=== PATIENT | male | born 1955 | race Caucasian/White ===

== ENCOUNTER 2016-11-06 04:32 | Emergency (ER) | payer OTHER ==
[2016-11-06 04:50] VITALS: TEMP 98; BMI 33.4
[2016-11-06] MEDS ORDERED: ONDANSETRON 4 MG/2 ML VIAL IVPUSH ONE (05:00)
[2016-11-06] MEDS ORDERED: SODIUM CHLORIDE 1,000 ML IV STA (05:00)
[2016-11-06] MEDS ORDERED: ACYCLOVIR 400 MG TABLET PO ONE (05:00)
[2016-11-06] MEDS ORDERED: morphine CARPU-JECT 4 MG/1 ML DISP.SYRIN IVPUSH ONE (05:00)
--- NOTE | 2016-11-06 05:02 | PDOC ---
History of Present Illness - General Chief Complaint: Pain, Acute Stated Complaint: LEG PAIN Time Seen by Provider: 11/06/16 04:46 History Source: Patient Exam Limitations: No Limitations - History of Present Illness Initial Comments: 11/06/16 05:48 61yo Male patient w/ PmHx: Low T, B12 def, HTN, IDDM presents to ED via EMS c/o right buttocks pain, right leg pain. Patient states he was given B12 injection 1 month ago to right gluteal. He states 7 days ago developing increasing right gluteal, right leg pain. Patient state he was seen by PCP Sanju and given Rx for L-S spine X-ray, but could not take the pain anymore. Patient also reports lower abdominal pain w/ n/v/d which also began yesterday. He denies any other complaints at this time. Timing/Duration: 1 week Severity: moderate Modifying Factors: worse with: cold therapy, eating, immobilization, medication , movement, rest, other Associated Symptoms: reports: nausea/vomiting. denies: denies symptoms, chest pain, cough, diaphoresis, fever/chills, headaches, loss of appetite, malaise, rash, seizure, shortness of breath, syncope, weakness, other Past History - Travel Traveled outside of the country in the last 30 days: No Close contact w/someone who was outside of country & ill: No - Past Medical History Allergies/Adverse Reactions: Allergies Allergy/AdvReac Type Severity Reaction Status Date / Time No Known Allergies Allergy Verified 11/06/16 04:46 Home Medications: Ambulatory Orders Lantus Insulin 25 units SCJ ACBK 05/22/11 Pv Daily Multiple Tablet 1 tab PO DAILY 05/22/11 Saline Nasal [place] 1 spray AD BID 05/22/11 Simvastatin [Zocor] 20 mg PO HS 05/22/11 Vasotec 10 MG 5 mg PO DAILY 05/22/11 Anemia: No Asthma: No Cancer: No Cardiac Disorders: No CVA: No COPD: No CHF: No Dementia: No Diabetes: Yes GI Disorders: No Disorders: No HTN: Yes Hypercholesterolemia: Yes Liver Disease: No Seizures: No Thyroid Disease: No - Surgical History Abdominal Surgery: No Appendectomy: No Cardiac Surgery: No Cholecystectomy: No Lung Surgery: No Neurologic Surgery: No Orthopedic Surgery: No - Psycho/Social/Smoking Cessation Hx Suicidal Ideation: No Smoking History: Never smoked Have you smoked in the past 12 months: No Information on smoking cessation initiated: No Hx Alcohol Use: No Drug/Substance Use Hx: No Review of Systems - Review of Systems Able to Perform ROS?: Yes Is the patient limited [place] proficient: No Constitutional: No: Chills, Fever Respiratory: No: Cough, Shortness of Breath, Stridor, Wheezing Cardiac (ROS): No: Chest Pain, Lightheadedness, Palpitations, Syncope, Chest Tightness ABD/GI: Yes: Nausea, Vomiting, Abdominal cramping (Lower Abdomen.). No: Constipated, Diarrhea, Poor Appetite, Poor Fluid Intake Integumentary: Yes: Rash (Right Gluteal and Right groin) All Other Systems: Reviewed and Negative *Physical Exam - Vital Signs Last Vital Signs Temp Pulse Resp BP Pulse Ox 98.0 F 77 14 169/78 98 11/06/16 04:46 11/06/16 04:46 11/06/16 04:46 11/06/16 04:46 11/06/16 04:46 - Physical Exam General Appearance: Yes: Nourished, Appropriately Dressed, Moderate Distress. No: Apparent Distress, Mild Distress, Severe Distress Neck: positive: Trachea midline, Supple. negative: Stridor, Lymphadenopathy (R) , Lymphadenopathy (L) Respiratory/Chest: positive: Lungs Clear, Normal Breath Sounds. negative: Chest Tender, Respiratory Distress, Accessory Muscle Use, Labored Respiration, Rapid RR Cardiovascular: positive: Regular Rhythm, Regular Rate Gastrointestinal/Abdominal: positive: Normal Bowel Sounds, Tender, Soft, Distended, Tenderness (Lower Abdomen). negative: Guarding, Rebound Musculoskeletal: positive: Normal Inspection. negative: CVA Tenderness, Vertebral Tenderness Extremity: positive: Normal Capillary Refill, Normal Inspection, Normal Range of Motion. negative: Pedal Edema, Swelling, Calf Tenderness, Erythema, Inflammation Integumentary: positive: Normal Color, Dry, Warm, Erythema, Rash (Vesicular rash to right buttocks, right groin and right thigh. Severe erythema.). 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
[2016-11-06] MEDS ORDERED: morphine CARPU-JECT 4 MG/1 ML DISP.SYRIN ONE (05:17)
[2016-11-06] MEDS ORDERED: ONDANSETRON 4 MG/2 ML VIAL ONE (05:17)
[2016-11-06] MEDS ORDERED: ACYCLOVIR 200 MG CAPSULE ONE (05:17)
[2016-11-06 05:50] LABS: BASOPHIL 0.5 % (0-2.0); EOSINOPHIL 1.2 % (0-4.5); MCH 29.6 pg (25.7-33.7); MCHC 32.8 g/dl (32.0-35.9); MEAN CELL VOLUME 90.3 fl (80-96); MEAN PLT VOLUME 9.8 fl (7.5-11.1); NEUTROPHILS 71.5 % (42.8-82.8); PLATELET COUNT 132 K/MM3 (134-434); RDW 13.8 % (11.9-15.9); WHITE BLOOD COUNT 5.9 K/mm3 (4.0-10.0)
[2016-11-06 06:12] LABS: ALBUMIN 3.7 g/dl (3.4-5.0); ALK PHOS 63 U/L (45-117); ANION GAP 4 (8-16); BILIRUBIN,TOTAL 0.6 mg/dL (0.2-1.0); CALCIUM 8.1 mg/dL (8.5-10.1); CO2 29 mmol/L (21-32); CREATININE 2.3 mg/dL (0.7-1.3); GLUCOSE,RANDOM 230 mg/dL (74-106); SGOT/AST 18 U/L (15-37); SGPT/ALT 23 U/L (12-78); TOT PROT 7.3 g/dl (6.4-8.2)
[2016-11-06 07:16] LABS: ACETONE SERUM NEGATIVE (NEGATIVE)
--- NOTE | 2016-11-06 07:23 | PDOC ---
*Physical Exam - Vital Signs Last Vital Signs Temp Pulse Resp BP Pulse Ox 98.0 F 77 14 169/78 98 11/06/16 04:46 11/06/16 04:46 11/06/16 04:46 11/06/16 04:46 11/06/16 04:46 ED Treatment Course - LABORATORY CBC & Chemistry Diagram: 11/06/16 05:42 11/06/16 05:42 - ADDITIONAL ORDERS Additional order review: Laboratory Results 11/06/16 05:42 Sodium 142 Potassium 4.6 Chloride 109 H Carbon Dioxide 29 Anion Gap 4 L BUN 25 H Creatinine 2.3 H D Creat Clearance w eGFR 28.86 Random Glucose 230 H D Calcium 8.1 L Total Bilirubin 0.6 D AST 18 ALT 23 Alkaline Phosphatase 63 Creatine Kinase 256 D Creatine Kinase Index 2.9 CK-MB (CK-2) 7.321 H Total Protein 7.3 Albumin 3.7 Acetone, Qual Negative 11/06/16 05:42 RBC 4.49 MCV 90.3 MCHC 32.8 RDW 13.8 MPV 9.8 D Neutrophils % 71.5 Lymphocytes % 12.8 D Monocytes % 14.0 H Eosinophils % 1.2 Basophils % 0.5 - Medications Given in the ED: ED Medications Discontinued Medications Generic Name Dose Route Start Last Admin Trade Name Freq PRN Reason Stop Dose Admin Acyclovir 800 mg 11/06/16 05:00 11/06/16 05:15 Zovirax - PO 11/06/16 05:01 800 mg ONCE ONE Administration Sodium Chloride 1,000 mls @ 1,000 mls/hr 11/06/16 05:00 11/06/16 05:15 Normal Saline - IV 11/06/16 05:59 1,000 mls/hr ASDIR STA Administration Morphine Sulfate 4 mg 11/06/16 05:00 11/06/16 05:15 Morphine Injection - IVPUSH 11/06/16 05:01 4 mg ONCE ONE Administration Ondansetron HCl 4 mg 11/06/16 05:00 11/06/16 05:15 Zofran Injection IVPUSH 11/06/16 05:01 4 mg ONCE ONE Administration Medical Decision Making - Medical Decision Making 11/06/16 07:20 Patient received in sign out from TAMERA Escoto. Patient awaiting CT secondary to GI complaints. Patient found to have shingles and will be treated with acyclovir and discharged home if CT is negative. Patient states feeling much better presently. 11/06/16 09:38 CT shows bilateral perinephric stranding appears more prominent than the prior exam from 04/10/2016. Pyelonephritis is not excluded. No stones or hydronephrosis noted. The urinary bladder is distended lobulated possibly indicating early neurogenic changes. Prostate gland is normal. There is no free fluid identified. There is no significant pelvic lymphadenopathy. Although patient has no urinary complaints I will send a urinalysis / urine culture. If - , patient will be sent home with acyclovir and Percocet. 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 Otherwise follow-up with your doctor next week
[2016-11-06] MEDS ORDERED: OXYCODONE/APAP 5/325MG COMBO TABLET PO ONE (09:35)
[2016-11-06] MEDS ORDERED: OXYCODONE/APAP 5/325MG COMBO TABLET ONE (10:27)
[2016-11-06 10:33] LABS: URINE APPEARANCE CLEAR; URINE BILIRUBIN NEGATIVE (NEGATIVE); URINE COLOR LTYELLOW; URINE GLUCOSE (UA) 3+ (NEGATIVE); URINE KETONE NEGATIVE (NEGATIVE); URINE LEUK ESTERASE NEGATIVE (NEGATIVE); URINE NITRITE NEGATIVE (NEGATIVE); URINE UROBILINOGEN NEGATIVE E.U./dl (0.2-1.0)
[2016-11-06 10:38] LABS: URINE BLOOD 1+ (NEGATIVE); URINE PROTEIN 3+ (NEGATIVE)
[2016-11-06 10:43] LABS: URINE RBC 4 /hpf (0-3); URINE WBC <1 /hpf (3-5)
[2016-11-06 11:43] VITALS: BP 162/68; PULSE 61
== END 2016-11-06 11:44 | disposition home or self-care (01) ==
LOC: JER 04:32
PROC: 3E033NZ Introduction of Analgesics, Hypnotics, Sedatives into Peripheral Vein, Percutaneous Approach (ICD-10-PCS; principal; 2016-11-06)
PROC: 3E033GC Introduction of Other Therapeutic Substance into Peripheral Vein, Percutaneous Approach (ICD-10-PCS; 2016-11-06)
PROC: 3E0337Z Introduction of Electrolytic and Water Balance Substance into Peripheral Vein, Percutaneous Approach (ICD-10-PCS; 2016-11-06)
DX: B02.23 Postherpetic polyneuropathy (principal); E11.9 Type 2 diabetes mellitus without complications; I10 Essential (primary) hypertension; E53.8 Deficiency of other specified B group vitamins; Z79.4 Long term (current) use of insulin; E78.00 Pure hypercholesterolemia, unspecified
CPT/HCPCS: 36415; 74176-TC; 80053; 81003; 81015; 82009; 82550; 82553; 85025; 87086; 96361; 96374; 96375; 99282-25

== ENCOUNTER 2019-06-01 10:42 | Inpatient (IN) | payer OTHER ==
[2019-06-01 12:00] LABS: BASO % 0.2 % (0-2.0); EOS % 0.4 % (0-4.5); HEMOGLOBIN 9.1 GM/dL (11.7-16.9); LYMPH % 5.3 % (8-40); MCH 29.4 pg (25.7-33.7); MCHC 32.5 g/dl (32.0-35.9); MEAN CELL VOLUME 90.6 fl (80-96); MEAN PLT VOLUME 9.7 fl (7.5-11.1); MONO % 11.8 % (3.8-10.2); NEUT % 82.3 % (42.8-82.8); PLATELET COUNT 141 K/MM3 (134-434); RBC 3.09 M/mm3 (4.00-5.60); RDW 13.4 % (11.9-15.9); WHITE BLOOD COUNT 13.5 K/mm3 (4.0-10.0)
--- NOTE | 2019-06-01 12:11 | PDOC ---
History of Present Illness - General Chief Complaint: Pain Stated Complaint: RIGHT FOOT PAIN Time Seen by Provider: 06/01/19 11:07 History Source: Patient Exam Limitations: No Limitations - History of Present Illness Initial Comments: Harpreet Ruggiero is a 64 yo M w a hx of IDDM, HTN, CHF, LLE partial foot amputation, venous insufficiency, and diabetic neuropathy who presents to the [facility] er with 3 weeks of worsening right foot pain, erythema, swelling, and weakness. The patient saw his economic specialist on May 25 but he states his pain and symptoms have slowly worsened. Now he has generalized body aches, fevers, chills , diffuse weakness, and feels all wrong. He has had problems with his left foot in the past which required digit amputation. PCP: Diomedes Bills PSH: Left foot partial amputation Social Hx: Denies current smoking, drinking, or other substance abuse Allergies: NKA, NKDA Past History - Past Medical History Allergies/Adverse Reactions: Allergies Allergy/AdvReac Type Severity Reaction Status Date / Time No Known Allergies Allergy Verified 06/01/19 11:06 Home Medications: Ambulatory Orders Unobtainable 06/01/19 Anemia: No Asthma: No Cancer: No Cardiac Disorders: No CVA: No COPD: No CHF: No Dementia: No Diabetes: Yes GI Disorders: No Disorders: No HTN: Yes Hypercholesterolemia: Yes Liver Disease: No Seizures: No Thyroid Disease: No - Surgical History Abdominal Surgery: No Appendectomy: No Cardiac Surgery: No Cholecystectomy: No Lung Surgery: No Neurologic Surgery: No Orthopedic Surgery: No - Psycho Social/Smoking Cessation Hx Smoking History: Unknown if ever smoked Have you smoked in the past 12 months: No Information on smoking cessation initiated: No Hx Alcohol Use: No Drug/Substance Use Hx: No Review of Systems - Review of Systems Able to Perform ROS?: Yes Comments:: CONSTITUTIONAL: Present: fevers, chills, fatigue EYES: Absent: visual changes ENT: Absent: ear pain, no sore throat CARDIOVASCULAR: Absent: chest pain, no palpitations RESPIRATORY: Absent: cough, no SOB GI: Absent: abdominal pain, no nausea, no vomiting, no constipation, no diarrhea GENITOURINARY: Absent: dysuria, no frequency, no hematuria MUSKULOSKELETAL: Present: Arthralgia Absent: back pain, no myalgia SKIN: Present: rash NEURO: Absent: headache *Physical Exam - Vital Signs Last Vital Signs Temp Pulse Resp BP Pulse Ox 99.4 F 70 16 170/75 100 06/01/19 11:27 06/01/19 10:54 06/01/19 10:54 06/01/19 10:54 06/01/19 10:54 - Physical Exam GENERAL: Well-appearing, well-nourished. Mild distress. HEENT: Normocephalic, atraumatic. PERRL, EOM intact. CARDIOVASCULAR: Tachycardic rate. Normal S1, S2. Regular rhythm. PULMONARY: No evidence of respiratory distress. Lungs clear to auscultation bilaterally. No wheezing, rales or rhonchi. ABDOMEN: Soft, non-distended, non-tender. EXTREMITIES: Normal ROM in all four extremities. left forefoot amputation. SKIN: The right lower leg is erythematous, edematous, swollen, and TTP. NEUROLOGICAL: No focal neurological deficits. ED Treatment Course - LABORATORY CBC & Chemistry Diagram: 06/01/19 11:15 06/01/19 11:15 - ADDITIONAL ORDERS Additional order review: 06/01/19 11:15 RBC 3.09 L MCV 90.6 MCHC 32.5 RDW 13.4 MPV 9.7 Neutrophils % 82.3 Lymphocytes % 5.3 L D Monocytes % 11.8 H Eosinophils % 0.4 Basophils % 0.2 - RADIOLOGY Radiology Studies Ordered: Category Date Time Status CHEST X-RAY PORTABLE* [RAD] Stat Radiology 06/01/19 11:24 Completed Medical Decision Making - Medical Decision Making Harpreet Ruggiero is a 64 yo M w a hx of IDDM, HTN, CHF, LLE partial foot amputation, venous insufficiency, and diabetic neuropathy who presents to the [facility] er with 3 weeks of worsening right foot pain, erythema, swelling, and weakness. The patient saw his economic specialist on May 25 but he states his pain and symptoms have slowly worsened. Now he has generalized body aches, fevers, chills , diffuse weakness, and feels all wrong. He has had problems with his left foot in the past which required digit amputation. Vital Signs Temp Pulse Resp BP Pulse Ox 99.4 F 70 16 170/75 100 06/01/19 11:27 06/01/19 10:54 06/01/19 10:54 06/01/19 10:54 06/01/19 10:54 DDx IBNLT: Sepsis from cellulitis vs osteomyletis vs other soft tissue infection - 1+ pulses - will obtain Duplex veno and arteriogram Plan: Sepsis workup, Abx - Vanc/Zosyn, admit to med/surg Labs: Renal failure - Consulting Dr. Temple Disposition: Med/surg - Paging Lucie Warren for hospital admission - Could not get in touch with alex/renata/reyna so admitted patient to hospitalist Discharge - Discharge Information Problems reviewed: Yes Clinical Impression/Diagnosis: Sepsis Qualifiers: Sepsis type: sepsis due to unspecified organism Sepsis acute organ dysfunction status: unspecified Qualified Code(s): A41.9 - Sepsis, unspecified organism Cellulitis Qualifiers: Site of cellulitis: extremity Site of cellulitis of extremity: lower extremity Laterality: right Qualified Code(s): L03.115 - Cellulitis of right lower limb Renal failure Qualifiers: Renal failure chronicity: unspecified chronicity Qualified Code(s): N19 - Unspecified kidney failure Condition: Stable - Admission Yes - Follow up/Referral - Patient Discharge Instructions - Post Discharge Activity
[2019-06-01] MEDS ORDERED: PIPERACILLIN/TAZOB 4.5 GM 4.5 GM in DEXTROSE 5%-WATER 100 ML IVPB ONE (12:21)
[2019-06-01] MEDS ORDERED: VANCOMYCIN 1,000 MG in DEXTROSE 5%-WATER - 250 ML IVPB ONE (12:21)
[2019-06-01] MEDS ORDERED: ACETAMINOPHEN 1000 MG/100 ML VIAL (NON FORMULARY) IVPB ONE (12:24)
[2019-06-01] MEDS ORDERED: SODIUM CHLORIDE 0.9% 500 ML INFUS.BAG IV ONE (12:25)
[2019-06-01] MEDS ORDERED: PIPERACILLIN/TAZOB 4.5 GM 4.5 GM/100 ML BAG IVPB ONE (12:26)
[2019-06-01] MEDS ORDERED: VANCOMYCIN 1 GRAM (PRE-DOCKED) 1,000 MG/250 ML BAG IVPB ONE (12:27)
[2019-06-01 12:31] LABS: ALBUMIN 2.5 g/dl (3.4-5.0); BILIRUBIN,TOTAL 0.6 mg/dL (0.2-1); CALCIUM 7.9 mg/dL (8.5-10.1); CREATININE 5.4 mg/dL (0.55-1.3); INR 1.22 (0.83-1.09); POTASSIUM 4.7 mmol/L (3.5-5.1); PROTHROMBIN TIME (PATIENT) 14.4 SEC (9.7-13.0); TOT PROT 6.8 g/dl (6.4-8.2)
[2019-06-01 12:34] LABS: ACTIVATED PTT 33.7 SECONDS (25.2-36.5)
[2019-06-01] MEDS ORDERED: ACETAMINOPHEN INJECTION 100 ML IVPB ONE (12:34)
[2019-06-01 14:17] LABS: EPI CELLS 1.7 /HPF (0-5/HPF); HYALINE CASTS 7 /lpf (0-8); URINE APPEARANCE CLEAR; URINE BACTERIA 0.7 /hpf (NEGATIVE); URINE BILIRUBIN NEGATIVE (NEGATIVE); URINE COLOR YELLOW; URINE GLUCOSE (UA) 1+ (NEGATIVE); URINE KETONE NEGATIVE (NEGATIVE); URINE LEUK ESTERASE NEGATIVE (NEGATIVE); URINE NITRITE NEGATIVE (NEGATIVE); URINE PROTEIN 3+ (NEGATIVE); URINE RBC 5 /hpf (0-4); URINE UROBILINOGEN 0.2 mg/dL (0.2-1.0); URINE WBC 1 /hpf (0-5)
--- NOTE | 2019-06-01 14:37 | PDOC ---
Attending Attestation - Resident Resident Name: Arias Green - ED Attending Attestation I have performed the following: I have examined & evaluated the patient, The case was reviewed & discussed with the resident, I agree w/resident's findings & plan - HPI HPI: 06/01/19 14:34 64-year-old male diabetic with peripheral vascular disease and history of left midfoot amputation presents now with progressive swelling and pain and redness to his right lower extremity over the last 3 weeks, began in the foot and was seen by podiatry and started on clindamycin but with minimal improvement, now presents with progressive swelling and pain from the right foot to his right knee with associated body aches and fevers and chills. - Physicial Exam PE: 06/01/19 14:34 Febrile, no tachycardia, blood pressure within normal limits Alert seated comfortably in stretcher speaking full sentences in no acute distress Heart is regular, lungs are clear Abdomen benign Right lower extremity: There is induration and fluctuance of the sole of the right foot with circumferential cellulitis extending to the right knee, palpable distal pulse, no focal joint effusion and preserved range of motion of the joints - Critical Care Time Total Critical Care Time: 50 Critical Care Statement: The care of this patient involved high complexity decision making to prevent further life threatening deterioration of the patient 's condition and/or to evaluate & treat vital organ system(s) failure or risk of failure. - Medical Decision Making 06/01/19 14:35 Secondary to right lower extremity cellulitis and infected right foot wound. Sepsis protocol initiated Broad-spectrum antibiotics coverage Labs, right foot x-ray Admission, will need wound consult Heart Score/ECG Review #1 ECG reviewed & interpreted by me at: 11:34 General ECG Interpretation: Sinus Rhythm, Normal Rate (65), Normal Intervals ( qtc 434), No acute ischemic changes (anteroseptal Q waves) Compared to previous ECG there are: Previous ECG unavail
--- NOTE | 2019-06-01 15:19 | EKG ---
Test Reason : Blood Pressure : / mmHG Vent. Rate : 065 BPM Atrial Rate : 065 BPM P-R Int : 340 ms QRS Dur : 086 ms QT Int : 418 ms P-R-T Axes : 076 -37 033 degrees QTc Int : 434 ms SINUS RHYTHM WITH 1ST DEGREE A-V BLOCK LEFT AXIS DEVIATION ANTEROSEPTAL INFARCT (CITED ON OR BEFORE 07-MAR-2011) ABNORMAL ECG WHEN COMPARED WITH ECG OF 04-APR-2011 12:33, PA INTERVAL HAS INCREASED Confirmed by PANKAJ ASTUDILLO MD ([id number]) on 06/01/2019 3:18:55 PM Referred By: Confirmed By:PANKAJ ASTUDILLO MD
--- NOTE | 2019-06-01 17:12 | CONSULT ---
Consult Consult Specialty:: Nephrology Reason for Consultation:: [place] - History of Present Illness Chief Complaint: right foot pain and erythema History of Present Illness: Pt is a 64 year old male with pmhx of DM, htn, chf, ckd, left foot part amputation, and venous insufficiency who presents to the ER with right pain and erythema. He was found to have elevated forms examiner. He denies history of ckd however he has had abnormal labs on previous visits. He denies shortness of breath. He denies chest pain. He complains of aches and pains. He does have chills. - History Source History Provided By: Patient, Medical Record - Past Medical History Cardio/Vascular: Yes: CHF, HTN Renal/: Yes: Renal Inusuff Endocrine: Yes: Diabetes Mellitus - Past Surgical History Past Surgical History: Yes: Amputation - Alcohol/Substance Use Hx Alcohol Use: No - Smoking History Smoking history: Unknown if ever smoked Have you smoked in the past 12 months: No Home Medications - Allergies Allergies/Adverse Reactions: Allergies Allergy/AdvReac Type Severity Reaction Status Date / Time No Known Allergies Allergy Verified 06/01/19 11:06 - Home Medications Home Medications: Ambulatory Orders Unobtainable 06/01/19 Family Medical History Family History: Denies Review of Systems - Review of Systems Constitutional: reports: Chills, Malaise Eyes: reports: No Symptoms HENT: reports: No Symptoms Neck: reports: No Symptoms Cardiovascular: reports: No Symptoms Respiratory: reports: No Symptoms Gastrointestinal: reports: No Symptoms Genitourinary: reports: No Symptoms Musculoskeletal: reports: Other (right leg pain) Integumentary: reports: Erythema Neurological: reports: No Symptoms Endocrine: reports: No Symptoms Hematology/Lymphatic: reports: No Symptoms Physical Exam Vital Signs: Vital Signs Temperature 99.4 F 06/01/19 11:27 Pulse Rate 70 06/01/19 10:54 Respiratory Rate 16 06/01/19 10:54 Blood Pressure 170/75 06/01/19 10:54 O2 Sat by Pulse Oximetry (%) 100 06/01/19 10:54 Constitutional: Yes: Calm Eyes: Yes: Conjunctiva Clear HENT: Yes: Atraumatic Cardiovascular: Yes: S1, S2 Respiratory: Yes: CTA Bilaterally Gastrointestinal: Yes: Soft Renal/: Yes: WNL Extremities: Yes: Other (right leg erythema and pain) Integumentary: Yes: Erythema Neurological: Yes: Oriented Labs: CBC, BMP 06/01/19 11:15 06/01/19 11:15 Laboratory Tests 11/23/11 01/09/16 01/15/19 10:30 09:19 09:56 WBC Hgb Sodium Potassium BUN Creatinine 1.4 H 1.8 H D 3.3 H Urine Protein Urine Blood 02/23/19 06/01/19 06/01/19 10:17 11:15 11:15 WBC 13.5 H Hgb 9.1 L Sodium 137 Potassium 4.7 BUN 89.0 H Creatinine 3.8 H 5.4 H Urine Protein Urine Blood 06/01/19 13:57 WBC Hgb Sodium Potassium BUN Creatinine Urine Protein 3+ H Urine Blood 1+ H Problem List - Problems (1) Cellulitis Code(s): L03.90 - CELLULITIS, UNSPECIFIED Qualifiers: Site of cellulitis: extremity Site of cellulitis of extremity: lower extremity Laterality: right Qualified Code(s): L03.115 - Cellulitis of right lower limb (2) Renal failure Code(s): N19 - UNSPECIFIED KIDNEY FAILURE Qualifiers: Renal failure chronicity: unspecified chronicity Qualified Code(s): N19 - Unspecified kidney failure (3) Sepsis Code(s): A41.9 - SEPSIS, UNSPECIFIED ORGANISM Qualifiers: Sepsis type: sepsis due to unspecified organism Sepsis acute organ dysfunction status: unspecified Qualified Code(s): A41.9 - Sepsis, unspecified organism Assessment/Plan Impression 1. [place] 2. ckd 3. dm 4. cellulitis 5. pvd 6. htn Plan - check renal ultrasound - cont abx - check ua, forms examiner and lytes to calc fena - repeat labs in am - vascular eval - avoid nsaids
--- NOTE | 2019-06-01 18:22 | HP ---
CHIEF COMPLAINT: right leg pain, redness PCP: Sanju May HISTORY OF PRESENT ILLNESS: Patient is a 64 year old male with a significant past medical history of peripheral vascular disease, hypertension, hyperlipidemia, diabetes, CHF, left midfoot amputation. He comes to [facility] today after his aide noticed that his right lower extremity with increased swelling, redness and pain. Pain and swelling began three weeks ago but was mild. Patient saw his cane burner on May 25 and was started on clindamycin, but his pain, redness and symptoms slowly worsened despite the antibiotics. The redness was limited to his right foot and now has extended to the right knee. He reports fevers, chills and body aches. In the ED he was febrile, having right leg discomfort pain 7/10, unable to move this extremity and very tender to touch. Patient also noted to have acute renal failure on labs and renal consulted. ER course was notable for: (1) wbc 13.5 (2) hmg/hct 9.1/28 (3) bun/creat 29, 5.3 (4) blood and urine cultures pending (5) foot xray, right: no gross soft tissue or air (6) vascular u/s negative for dvt Recent Travel: denies PAST MEDICAL/SURGICAL HISTORY: peripheral vascular disease, hypertension, hyperlipidemia, diabetes, CHF, left midfoot amputation. Social History: Smoking: denies Alcohol:denies Drugs: denies Allergies No Known Allergies Allergy (Verified 06/01/19 11:06) HOME MEDICATIONS: patient states he takes coreq 25mg bid, lasix daily (dose?), on home insulin twice daily based on bgms. also on atorvastatin daily (dose?). will need home medications verified. Home Medications Medication Instructions Recorded Unobtainable 06/01/19 PHYSICAL EXAMINATION Vital Signs - 24 hr 06/01/19 06/01/19 10:54 11:27 Temperature 100.4 F H 99.4 F Pulse Rate 70 Respiratory 16 Rate Blood Pressure 170/75 O2 Sat by Pulse 100 Oximetry (%) GENERAL: Awake, alert, and fully oriented, in no acute distress. verbalizing pain and discomfort of right leg. HEAD: Normal with no signs of trauma. EYES: Pupils equal, round and reactive to light, extraocular movements intact, sclera anicteric, conjunctiva clear. No lid lag. EARS, NOSE, THROAT: Ears normal, nares patent, oropharynx clear without exudates. Moist mucous membranes. NECK: Normal range of motion, supple without lymphadenopathy, JVD, or masses. LUNGS: Breath sounds equal, clear to auscultation bilaterally. No wheezes HEART: Regular rate and rhythm, ABDOMEN: Soft, nontender, not distended, normoactive bowel sounds, no guarding UPPER EXTREMITIES: No peripheral edema. LOWER EXTREMITIES: left foot, partial amputation, well healed. right foot 2nd and 3rd toe with some discoloration between these toes, on planter aspect of foot, dicoloration near 2nd and 3rd toe, toes with mild edema and pain to touch / tender. redness extends from right foot to below the right knee. extremity feels hot with +3 edema. NEUROLOGICAL: Normal speech PSYCHIATRIC: Cooperative. Good eye contact. Appropriate mood and affect Laboratory Results - last 24 hr 06/01/19 06/01/19 06/01/19 11:15 11:15 11:15 WBC 13.5 H RBC 3.09 L Hgb 9.1 L Hct 28.0 L D MCV 90.6 MCH 29.4 MCHC 32.5 RDW 13.4 Plt Count 141 MPV 9.7 Absolute Neuts (auto) 11.1 H Neutrophils % 82.3 Lymphocytes % 5.3 L D Monocytes % 11.8 H Eosinophils % 0.4 Basophils % 0.2 Nucleated RBC % 0 PT with INR 14.40 H INR 1.22 H PTT (Actin FS) 33.7 Sodium Potassium Chloride Carbon Dioxide Anion Gap BUN Creatinine Est GFR (CKD-EPI)AfAm Est GFR (CKD-EPI)NonAf Random Glucose Lactic Acid Calcium Total Bilirubin AST ALT Alkaline Phosphatase Creatine Kinase 198 Creatine Kinase Index 2.5 CK-MB (CK-2) 5.0 H Troponin I < 0.02 Total Protein Albumin Urine Color Urine Appearance Urine pH Ur Specific Hobson Urine Protein Urine Glucose (UA) Urine Ketones Urine Blood Urine Nitrite Urine Bilirubin Urine Urobilinogen Ur Leukocyte Esterase Urine WBC (Auto) Urine RBC (Auto) Urine Casts (Auto) U Epithel Cells (Auto) Urine Bacteria (Auto) 06/01/19 06/01/19 06/01/19 11:15 11:15 13:57 WBC RBC Hgb Hct MCV MCH MCHC RDW Plt Count MPV Absolute Neuts (auto) Neutrophils % Lymphocytes % Monocytes % Eosinophils % Basophils % Nucleated RBC % PT with INR INR PTT (Actin FS) Sodium 137 Potassium 4.7 Chloride 107 Carbon Dioxide 21 Anion Gap 9 BUN 89.0 H Creatinine 5.4 H Est GFR (CKD-EPI)AfAm 11.78 Est GFR (CKD-EPI)NonAf 10.16 Random Glucose 273 H Lactic Acid 1.0 Calcium 7.9 L Total Bilirubin 0.6 AST 27 ALT 39 Alkaline Phosphatase 232 H Creatine Kinase Creatine Kinase Index CK-MB (CK-2) Troponin I Total Protein 6.8 Albumin 2.5 L Urine Color Yellow Urine Appearance Clear Urine pH 5.0 Ur Specific Hobson 1.016 Urine Protein 3+ H Urine Glucose (UA) 1+ H Urine Ketones Negative Urine Blood 1+ H Urine Nitrite Negative Urine Bilirubin Negative Urine Urobilinogen 0.2 Ur Leukocyte Esterase Negative Urine WBC (Auto) 1 Urine RBC (Auto) 5 Urine Casts (Auto) 7 U Epithel Cells (Auto) 1.7 Urine Bacteria (Auto) 0.7 ASSESSMENT/PLAN: Problem List - Problem (1) Cellulitis Assessment/Plan: right foot cellulitis, given zosyn in the ED ID consulted for further recommendations elevated lower ext above heart level as tolerated pain management prn consider vascular consult may need mri imaging to rule out osteomyelitis Code(s): L03.90 - CELLULITIS, UNSPECIFIED Qualifiers: Site of cellulitis: extremity Site of cellulitis of extremity: lower extremity Laterality: right Qualified Code(s): L03.115 - Cellulitis of right lower limb (2) Sepsis Assessment/Plan: presents with fevers, pain, tachycardia. noted to have edema of right lower extremity. given zosyn in the Ed will continue zosyn renally dosed tylenol for fevers blood and urine cultures pending lactic acid within normal limits Code(s): A41.9 - SEPSIS, UNSPECIFIED ORGANISM Qualifiers: Sepsis type: sepsis due to unspecified organism Sepsis acute organ dysfunction status: unspecified Qualified Code(s): A41.9 - Sepsis, unspecified organism (3) Diabetes Assessment/Plan: on Novolog based on bgms hmga1c in a.m. maintain fasting bgms < 180s Code(s): E11.9 - TYPE 2 DIABETES MELLITUS WITHOUT COMPLICATIONS (4) Hypertension Assessment/Plan: monitor bp on coreq 25 mg bid Code(s): I10 - ESSENTIAL (PRIMARY) HYPERTENSION (5) Left foot amputee Assessment/Plan: partial left foot amputation, no signs of infection, well healed Code(s): Z89.432 - ACQUIRED ABSENCE OF LEFT FOOT (6) Renal failure Assessment/Plan: for renal and pelvic ultrasound creatinine 5.4 and has steadily increased since 2012 renal dose medications Code(s): N19 - UNSPECIFIED KIDNEY FAILURE Qualifiers: Renal failure chronicity: unspecified chronicity Qualified Code(s): N19 - Unspecified kidney failure (7) Prophylactic measure Assessment/Plan: fen tolerating po electrolyes daily heparin tid full code Code(s): Z29.9 - ENCOUNTER FOR PROPHYLACTIC MEASURES, UNSPECIFIED (8) DVT prophylaxis Assessment/Plan: heparin tid Code(s): Z29.9 - ENCOUNTER FOR PROPHYLACTIC MEASURES, UNSPECIFIED (9) Anemia Assessment/Plan: iron profile ordered stool for occult blood ordered Code(s): D64.9 - ANEMIA, UNSPECIFIED Visit type - Emergency Visit Emergency Visit: Yes ED Registration Date: 06/01/19 Care time: The patient presented to the Emergency Department on the above date and was hospitalized for further evaluation of their emergent condition. - New Patient This patient is new to me today: Yes Date on this admission: 06/01/19 - Critical Care Critical Care patient: No
[2019-06-01] MEDS ORDERED: oxyCODONE HCL 5 MG TABLET PO PRN (18:27)
[2019-06-01] MEDS ORDERED: PIPERACILLIN/TAZOB 2.25 GM 2.25 GM/50 ML BAG IVPB ONE (19:37)
[2019-06-01] MEDS ORDERED: ACETAMINOPHEN 325 MG TABLET (FP) ONE (20:04)
[2019-06-01] MEDS: ACETAMINOPHEN 325 MG TABLET (FP) PO PRN (20:14)
[2019-06-01] MEDS: PIPERACILLIN/TAZOB 2.25 GM 2.25 GM in DEXTROSE 5%-WATER - 50 ML IVPB SCH (20:20)
[2019-06-01] MEDS: HEPARIN NA (PORCINE) 5,000 UNITS/ML 1ML VIAL SQ SCH (22:25)
[2019-06-01] MEDS: ATORVASTATIN CA 40 MG TABLET (FP) PO SCH (22:30)
[2019-06-01] MEDS: CARVEDILOL 25 MG TABLET (FP) PO SCH (22:30)
[2019-06-01] MEDS ORDERED: CARVEDILOL 12.5 MG TABLET (FP) ONE (23:38)
[2019-06-01] MEDS ORDERED: ATORVASTATIN CA 40 MG TABLET (FP) ONE (23:38)
[2019-06-01] MEDS ORDERED: HEPARIN NA (PORCINE) 5,000 UNITS/ML 1ML VIAL ONE (23:39)
[2019-06-01] MEDS ORDERED: INSULIN (NOVOLOG) ASPART 100 UNITS/ML 10ML VIAL ONE (23:40)
[2019-06-01] MEDS: INSULIN SLIDING SCALE (NOVOLOG) 1 VIAL SQ SCH (23:54)
[2019-06-02] MEDS: PIPERACILLIN/TAZOB 2.25 GM 2.25 GM in DEXTROSE 5%-WATER - 50 ML IVPB SCH (02:00)
[2019-06-02] MEDS ORDERED: PIPERACILLIN/TAZOB 2.25 GM 2.25 GM/50 ML BAG IVPB ONE (02:35)
[2019-06-02] MEDS: HEPARIN NA (PORCINE) 5,000 UNITS/ML 1ML VIAL SQ SCH ×3 (06:11→21:15)
[2019-06-02] MEDS: INSULIN SLIDING SCALE (NOVOLOG) 1 VIAL SQ SCH ×4 (07:16→21:22)
[2019-06-02] MEDS: ACETAMINOPHEN 325 MG TABLET (FP) PO PRN ×2 (07:17→20:35)
[2019-06-02 08:52] LABS: HEMATOCRIT 25.8 % (35.4-49); HEMOGLOBIN 8.4 GM/dL (11.7-16.9); MCH 29.3 pg (25.7-33.7); MCHC 32.6 g/dl (32.0-35.9); MEAN PLT VOLUME 9.4 fl (7.5-11.1); PLATELET COUNT 145 K/MM3 (134-434); RBC 2.86 M/mm3 (4.00-5.60); RDW 13.4 % (11.9-15.9)
[2019-06-02 09:05] LABS: INR 1.26 (0.83-1.09); PROTHROMBIN TIME (PATIENT) 14.9 SEC (9.7-13.0)
[2019-06-02 09:18] LABS: IRON SERUM 10 ug/dL (50-175); TOTAL IRON BINDING CAPACITY 174 ug/dL (250-450)
[2019-06-02 09:28] LABS: ALBUMIN 2.2 g/dl (3.4-5.0); BILIRUBIN,TOTAL 0.6 mg/dL (0.2-1); BLOOD UREA NITROGEN 87.4 mg/dL (7-18); CALCIUM 7.4 mg/dL (8.5-10.1); CREATININE 5.2 mg/dL (0.55-1.3); POTASSIUM 4.4 mmol/L (3.5-5.1); TOT PROT 6.2 g/dl (6.4-8.2)
[2019-06-02] MEDS: CARVEDILOL 25 MG TABLET (FP) PO SCH ×2 (09:51→21:15)
--- NOTE | 2019-06-02 11:49 | CONSULT ---
- Consultation REQUESTING PROVIDER: CONSULT REQUEST: We have been asked to surgically evaluate this patient for evaluation of PVD. PCP: Tram Celestin HISTORY OF PRESENT ILLNESS: Harpreet Ruggiero is a 64 yo M w a hx of IDDM, HTN, CHF, LLE partial foot amputation, venous insufficiency, and diabetic neuropathy who presented to the ED with 3 weeks of worsening right foot pain, erythema, swelling, and weakness. The patient saw his edge roller on May 25 and completed a course of antibiotics but he states his pain and symptoms have slowly worsened over the past week. He now has generalized body aches, fevers, and chills. Of note: Patient had Laser treatment on his legs with Dr Osman in 2017 but has not seen Dr Osman since then. Past History - Past Medical History Allergies/Adverse Reactions: Allergies Allergy/AdvReac Type Severity Reaction Status Date / Time No Known Allergies Allergy Verified 06/01/19 11:06 Active Medications Generic Name Dose Route Start Last Admin Trade Name Freq PRN Reason Stop Dose Admin Acetaminophen 650 mg 06/01/19 18:27 06/02/19 07:17 Tylenol - PO 650 mg Q6H PRN Administration FEVER Atorvastatin Calcium 40 mg 06/01/19 22:00 06/01/19 22:30 Lipitor - PO 40 mg HS [facility] Administration Carvedilol 25 mg 06/01/19 22:00 06/02/19 09:51 Coreg - PO 25 mg BID [facility] Administration Heparin Sodium (Porcine) 5,000 unit 06/01/19 22:00 06/02/19 06:11 Heparin - SQ 5,000 unit TID [facility] Administration Piperacillin Sod/Tazobactam 50 mls @ 100 mls/hr 06/02/19 02:00 Sod 2.25 gm/ Dextrose IVPB Q8H-IV [facility] Protocol Insulin Aspart 1 vial 06/01/19 22:00 06/02/19 07:16 Novolog Vial Sliding Scale - SQ Not Given ACHS [facility] Protocol Oxycodone HCl 5 mg 06/01/19 18:27 06/02/19 09:49 Roxicodone - PO 5 mg Q6H PRN Administration PAIN LEVEL 7 - 10 PMHX Anemia: No Asthma: No Cancer: No Cardiac Disorders: No CVA: No COPD: No CHF: No Dementia: No Diabetes: Yes GI Disorders: No Disorders: No HTN: Yes Hypercholesterolemia: Yes Liver Disease: No Seizures: No Thyroid Disease: No - Surgical History Abdominal Surgery: No Appendectomy: No Cardiac Surgery: No Cholecystectomy: No Lung Surgery: No Neurologic Surgery: No Orthopedic Surgery: Left foot partial amputation - Psycho Social/Smoking Cessation Hx Smoking History: Unknown if ever smoked Have you smoked in the past 12 months: No Information on smoking cessation initiated: No Hx Alcohol Use: No Drug/Substance Use Hx: No Review of Systems - Review of Systems Able to Perform ROS?: Yes Comments:: CONSTITUTIONAL: Present: fevers, chills, fatigue EYES: Absent: visual changes ENT: Absent: ear pain, no sore throat CARDIOVASCULAR: Absent: chest pain, no palpitations RESPIRATORY: Absent: cough, no SOB GI: Absent: abdominal pain, no nausea, no vomiting, no constipation, no diarrhea GENITOURINARY: Absent: dysuria, no frequency, no hematuria MUSKULOSKELETAL: Present: Arthralgia Absent: back pain, no myalgia SKIN: Present: rash, erythema/edema right foot NEURO: Absent: headache PHYSICAL EXAM: GENERAL: Awake, alert, and fully oriented, in no acute distress. HEAD: Normal with no signs of trauma. EYES: sclera anicteric, conjunctiva clear. LUNGS: Unlabored resp on RA. No auditory wheezes, and no crackles. No accessory muscle use. MUSCULOSKELETAL: Moving all extremities UPPER EXTREMITIES: 2+ pulses, warm, well-perfused. No peripheral edema. LOWER EXTREMITIES: Right LE with +2 pitting edema and erythema over distal 3rd of LE extending throughout foot/toes, well healed scars throughout . Significant erythema over plantar surface at 2-4 MTP jopints with blanching. + 2 DP and +1 TP, Foot/leg warm, well-perfused. No calf tenderness. Left LE with mild edema throughout no evidence of rashes or open wounds. well healed scars seen. Left foot s/p TMA well healed with +2 DP and PT pulses. B/l LE compartments soft, supple and non-tender to palpation. NEUROLOGICAL: Normal speech, gait not observed. PSYCH: Cooperative. Good eye contact. Appropriate mood and affect. SKIN: Warm, dry, normal turgor, no rashes or lesions noted. Vital Signs Temperature 101.6 F H 06/02/19 07:30 Pulse Rate 70 06/02/19 07:30 Respiratory Rate 18 06/02/19 07:30 Blood Pressure 174/75 H 06/02/19 07:30 O2 Sat by Pulse Oximetry (%) 98 06/02/19 07:30 Lab Results WBC 12.0 K/mm3 (4.0-10.0) H 06/02/19 08:10 RBC 2.86 M/mm3 (4.00-5.60) L 06/02/19 08:10 Hgb 8.4 GM/dL (11.7-16.9) L 06/02/19 08:10 Hct 25.8 % (35.4-49) L 06/02/19 08:10 MCV 90.0 fl (80-96) 06/02/19 08:10 MCHC 32.6 g/dl (32.0-35.9) 06/02/19 08:10 RDW 13.4 % (11.9-15.9) 06/02/19 08:10 Plt Count 145 K/MM3 (134-434) 06/02/19 08:10 Sodium 140 mmol/L (136-145) 06/02/19 06:00 Potassium 4.4 mmol/L (3.5-5.1) 06/02/19 06:00 Chloride 111 mmol/L (98-107) H 06/02/19 06:00 Carbon Dioxide 20 mmol/L (21-32) L 06/02/19 06:00 Anion Gap 8 MMOL/L (8-16) 06/02/19 06:00 BUN 87.4 mg/dL (7-18) H 06/02/19 06:00 Creatinine 5.2 mg/dL (0.55-1.3) H 06/02/19 06:00 Random Glucose 127 mg/dL (74-106) H 06/02/19 06:00 Calcium 7.4 mg/dL (8.5-10.1) L 06/02/19 06:00 INR 1.26 (0.83-1.09) H 06/02/19 08:10 Imaging: Bilateral Arterial Duplex: minimal arthrosclerotic disease biphasic/triphasic flow. B/L Venous doppler: No evidence of DVT Problem List - Problems (1) Cellulitis Assessment/Plan: 64yo male admitted for right LE cellulitis with palpable pulses and no indication for vascular intervention -IV ABX per ID -Elevate right LE -compression stocking once cellulitis resolved -f/u with Dr Osman as outpatient PRN Evaluation and plan discussed with Dr Osman Code(s): L03.90 - CELLULITIS, UNSPECIFIED Qualifiers: Site of cellulitis: extremity Site of cellulitis of extremity: lower extremity Laterality: right Qualified Code(s): L03.115 - Cellulitis of right lower limb
--- NOTE | 2019-06-02 12:23 | PN ---
Progress Note (short form) - Note Progress Note: ID CONSULT DICTATED CELLULITIS R LE R/O SEPSIS SECONDARY TO SKIN SOURCE RENAL FAILURE DM EMPIRIC CEFAZOLIN/ VANCOMYCIN, ADJUSTED FOR RENAL FAILURE
[2019-06-02] MEDS ORDERED: VANCOMYCIN 1 GRAM (PRE-DOCKED) 1,000 MG/250 ML BAG IVPB ONE (12:30)
--- NOTE | 2019-06-02 12:33 | PN ---
Progress Note, Physician Chief Complaint: LLE cellulitis History of Present Illness: NAD erythema improved in LLE Seen by ID On Iv abx - Current Medication List Current Medications: Active Medications Acetaminophen (Tylenol -) 650 mg PO Q6H PRN PRN Reason: FEVER Last Admin: 06/02/19 07:17 Dose: 650 mg Atorvastatin Calcium (Lipitor -) 40 mg PO HS [facility] Last Admin: 06/01/19 22:30 Dose: 40 mg Carvedilol (Coreg -) 25 mg PO BID [facility] Last Admin: 06/02/19 09:51 Dose: 25 mg Ferrous Sulfate (Feosol -) 325 mg PO DAILY [facility] Heparin Sodium (Porcine) (Heparin -) 5,000 unit SQ TID [facility] Last Admin: 06/02/19 06:11 Dose: 5,000 unit Cefazolin Sodium 500 mg/ (Dextrose) 50 mls @ 100 mls/hr IVPB BID [facility] Vancomycin HCl (Vancomycin (Pre-Docked)) 1,000 mg in 250 mls @ 166.667 mls/hr IVPB ONCE ONE; Protocol Stop: 06/02/19 13:59 Insulin Aspart (Novolog Vial Sliding Scale -) 1 vial SQ ACHS [facility]; Protocol Last Admin: 06/02/19 12:13 Dose: 226 units Oxycodone HCl (Roxicodone -) 5 mg PO Q6H PRN PRN Reason: PAIN LEVEL 7 - 10 Last Admin: 06/02/19 09:49 Dose: 5 mg - Objective Vital Signs: Vital Signs Temperature 101.6 F H 06/02/19 07:30 Pulse Rate 70 06/02/19 07:30 Respiratory Rate 18 06/02/19 07:30 Blood Pressure 174/75 H 06/02/19 07:30 O2 Sat by Pulse Oximetry (%) 98 06/02/19 07:30 Constitutional: Yes: Well Nourished, No Distress, Calm Cardiovascular: Yes: Regular Rate and Rhythm Respiratory: Yes: Regular Gastrointestinal: Yes: WNL Genitourinary: Yes: WNL Musculoskeletal: Yes: Other (LLE pain) Extremities: Yes: Erythema (LLE) Edema: No Peripheral Pulses WNL: Yes Neurological: Yes: Alert, Oriented Psychiatric: Yes: Alert, Oriented Labs: CBC, BMP 06/02/19 08:10 06/02/19 06:00 INR, PTT INR 1.26 (0.83-1.09) H 06/02/19 08:10 Problem List - Problems (1) Anemia Assessment/Plan: -Check Stool OB -Check Iron stores -Follow trend Problems reviewed: Yes Code(s): D64.9 - ANEMIA, UNSPECIFIED (2) Cellulitis Assessment/Plan: -ID consult -IV abx -Febrile -Cultures pending -Leukocytosis improved Problems reviewed: Yes Code(s): L03.90 - CELLULITIS, UNSPECIFIED Qualifiers: Site of cellulitis: extremity Site of cellulitis of extremity: lower extremity Laterality: right Qualified Code(s): L03.115 - Cellulitis of right lower limb (3) Acute on chronic renal insufficiency Assessment/Plan: -Nephrology consult -IVF -monitor trend -Renal U/S with chronic medical renal dz- no hydronephrosis -UC pending Problems reviewed: Yes Code(s): N28.9 - DISORDER OF KIDNEY AND URETER, UNSPECIFIED; N18.9 - CHRONIC KIDNEY DISEASE, UNSPECIFIED (4) Diabetes Assessment/Plan: -Check A1c -BGM AC HS -ISS -Diabetic sodium diet Problems reviewed: Yes Code(s): E11.9 - TYPE 2 DIABETES MELLITUS WITHOUT COMPLICATIONS (5) Hypertension Assessment/Plan: -Add amlodipine 5 mg po daily -monitor trend Problems reviewed: Yes Code(s): I10 - ESSENTIAL (PRIMARY) HYPERTENSION Assessment/Plan see problem list
[2019-06-02] MEDS: FERROUS SO4 325 MG TABLET (FP) PO SCH (12:45)
--- NOTE | 2019-06-02 13:20 | CONS ---
INFECTIOUS DISEASE CONSULTATION DATE OF CONSULTATION: DATE OF DICTATION: 06/02/2019 HISTORY: The patient is a 64-year-old diabetic male who was evaluated for cellulitis of the right lower extremity. The patient reports a [id number] of worsening right foot pain. Over the past couple of days, his home health aide noticed increasing erythema, warmth, and tenderness of the right foot and right lower extremity. In addition, the patient complained of subjective fever and chills as well as generalized body ache. He had seen his new home sales consultant on May 25, 2019, and was prescribed clindamycin. Despite the antibiotic therapy, he had worsening of his symptoms. He presented to the emergency room where he was found to have cellulitis of his right lower extremity. He was empirically treated with vancomycin and Zosyn. The patient denies any traumatic injury. He is noted to have a superficial ulcer present over the plantar aspect of the 1st metatarsal head as well as a callous at the base of the toes. He denies any purulent drainage. Denies prior history of serious soft tissue infection or history of MRSA. No recent hospitalizations. [facility]. Review of his lab data from [facility] does not reveal any evidence of multidrug-resistant pathogens. PAST MEDICAL HISTORY: Positive for insulin-dependent diabetes mellitus, peripheral neuropathy, hypertension, congestive heart failure. PAST SURGICAL HISTORY: Status post left transmetatarsal amputation. ALLERGIES: No known allergies. MEDICATIONS: Include vancomycin, Zosyn, Tylenol, Lipitor, Coreg, heparin, insulin. SOCIAL HISTORY: Resides in the community. Nonsmoker. Nondrinker. SYSTEMS REVIEW: Neurologic: No loss of consciousness, seizure activity, focal weakness. Cardiac: Negative chest pain or palpitations. Respiratory: Negative cough or sputum production. Gastrointestinal: Negative for vomiting or diarrhea. Genitourinary: Positive for renal failure. LABORATORY DATA: White count 12.0, hematocrit 25.8, platelets 145, creatinine 5.2. Urinalysis, 1 white cell. X-ray of the foot negative. Doppler exam right lower extremity negative for DVT. Chest x-ray negative. PHYSICAL EXAMINATION: General: He is awake, alert. He is not acutely toxic appearing. Obese. Vital Signs: Temperature 101.6, maximum temperature 101.6, blood pressure 124/56, pulse 65 regular, respirations 18 per minute. HEENT: Sclerae anicteric. Heart: Sounds S1, S2. Lungs: Clear. Abdomen: Soft and nontender. Extremities: Left lower extremity, he is status post left transmetatarsal amputation. Right lower extremity, there is diffuse swelling of the right foot. There is a superficial ulcer present over the plantar aspect of the 1st metatarsal head. There is no purulent drainage. There is a callous at the base of the toes on the plantar aspect of the foot. Swelling extends to the foot as well as the distal right lower extremity. There is erythema and warmth extending from the right foot to the distal right lower extremity. No crepitus, fluctuance, or lymphangitic streaking. IMPRESSION: 1. Cellulitis of the right lower extremity. 2. Fever, leukocytosis, rule out sepsis secondary to skin source. 3. Renal failure. 4. Diabetes mellitus. PLAN: Await cultures. Empiric antibiotic coverage with cefazolin and vancomycin adjusted for renal failure. Elevation. Analgesics. Further recommendations pending cultures. We will follow. Thank you for the kind referral. WES FREEMAN M.D. [id number]
--- NOTE | 2019-06-02 14:23 | PN ---
Progress Note, Physician History of Present Illness: Pt seen and examined at bedside. He is awake and alert. He denies shortness of breath. He says that he feels better today. - Current Medication List Current Medications: Active Medications Acetaminophen (Tylenol -) 650 mg PO Q6H PRN PRN Reason: FEVER Last Admin: 06/02/19 07:17 Dose: 650 mg Atorvastatin Calcium (Lipitor -) 40 mg PO HS [facility] Last Admin: 06/01/19 22:30 Dose: 40 mg Carvedilol (Coreg -) 25 mg PO BID [facility] Last Admin: 06/02/19 09:51 Dose: 25 mg Ferrous Sulfate (Feosol -) 325 mg PO DAILY [facility] Last Admin: 06/02/19 12:45 Dose: 325 mg Heparin Sodium (Porcine) (Heparin -) 5,000 unit SQ TID [facility] Last Admin: 06/02/19 06:11 Dose: 5,000 unit Cefazolin Sodium 500 mg/ (Dextrose) 50 mls @ 100 mls/hr IVPB BID [facility] Insulin Aspart (Novolog Vial Sliding Scale -) 1 vial SQ ACHS [facility]; Protocol Last Admin: 06/02/19 12:13 Dose: 226 units Oxycodone HCl (Roxicodone -) 5 mg PO Q6H PRN PRN Reason: PAIN LEVEL 7 - 10 Last Admin: 06/02/19 09:49 Dose: 5 mg - Objective Vital Signs: Vital Signs Temperature 101.6 F H 06/02/19 07:30 Pulse Rate 70 06/02/19 07:30 Respiratory Rate 18 06/02/19 07:30 Blood Pressure 174/75 H 06/02/19 07:30 O2 Sat by Pulse Oximetry (%) 98 06/02/19 07:30 Constitutional: Yes: Calm Eyes: Yes: Conjunctiva Clear HENT: Yes: Atraumatic Neck: Yes: Supple Cardiovascular: Yes: S1, S2 Respiratory: Yes: CTA Bilaterally Gastrointestinal: Yes: Normal Bowel Sounds, Soft Genitourinary: Yes: WNL Musculoskeletal: Yes: WNL Edema: RLE: Trace Neurological: Yes: Oriented Psychiatric: Yes: Oriented Labs: CBC, BMP 06/02/19 08:10 06/02/19 06:00 INR, PTT INR 1.26 (0.83-1.09) H 06/02/19 08:10 Problem List - Problems (1) Cellulitis Code(s): L03.90 - CELLULITIS, UNSPECIFIED Qualifiers: Site of cellulitis: extremity Site of cellulitis of extremity: lower extremity Laterality: right Qualified Code(s): L03.115 - Cellulitis of right lower limb (2) Renal failure Code(s): N19 - UNSPECIFIED KIDNEY FAILURE Qualifiers: Renal failure chronicity: unspecified chronicity Qualified Code(s): N19 - Unspecified kidney failure (3) Sepsis Code(s): A41.9 - SEPSIS, UNSPECIFIED ORGANISM Qualifiers: Sepsis type: sepsis due to unspecified organism Sepsis acute organ dysfunction status: unspecified Qualified Code(s): A41.9 - Sepsis, unspecified organism Assessment/Plan Current Medications Generic Name Dose Route Start Last Admin Trade Name Freq PRN Reason Stop Dose Admin Acetaminophen 650 mg 06/01/19 18:27 06/02/19 07:17 Tylenol - PO 650 mg Q6H PRN Administration FEVER Atorvastatin Calcium 40 mg 06/01/19 22:00 06/01/19 22:30 Lipitor - PO 40 mg HS [facility] Administration Carvedilol 25 mg 06/01/19 22:00 06/02/19 09:51 Coreg - PO 25 mg BID [facility] Administration Ferrous Sulfate 325 mg 06/02/19 12:45 06/02/19 12:45 Feosol - PO 325 mg DAILY [facility] Administration Heparin Sodium (Porcine) 5,000 unit 06/01/19 22:00 06/02/19 06:11 Heparin - SQ 5,000 unit TID [facility] Administration Cefazolin Sodium 500 mg/ 50 mls @ 100 mls/hr 06/02/19 12:30 Dextrose IVPB BID [facility] Insulin Aspart 1 vial 06/01/19 22:00 06/02/19 12:13 Novolog Vial Sliding Scale - SQ 226 units ACHS [facility] Administration Protocol Oxycodone HCl 5 mg 06/01/19 18:27 06/02/19 09:49 Roxicodone - PO 5 mg Q6H PRN Administration PAIN LEVEL 7 - 10 Impression 1. [place] 2. ckd 3. dm 4. cellulitis 5. pvd 6. htn Plan - renal ultrasound reviewed - start fluids - kosher sealer starting to improve - repeat labs in am - check urine kosher sealer and lytes to calc fena - vascular eval - avoid nsaids
[2019-06-02] MEDS ORDERED: SODIUM CHLORIDE 0.45% 1,000 ML IV SCH (14:30)
[2019-06-02] MEDS ORDERED: PT OWN MED DRAWER 7, Y5N ONE (15:00)
[2019-06-02] MEDS: CEFAZOLIN 500 MG in DEXTROSE 5%-WATER - 50 ML IVPB SCH ×2 (16:32→21:43)
[2019-06-02] MEDS: amLODIPine BESYLATE 5 MG TABLET (FP) PO SCH (18:15)
[2019-06-02] MEDS: ATORVASTATIN CA 40 MG TABLET (FP) PO SCH (21:14)
[2019-06-03] MEDS: HEPARIN NA (PORCINE) 5,000 UNITS/ML 1ML VIAL SQ SCH ×3 (06:09→22:25)
[2019-06-03] MEDS: INSULIN SLIDING SCALE (NOVOLOG) 1 VIAL SQ SCH ×4 (06:09→22:30)
[2019-06-03 09:08] LABS: BASO % 0.3 % (0-2.0); HEMATOCRIT 26.7 % (35.4-49); HEMOGLOBIN 8.9 GM/dL (11.7-16.9); LYMPH % 6.9 % (8-40); MCHC 33.4 g/dl (32.0-35.9); MEAN CELL VOLUME 89.8 fl (80-96); MEAN PLT VOLUME 9.1 fl (7.5-11.1); MONO % 10.2 % (3.8-10.2); NEUT % 81.6 % (42.8-82.8); PLATELET COUNT 157 K/MM3 (134-434); RBC 2.97 M/mm3 (4.00-5.60); RDW 13.5 % (11.9-15.9); WHITE BLOOD COUNT 10.2 K/mm3 (4.0-10.0)
[2019-06-03 09:33] LABS: ALBUMIN 2.1 g/dl (3.4-5.0); BILIRUBIN,TOTAL 0.3 mg/dL (0.2-1); BLOOD UREA NITROGEN 68.7 mg/dL (7-18); CALCIUM 7.2 mg/dL (8.5-10.1); POTASSIUM 4.1 mmol/L (3.5-5.1); TOT PROT 6.4 g/dl (6.4-8.2)
[2019-06-03] MEDS: CEFAZOLIN 500 MG in DEXTROSE 5%-WATER - 50 ML IVPB SCH ×2 (09:45→22:26)
[2019-06-03] MEDS: CARVEDILOL 25 MG TABLET (FP) PO SCH ×2 (09:45→22:25)
[2019-06-03] MEDS: FERROUS SO4 325 MG TABLET (FP) PO SCH (09:45)
[2019-06-03] MEDS: amLODIPine BESYLATE 5 MG TABLET (FP) PO SCH (09:45)
--- NOTE | 2019-06-03 11:46 | PN ---
Progress Note, Physician Chief Complaint: LLE cellulitis History of Present Illness: NAD RLE erythema,s till c/o pain Seen by ID On Iv abx - Current Medication List Current Medications: Active Medications Acetaminophen (Tylenol -) 650 mg PO Q6H PRN PRN Reason: FEVER Last Admin: 06/02/19 20:35 Dose: 650 mg Amlodipine Besylate (Norvasc -) 5 mg PO DAILY [facility] Last Admin: 06/03/19 09:45 Dose: 5 mg Atorvastatin Calcium (Lipitor -) 40 mg PO HS [facility] Last Admin: 06/02/19 21:14 Dose: 40 mg Carvedilol (Coreg -) 25 mg PO BID [facility] Last Admin: 06/03/19 09:45 Dose: 25 mg Ferrous Sulfate (Feosol -) 325 mg PO DAILY [facility] Last Admin: 06/03/19 09:45 Dose: 325 mg Heparin Sodium (Porcine) (Heparin -) 5,000 unit SQ TID [facility] Last Admin: 06/03/19 06:09 Dose: 5,000 unit Cefazolin Sodium 500 mg/ (Dextrose) 50 mls @ 100 mls/hr IVPB BID [facility] Last Admin: 06/03/19 09:45 Dose: 100 mls/hr Sodium Chloride (1/2 Normal Saline) 1,000 mls @ 65 mls/hr IV ASDIR [facility] Last Admin: 06/02/19 17:37 Dose: 65 mls/hr Insulin Aspart (Novolog Vial Sliding Scale -) 1 vial SQ ACHS [facility]; Protocol Last Admin: 06/03/19 06:09 Dose: 2 units Ondansetron HCl (Zofran Injection) 4 mg IVPUSH Q6H PRN PRN Reason: NAUSEA AND/OR VOMITING Oxycodone HCl (Roxicodone -) 5 mg PO Q6H PRN PRN Reason: PAIN LEVEL 7 - 10 Last Admin: 06/02/19 09:49 Dose: 5 mg - Objective Vital Signs: Vital Signs Temperature 98.3 F 06/03/19 09:00 Pulse Rate 65 06/03/19 09:00 Respiratory Rate 18 06/03/19 09:00 Blood Pressure 149/62 06/03/19 09:00 O2 Sat by Pulse Oximetry (%) 96 06/02/19 21:00 Constitutional: Yes: Well Nourished, No Distress, Calm Cardiovascular: Yes: Regular Rate and Rhythm Respiratory: Yes: Regular Gastrointestinal: Yes: WNL, Normal Bowel Sounds, Soft, Abdomen, Obese Genitourinary: Yes: WNL Musculoskeletal: Yes: Muscle Weakness Extremities: Yes: Erythema (RLE) Edema: No Peripheral Pulses WNL: Yes Integumentary: Yes: Erythema (RLE) Neurological: Yes: Alert, Oriented Psychiatric: Yes: Alert, Oriented Labs: CBC, BMP 06/03/19 08:30 06/03/19 08:30 INR, PTT INR 1.26 (0.83-1.09) H 06/02/19 08:10 Problem List - Problems (1) Anemia Assessment/Plan: -Check Stool OB -Iron % low -start ferrous sulfate 1 tab po daily -Follow trend Problems reviewed: Yes Code(s): D64.9 - ANEMIA, UNSPECIFIED (2) Cellulitis Assessment/Plan: -ID consult -IV abx -Afebrile now -Cultures pending -Leukocytosis improved Problems reviewed: Yes Code(s): L03.90 - CELLULITIS, UNSPECIFIED Qualifiers: Site of cellulitis: extremity Site of cellulitis of extremity: lower extremity Laterality: right Qualified Code(s): L03.115 - Cellulitis of right lower limb (3) Acute on chronic renal insufficiency Assessment/Plan: -Nephrology consult -IVF -monitor trend -Renal U/S with chronic medical renal dz- no hydronephrosis -UC negative Problems reviewed: Yes Code(s): N28.9 - DISORDER OF KIDNEY AND URETER, UNSPECIFIED; N18.9 - CHRONIC KIDNEY DISEASE, UNSPECIFIED (4) Diabetes Assessment/Plan: -A1c at 8.6 -BGM AC HS -ISS -Diabetic sodium diet -Endocrine consult Problems reviewed: Yes Code(s): E11.9 - TYPE 2 DIABETES MELLITUS WITHOUT COMPLICATIONS (5) Hypertension Code(s): I10 - ESSENTIAL (PRIMARY) HYPERTENSION Assessment/Plan see problem list
[2019-06-03] MEDS: ONDANSETRON 4 MG/2 ML VIAL IVPUSH PRN ×2 (11:59→22:26)
--- NOTE | 2019-06-03 13:33 | PN ---
Progress Note, Physician History of Present Illness: Pt seen and examined at bedside. He is awake and alert. He complains of discomfort from his right leg. - Current Medication List Current Medications: Active Medications Acetaminophen (Tylenol -) 650 mg PO Q6H PRN PRN Reason: FEVER Last Admin: 06/02/19 20:35 Dose: 650 mg Amlodipine Besylate (Norvasc -) 5 mg PO DAILY [facility] Last Admin: 06/03/19 09:45 Dose: 5 mg Atorvastatin Calcium (Lipitor -) 40 mg PO HS [facility] Last Admin: 06/02/19 21:14 Dose: 40 mg Carvedilol (Coreg -) 25 mg PO BID [facility] Last Admin: 06/03/19 09:45 Dose: 25 mg Ferrous Sulfate (Feosol -) 325 mg PO DAILY [facility] Last Admin: 06/03/19 09:45 Dose: 325 mg Heparin Sodium (Porcine) (Heparin -) 5,000 unit SQ TID [facility] Last Admin: 06/03/19 06:09 Dose: 5,000 unit Cefazolin Sodium 500 mg/ (Dextrose) 50 mls @ 100 mls/hr IVPB BID [facility] Last Admin: 06/03/19 09:45 Dose: 100 mls/hr Sodium Chloride (1/2 Normal Saline) 1,000 mls @ 65 mls/hr IV ASDIR [facility] Last Admin: 06/02/19 17:37 Dose: 65 mls/hr Insulin Aspart (Novolog Vial Sliding Scale -) 1 vial SQ ACHS [facility]; Protocol Last Admin: 06/03/19 12:10 Dose: 6 units Ondansetron HCl (Zofran Injection) 4 mg IVPUSH Q6H PRN PRN Reason: NAUSEA AND/OR VOMITING Last Admin: 06/03/19 11:59 Dose: 4 mg Oxycodone HCl (Roxicodone -) 5 mg PO Q6H PRN PRN Reason: PAIN LEVEL 7 - 10 Last Admin: 06/02/19 09:49 Dose: 5 mg - Objective Vital Signs: Vital Signs Temperature 98.3 F 06/03/19 09:00 Pulse Rate 65 06/03/19 09:00 Respiratory Rate 18 06/03/19 09:00 Blood Pressure 149/62 06/03/19 09:00 O2 Sat by Pulse Oximetry (%) 96 06/02/19 21:00 Constitutional: Yes: Calm Eyes: Yes: Conjunctiva Clear HENT: Yes: Atraumatic Neck: Yes: Supple Cardiovascular: Yes: S1, S2 Respiratory: Yes: CTA Bilaterally Gastrointestinal: Yes: Soft Genitourinary: Yes: WNL Edema: No Integumentary: Yes: Other (right leg edema) Neurological: Yes: Oriented Psychiatric: Yes: Oriented Labs: CBC, BMP 06/03/19 08:30 06/03/19 08:30 INR, PTT INR 1.26 (0.83-1.09) H 06/02/19 08:10 Problem List - Problems (1) Cellulitis Code(s): L03.90 - CELLULITIS, UNSPECIFIED Qualifiers: Site of cellulitis: extremity Site of cellulitis of extremity: lower extremity Laterality: right Qualified Code(s): L03.115 - Cellulitis of right lower limb (2) Renal failure Code(s): N19 - UNSPECIFIED KIDNEY FAILURE Qualifiers: Renal failure chronicity: unspecified chronicity Qualified Code(s): N19 - Unspecified kidney failure (3) Sepsis Code(s): A41.9 - SEPSIS, UNSPECIFIED ORGANISM Qualifiers: Sepsis type: sepsis due to unspecified organism Sepsis acute organ dysfunction status: unspecified Qualified Code(s): A41.9 - Sepsis, unspecified organism Assessment/Plan Current Medications Generic Name Dose Route Start Last Admin Trade Name Freq PRN Reason Stop Dose Admin Acetaminophen 650 mg 06/01/19 18:27 06/02/19 20:35 Tylenol - PO 650 mg Q6H PRN Administration FEVER Amlodipine Besylate 5 mg 06/02/19 17:30 06/03/19 09:45 Norvasc - PO 5 mg DAILY [facility] Administration Atorvastatin Calcium 40 mg 06/01/19 22:00 06/02/19 21:14 Lipitor - PO 40 mg HS [facility] Administration Carvedilol 25 mg 06/01/19 22:00 06/03/19 09:45 Coreg - PO 25 mg BID [facility] Administration Ferrous Sulfate 325 mg 06/02/19 12:45 06/03/19 09:45 Feosol - PO 325 mg DAILY [facility] Administration Heparin Sodium (Porcine) 5,000 unit 06/01/19 22:00 06/03/19 06:09 Heparin - SQ 5,000 unit TID [facility] Administration Cefazolin Sodium 500 mg/ 50 mls @ 100 mls/hr 06/02/19 12:30 06/03/19 09:45 Dextrose IVPB 100 mls/hr BID [facility] Administration Sodium Chloride 1,000 mls @ 65 mls/hr 06/02/19 14:30 06/02/19 17:37 1/2 Normal Saline IV 65 mls/hr ASDIR [facility] Administration Insulin Aspart 1 vial 06/01/19 22:00 06/03/19 12:10 Novolog Vial Sliding Scale - SQ 6 units ACHS [facility] Administration Protocol Ondansetron HCl 4 mg 06/03/19 11:42 06/03/19 11:59 Zofran Injection IVPUSH 4 mg Q6H PRN Administration NAUSEA AND/OR VOMITING Oxycodone HCl 5 mg 06/01/19 18:27 06/02/19 09:49 Roxicodone - PO 5 mg Q6H PRN Administration PAIN LEVEL 7 - 10 Impression 1. [place] 2. ckd 3. dm 4. cellulitis 5. pvd 6. htn Plan - cont fluids - repeat labs in am - follow urine studies - will send serologic workup - abx for cellulitis - avoid nsaids
[2019-06-03] MEDS: SODIUM CHLORIDE 0.45% 1,000 ML IV SCH (14:50)
[2019-06-03] MEDS: ACETAMINOPHEN 325 MG TABLET (FP) PO PRN (14:50)
[2019-06-03] MEDS: PIPERACILLIN/TAZOB 2.25 GM 2.25 GM in DEXTROSE 5%-WATER - 50 ML IVPB SCH (14:59)
[2019-06-03 17:28] LABS: EPI CELLS 3.7 /HPF (0-5/HPF); HYALINE CASTS 13 /lpf (0-8); URINE APPEARANCE CLOUDY; URINE BACTERIA 0.8 /hpf (NEGATIVE); URINE BILIRUBIN NEGATIVE (NEGATIVE); URINE COLOR YELLOW; URINE GLUCOSE (UA) 1+ (NEGATIVE); URINE KETONE NEGATIVE (NEGATIVE); URINE LEUK ESTERASE NEGATIVE (NEGATIVE); URINE NITRITE NEGATIVE (NEGATIVE); URINE PROTEIN 3+ (NEGATIVE); URINE RBC 1 /hpf (0-4); URINE WBC 4 /hpf (0-5)
[2019-06-03] MEDS ORDERED: PT OWN MED DRAWER 7, Y5N ONE (22:20)
[2019-06-03] MEDS: ATORVASTATIN CA 40 MG TABLET (FP) PO SCH (22:25)
--- NOTE | 2019-06-03 22:56 | CONSULT ---
Consult Consult Specialty:: Endocrine Referred by:: deborah campa Reason for Consultation:: [email or web address],[id number] - History of Present Illness Chief Complaint: infection foot,high sugars History of Present Illness: 64 year old male with a significant past medical history of DMT2,CKD,peripheral vascular disease, hypertension, hyperlipidemia, CHF, left midfoot amputation. presenting,with right lower extremity with increased swelling, redness and pain. Pain and swelling began three weeks ago but was mild. Patient saw his tool drawing checker on May 25 and was started on clindamycin, but his pain, redness and symptoms slowly worsened despite the antibiotics. he has had elevated creatinine in past,now found to have arf,sepsis from rt lower extremity infection,and elevated blood sugars,he denies chest pain,cough,nausea or vomiting. - Past Medical History Cardio/Vascular: Yes: CHF, HTN Renal/: Yes: Renal Inusuff Endocrine: Yes: Diabetes Mellitus - Past Surgical History Past Surgical History: Yes: Amputation - Alcohol/Substance Use Hx Alcohol Use: No - Smoking History Smoking history: Unknown if ever smoked Have you smoked in the past 12 months: No Home Medications - Allergies Allergies/Adverse Reactions: Allergies Allergy/AdvReac Type Severity Reaction Status Date / Time No Known Allergies Allergy Verified 06/01/19 11:06 - Home Medications Home Medications: Ambulatory Orders Unobtainable 06/01/19 Review of Systems - Review of Systems Constitutional: reports: Lethargy, Loss of Appetite, Weakness Eyes: reports: Blurred Vision HENT: reports: No Symptoms Neck: reports: No Symptoms Cardiovascular: reports: Edema, Shortness of Breath Respiratory: reports: Exercise Intolerance, SOB on Exertion Gastrointestinal: reports: Bloating, Constipation Genitourinary: reports: No Symptoms Breasts: reports: No Symptoms Reported Musculoskeletal: reports: Joint Swelling, Muscle Pain, Muscle Cramps, Muscle Weakness Endocrine: reports: Unexplained Weight Loss Physical Exam Vital Signs: Vital Signs Temperature 99.9 F H 06/03/19 22:00 Pulse Rate 72 06/03/19 22:00 Respiratory Rate 18 06/03/19 22:00 Blood Pressure 143/57 L 06/03/19 22:00 O2 Sat by Pulse Oximetry (%) 96 06/03/19 09:00 Constitutional: Yes: Anxious Eyes: Yes: EOM Intact HENT: Yes: Normocephalic Neck: Yes: Trachea Midline Cardiovascular: Yes: Tachycardia, Murmur Respiratory: Yes: CTA Bilaterally Gastrointestinal: Yes: Normal Bowel Sounds ...Rectal Exam: Yes: Deferred Musculoskeletal: Yes: Back Pain, Joint Swelling, Muscle Pain, Muscle Weakness Extremities: Yes: Delayed Capillary Refill, Erythema, Pallor Edema: LLE: 2+, RLE: 2+ Peripheral Pulses WNL: No Wound/Incision: Yes: Draining, Reddened, Excoriated Neurological: Yes: Alert, Oriented Labs: CBC, BMP 06/03/19 08:30 06/03/19 08:30 Problem List - Problems (1) Type 2 diabetes mellitus with diabetic chronic kidney disease Problems reviewed: Yes Code(s): E11.22 - TYPE 2 DIABETES MELLITUS W DIABETIC CHRONIC KIDNEY DISEASE (2) Acute on chronic renal insufficiency Problems reviewed: Yes Code(s): N28.9 - DISORDER OF KIDNEY AND URETER, UNSPECIFIED; N18.9 - CHRONIC KIDNEY DISEASE, UNSPECIFIED (3) Cellulitis Problems reviewed: Yes Code(s): L03.90 - CELLULITIS, UNSPECIFIED Qualifiers: Site of cellulitis: extremity Site of cellulitis of extremity: lower extremity Laterality: right Qualified Code(s): L03.115 - Cellulitis of right lower limb (4) Diabetes Code(s): E11.9 - TYPE 2 DIABETES MELLITUS WITHOUT COMPLICATIONS Qualifiers: Chronic kidney disease stage: stage 3 (moderate) (5) Hypertension Problems reviewed: Yes Code(s): I10 - ESSENTIAL (PRIMARY) HYPERTENSION (6) Left foot amputee Problems reviewed: Yes Code(s): Z89.432 - ACQUIRED ABSENCE OF LEFT FOOT (7) Prophylactic measure Problems reviewed: Yes Code(s): Z29.9 - ENCOUNTER FOR PROPHYLACTIC MEASURES, UNSPECIFIED Assessment/Plan Current Active Problems Acute on chronic renal insufficiency (Acute) Anemia (Acute) Cellulitis (Acute) DVT prophylaxis (Acute) Diabetes (Acute) Hypertension (Acute) Left foot amputee (Acute) Prophylactic measure (Acute) Renal failure (Acute) Sepsis (Acute) Abnormal Lab Results 06/03/19 06/03/19 06/03/19 08:30 08:30 16:10 WBC 10.2 H RBC 2.97 L Hgb 8.9 L Hct 26.7 L Absolute Neuts (auto) 8.3 H Lymphocytes % 6.9 L D Chloride 111 H Carbon Dioxide 20 L BUN 68.7 H Creatinine 5.0 H Random Glucose 175 H Calcium 7.2 L Alkaline Phosphatase 270 H Albumin 2.1 L Urine Protein 3+ H Urine Glucose (UA) 1+ H Urine Blood 2+ H Ur Random Sodium Ur Random Chloride 06/03/19 16:10 WBC RBC Hgb Hct Absolute Neuts (auto) Lymphocytes % Chloride Carbon Dioxide BUN Creatinine Random Glucose Calcium Alkaline Phosphatase Albumin Urine Protein Urine Glucose (UA) Urine Blood Ur Random Sodium 23 L Ur Random Chloride 21 L Laboratory Results - last 24 hr 06/03/19 06/03/19 06/03/19 05:42 08:30 08:30 WBC 10.2 H RBC 2.97 L Hgb 8.9 L Hct 26.7 L MCV 89.8 MCH 30.0 MCHC 33.4 RDW 13.5 Plt Count 157 MPV 9.1 Absolute Neuts (auto) 8.3 H Neutrophils % 81.6 Lymphocytes % 6.9 L D Monocytes % 10.2 Eosinophils % 1.0 D Basophils % 0.3 Nucleated RBC % 0 Sodium 140 Potassium 4.1 Chloride 111 H Carbon Dioxide 20 L Anion Gap 9 BUN 68.7 H Creatinine 5.0 H Est GFR (CKD-EPI)AfAm 12.93 Est GFR (CKD-EPI)NonAf 11.16 POC Glucometer 189 Random Glucose 175 H Calcium 7.2 L Total Bilirubin 0.3 AST 29 ALT 32 Alkaline Phosphatase 270 H Total Protein 6.4 Albumin 2.1 L Urine Color Urine Appearance Urine pH Ur Specific [place] Urine Protein Urine Glucose (UA) Urine Ketones Urine Blood Urine Nitrite Urine Bilirubin Urine Urobilinogen Ur Leukocyte Esterase Urine WBC (Auto) Urine RBC (Auto) Urine Casts (Auto) U Epithel Cells (Auto) Urine Bacteria (Auto) Ur Random Creatinine Ur Random Sodium Ur Random Potassium Ur Random Chloride 06/03/19 06/03/19 06/03/19 12:08 16:10 16:10 WBC RBC Hgb Hct MCV MCH MCHC RDW Plt Count MPV Absolute Neuts (auto) Neutrophils % Lymphocytes % Monocytes % Eosinophils % Basophils % Nucleated RBC % Sodium Potassium Chloride Carbon Dioxide Anion Gap BUN Creatinine Est GFR (CKD-EPI)AfAm Est GFR (CKD-EPI)NonAf POC Glucometer 251 Random Glucose Calcium Total Bilirubin AST ALT Alkaline Phosphatase Total Protein Albumin Urine Color Yellow Urine Appearance Cloudy Urine pH 5.0 Ur Specific [place] 1.017 Urine Protein 3+ H Urine Glucose (UA) 1+ H Urine Ketones Negative Urine Blood 2+ H Urine Nitrite Negative Urine Bilirubin Negative Urine Urobilinogen 1.0 Ur Leukocyte Esterase Negative Urine WBC (Auto) 4 Urine RBC (Auto) 1 Urine Casts (Auto) 13 U Epithel Cells (Auto) 3.7 Urine Bacteria (Auto) 0.8 Ur Random Creatinine 102.0 Ur Random Sodium Ur Random Potassium Ur Random Chloride 06/03/19 06/03/19 06/03/19 16:10 17:55 22:29 WBC RBC Hgb Hct MCV MCH MCHC RDW Plt Count MPV Absolute Neuts (auto) Neutrophils % Lymphocytes % Monocytes % Eosinophils % Basophils % Nucleated RBC % Sodium Potassium Chloride Carbon Dioxide Anion Gap BUN Creatinine Est GFR (CKD-EPI)AfAm Est GFR (CKD-EPI)NonAf POC Glucometer 181 227 Random Glucose Calcium Total Bilirubin AST ALT Alkaline Phosphatase Total Protein Albumin Urine Color Urine Appearance Urine pH Ur Specific [place] Urine Protein Urine Glucose (UA) Urine Ketones Urine Blood Urine Nitrite Urine Bilirubin Urine Urobilinogen Ur Leukocyte Esterase Urine WBC (Auto) Urine RBC (Auto) Urine Casts (Auto) U Epithel Cells (Auto) Urine Bacteria (Auto) Ur Random Creatinine Ur Random Sodium 23 L Ur Random Potassium 31.0 Ur Random Chloride 21 L Laboratory Tests 06/03/19 06/03/19 06/03/19 08:30 12:08 17:55 POC Glucometer 251 181 Random Glucose 175 H 06/03/19 22:29 POC Glucometer 227 Random Glucose plan: hba1c diet nutrition consult novolog sliding scale levemir 20units am/10 unit@ hs renal on consult statin / chk lipid panel cardiology
[2019-06-04] MEDS: ACETAMINOPHEN 325 MG TABLET (FP) PO PRN (01:38)
[2019-06-04] MEDS ORDERED: ACETAMINOPHEN 1000 MG/100 ML VIAL (NON FORMULARY) IVPB ONE (01:52)
[2019-06-04] MEDS ORDERED: METOCLOPRAMIDE HCL INJECTION 10 MG/2 ML VIAL IVPUSH ONE (01:58)
[2019-06-04] MEDS: SODIUM CHLORIDE 0.45% 1,000 ML IV SCH ×2 (02:15→16:55)
[2019-06-04] MEDS: HEPARIN NA (PORCINE) 5,000 UNITS/ML 1ML VIAL SQ SCH ×3 (06:36→22:42)
[2019-06-04] MEDS: INSULIN SLIDING SCALE (NOVOLOG) 1 VIAL SQ SCH ×4 (06:36→22:47)
[2019-06-04] MEDS: INSULIN (LEVEMIR) 100 UNITS/ML UNITS SQ SCH ×2 (06:36→22:43)
[2019-06-04] MEDS: CEFAZOLIN 500 MG in DEXTROSE 5%-WATER - 50 ML IVPB SCH (09:42)
[2019-06-04] MEDS: CARVEDILOL 25 MG TABLET (FP) PO SCH ×2 (09:43→22:42)
[2019-06-04] MEDS: FERROUS SO4 325 MG TABLET (FP) PO SCH (09:43)
[2019-06-04] MEDS: amLODIPine BESYLATE 5 MG TABLET (FP) PO SCH (09:43)
[2019-06-04] MEDS: ONDANSETRON 4 MG/2 ML VIAL IVPUSH PRN (11:59)
[2019-06-04 12:09] LABS: HEMATOCRIT 25.2 % (35.4-49); HEMOGLOBIN 7.9 GM/dL (11.7-16.9); MCH 29.2 pg (25.7-33.7); MCHC 31.5 g/dl (32.0-35.9); MEAN CELL VOLUME 92.9 fl (80-96); MEAN PLT VOLUME 9.8 fl (7.5-11.1); PLATELET COUNT 317 K/MM3 (134-434); RBC 2.71 M/mm3 (4.00-5.60); RDW 18.8 % (11.9-15.9); WHITE BLOOD COUNT 13.4 K/mm3 (4.0-10.0)
[2019-06-04 12:20] LABS: BLOOD UREA NITROGEN 52.6 mg/dL (7-18); CALCIUM 8.2 mg/dL (8.5-10.1); CREATININE 0.6 mg/dL (0.55-1.3); MAGNESIUM 2.7 mg/dL (1.8-2.4); PHOSPHOROUS 2.6 mg/dL (2.5-4.9); POTASSIUM 4.2 mmol/L (3.5-5.1)
--- NOTE | 2019-06-04 12:25 | PN ---
Progress Note, Physician Chief Complaint: LLE cellulitis History of Present Illness: NAD RLE persistent erythemas still c/o pain Now with N/V abd abd pain, had BM this AM Seen by ID On Iv abx - Current Medication List Current Medications: Active Medications Acetaminophen (Tylenol -) 650 mg PO Q6H PRN PRN Reason: FEVER Last Admin: 06/04/19 01:38 Dose: 650 mg Amlodipine Besylate (Norvasc -) 5 mg PO DAILY [facility] Last Admin: 06/04/19 09:43 Dose: 5 mg Atorvastatin Calcium (Lipitor -) 40 mg PO HS [facility] Last Admin: 06/03/19 22:25 Dose: 40 mg Carvedilol (Coreg -) 25 mg PO BID [facility] Last Admin: 06/04/19 09:43 Dose: 25 mg Ferrous Sulfate (Feosol -) 325 mg PO DAILY [facility] Last Admin: 06/04/19 09:43 Dose: 325 mg Heparin Sodium (Porcine) (Heparin -) 5,000 unit SQ TID [facility] Last Admin: 06/04/19 06:36 Dose: 5,000 unit Cefazolin Sodium 500 mg/ (Dextrose) 50 mls @ 100 mls/hr IVPB BID [facility] Last Admin: 06/04/19 09:42 Dose: 100 mls/hr Sodium Chloride (1/2 Normal Saline) 1,000 mls @ 75 mls/hr IV ASDIR [facility] Last Admin: 06/04/19 02:15 Dose: 75 mls/hr Insulin Aspart (Novolog Vial Sliding Scale -) 1 vial SQ ACHS [facility]; Protocol Last Admin: 06/04/19 12:00 Dose: 4 units Insulin Detemir (Levemir Vial) 20 units SQ AM [facility] Last Admin: 06/04/19 06:36 Dose: 20 units Insulin Detemir (Levemir Vial) 10 units SQ HS [facility] Ondansetron HCl (Zofran Injection) 4 mg IVPUSH Q6H PRN PRN Reason: NAUSEA AND/OR VOMITING Last Admin: 06/04/19 11:59 Dose: 4 mg Oxycodone HCl (Roxicodone -) 5 mg PO Q6H PRN PRN Reason: PAIN LEVEL 7 - 10 Last Admin: 06/02/19 09:49 Dose: 5 mg - Objective Vital Signs: Vital Signs Temperature 98.9 F 06/04/19 09:17 Pulse Rate 67 06/04/19 09:17 Respiratory Rate 18 06/04/19 09:17 Blood Pressure 149/62 06/04/19 09:17 O2 Sat by Pulse Oximetry (%) 96 06/03/19 09:00 Constitutional: Yes: Well Nourished, No Distress, Calm Cardiovascular: Yes: Regular Rate and Rhythm Respiratory: Yes: Regular Gastrointestinal: Yes: Soft, Abdomen, Obese, Hypoactive Bowel Sounds, Tenderness , Epigastrium Genitourinary: Yes: WNL Musculoskeletal: Yes: Muscle Weakness Extremities: Yes: WNL Edema: No Peripheral Pulses WNL: Yes Neurological: Yes: Alert, Oriented Psychiatric: Yes: Alert, Oriented Labs: CBC, BMP 06/04/19 08:15 INR, PTT INR 1.26 (0.83-1.09) H 06/02/19 08:10 Problem List - Problems (1) Anemia Assessment/Plan: -Check Stool OB -Iron % low -start ferrous sulfate 1 tab po daily -Follow trend Code(s): D64.9 - ANEMIA, UNSPECIFIED (2) Cellulitis Assessment/Plan: -ID consult -IV abx -febrile overnight -Cultures: Microbiology 06/01/19 11:15 Blood - Peripheral Venous Blood Culture - Preliminary NO GROWTH OBTAINED AFTER 72 HOURS, INCUBATION TO CONTINUE FOR 2 DAYS. 06/01/19 11:15 Blood - Peripheral Venous Blood Culture - Preliminary NO GROWTH OBTAINED AFTER 72 HOURS, INCUBATION TO CONTINUE FOR 2 DAYS. 06/01/19 13:57 Urine - Urine Clean Catch Urine Culture - Final NO GROWTH OBTAINED -Leukocytosis improved -recheck lactic acid Problems reviewed: Yes Code(s): L03.90 - CELLULITIS, UNSPECIFIED Qualifiers: Site of cellulitis: extremity Site of cellulitis of extremity: lower extremity Laterality: right Qualified Code(s): L03.115 - Cellulitis of right lower limb (3) Acute on chronic renal insufficiency Assessment/Plan: -Nephrology consult -IVF -monitor trend -Renal U/S with chronic medical renal dz- no hydronephrosis -UC negative Problems reviewed: Yes Code(s): N28.9 - DISORDER OF KIDNEY AND URETER, UNSPECIFIED; N18.9 - CHRONIC KIDNEY DISEASE, UNSPECIFIED (4) Diabetes Assessment/Plan: -A1c at 8.6 -BGM AC HS -ISS -Diabetic sodium diet -Endocrine consult Problems reviewed: Yes Code(s): E11.9 - TYPE 2 DIABETES MELLITUS WITHOUT COMPLICATIONS Qualifiers: Chronic kidney disease stage: stage 3 (moderate) (5) Hypertension Assessment/Plan: -Add amlodipine 5 mg po daily -monitor trend Problems reviewed: Yes Code(s): I10 - ESSENTIAL (PRIMARY) HYPERTENSION (6) Abdominal pain Assessment/Plan: -Zofran for nausea/vomiting -Add PPI -CT abd/pelvis Problems reviewed: Yes Code(s): R10.9 - UNSPECIFIED ABDOMINAL PAIN Assessment/Plan see problem list
[2019-06-04] MEDS: PANTOPRAZOLE SODIUM 40 MG VIAL IVPUSH SCH (14:11)
--- NOTE | 2019-06-04 14:44 | PN ---
Progress Note, Physician History of Present Illness: Pt seen and examined at bedside. He is awake and alert. He feels a little better today. - Current Medication List Current Medications: Active Medications Acetaminophen (Tylenol -) 650 mg PO Q6H PRN PRN Reason: FEVER Last Admin: 06/04/19 01:38 Dose: 650 mg Amlodipine Besylate (Norvasc -) 5 mg PO DAILY [facility] Last Admin: 06/04/19 09:43 Dose: 5 mg Atorvastatin Calcium (Lipitor -) 40 mg PO HS [facility] Last Admin: 06/03/19 22:25 Dose: 40 mg Carvedilol (Coreg -) 25 mg PO BID [facility] Last Admin: 06/04/19 09:43 Dose: 25 mg Ferrous Sulfate (Feosol -) 325 mg PO DAILY [facility] Last Admin: 06/04/19 09:43 Dose: 325 mg Heparin Sodium (Porcine) (Heparin -) 5,000 unit SQ TID [facility] Last Admin: 06/04/19 14:11 Dose: 5,000 unit Cefazolin Sodium 500 mg/ (Dextrose) 50 mls @ 100 mls/hr IVPB BID [facility] Last Admin: 06/04/19 09:42 Dose: 100 mls/hr Sodium Chloride (1/2 Normal Saline) 1,000 mls @ 75 mls/hr IV ASDIR [facility] Last Admin: 06/04/19 02:15 Dose: 75 mls/hr Insulin Aspart (Novolog Vial Sliding Scale -) 1 vial SQ ACHS [facility]; Protocol Last Admin: 06/04/19 12:00 Dose: 4 units Insulin Detemir (Levemir Vial) 20 units SQ AM [facility] Last Admin: 06/04/19 06:36 Dose: 20 units Insulin Detemir (Levemir Vial) 10 units SQ HS [facility] Ondansetron HCl (Zofran Injection) 4 mg IVPUSH Q6H PRN PRN Reason: NAUSEA AND/OR VOMITING Last Admin: 06/04/19 11:59 Dose: 4 mg Oxycodone HCl (Roxicodone -) 5 mg PO Q6H PRN PRN Reason: PAIN LEVEL 7 - 10 Last Admin: 06/02/19 09:49 Dose: 5 mg Pantoprazole Sodium (Protonix Iv) 40 mg IVPUSH DAILY [facility] Last Admin: 06/04/19 14:11 Dose: 40 mg - Objective Vital Signs: Vital Signs Temperature 98.9 F 06/04/19 09:17 Pulse Rate 67 06/04/19 09:17 Respiratory Rate 18 06/04/19 09:17 Blood Pressure 149/62 06/04/19 09:17 O2 Sat by Pulse Oximetry (%) 96 06/03/19 09:00 Constitutional: Yes: Calm Eyes: Yes: Conjunctiva Clear HENT: Yes: Atraumatic Neck: Yes: Supple Cardiovascular: Yes: S1, S2 Respiratory: Yes: CTA Bilaterally Gastrointestinal: Yes: Normal Bowel Sounds, Soft Genitourinary: Yes: WNL Edema: Yes Edema: RLE: Trace Neurological: Yes: Oriented Psychiatric: Yes: Oriented Labs: CBC, BMP 06/04/19 08:15 06/04/19 08:15 INR, PTT INR 1.26 (0.83-1.09) H 06/02/19 08:10 Problem List - Problems (1) Cellulitis Code(s): L03.90 - CELLULITIS, UNSPECIFIED Qualifiers: Site of cellulitis: extremity Site of cellulitis of extremity: lower extremity Laterality: right Qualified Code(s): L03.115 - Cellulitis of right lower limb (2) Renal failure Code(s): N19 - UNSPECIFIED KIDNEY FAILURE Qualifiers: Renal failure chronicity: unspecified chronicity Qualified Code(s): N19 - Unspecified kidney failure (3) Sepsis Code(s): A41.9 - SEPSIS, UNSPECIFIED ORGANISM Qualifiers: Sepsis type: sepsis due to unspecified organism Sepsis acute organ dysfunction status: unspecified Qualified Code(s): A41.9 - Sepsis, unspecified organism Assessment/Plan Current Medications Generic Name Dose Route Start Last Admin Trade Name Freq PRN Reason Stop Dose Admin Acetaminophen 650 mg 06/01/19 18:27 06/04/19 01:38 Tylenol - PO 650 mg Q6H PRN Administration FEVER Amlodipine Besylate 5 mg 06/02/19 17:30 06/04/19 09:43 Norvasc - PO 5 mg DAILY [facility] Administration Atorvastatin Calcium 40 mg 06/01/19 22:00 06/03/19 22:25 Lipitor - PO 40 mg HS [facility] Administration Carvedilol 25 mg 06/01/19 22:00 06/04/19 09:43 Coreg - PO 25 mg BID [facility] Administration Ferrous Sulfate 325 mg 06/02/19 12:45 06/04/19 09:43 Feosol - PO 325 mg DAILY [facility] Administration Heparin Sodium (Porcine) 5,000 unit 06/01/19 22:00 06/04/19 14:11 Heparin - SQ 5,000 unit TID [facility] Administration Cefazolin Sodium 500 mg/ 50 mls @ 100 mls/hr 06/02/19 12:30 06/04/19 09:42 Dextrose IVPB 100 mls/hr BID [facility] Administration Sodium Chloride 1,000 mls @ 75 mls/hr 06/03/19 13:33 06/04/19 02:15 1/2 Normal Saline IV 75 mls/hr [facility] Administration Insulin Aspart 1 vial 06/01/19 22:00 06/04/19 12:00 Novolog Vial Sliding Scale - SQ 4 units ACHS [facility] Administration Protocol Insulin Detemir 20 units 06/04/19 07:00 06/04/19 06:36 Levemir Vial SQ 20 units AM [facility] Administration Insulin Detemir 10 units 06/04/19 22:00 Levemir Vial SQ HS [facility] Ondansetron HCl 4 mg 06/03/19 11:42 06/04/19 11:59 Zofran Injection IVPUSH 4 mg Q6H PRN Administration NAUSEA AND/OR VOMITING Oxycodone HCl 5 mg 06/01/19 18:27 06/02/19 09:49 Roxicodone - PO 5 mg Q6H PRN Administration PAIN LEVEL 7 - 10 Pantoprazole Sodium 40 mg 06/04/19 12:30 06/04/19 14:11 Protonix Iv IVPUSH 40 mg DAILY [facility] Administration Laboratory Tests 06/04/19 06/04/19 08:15 08:15 CORNEL M-Ayaan Pending MARIAN Screen Pending c-ANCA Pending Proteinase 3 (PR3) Pending p-ANCA Pending Atypical p-ANCA Pending Myeloperoxidase Ab Pending Double Strand DNA Ab Pending Impression 1. ROOSEVELT 2. ckd 3. dm 4. cellulitis 5. pvd 6. htn Plan - repeat labs - am labs likely error - will follow serologic workup - abx for cellulitis - avoid nsaids
[2019-06-04 17:39] LABS: ALBUMIN 2.2 g/dl (3.4-5.0); BILIRUBIN,TOTAL 0.2 mg/dL (0.2-1); BLOOD UREA NITROGEN 61.2 mg/dL (7-18); CALCIUM 7.4 mg/dL (8.5-10.1); CREATININE 4.7 mg/dL (0.55-1.3); POTASSIUM 4.4 mmol/L (3.5-5.1); TOT PROT 6.7 g/dl (6.4-8.2)
--- NOTE | 2019-06-04 17:48 | PN ---
Progress Note, Physician History of Present Illness: C/O R LE PAIN REMAINS FEBRILE - Current Medication List Current Medications: Active Medications Acetaminophen (Tylenol -) 650 mg PO Q6H PRN PRN Reason: FEVER Last Admin: 06/04/19 01:38 Dose: 650 mg Amlodipine Besylate (Norvasc -) 5 mg PO DAILY [facility] Last Admin: 06/04/19 09:43 Dose: 5 mg Atorvastatin Calcium (Lipitor -) 40 mg PO HS [facility] Last Admin: 06/03/19 22:25 Dose: 40 mg Carvedilol (Coreg -) 25 mg PO BID [facility] Last Admin: 06/04/19 09:43 Dose: 25 mg Ferrous Sulfate (Feosol -) 325 mg PO DAILY [facility] Last Admin: 06/04/19 09:43 Dose: 325 mg Heparin Sodium (Porcine) (Heparin -) 5,000 unit SQ TID [facility] Last Admin: 06/04/19 14:11 Dose: 5,000 unit Sodium Chloride (1/2 Normal Saline) 1,000 mls @ 75 mls/hr IV ASDIR [facility] Last Admin: 06/04/19 16:55 Dose: 75 mls/hr Ceftriaxone Sodium 1 gm/ (Dextrose) 50 mls @ 200 mls/hr IVPB DAILY [facility]; Protocol Vancomycin HCl 1,000 mg/ (Dextrose) 250 mls @ 166.667 mls/hr IVPB ONCE ONE; Protocol Stop: 06/04/19 19:13 Insulin Aspart (Novolog Vial Sliding Scale -) 1 vial SQ ACHS [facility]; Protocol Last Admin: 06/04/19 16:54 Dose: Not Given Insulin Detemir (Levemir Vial) 20 units SQ AM [facility] Last Admin: 06/04/19 06:36 Dose: 20 units Insulin Detemir (Levemir Vial) 10 units SQ HS [facility] Ondansetron HCl (Zofran Injection) 4 mg IVPUSH Q6H PRN PRN Reason: NAUSEA AND/OR VOMITING Last Admin: 06/04/19 11:59 Dose: 4 mg Oxycodone HCl (Roxicodone -) 5 mg PO Q6H PRN PRN Reason: PAIN LEVEL 7 - 10 Last Admin: 06/02/19 09:49 Dose: 5 mg Pantoprazole Sodium (Protonix Iv) 40 mg IVPUSH DAILY [facility] Last Admin: 06/04/19 14:11 Dose: 40 mg - Objective Vital Signs: Vital Signs Temperature 100.3 F H 06/04/19 13:00 Pulse Rate 62 06/04/19 13:00 Respiratory Rate 18 06/04/19 13:00 Blood Pressure 147/65 06/04/19 13:00 O2 Sat by Pulse Oximetry (%) 96 06/04/19 09:00 Constitutional: Yes: No Distress Eyes: Yes: Conjunctiva Clear Cardiovascular: Yes: Regular Rate and Rhythm, S1, S2 Respiratory: Yes: CTA Bilaterally Gastrointestinal: Yes: Normal Bowel Sounds, Soft Extremities: Yes: Other (PERSISTANT ERYTHEMA/ WARMTH R FOOT/LE) Labs: CBC, BMP 06/04/19 08:15 06/04/19 16:50 INR, PTT INR 1.26 (0.83-1.09) H 06/02/19 08:10 Assessment/Plan CELLULITIS R FOOT/LE PERSISTANT FEVER R/O SEPSIS RENAL FAILURE REPEAT BC REDOSE VANCOMYCIN SUBSTITUTE CEFTRIAXONE
[2019-06-04] MEDS ORDERED: VANCOMYCIN 1 GRAM (PRE-DOCKED) 1,000 MG/250 ML BAG IVPB ONE (18:00)
[2019-06-04] MEDS ORDERED: cefTRIAXone SODIUM 1 GM VIAL ONE (18:08)
[2019-06-04] MEDS ORDERED: DEXTROSE 5%-WATER - 50 ML IVPB ONE (18:08)
[2019-06-04] MEDS: CEFTRIAXONE 1 GM in DEXTROSE 5%-WATER - 50 ML IVPB SCH (18:11)
[2019-06-04] MEDS: ATORVASTATIN CA 40 MG TABLET (FP) PO SCH (22:42)
[2019-06-05] MEDS: ONDANSETRON 4 MG/2 ML VIAL IVPUSH PRN ×3 (06:35→23:54)
[2019-06-05] MEDS: HEPARIN NA (PORCINE) 5,000 UNITS/ML 1ML VIAL SQ SCH ×3 (06:35→22:08)
[2019-06-05] MEDS: INSULIN SLIDING SCALE (NOVOLOG) 1 VIAL SQ SCH ×4 (06:36→22:06)
[2019-06-05] MEDS: INSULIN (LEVEMIR) 100 UNITS/ML UNITS SQ SCH ×3 (07:08→22:10)
--- NOTE | 2019-06-05 09:48 | PN ---
Progress Note, Physician Chief Complaint: RLE Cellulitis History of Present Illness: Previous notes and events reviewed awake and alert NAD complain of nausea and vomiting accompanied with epigastric pain no leukocytosis afebrile denies chest pain or SOB - Current Medication List Current Medications: Active Medications Acetaminophen (Tylenol -) 650 mg PO Q6H PRN PRN Reason: FEVER Last Admin: 06/04/19 01:38 Dose: 650 mg Amlodipine Besylate (Norvasc -) 5 mg PO DAILY [facility] Last Admin: 06/04/19 09:43 Dose: 5 mg Atorvastatin Calcium (Lipitor -) 40 mg PO HS [facility] Last Admin: 06/04/19 22:42 Dose: 40 mg Carvedilol (Coreg -) 25 mg PO BID [facility] Last Admin: 06/04/19 22:42 Dose: 25 mg Ferrous Sulfate (Feosol -) 325 mg PO DAILY [facility] Last Admin: 06/04/19 09:43 Dose: 325 mg Heparin Sodium (Porcine) (Heparin -) 5,000 unit SQ TID [facility] Last Admin: 06/05/19 06:35 Dose: 5,000 unit Sodium Chloride (1/2 Normal Saline) 1,000 mls @ 75 mls/hr IV ASDIR [facility] Last Admin: 06/04/19 16:55 Dose: 75 mls/hr Ceftriaxone Sodium 1 gm/ (Dextrose) 50 mls @ 100 mls/hr IVPB DAILY [facility]; Protocol Last Admin: 06/04/19 18:11 Dose: 100 mls/hr Insulin Aspart (Novolog Vial Sliding Scale -) 1 vial SQ ACHS [facility]; Protocol Last Admin: 06/05/19 06:36 Dose: Not Given Insulin Detemir (Levemir Vial) 20 units SQ AM [facility] Last Admin: 06/05/19 09:07 Dose: 20 units Insulin Detemir (Levemir Vial) 10 units SQ HS [facility] Last Admin: 06/04/19 22:43 Dose: 10 units Ondansetron HCl (Zofran Injection) 4 mg IVPUSH Q6H PRN PRN Reason: NAUSEA AND/OR VOMITING Last Admin: 06/05/19 06:35 Dose: 4 mg Pantoprazole Sodium (Protonix Iv) 40 mg IVPUSH DAILY [facility] Last Admin: 06/04/19 14:11 Dose: 40 mg - Objective Vital Signs: Vital Signs Temperature 98.8 F 06/05/19 06:00 Pulse Rate 121 H 06/05/19 06:00 Respiratory Rate 18 06/05/19 06:00 Blood Pressure 184/72 H 06/05/19 06:00 O2 Sat by Pulse Oximetry (%) 96 06/04/19 21:00 Constitutional: Yes: No Distress, Calm Eyes: Yes: Conjunctiva Clear HENT: Yes: Atraumatic Cardiovascular: Yes: Regular Rate and Rhythm Respiratory: Yes: Regular, Diminished Gastrointestinal: Yes: Normal Bowel Sounds, Soft, Tenderness, Epigastrium Genitourinary: Yes: Incontinence Musculoskeletal: Yes: Muscle Weakness Extremities: Yes: Erythema (RLE) Edema: No Neurological: Yes: Alert, Oriented Psychiatric: Yes: Alert, Oriented Labs: CBC, BMP 06/04/19 08:15 INR, PTT INR 1.26 (0.83-1.09) H 06/02/19 08:10 Microbiology 06/01/19 11:15 Blood - Peripheral Venous Blood Culture - Preliminary NO GROWTH OBTAINED AFTER 72 HOURS, INCUBATION TO CONTINUE FOR 2 DAYS. 06/01/19 11:15 Blood - Peripheral Venous Blood Culture - Preliminary NO GROWTH OBTAINED AFTER 72 HOURS, INCUBATION TO CONTINUE FOR 2 DAYS. 06/01/19 13:57 Urine - Urine Clean Catch Urine Culture - Final NO GROWTH OBTAINED Problem List - Problems (1) Abdominal pain Assessment/Plan: -CTAP shows liver, spleen, pancreas, adrenal glands, and kidneys demonstrate no significant abnormalities, gallbladder is clear, no evidence of intra-abdominal or retroperitoneal lymphadenopathy, no pneumoperitoneum, bowel obstruction or intra-abdominal abscess, no evidence of acute appendicitis or diverticulitis -Pantoprazole -Zofran prn for nausea, vomiting Code(s): R10.9 - UNSPECIFIED ABDOMINAL PAIN (2) Acute on chronic renal insufficiency Assessment/Plan: -BUN/Cr 55.8/4.6 -Renal on board -monitor renal function daily -Renal US shows both kidneys are echogenic compatible with chronic medical renal disease -IV hydration Code(s): N28.9 - DISORDER OF KIDNEY AND URETER, UNSPECIFIED; N18.9 - CHRONIC KIDNEY DISEASE, UNSPECIFIED (3) Anemia Assessment/Plan: -Hg 7.9 -monitor Hg daily -Ferrous Sulfate daily -Anemia Profile shows low Fe, low Iron Sat, low TIBC -Stool Ob neg -transfuse for Hg <7.0 Code(s): D64.9 - ANEMIA, UNSPECIFIED (4) Cellulitis Assessment/Plan: -ID on board -Leukocytosis -afebrile this AM -Ceftriaxone -BC neg -LA 1.2 Code(s): L03.90 - CELLULITIS, UNSPECIFIED Qualifiers: Site of cellulitis: extremity Site of cellulitis of extremity: lower extremity Laterality: right Qualified Code(s): L03.115 - Cellulitis of right lower limb (5) Diabetes Assessment/Plan: -BGM ACHS -Levemir BID -ISS -HgA1c 7.2% -low Na/diabetic diet -Endocrinology consult Code(s): E11.9 - TYPE 2 DIABETES MELLITUS WITHOUT COMPLICATIONS Qualifiers: Chronic kidney disease stage: stage 3 (moderate) (6) Hypertension Assessment/Plan: -Amlodipine, Carvedilol -low Na/diabetic diet Code(s): I10 - ESSENTIAL (PRIMARY) HYPERTENSION (7) Sepsis Assessment/Plan: -ID on board -Leukocytosis -afebrile this AM -Ceftriaxone -BC neg -LA 1.2 Code(s): A41.9 - SEPSIS, UNSPECIFIED ORGANISM Qualifiers: Sepsis type: sepsis due to unspecified organism Sepsis acute organ dysfunction status: unspecified Qualified Code(s): A41.9 - Sepsis, unspecified organism Assessment/Plan see problem list dvt ppx
[2019-06-05 10:36] LABS: ALBUMIN 2.2 g/dl (3.4-5.0); BILIRUBIN,TOTAL 0.3 mg/dL (0.2-1); BLOOD UREA NITROGEN 55.8 mg/dL (7-18); CREATININE 4.6 mg/dL (0.55-1.3); POTASSIUM 4.3 mmol/L (3.5-5.1); TOT PROT 6.8 g/dl (6.4-8.2)
[2019-06-05] MEDS ORDERED: cefTRIAXone SODIUM 1 GM VIAL ONE (11:14)
[2019-06-05] MEDS ORDERED: INSULIN (NOVOLOG) ASPART 100 UNITS/ML 10ML VIAL ONE (11:14)
[2019-06-05] MEDS ORDERED: DEXTROSE 5%-WATER - 50 ML IVPB ONE (11:15)
[2019-06-05] MEDS: SODIUM CHLORIDE 0.45% 1,000 ML IV SCH ×2 (11:35→13:33)
[2019-06-05] MEDS: PANTOPRAZOLE SODIUM 40 MG VIAL IVPUSH SCH (11:37)
[2019-06-05] MEDS: FERROUS SO4 325 MG TABLET (FP) PO SCH (11:38)
[2019-06-05] MEDS: amLODIPine BESYLATE 5 MG TABLET (FP) PO SCH (11:38)
[2019-06-05] MEDS: CARVEDILOL 25 MG TABLET (FP) PO SCH ×2 (11:38→22:06)
[2019-06-05] MEDS: CEFTRIAXONE 1 GM in DEXTROSE 5%-WATER - 50 ML IVPB SCH (11:45)
--- NOTE | 2019-06-05 13:30 | PN ---
Progress Note, Physician History of Present Illness: Pt seen and examined at bedside. He is awake and appears comfortable. - Current Medication List Current Medications: Active Medications Acetaminophen (Tylenol -) 650 mg PO Q6H PRN PRN Reason: FEVER Last Admin: 06/04/19 01:38 Dose: 650 mg Amlodipine Besylate (Norvasc -) 5 mg PO DAILY [facility] Last Admin: 06/05/19 11:38 Dose: 5 mg Atorvastatin Calcium (Lipitor -) 40 mg PO HS [facility] Last Admin: 06/04/19 22:42 Dose: 40 mg Carvedilol (Coreg -) 25 mg PO BID [facility] Last Admin: 06/05/19 11:38 Dose: 25 mg Ferrous Sulfate (Feosol -) 325 mg PO DAILY [facility] Last Admin: 06/05/19 11:38 Dose: 325 mg Heparin Sodium (Porcine) (Heparin -) 5,000 unit SQ TID [facility] Last Admin: 06/05/19 06:35 Dose: 5,000 unit Sodium Chloride (1/2 Normal Saline) 1,000 mls @ 75 mls/hr IV ASDIR [facility] Last Admin: 06/05/19 11:35 Dose: 75 mls/hr Ceftriaxone Sodium 1 gm/ (Dextrose) 50 mls @ 100 mls/hr IVPB DAILY [facility]; Protocol Last Admin: 06/05/19 11:45 Dose: 100 mls/hr Insulin Aspart (Novolog Vial Sliding Scale -) 1 vial SQ ACHS [facility]; Protocol Last Admin: 06/05/19 12:47 Dose: 4 units Insulin Detemir (Levemir Vial) 20 units SQ AM [facility] Last Admin: 06/05/19 09:07 Dose: 20 units Insulin Detemir (Levemir Vial) 10 units SQ HS [facility] Last Admin: 06/04/19 22:43 Dose: 10 units Ondansetron HCl (Zofran Injection) 4 mg IVPUSH Q6H PRN PRN Reason: NAUSEA AND/OR VOMITING Last Admin: 06/05/19 06:35 Dose: 4 mg Pantoprazole Sodium (Protonix Iv) 40 mg IVPUSH DAILY [facility] Last Admin: 06/05/19 11:37 Dose: 40 mg - Objective Vital Signs: Vital Signs Temperature 98.3 F 06/05/19 10:00 Pulse Rate 68 06/05/19 10:00 Respiratory Rate 18 06/05/19 10:00 Blood Pressure 174/83 H 06/05/19 10:00 O2 Sat by Pulse Oximetry (%) 96 06/04/19 21:00 Constitutional: Yes: Calm Eyes: Yes: Conjunctiva Clear HENT: Yes: Atraumatic Neck: Yes: Supple Cardiovascular: Yes: S1, S2 Respiratory: Yes: CTA Bilaterally Gastrointestinal: Yes: Soft Genitourinary: Yes: WNL Edema: RLE: Trace Neurological: Yes: Oriented Psychiatric: Yes: Oriented Labs: CBC, BMP 06/04/19 08:15 06/05/19 08:55 INR, PTT INR 1.26 (0.83-1.09) H 06/02/19 08:10 Problem List - Problems (1) Cellulitis Code(s): L03.90 - CELLULITIS, UNSPECIFIED Qualifiers: Site of cellulitis: extremity Site of cellulitis of extremity: lower extremity Laterality: right Qualified Code(s): L03.115 - Cellulitis of right lower limb (2) Renal failure Code(s): N19 - UNSPECIFIED KIDNEY FAILURE Qualifiers: Renal failure chronicity: unspecified chronicity Qualified Code(s): N19 - Unspecified kidney failure (3) Sepsis Code(s): A41.9 - SEPSIS, UNSPECIFIED ORGANISM Qualifiers: Sepsis type: sepsis due to unspecified organism Sepsis acute organ dysfunction status: unspecified Qualified Code(s): A41.9 - Sepsis, unspecified organism Assessment/Plan Current Medications Generic Name Dose Route Start Last Admin Trade Name Freq PRN Reason Stop Dose Admin Acetaminophen 650 mg 06/01/19 18:27 06/04/19 01:38 Tylenol - PO 650 mg Q6H PRN Administration FEVER Amlodipine Besylate 5 mg 06/02/19 17:30 06/05/19 11:38 Norvasc - PO 5 mg DAILY [facility] Administration Atorvastatin Calcium 40 mg 06/01/19 22:00 06/04/19 22:42 Lipitor - PO 40 mg HS [facility] Administration Carvedilol 25 mg 06/01/19 22:00 06/05/19 11:38 Coreg - PO 25 mg BID [facility] Administration Ferrous Sulfate 325 mg 06/02/19 12:45 06/05/19 11:38 Feosol - PO 325 mg DAILY [facility] Administration Heparin Sodium (Porcine) 5,000 unit 06/01/19 22:00 06/05/19 06:35 Heparin - SQ 5,000 unit TID [facility] Administration Sodium Chloride 1,000 mls @ 75 mls/hr 06/03/19 13:33 06/05/19 11:35 1/2 Normal Saline IV 75 mls/hr ASDIR [facility] Administration Ceftriaxone Sodium 1 gm/ 50 mls @ 100 mls/hr 06/04/19 18:00 06/05/19 11:45 Dextrose IVPB 100 mls/hr DAILY [facility] Administration Protocol Insulin Aspart 1 vial 06/01/19 22:00 06/05/19 12:47 Novolog Vial Sliding Scale - SQ 4 units ACHS [facility] Administration Protocol Insulin Detemir 20 units 06/04/19 07:00 06/05/19 09:07 Levemir Vial SQ 20 units AM [facility] Administration Insulin Detemir 10 units 06/04/19 22:00 06/04/19 22:43 Levemir Vial SQ 10 units HS [facility] Administration Ondansetron HCl 4 mg 06/03/19 11:42 06/05/19 06:35 Zofran Injection IVPUSH 4 mg Q6H PRN Administration NAUSEA AND/OR VOMITING Pantoprazole Sodium 40 mg 06/04/19 12:30 06/05/19 11:37 Protonix Iv IVPUSH 40 mg DAILY [facility] Administration Laboratory Tests 06/04/19 06/04/19 08:15 08:15 CORNEL M-Ayaan Pending MARIAN Screen Pending c-ANCA Pending Proteinase 3 (PR3) Pending p-ANCA Pending Atypical p-ANCA Pending Myeloperoxidase Ab Pending Double Strand DNA Ab 1 Impression 1. ROOSEVELT 2. ckd 3. dm 4. cellulitis 5. pvd 6. htn Plan - follow serologies - top former is improving - cont fluids - repeat labs in am - abx for cellulitis - avoid nsaids
[2019-06-05] MEDS ORDERED: cloNIDine HCL 0.1 MG TABLET PO ONE (14:29)
--- NOTE | 2019-06-05 15:12 | CON.CARD ---
Consult Consult Specialty:: Cardiology Referred by:: Dr. Nix Reason for Consultation:: hypertension - History of Present Illness Chief Complaint: Leg pain History of Present Illness: 64 year old man with a PMHx of HTN, hyperlipidemia, DM, CHF, PAD, s/p left midfoot amputation admitted 06/01/19 with right LE cellulitis. He was noted to have ROOSEVELT, seen by renal. He was seen by Vascular sugery and ID and receiving IV ABx. The patient has persistent right leg and foot pain. He also complains of nausea. He has no chest pain, SOB at rest or palpitation. ECG 06/01/19 sinus rhythm with first degree AVB. LAD. - History Source History Provided By: Patient, Significant Other Limitations to Obtaining History: No Limitations - Past Medical History Cardio/Vascular: Yes: CHF, HTN Renal/: Yes: Renal Inusuff Endocrine: Yes: Diabetes Mellitus - Past Surgical History Past Surgical History: Yes: Amputation - Alcohol/Substance Use Hx Alcohol Use: No - Smoking History Smoking history: Unknown if ever smoked Have you smoked in the past 12 months: No Home Medications - Allergies Allergies/Adverse Reactions: Allergies Allergy/AdvReac Type Severity Reaction Status Date / Time No Known Allergies Allergy Verified 06/01/19 11:06 - Home Medications Home Medications: Ambulatory Orders Unobtainable 06/01/19 Vital Signs: Vital Signs Temperature 98.4 F 06/05/19 14:00 Pulse Rate 70 06/05/19 14:00 Respiratory Rate 18 06/05/19 14:00 Blood Pressure 179/80 H 06/05/19 14:00 O2 Sat by Pulse Oximetry (%) 100 06/05/19 09:00 General: Well developed. Chronic ill. Mild distress due to leg pain. Head: Normocephalic. Atraumatic, Eyes: PERRLA, EOMI. Sclerae anicteric. Conjunctivae clear. Neck: Supple. No JVD. No bruits. Heart: Normal S1, S2: Regular rhythm and rate. No murmur. No gallop or rub. Lungs: Symmetrical air entry. Clear to auscultation. No crackles. No wheezing or rhonchi. Abdomen: Soft. Bowel sound positive. Non tender. No masses. Extremities: Right leg and foot edema, erythema and tender. - Other Data Labs, Other Data: CBC, BMP 06/04/19 08:15 06/05/19 08:55 INR, PTT INR 1.26 (0.83-1.09) H 06/02/19 08:10 Assessment/Plan 64 year old man with a PMHx of HTN, hyperlipidemia, DM, CHF, PAD, s/p left midfoot amputation admitted 06/01/19 with right LE cellulitis. He was noted to have ROOSEVELT, seen by renal. He was seen by Vascular sugery and ID and receiving IV ABx. The patient has persistent right leg and foot pain. He also complains of nausea. He has no chest pain, SOB at rest or palpitation. ECG 06/01/19 sinus rhythm with first degree AVB. LAD. Hypertension: predominantly systolic hypertension with good resting heart rate control Increase amlodipine to 10 mg daily. Add Hydralazine 25 mg TID, titrate up for BP control Continue carvedilol 25 mg BID. Please do not hesitate to call us for reconsult at any time if any further questions or additional issue arises regarding this patient.
--- NOTE | 2019-06-05 17:35 | PN ---
Progress Note, Physician History of Present Illness: REPORTS LESS R LE PAIN TEMPS DOWN - Current Medication List Current Medications: Active Medications Acetaminophen (Tylenol -) 650 mg PO Q6H PRN PRN Reason: FEVER Last Admin: 06/04/19 01:38 Dose: 650 mg Amlodipine Besylate (Norvasc -) 5 mg PO DAILY [facility] Last Admin: 06/05/19 11:38 Dose: 5 mg Atorvastatin Calcium (Lipitor -) 40 mg PO HS [facility] Last Admin: 06/04/19 22:42 Dose: 40 mg Carvedilol (Coreg -) 25 mg PO BID [facility] Last Admin: 06/05/19 11:38 Dose: 25 mg Ferrous Sulfate (Feosol -) 325 mg PO DAILY [facility] Last Admin: 06/05/19 11:38 Dose: 325 mg Heparin Sodium (Porcine) (Heparin -) 5,000 unit SQ TID [facility] Last Admin: 06/05/19 13:32 Dose: 5,000 unit Sodium Chloride (1/2 Normal Saline) 1,000 mls @ 75 mls/hr IV ASDIR [facility] Last Admin: 06/05/19 13:33 Dose: Not Given Ceftriaxone Sodium 1 gm/ (Dextrose) 50 mls @ 100 mls/hr IVPB DAILY [facility]; Protocol Last Admin: 06/05/19 11:45 Dose: 100 mls/hr Insulin Aspart (Novolog Vial Sliding Scale -) 1 vial SQ ACHS [facility]; Protocol Last Admin: 06/05/19 12:47 Dose: 4 units Insulin Detemir (Levemir Vial) 20 units SQ AM [facility] Last Admin: 06/05/19 09:07 Dose: 20 units Insulin Detemir (Levemir Vial) 10 units SQ HS [facility] Last Admin: 06/04/19 22:43 Dose: 10 units Ondansetron HCl (Zofran Injection) 4 mg IVPUSH Q6H PRN PRN Reason: NAUSEA AND/OR VOMITING Last Admin: 06/05/19 13:37 Dose: 4 mg Pantoprazole Sodium (Protonix Iv) 40 mg IVPUSH DAILY [facility] Last Admin: 06/05/19 11:37 Dose: 40 mg - Objective Vital Signs: Vital Signs Temperature 98.4 F 06/05/19 14:00 Pulse Rate 70 06/05/19 14:00 Respiratory Rate 18 06/05/19 14:00 Blood Pressure 179/80 H 06/05/19 14:00 O2 Sat by Pulse Oximetry (%) 100 06/05/19 09:00 Constitutional: Yes: No Distress Eyes: Yes: Conjunctiva Clear Cardiovascular: Yes: Regular Rate and Rhythm, S1, S2 Respiratory: Yes: CTA Bilaterally Gastrointestinal: Yes: Normal Bowel Sounds, Soft. No: Tenderness Extremities: Yes: Other (SL DECREASED ERYTHEMA/ SWELLING R LE) Labs: CBC, BMP 06/04/19 08:15 06/05/19 08:55 INR, PTT INR 1.26 (0.83-1.09) H 06/02/19 08:10 Assessment/Plan CELLULITIS R FOOT R/O SEPSIS SECONDARY TO SKIN SOURCE RENAL FAILURE REPEAT BC PENDING REDOSED VANCOMYCIN CONTINUE CEFTRIAXONE
[2019-06-05] MEDS ORDERED: VANCOMYCIN 1 GRAM (PRE-DOCKED) 1,000 MG/250 ML BAG IVPB ONE (18:00)
--- NOTE | 2019-06-05 20:11 | PN ---
Progress Note, Physician Chief Complaint: short of breath at bedside,with improved sugars - Current Medication List Current Medications: Active Medications Acetaminophen (Tylenol -) 650 mg PO Q6H PRN PRN Reason: FEVER Last Admin: 06/04/19 01:38 Dose: 650 mg Amlodipine Besylate (Norvasc -) 5 mg PO DAILY [facility] Last Admin: 06/05/19 11:38 Dose: 5 mg Atorvastatin Calcium (Lipitor -) 40 mg PO HS [facility] Last Admin: 06/04/19 22:42 Dose: 40 mg Carvedilol (Coreg -) 25 mg PO BID [facility] Last Admin: 06/05/19 11:38 Dose: 25 mg Ferrous Sulfate (Feosol -) 325 mg PO DAILY [facility] Last Admin: 06/05/19 11:38 Dose: 325 mg Heparin Sodium (Porcine) (Heparin -) 5,000 unit SQ TID [facility] Last Admin: 06/05/19 13:32 Dose: 5,000 unit Sodium Chloride (1/2 Normal Saline) 1,000 mls @ 75 mls/hr IV ASDIR [facility] Last Admin: 06/05/19 13:33 Dose: Not Given Ceftriaxone Sodium 1 gm/ (Dextrose) 50 mls @ 100 mls/hr IVPB DAILY [facility]; Protocol Last Admin: 06/05/19 11:45 Dose: 100 mls/hr Insulin Aspart (Novolog Vial Sliding Scale -) 1 vial SQ ACHS [facility]; Protocol Last Admin: 06/05/19 17:38 Dose: 4 units Insulin Detemir (Levemir Vial) 20 units SQ AM [facility] Last Admin: 06/05/19 09:07 Dose: 20 units Insulin Detemir (Levemir Vial) 10 units SQ HS [facility] Last Admin: 06/04/19 22:43 Dose: 10 units Ondansetron HCl (Zofran Injection) 4 mg IVPUSH Q6H PRN PRN Reason: NAUSEA AND/OR VOMITING Last Admin: 06/05/19 13:37 Dose: 4 mg Pantoprazole Sodium (Protonix Iv) 40 mg IVPUSH DAILY [facility] Last Admin: 06/05/19 11:37 Dose: 40 mg - Objective Vital Signs: Vital Signs Temperature 98.1 F 06/05/19 18:00 Pulse Rate 62 06/05/19 18:00 Respiratory Rate 18 06/05/19 18:00 Blood Pressure 142/57 L 06/05/19 18:00 O2 Sat by Pulse Oximetry (%) 100 06/05/19 09:00 Constitutional: Yes: Anxious Eyes: Yes: EOM Intact HENT: Yes: Normocephalic Neck: Yes: Trachea Midline Respiratory: Yes: CTA Bilaterally Gastrointestinal: Yes: Normal Bowel Sounds ...Rectal Exam: Yes: Deferred Breast(s): Yes: WNL Musculoskeletal: Yes: Muscle Pain, Muscle Weakness Extremities: Yes: Amputation, Cold, Delayed Capillary Refill Edema: Yes Edema: RLE: 1+ Peripheral Pulses WNL: No Integumentary: Yes: Rash, Onychomycosis, Venous Stasis Changes Wound/Incision: Yes: Open to air, Draining, Excoriated Neurological: Yes: Alert, Oriented, Numbness, Tingling Labs: CBC, BMP 06/04/19 08:15 06/05/19 08:55 INR, PTT INR 1.26 (0.83-1.09) H 06/02/19 08:10 Problem List - Problems (1) Type 2 diabetes mellitus with diabetic chronic kidney disease Problems reviewed: Yes Code(s): E11.22 - TYPE 2 DIABETES MELLITUS W DIABETIC CHRONIC KIDNEY DISEASE (2) Acute on chronic renal insufficiency Problems reviewed: Yes Code(s): N28.9 - DISORDER OF KIDNEY AND URETER, UNSPECIFIED; N18.9 - CHRONIC KIDNEY DISEASE, UNSPECIFIED (3) Cellulitis Problems reviewed: Yes Code(s): L03.90 - CELLULITIS, UNSPECIFIED Qualifiers: Site of cellulitis: extremity Site of cellulitis of extremity: lower extremity Laterality: right Qualified Code(s): L03.115 - Cellulitis of right lower limb (4) Diabetes Problems reviewed: Yes Code(s): E11.9 - TYPE 2 DIABETES MELLITUS WITHOUT COMPLICATIONS Qualifiers: Chronic kidney disease stage: stage 3 (moderate) (5) Hypertension Code(s): I10 - ESSENTIAL (PRIMARY) HYPERTENSION (6) Left foot amputee Code(s): Z89.432 - ACQUIRED ABSENCE OF LEFT FOOT (7) Prophylactic measure Code(s): Z29.9 - ENCOUNTER FOR PROPHYLACTIC MEASURES, UNSPECIFIED Assessment/Plan Current Active Problems Abdominal pain (Acute) Acute on chronic renal insufficiency (Acute) Anemia (Acute) Cellulitis (Acute) DVT prophylaxis (Acute) Diabetes (Acute) Hypertension (Acute) Left foot amputee (Acute) Prophylactic measure (Acute) Renal failure (Acute) Sepsis (Acute) Type 2 diabetes mellitus with diabetic chronic kidney disease (Acute) Abnormal Lab Results 06/04/19 06/05/19 08:15 08:55 Chloride 109 H Carbon Dioxide 20 L BUN 55.8 H Creatinine 4.6 H Random Glucose 187 H Calcium 8.0 L AST 62 H Alkaline Phosphatase 330 H Total Protein (PEP) 4.7 L Albumin 2.2 L Albumin (PEP) 1.9 L CORNEL M-Ayaan 0.3 H Laboratory Results - last 24 hr 06/04/19 06/04/19 06/04/19 08:15 08:15 22:47 Sodium Potassium Chloride Carbon Dioxide Anion Gap BUN Creatinine Est GFR (CKD-EPI)AfAm Est GFR (CKD-EPI)NonAf POC Glucometer 202 Random Glucose Calcium Total Bilirubin AST ALT Alkaline Phosphatase Total Protein Total Protein (PEP) 4.7 L Albumin Albumin (PEP) 1.9 L Globulin 2.8 Albumin/Globulin Ratio 0.7 Beta Globulins 0.8 Random Vancomycin CORNEL M-Ayaan 0.3 H Double Strand DNA Ab 1 06/05/19 06/05/19 06/05/19 06:00 06:34 08:55 Sodium 140 Potassium 4.3 Chloride 109 H Carbon Dioxide 20 L Anion Gap 10 BUN 55.8 H Creatinine 4.6 H Est GFR (CKD-EPI)AfAm 14.30 Est GFR (CKD-EPI)NonAf 12.34 POC Glucometer 146 Random Glucose 187 H Calcium 8.0 L Total Bilirubin 0.3 AST 62 H ALT 33 Alkaline Phosphatase 330 H Total Protein 6.8 Total Protein (PEP) Albumin 2.2 L Albumin (PEP) Globulin Albumin/Globulin Ratio Beta Globulins Random Vancomycin 22.6 CORNEL M-Ayaan Double Strand DNA Ab 06/05/19 06/05/19 06/05/19 08:56 12:08 16:11 Sodium Potassium Chloride Carbon Dioxide Anion Gap BUN Creatinine Est GFR (CKD-EPI)AfAm Est GFR (CKD-EPI)NonAf POC Glucometer 182 232 204 Random Glucose Calcium Total Bilirubin AST ALT Alkaline Phosphatase Total Protein Total Protein (PEP) Albumin Albumin (PEP) Globulin Albumin/Globulin Ratio Beta Globulins Random Vancomycin CORNEL M-Ayaan Double Strand DNA Ab plan: bgm qid novolog scale levemir 27 units am levemir 10 units hs iv abx wound care
[2019-06-05] MEDS: ATORVASTATIN CA 40 MG TABLET (FP) PO SCH (22:06)
[2019-06-06] MEDS: ONDANSETRON 4 MG/2 ML VIAL IVPUSH PRN (06:07)
[2019-06-06] MEDS: SODIUM CHLORIDE 0.45% 1,000 ML IV SCH (06:38)
[2019-06-06] MEDS: HEPARIN NA (PORCINE) 5,000 UNITS/ML 1ML VIAL SQ SCH ×3 (06:42→23:35)
[2019-06-06] MEDS: INSULIN (LEVEMIR) 100 UNITS/ML UNITS SQ SCH ×2 (06:44→21:33)
[2019-06-06] MEDS: INSULIN SLIDING SCALE (NOVOLOG) 1 VIAL SQ SCH ×4 (06:45→21:33)
[2019-06-06] MEDS ORDERED: PT OWN MED DRAWER 7, Y5N ONE (08:36)
[2019-06-06] MEDS ORDERED: DEXTROSE 5%-WATER - 50 ML IVPB ONE (09:22)
[2019-06-06] MEDS ORDERED: cefTRIAXone SODIUM 1 GM VIAL ONE (09:22)
[2019-06-06] MEDS: FERROUS SO4 325 MG TABLET (FP) PO SCH (10:00)
[2019-06-06] MEDS: PANTOPRAZOLE SODIUM 40 MG VIAL IVPUSH SCH (10:00)
[2019-06-06] MEDS: amLODIPine BESYLATE 5 MG TABLET (FP) PO SCH (10:00)
[2019-06-06] MEDS: CARVEDILOL 25 MG TABLET (FP) PO SCH ×2 (10:00→21:28)
[2019-06-06] MEDS: CEFTRIAXONE 1 GM in DEXTROSE 5%-WATER - 50 ML IVPB SCH (10:01)
[2019-06-06] MEDS ORDERED: PHENAZOPYRIDINE HCL 100 MG TABLET (FP) PO PRN (13:00)
[2019-06-06 13:03] LABS: HEMATOCRIT 27.6 % (35.4-49); HEMOGLOBIN 8.9 GM/dL (11.7-16.9); MCH 29.4 pg (25.7-33.7); MCHC 32.4 g/dl (32.0-35.9); MEAN CELL VOLUME 90.8 fl (80-96); PLATELET COUNT 181 K/MM3 (134-434); RBC 3.04 M/mm3 (4.00-5.60); RDW 13.6 % (11.9-15.9); WHITE BLOOD COUNT 10.8 K/mm3 (4.0-10.0)
[2019-06-06] MEDS ORDERED: ONDANSETRON 4 MG/2 ML VIAL IVPUSH PRN (13:09)
[2019-06-06] MEDS ORDERED: MAG HYDROX/AL HYDROX/SIMETH 30 ML UNIT-DOSE CUP PO ONE (13:09)
--- NOTE | 2019-06-06 13:16 | PN ---
Progress Note, Physician Chief Complaint: LLE cellulitis History of Present Illness: c/O nausea/vomiting/decreased appetite RLE Erythema and pain improved Now with N/V, had BM [address] abd/pel negative for any acute pathology Seen by ID On Iv abx - Current Medication List Current Medications: Active Medications Acetaminophen (Tylenol -) 650 mg PO Q6H PRN PRN Reason: FEVER Last Admin: 06/04/19 01:38 Dose: 650 mg Al Hydroxide/Mg Hydroxide (Mylanta Oral Suspension -) 30 ml PO Q6H PRN PRN Reason: DYSPEPSIA Amlodipine Besylate (Norvasc -) 5 mg PO DAILY [facility] Last Admin: 06/06/19 10:00 Dose: 5 mg Atorvastatin Calcium (Lipitor -) 40 mg PO HS [facility] Last Admin: 06/05/19 22:06 Dose: 40 mg Carvedilol (Coreg -) 25 mg PO BID [facility] Last Admin: 06/06/19 10:00 Dose: 25 mg Ferrous Sulfate (Feosol -) 325 mg PO DAILY [facility] Last Admin: 06/06/19 10:00 Dose: 325 mg Heparin Sodium (Porcine) (Heparin -) 5,000 unit SQ TID [facility] Last Admin: 06/06/19 06:42 Dose: 5,000 unit Sodium Chloride (1/2 Normal Saline) 1,000 mls @ 75 mls/hr IV ASDIR [facility] Last Admin: 06/06/19 06:38 Dose: 75 mls/hr Ceftriaxone Sodium 1 gm/ (Dextrose) 50 mls @ 100 mls/hr IVPB DAILY [facility]; Protocol Last Admin: 06/06/19 10:01 Dose: 100 mls/hr Insulin Aspart (Novolog Vial Sliding Scale -) 1 vial SQ ACHS [facility]; Protocol Last Admin: 06/06/19 12:04 Dose: Not Given Insulin Detemir (Levemir Vial) 10 units SQ HS [facility] Last Admin: 06/05/19 22:10 Dose: 10 units Insulin Detemir (Levemir Vial) 25 units SQ AM [facility] Last Admin: 06/06/19 06:44 Dose: 25 unit Ondansetron HCl (Zofran Injection) 8 mg IVPUSH Q8H PRN PRN Reason: NAUSEA AND/OR VOMITING Pantoprazole Sodium (Protonix Iv) 40 mg IVPUSH DAILY [facility] Last Admin: 06/06/19 10:00 Dose: 40 mg Phenazopyridine HCl (Pyridium -) 100 mg PO TID PRN PRN Reason: dysuria - Objective Vital Signs: Vital Signs Temperature 99 F 06/06/19 09:58 Pulse Rate 68 06/06/19 09:58 Respiratory Rate 18 06/06/19 09:58 Blood Pressure 187/84 H 06/06/19 09:58 O2 Sat by Pulse Oximetry (%) 100 06/05/19 21:00 Constitutional: Yes: Well Nourished, Calm, Mild Distress (vomiting) Cardiovascular: Yes: Regular Rate and Rhythm Respiratory: Yes: Regular Genitourinary: Yes: WNL Musculoskeletal: Yes: Muscle Weakness Extremities: Yes: Erythema (RLE) Edema: Yes (RLE non pitting edema) Peripheral Pulses WNL: Yes Neurological: Yes: Alert, Oriented Psychiatric: Yes: Alert, Oriented Labs: CBC, BMP 06/06/19 12:29 INR, PTT INR 1.26 (0.83-1.09) H 06/02/19 08:10 Problem List - Problems (1) Anemia Assessment/Plan: -Stool OB negative -Iron % low -HOLD ferrous sulfate 1 tab po daily -Follow trend Problems reviewed: Yes Code(s): D64.9 - ANEMIA, UNSPECIFIED (2) Cellulitis Assessment/Plan: -ID consult -IV abx -febrile overnight -Cultures: Microbiology 06/01/19 11:15 Blood - Peripheral Venous Blood Culture - Preliminary NO GROWTH OBTAINED AFTER 72 HOURS, INCUBATION TO CONTINUE FOR 2 DAYS. 06/01/19 11:15 Blood - Peripheral Venous Blood Culture - Preliminary NO GROWTH OBTAINED AFTER 72 HOURS, INCUBATION TO CONTINUE FOR 2 DAYS. 06/01/19 13:57 Urine - Urine Clean Catch Urine Culture - Final NO GROWTH OBTAINED -Leukocytosis improved -Repeat LA normal Problems reviewed: Yes Code(s): L03.90 - CELLULITIS, UNSPECIFIED Qualifiers: Site of cellulitis: extremity Site of cellulitis of extremity: lower extremity Laterality: right Qualified Code(s): L03.115 - Cellulitis of right lower limb (3) Acute on chronic renal insufficiency Assessment/Plan: -Nephrology consult -IVF -monitor trend -Renal U/S with chronic medical renal dz- no hydronephrosis, mildly distended bladder -UC negative Problems reviewed: Yes Code(s): N28.9 - DISORDER OF KIDNEY AND URETER, UNSPECIFIED; N18.9 - CHRONIC KIDNEY DISEASE, UNSPECIFIED (4) Diabetes Assessment/Plan: -A1c at 8.6 -BGM AC HS -ISS -Diabetic sodium diet -Endocrine consult Problems reviewed: Yes Code(s): E11.9 - TYPE 2 DIABETES MELLITUS WITHOUT COMPLICATIONS Qualifiers: Chronic kidney disease stage: stage 3 (moderate) (5) Hypertension Assessment/Plan: -Amlodipine 5 mg po daily -monitor trend Problems reviewed: Yes Code(s): I10 - ESSENTIAL (PRIMARY) HYPERTENSION (6) Abdominal pain Assessment/Plan: -Zofran for nausea/vomiting increase dosage -PPI -CT abd/pelvis reviewed -Bladder scan now -Insert Rincon if retaining >300 ml urine -Will get GI consult -NPO except meds Problems reviewed: Yes Code(s): R10.9 - UNSPECIFIED ABDOMINAL PAIN Assessment/Plan see problem list
[2019-06-06 13:41] LABS: ALBUMIN 2.1 g/dl (3.4-5.0); BILIRUBIN,TOTAL 0.3 mg/dL (0.2-1); BLOOD UREA NITROGEN 57.1 mg/dL (7-18); CALCIUM 7.8 mg/dL (8.5-10.1); CREATININE 4.6 mg/dL (0.55-1.3); POTASSIUM 3.9 mmol/L (3.5-5.1); TOT PROT 6.6 g/dl (6.4-8.2)
[2019-06-06] MEDS ORDERED: DEXTROSE 5%-NORMAL SALINE 1,000 ML IV SCH (13:45)
[2019-06-06] MEDS ORDERED: ONDANSETRON 4 MG/2 ML VIAL IVPB STA (14:10)
--- NOTE | 2019-06-06 14:16 | CON.GI ---
Consult Consult Specialty:: GI - History of Present Illness Chief Complaint: nausea and vomiting History of Present Illness: 64 y/o male with PMH of Diabetes was admitted with sepsis right leg cellulites and acute renal injury. Since admission he was complaining of epigastric pain nausea and intermittent vomiting with no relief with Pantoprazole and aluminum hydroxide. Ct was done which revealed no acute abdominal pathology. Patient presently NPO - Past Medical History Cardio/Vascular: Yes: CHF, HTN Renal/: Yes: Renal Inusuff Endocrine: Yes: Diabetes Mellitus - Past Surgical History Past Surgical History: Yes: Amputation - Alcohol/Substance Use Hx Alcohol Use: No - Smoking History Smoking history: Unknown if ever smoked Have you smoked in the past 12 months: No Home Medications - Allergies Allergies/Adverse Reactions: Allergies Allergy/AdvReac Type Severity Reaction Status Date / Time No Known Allergies Allergy Verified 06/01/19 11:06 - Home Medications Home Medications: Ambulatory Orders Unobtainable 06/01/19 Review of Systems - Review of Systems Constitutional: reports: No Symptoms Cardiovascular: reports: No Symptoms Gastrointestinal: reports: Abdominal Pain, Bloating, Nausea, Vomiting. denies: Constipation, Diarrhea, Dysphagia Physical Exam-GI Vital Signs: Vital Signs Temperature 99 F 06/06/19 09:58 Pulse Rate 68 06/06/19 09:58 Respiratory Rate 18 06/06/19 09:58 Blood Pressure 187/84 H 06/06/19 09:58 O2 Sat by Pulse Oximetry (%) 100 06/05/19 21:00 Constitutional: Yes: Obese Eyes: Yes: Conjunctiva Clear HENT: Yes: Atraumatic Neck: Yes: Supple Cardiovascular: Yes: Regular Rate and Rhythm Respiratory: Yes: CTA Bilaterally Gastrointestinal Inspection: Yes: Distention ...Palpate: Yes: Soft, Tenderness, Epigastium. No: Firm/Rigid, Guarding, Hepatomegaly, Mass, Pulsatile Mass, Splenomegaly ...Percussion: Yes: Tympanitic Labs: CBC, BMP 06/06/19 12:29 06/06/19 12:29 INR, PTT INR 1.26 (0.83-1.09) H 06/02/19 08:10 Home Medications Medication Instructions Recorded Unobtainable 06/01/19 Home Medication List Medication Instructions Recorded Confirmed Type Unobtainable 06/01/19 06/01/19 History Active Medications Generic Name Dose Route Start Last Admin Trade Name Eleonora PRN Reason Stop Dose Admin Acetaminophen 650 mg 06/01/19 18:27 06/04/19 01:38 Tylenol - PO 650 mg Q6H PRN Administration FEVER Al Hydroxide/Mg Hydroxide 30 ml 06/06/19 13:09 Mylanta Oral Suspension - PO Q6H PRN DYSPEPSIA Amlodipine Besylate 5 mg 06/02/19 17:30 06/06/19 10:00 Norvasc - PO 5 mg DAILY [facility] Administration Atorvastatin Calcium 40 mg 06/01/19 22:00 06/05/19 22:06 Lipitor - PO 40 mg HS [facility] Administration Carvedilol 25 mg 06/01/19 22:00 06/06/19 10:00 Coreg - PO 25 mg BID [facility] Administration Ferrous Sulfate 325 mg 06/02/19 12:45 06/06/19 10:00 Feosol - PO 325 mg DAILY [facility] Administration Heparin Sodium (Porcine) 5,000 unit 06/01/19 22:00 06/06/19 14:10 Heparin - SQ 5,000 unit TID [facility] Administration Ceftriaxone Sodium 1 gm/ 50 mls @ 100 mls/hr 06/04/19 18:00 06/06/19 10:01 Dextrose IVPB 100 mls/hr DAILY [facility] Administration Protocol Dextrose/Sodium Chloride 1,000 mls @ 75 mls/hr 06/06/19 13:45 D5-1/2ns - IV ASDIR [facility] Insulin Aspart 1 vial 06/01/19 22:00 06/06/19 12:04 Novolog Vial Sliding Scale - SQ Not Given ACHS [facility] Protocol Insulin Detemir 10 units 06/04/19 22:00 06/05/19 22:10 Levemir Vial SQ 10 units HS [facility] Administration Insulin Detemir 25 units 06/05/19 20:12 06/06/19 06:44 Levemir Vial SQ 25 unit AM [facility] Administration Metoclopramide HCl 10 mg 06/06/19 14:15 Reglan Injection - IVPB Q8H [facility] Pantoprazole Sodium 40 mg 06/04/19 12:30 06/06/19 10:00 Protonix Iv IVPUSH 40 mg DAILY [facility] Administration Phenazopyridine HCl 100 mg 06/06/19 13:00 Pyridium - PO TID PRN dysuria Problem List - Problems (1) Epigastric abdominal pain Assessment/Plan: associated with nausea and vomiting most likely secondary to dyspepsia and gastroparesis R> continue PPI start Reglan and zofran FUA Code(s): R10.13 - EPIGASTRIC PAIN
[2019-06-06] MEDS: METOCLOPRAMIDE HCL INJECTION 10 MG/2 ML VIAL IVPB SCH ×2 (14:23→21:35)
[2019-06-06] MEDS: DEXTROSE 5%-0.45% SALINE 1,000 ML IV SCH (14:31)
--- NOTE | 2019-06-06 18:17 | PN ---
Progress Note (short form) - Note Progress Note: 1. [place] 2. ckd 3. dm 4. cellulitis 5. pvd 6. htn Current Medications Acetaminophen (Tylenol -) 650 mg PO Q6H PRN PRN Reason: FEVER Last Admin: 06/04/19 01:38 Dose: 650 mg Al Hydroxide/Mg Hydroxide (Mylanta Oral Suspension -) 30 ml PO Q6H PRN PRN Reason: DYSPEPSIA Amlodipine Besylate (Norvasc -) 5 mg PO DAILY [facility] Last Admin: 06/06/19 10:00 Dose: 5 mg Atorvastatin Calcium (Lipitor -) 40 mg PO HS [facility] Last Admin: 06/05/19 22:06 Dose: 40 mg Carvedilol (Coreg -) 25 mg PO BID [facility] Last Admin: 06/06/19 10:00 Dose: 25 mg Ferrous Sulfate (Feosol -) 325 mg PO DAILY [facility] Last Admin: 06/06/19 10:00 Dose: 325 mg Heparin Sodium (Porcine) (Heparin -) 5,000 unit SQ TID [facility] Last Admin: 06/06/19 14:10 Dose: 5,000 unit Ceftriaxone Sodium 1 gm/ (Dextrose) 50 mls @ 100 mls/hr IVPB DAILY [facility]; Protocol Last Admin: 06/06/19 10:01 Dose: 100 mls/hr Dextrose/Sodium Chloride (D5-1/2ns -) 1,000 mls @ 75 mls/hr IV ASDIR [facility] Last Admin: 06/06/19 14:31 Dose: 75 mls/hr Insulin Aspart (Novolog Vial Sliding Scale -) 1 vial SQ ACHS [facility]; Protocol Last Admin: 06/06/19 17:48 Dose: Not Given Insulin Detemir (Levemir Vial) 10 units SQ HS [facility] Last Admin: 06/05/19 22:10 Dose: 10 units Insulin Detemir (Levemir Vial) 25 units SQ AM [facility] Last Admin: 06/06/19 06:44 Dose: 25 unit Metoclopramide HCl (Reglan Injection -) 10 mg IVPB Q8H [facility] Last Admin: 06/06/19 14:23 Dose: 10 mg Pantoprazole Sodium (Protonix Iv) 40 mg IVPUSH DAILY [facility] Last Admin: 06/06/19 10:00 Dose: 40 mg Phenazopyridine HCl (Pyridium -) 100 mg PO TID PRN PRN Reason: dysuria Last Vital Signs Temp Pulse Resp BP Pulse Ox 98 F 61 18 159/75 100 06/06/19 14:00 06/06/19 14:00 06/06/19 14:00 06/06/19 14:00 06/05/19 21:00 CBC, BMP 06/06/19 12:29 06/06/19 12:29 Plan - follow serologies - 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
--- NOTE | 2019-06-06 19:14 | PN ---
Progress Note, Physician History of Present Illness: LOW GRADE TEMPS REPORTS LESS R LE PAIN - Current Medication List Current Medications: Active Medications Acetaminophen (Tylenol -) 650 mg PO Q6H PRN PRN Reason: FEVER Last Admin: 06/04/19 01:38 Dose: 650 mg Al Hydroxide/Mg Hydroxide (Mylanta Oral Suspension -) 30 ml PO Q6H PRN PRN Reason: DYSPEPSIA Amlodipine Besylate (Norvasc -) 5 mg PO DAILY [facility] Last Admin: 06/06/19 10:00 Dose: 5 mg Atorvastatin Calcium (Lipitor -) 40 mg PO HS [facility] Last Admin: 06/05/19 22:06 Dose: 40 mg Carvedilol (Coreg -) 25 mg PO BID [facility] Last Admin: 06/06/19 10:00 Dose: 25 mg Ferrous Sulfate (Feosol -) 325 mg PO DAILY [facility] Last Admin: 06/06/19 10:00 Dose: 325 mg Heparin Sodium (Porcine) (Heparin -) 5,000 unit SQ TID [facility] Last Admin: 06/06/19 14:10 Dose: 5,000 unit Ceftriaxone Sodium 1 gm/ (Dextrose) 50 mls @ 100 mls/hr IVPB DAILY [facility]; Protocol Last Admin: 06/06/19 10:01 Dose: 100 mls/hr Dextrose/Sodium Chloride (D5-1/2ns -) 1,000 mls @ 75 mls/hr IV ASDIR [facility] Last Admin: 06/06/19 14:31 Dose: 75 mls/hr Insulin Aspart (Novolog Vial Sliding Scale -) 1 vial SQ ACHS [facility]; Protocol Last Admin: 06/06/19 17:48 Dose: Not Given Insulin Detemir (Levemir Vial) 10 units SQ HS [facility] Last Admin: 06/05/19 22:10 Dose: 10 units Insulin Detemir (Levemir Vial) 25 units SQ AM [facility] Last Admin: 06/06/19 06:44 Dose: 25 unit Metoclopramide HCl (Reglan Injection -) 10 mg IVPB Q8H [facility] Last Admin: 06/06/19 14:23 Dose: 10 mg Pantoprazole Sodium (Protonix Iv) 40 mg IVPUSH DAILY [facility] Last Admin: 06/06/19 10:00 Dose: 40 mg Phenazopyridine HCl (Pyridium -) 100 mg PO TID PRN PRN Reason: dysuria - Objective Vital Signs: Vital Signs Temperature 98 F 06/06/19 14:00 Pulse Rate 61 06/06/19 14:00 Respiratory Rate 18 06/06/19 14:00 Blood Pressure 159/75 06/06/19 14:00 O2 Sat by Pulse Oximetry (%) 100 06/05/19 21:00 Constitutional: Yes: No Distress Cardiovascular: Yes: Regular Rate and Rhythm, S1, S2 Respiratory: Yes: CTA Bilaterally Gastrointestinal: Yes: Normal Bowel Sounds, Soft Extremities: Yes: Other (ERYTHEMA R LE IMPPROVED STILL WITH SIGNIFICANT EDEMA) Labs: CBC, BMP 06/06/19 12:29 06/06/19 12:29 INR, PTT INR 1.26 (0.83-1.09) H 06/02/19 08:10 Assessment/Plan CELLULITIS R FOOT/ R LE R/O SEPSIS SECONDARY TO SKIN SOURCE RENAL FAILURE REPEAT BC NO GROWTH CONTINUE CEFTRIAXONE CHECK RANDOM VANCO LEVEL AM
[2019-06-06] MEDS: MAG HYDROX/AL HYDROX/SIMETH 30 ML UNIT-DOSE CUP PO PRN (20:47)
[2019-06-06] MEDS: ATORVASTATIN CA 40 MG TABLET (FP) PO SCH (21:32)
[2019-06-07] MEDS: MAG HYDROX/AL HYDROX/SIMETH 30 ML UNIT-DOSE CUP PO PRN ×2 (03:25→13:37)
[2019-06-07] MEDS: DEXTROSE 5%-0.45% SALINE 1,000 ML IV SCH ×2 (06:28→11:40)
[2019-06-07] MEDS: METOCLOPRAMIDE HCL INJECTION 10 MG/2 ML VIAL IVPB SCH ×3 (06:29→22:46)
[2019-06-07] MEDS: HEPARIN NA (PORCINE) 5,000 UNITS/ML 1ML VIAL SQ SCH ×3 (06:33→22:42)
[2019-06-07] MEDS: INSULIN (LEVEMIR) 100 UNITS/ML UNITS SQ SCH ×2 (06:35→22:43)
[2019-06-07] MEDS: INSULIN SLIDING SCALE (NOVOLOG) 1 VIAL SQ SCH ×4 (06:35→22:45)
[2019-06-07 09:03] LABS: BASO % 0.1 % (0-2.0); EOS % 0.2 % (0-4.5); HEMATOCRIT 26.2 % (35.4-49); HEMOGLOBIN 8.5 GM/dL (11.7-16.9); MCH 29.1 pg (25.7-33.7); MCHC 32.5 g/dl (32.0-35.9); MEAN CELL VOLUME 89.5 fl (80-96); MONO % 9.3 % (3.8-10.2); NEUT % 86.4 % (42.8-82.8); PLATELET COUNT 183 K/MM3 (134-434); RBC 2.92 M/mm3 (4.00-5.60); RDW 13.5 % (11.9-15.9); WHITE BLOOD COUNT 10.8 K/mm3 (4.0-10.0)
[2019-06-07] MEDS ORDERED: DEXTROSE 5%-WATER - 50 ML IVPB ONE (09:26)
[2019-06-07] MEDS ORDERED: cefTRIAXone SODIUM 1 GM VIAL ONE (09:26)
[2019-06-07 09:28] LABS: ALBUMIN 2.1 g/dl (3.4-5.0); BILIRUBIN,TOTAL 0.2 mg/dL (0.2-1); BLOOD UREA NITROGEN 58.8 mg/dL (7-18); CALCIUM 7.6 mg/dL (8.5-10.1); CREATININE 4.5 mg/dL (0.55-1.3); POTASSIUM 3.9 mmol/L (3.5-5.1); TOT PROT 6.4 g/dl (6.4-8.2)
[2019-06-07] MEDS: CARVEDILOL 25 MG TABLET (FP) PO SCH ×2 (09:31→22:40)
[2019-06-07] MEDS: amLODIPine BESYLATE 5 MG TABLET (FP) PO SCH (09:31)
[2019-06-07] MEDS: PANTOPRAZOLE SODIUM 40 MG VIAL IVPUSH SCH (09:33)
[2019-06-07] MEDS: CEFTRIAXONE 1 GM in DEXTROSE 5%-WATER - 50 ML IVPB SCH (09:33)
--- NOTE | 2019-06-07 09:56 | PN ---
Progress Note, Physician Chief Complaint: LLE cellulitis History of Present Illness: c/O nausea/vomiting/decreased appetite RLE Erythema and pain improved N/V improved seen by GI Started on Reglan Has been NPO CT abd/pel negative for any acute pathology Seen by ID On Iv abx - Current Medication List Current Medications: Active Medications Acetaminophen (Tylenol -) 650 mg PO Q6H PRN PRN Reason: FEVER Last Admin: 06/04/19 01:38 Dose: 650 mg Al Hydroxide/Mg Hydroxide (Mylanta Oral Suspension -) 30 ml PO Q6H PRN PRN Reason: DYSPEPSIA Last Admin: 06/07/19 03:25 Dose: 30 ml Amlodipine Besylate (Norvasc -) 10 mg PO DAILY [facility] Amlodipine Besylate (Norvasc -) 5 mg PO ONCE ONE Stop: 06/07/19 09:51 Atorvastatin Calcium (Lipitor -) 40 mg PO HS [facility] Last Admin: 06/06/19 21:32 Dose: Not Given Carvedilol (Coreg -) 25 mg PO BID [facility] Last Admin: 06/07/19 09:31 Dose: 25 mg Ferrous Sulfate (Feosol -) 325 mg PO DAILY [facility] Last Admin: 06/06/19 10:00 Dose: 325 mg Heparin Sodium (Porcine) (Heparin -) 5,000 unit SQ TID [facility] Last Admin: 06/07/19 06:33 Dose: 5,000 unit Ceftriaxone Sodium 1 gm/ (Dextrose) 50 mls @ 100 mls/hr IVPB DAILY [facility]; Protocol Last Admin: 06/07/19 09:33 Dose: 100 mls/hr Dextrose/Sodium Chloride (D5-1/2ns -) 1,000 mls @ 50 mls/hr IV ASDIR [facility] Insulin Aspart (Novolog Vial Sliding Scale -) 1 vial SQ ACHS [facility]; Protocol Last Admin: 06/07/19 06:35 Dose: Not Given Insulin Detemir (Levemir Vial) 10 units SQ HS [facility] Last Admin: 06/06/19 21:33 Dose: Not Given Insulin Detemir (Levemir Vial) 25 units SQ AM [facility] Last Admin: 06/07/19 06:35 Dose: Not Given Metoclopramide HCl (Reglan Injection -) 10 mg IVPB Q8H [facility] Last Admin: 06/07/19 06:29 Dose: 10 mg Pantoprazole Sodium (Protonix Iv) 40 mg IVPUSH DAILY [facility] Last Admin: 06/07/19 09:33 Dose: 40 mg Phenazopyridine HCl (Pyridium -) 100 mg PO TID PRN PRN Reason: dysuria - Objective Vital Signs: Vital Signs Temperature 98.8 F 06/07/19 09:21 Pulse Rate 68 06/07/19 09:21 Respiratory Rate 18 06/07/19 09:21 Blood Pressure 183/80 H 06/07/19 09:21 O2 Sat by Pulse Oximetry (%) 100 06/06/19 21:00 Constitutional: Yes: Well Nourished, No Distress, Calm, Obese Cardiovascular: Yes: Regular Rate and Rhythm Respiratory: Yes: Regular Gastrointestinal: Yes: Normal Bowel Sounds, Soft, Abdomen, Obese Genitourinary: Yes: WNL Musculoskeletal: Yes: WNL Extremities: Yes: Erythema (RLE-improved) Edema: No Peripheral Pulses WNL: Yes Neurological: Yes: Alert, Oriented Psychiatric: Yes: Alert, Oriented Labs: CBC, BMP 06/07/19 07:00 06/07/19 07:00 INR, PTT INR 1.26 (0.83-1.09) H 06/02/19 08:10 Problem List - Problems (1) Anemia Assessment/Plan: -Stool OB negative -Iron % low -HOLD ferrous sulfate 1 tab po daily- might be causing nausea -Follow trend Problems reviewed: Yes Code(s): D64.9 - ANEMIA, UNSPECIFIED (2) Cellulitis Assessment/Plan: -ID consult -IV abx -afebrile overnight -Cultures: Microbiology 06/01/19 11:15 Blood - Peripheral Venous Blood Culture - Preliminary NO GROWTH OBTAINED AFTER 72 HOURS, INCUBATION TO CONTINUE FOR 2 DAYS. 06/01/19 11:15 Blood - Peripheral Venous Blood Culture - Preliminary NO GROWTH OBTAINED AFTER 72 HOURS, INCUBATION TO CONTINUE FOR 2 DAYS. 06/01/19 13:57 Urine - Urine Clean Catch Urine Culture - Final NO GROWTH OBTAINED -Leukocytosis improved -Repeat LA normal Problems reviewed: Yes Code(s): L03.90 - CELLULITIS, UNSPECIFIED Qualifiers: Site of cellulitis: extremity Site of cellulitis of extremity: lower extremity Laterality: right Qualified Code(s): L03.115 - Cellulitis of right lower limb (3) Acute on chronic renal insufficiency Assessment/Plan: -Nephrology consult -IVF- decrease rate to 50 cc/hr -monitor trend -Renal U/S with chronic medical renal dz- no hydronephrosis, mildly distended bladder -UC negative Problems reviewed: Yes Code(s): N28.9 - DISORDER OF KIDNEY AND URETER, UNSPECIFIED; N18.9 - CHRONIC KIDNEY DISEASE, UNSPECIFIED (4) Diabetes Assessment/Plan: -A1c at 8.6 -BGM AC HS -ISS -Levemir -Endocrine consult Problems reviewed: Yes Code(s): E11.9 - TYPE 2 DIABETES MELLITUS WITHOUT COMPLICATIONS Qualifiers: Chronic kidney disease stage: stage 3 (moderate) (5) Hypertension Assessment/Plan: -Increase Amlodipine to 10 mg po daily -monitor trend Problems reviewed: Yes Code(s): I10 - ESSENTIAL (PRIMARY) HYPERTENSION (6) Abdominal pain Assessment/Plan: -Improved -Zofram discontinued, started on Reglan for nausea/vomiting and possible gastroperesis -PPI -CT abd/pelvis reviewed-unremarkable -Bladder scan unremarkable -GI consult appreciated -Trial of clear liquid diets Problems reviewed: Yes Code(s): R10.9 - UNSPECIFIED ABDOMINAL PAIN Assessment/Plan see problem list
[2019-06-07] MEDS ORDERED: amLODIPine BESYLATE 5 MG TABLET (FP) PO ONE (10:30)
--- NOTE | 2019-06-07 10:33 | PN.GI ---
GI Progress Note Subjective: nausea, vomiting ang epigastric pain partially relieved, tolerating clear liquids - Objective Vital Signs: Vital Signs Temperature 98.8 F 06/07/19 09:21 Pulse Rate 68 06/07/19 09:21 Respiratory Rate 18 06/07/19 09:21 Blood Pressure 183/80 H 06/07/19 09:21 O2 Sat by Pulse Oximetry (%) 100 06/06/19 21:00 Constitutional: Well Nourished Eyes: Yes: Conjunctiva Clear HENT: Yes: Atraumatic Neck: Yes: Trachea Midline Cardiovascular: Yes: Regular Rate and Rhythm Respiratory: Yes: CTA Bilaterally ...Palpate: Yes: Soft, Tenderness, Epigastium. No: Firm/Rigid, Guarding, Hepatomegaly, Mass, Pulsatile Mass, Splenomegaly Labs: CBC, BMP 06/07/19 07:00 06/07/19 07:00 INR, PTT INR 1.26 (0.83-1.09) H 06/02/19 08:10 Hepatic Panel Total Bilirubin 0.2 mg/dL (0.2-1) 06/07/19 07:00 AST 47 U/L (15-37) H 06/07/19 07:00 ALT 35 U/L (13-61) 06/07/19 07:00 Alkaline Phosphatase 270 U/L (45-117) H 06/07/19 07:00 Albumin 2.1 g/dl (3.4-5.0) L 06/07/19 07:00 Problem List - Problems (1) Epigastric abdominal pain Assessment/Plan: R>advance diet this evening as tolerated EGD even as an outpatient stool guaiac negative Code(s): R10.13 - EPIGASTRIC PAIN
[2019-06-07] MEDS: amLODIPine BESYLATE 10 MG TABLET (FP) PO SCH (11:38)
[2019-06-07] MEDS: SIMETHICONE 80 MG TAB.CHEW (FP) PO SCH ×3 (13:37→22:40)
--- NOTE | 2019-06-07 19:48 | PN ---
Progress Note, Physician History of Present Illness: LOW GRADE TEMPS REPORTS LESS R LE PAIN - Current Medication List Current Medications: Active Medications Acetaminophen (Tylenol -) 650 mg PO Q6H PRN PRN Reason: FEVER Last Admin: 06/04/19 01:38 Dose: 650 mg Al Hydroxide/Mg Hydroxide (Mylanta Oral Suspension -) 30 ml PO Q6H PRN PRN Reason: DYSPEPSIA Last Admin: 06/07/19 13:37 Dose: 30 ml Amlodipine Besylate (Norvasc -) 10 mg PO DAILY [facility] Last Admin: 06/07/19 11:38 Dose: Not Given Atorvastatin Calcium (Lipitor -) 40 mg PO HS [facility] Last Admin: 06/06/19 21:32 Dose: Not Given Carvedilol (Coreg -) 25 mg PO BID [facility] Last Admin: 06/07/19 09:31 Dose: 25 mg Ferrous Sulfate (Feosol -) 325 mg PO DAILY [facility] Last Admin: 06/06/19 10:00 Dose: 325 mg Heparin Sodium (Porcine) (Heparin -) 5,000 unit SQ TID [facility] Last Admin: 06/07/19 13:37 Dose: 5,000 unit Ceftriaxone Sodium 1 gm/ (Dextrose) 50 mls @ 100 mls/hr IVPB DAILY [facility]; Protocol Last Admin: 06/07/19 09:33 Dose: 100 mls/hr Dextrose/Sodium Chloride (D5-1/2ns -) 1,000 mls @ 50 mls/hr IV ASDIR [facility] Last Admin: 06/07/19 11:40 Dose: 50 mls/hr Insulin Aspart (Novolog Vial Sliding Scale -) 1 vial SQ ACHS [facility]; Protocol Last Admin: 06/07/19 16:29 Dose: 4 units Insulin Detemir (Levemir Vial) 10 units SQ HS [facility] Last Admin: 06/06/19 21:33 Dose: Not Given Insulin Detemir (Levemir Vial) 25 units SQ AM [facility] Last Admin: 06/07/19 06:35 Dose: Not Given Metoclopramide HCl (Reglan Injection -) 10 mg IVPB Q8H [facility] Last Admin: 06/07/19 13:37 Dose: 10 mg Pantoprazole Sodium (Protonix Iv) 40 mg IVPUSH DAILY [facility] Last Admin: 06/07/19 09:33 Dose: 40 mg Phenazopyridine HCl (Pyridium -) 100 mg PO TID PRN PRN Reason: dysuria Simethicone (Mylicon -) 80 mg PO QID [facility] Last Admin: 06/07/19 17:58 Dose: 80 mg - Objective Vital Signs: Vital Signs Temperature 99.9 F H 06/07/19 18:00 Pulse Rate 64 06/07/19 18:00 Respiratory Rate 18 06/07/19 18:00 Blood Pressure 151/73 06/07/19 18:00 O2 Sat by Pulse Oximetry (%) 100 06/07/19 09:00 Constitutional: Yes: No Distress Cardiovascular: Yes: Regular Rate and Rhythm, S1, S2 Respiratory: Yes: CTA Bilaterally Gastrointestinal: Yes: Normal Bowel Sounds, Soft Extremities: Yes: Other (R LE ERYTHEMA NEARLY COMPLETELY RESOLVED. STILL SL WARM , SWOLLEN) Labs: CBC, BMP 06/07/19 07:00 06/07/19 07:00 INR, PTT INR 1.26 (0.83-1.09) H 06/02/19 08:10 Assessment/Plan CELLULITIS R FOOT/ R LE IMPROVED R/O SEPSIS SECONDARY TO SKIN SOURCE RENAL FAILURE REPEAT BC NO GROWTH CONTINUE CEFTRIAXONE ELEVATION
[2019-06-07] MEDS: ATORVASTATIN CA 40 MG TABLET (FP) PO SCH (22:39)
--- NOTE | 2019-06-07 22:42 | PN ---
Progress Note, Physician Chief Complaint: responding to insulin dose titration diet improved sugars still high 200's - Current Medication List Current Medications: Active Medications Acetaminophen (Tylenol -) 650 mg PO Q6H PRN PRN Reason: FEVER Last Admin: 06/04/19 01:38 Dose: 650 mg Al Hydroxide/Mg Hydroxide (Mylanta Oral Suspension -) 30 ml PO Q6H PRN PRN Reason: DYSPEPSIA Last Admin: 06/07/19 13:37 Dose: 30 ml Amlodipine Besylate (Norvasc -) 10 mg PO DAILY [facility] Last Admin: 06/07/19 11:38 Dose: Not Given Atorvastatin Calcium (Lipitor -) 40 mg PO HS [facility] Last Admin: 06/06/19 21:32 Dose: Not Given Carvedilol (Coreg -) 25 mg PO BID [facility] Last Admin: 06/07/19 09:31 Dose: 25 mg Ferrous Sulfate (Feosol -) 325 mg PO DAILY [facility] Last Admin: 06/06/19 10:00 Dose: 325 mg Heparin Sodium (Porcine) (Heparin -) 5,000 unit SQ TID [facility] Last Admin: 06/07/19 13:37 Dose: 5,000 unit Ceftriaxone Sodium 1 gm/ (Dextrose) 50 mls @ 100 mls/hr IVPB DAILY [facility]; Protocol Last Admin: 06/07/19 09:33 Dose: 100 mls/hr Dextrose/Sodium Chloride (D5-1/2ns -) 1,000 mls @ 50 mls/hr IV ASDIR [facility] Last Admin: 06/07/19 11:40 Dose: 50 mls/hr Insulin Aspart (Novolog Vial Sliding Scale -) 1 vial SQ ACHS [facility]; Protocol Last Admin: 06/07/19 16:29 Dose: 4 units Insulin Detemir (Levemir Vial) 10 units SQ HS [facility] Last Admin: 06/06/19 21:33 Dose: Not Given Insulin Detemir (Levemir Vial) 25 units SQ AM [facility] Last Admin: 06/07/19 06:35 Dose: Not Given Metoclopramide HCl (Reglan Injection -) 10 mg IVPB Q8H [facility] Last Admin: 06/07/19 13:37 Dose: 10 mg Pantoprazole Sodium (Protonix Iv) 40 mg IVPUSH DAILY [facility] Last Admin: 06/07/19 09:33 Dose: 40 mg Phenazopyridine HCl (Pyridium -) 100 mg PO TID PRN PRN Reason: dysuria Simethicone (Mylicon -) 80 mg PO QID [facility] Last Admin: 06/07/19 17:58 Dose: 80 mg - Objective Vital Signs: Vital Signs Temperature 99.9 F H 06/07/19 18:00 Pulse Rate 64 06/07/19 18:00 Respiratory Rate 18 06/07/19 18:00 Blood Pressure 151/73 06/07/19 18:00 O2 Sat by Pulse Oximetry (%) 100 06/07/19 09:00 Constitutional: Yes: Calm Eyes: Yes: EOM Intact HENT: Yes: Normocephalic Neck: Yes: Trachea Midline Cardiovascular: Yes: Regular Rate and Rhythm Respiratory: Yes: CTA Bilaterally Gastrointestinal: Yes: Normal Bowel Sounds ...Rectal Exam: Yes: Deferred Genitourinary: Yes: WNL Breast(s): Yes: WNL Musculoskeletal: Yes: Muscle Weakness Extremities: Yes: Delayed Capillary Refill, Pallor Edema: LLE: 1+, RLE: 1+ Wound/Incision: Yes: Draining Neurological: Yes: Alert, Oriented Labs: CBC, BMP 06/07/19 07:00 06/07/19 07:00 INR, PTT INR 1.26 (0.83-1.09) H 06/02/19 08:10 Problem List - Problems (1) Type 2 diabetes mellitus with diabetic chronic kidney disease Code(s): E11.22 - TYPE 2 DIABETES MELLITUS W DIABETIC CHRONIC KIDNEY DISEASE (2) Acute on chronic renal insufficiency Code(s): N28.9 - DISORDER OF KIDNEY AND URETER, UNSPECIFIED; N18.9 - CHRONIC KIDNEY DISEASE, UNSPECIFIED (3) Cellulitis Code(s): L03.90 - CELLULITIS, UNSPECIFIED Qualifiers: Site of cellulitis: extremity Site of cellulitis of extremity: lower extremity Laterality: right Qualified Code(s): L03.115 - Cellulitis of right lower limb (4) Diabetes Code(s): E11.9 - TYPE 2 DIABETES MELLITUS WITHOUT COMPLICATIONS Qualifiers: Chronic kidney disease stage: stage 3 (moderate) (5) Hypertension Code(s): I10 - ESSENTIAL (PRIMARY) HYPERTENSION (6) Left foot amputee Code(s): Z89.432 - ACQUIRED ABSENCE OF LEFT FOOT (7) Prophylactic measure Code(s): Z29.9 - ENCOUNTER FOR PROPHYLACTIC MEASURES, UNSPECIFIED Assessment/Plan Current Active Problems Abdominal pain (Acute) Acute on chronic renal insufficiency (Acute) Anemia (Acute) Cellulitis (Acute) DVT prophylaxis (Acute) Diabetes (Acute) Epigastric abdominal pain (Acute) Hypertension (Acute) Left foot amputee (Acute) Prophylactic measure (Acute) Renal failure (Acute) Sepsis (Acute) Type 2 diabetes mellitus with diabetic chronic kidney disease (Acute) Laboratory Tests 06/07/19 06/07/19 06/07/19 07:00 11:52 16:28 Sodium 140 Potassium 3.9 Chloride 111 H Carbon Dioxide 20 L Anion Gap 9 BUN 58.8 H Creatinine 4.5 H POC Glucometer 198 224 06/07/19 22:36 Sodium Potassium Chloride Carbon Dioxide Anion Gap BUN Creatinine POC Glucometer 265 plan: levemir dose 35units am( increased ) continue bgm sliding scale
[2019-06-08] MEDS: DEXTROSE 5%-0.45% SALINE 1,000 ML IV SCH ×2 (03:23→09:54)
[2019-06-08] MEDS: MAG HYDROX/AL HYDROX/SIMETH 30 ML UNIT-DOSE CUP PO PRN (03:23)
[2019-06-08] MEDS: METOCLOPRAMIDE HCL INJECTION 10 MG/2 ML VIAL IVPB SCH ×3 (06:05→21:29)
[2019-06-08] MEDS: HEPARIN NA (PORCINE) 5,000 UNITS/ML 1ML VIAL SQ SCH ×4 (06:07→21:27)
[2019-06-08] MEDS: INSULIN (LEVEMIR) 100 UNITS/ML UNITS SQ SCH ×2 (06:47→21:28)
[2019-06-08] MEDS: INSULIN SLIDING SCALE (NOVOLOG) 1 VIAL SQ SCH ×4 (06:48→21:28)
--- NOTE | 2019-06-08 08:39 | PN.GI ---
GI Progress Note Subjective: Patient continue to have epigastric pain with multiple episodes of nausea and vomiting. STates having poor appetite. Denies diarrhea, constipation, rectal bleeding, blood in stool, melena. 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 Pylori positive and severe/chronic gastritis ulceration and reactive changes. He has repeat EGD scheduled for 06/24/19. - Objective Vital Signs: Vital Signs Temperature 100.0 F H 06/08/19 06:00 Pulse Rate 65 06/08/19 06:00 Respiratory Rate 18 06/08/19 06:00 Blood Pressure 157/74 06/08/19 06:00 O2 Sat by Pulse Oximetry (%) 100 06/07/19 09:00 Constitutional: No Distress, Calm Eyes: Yes: Conjunctiva Clear HENT: Yes: Atraumatic Cardiovascular: Yes: Regular Rate and Rhythm Respiratory: Yes: Regular, CTA Bilaterally Gastrointestinal Inspection: Yes: WNL. No: Ascites, Distention, Hernia, Scars, Other ...Auscultate: Yes: Normoactive Bowel Sounds. No: Hyperactive Bowel Sounds, Hypoactive Bowel Sounds, No Bowel Sounds, Other ...Palpate: Yes: Soft, Tenderness, Epigastium. No: Firm/Rigid, Guarding, Hepatomegaly, Mass, Pulsatile Mass, Splenomegaly, Tenderness, Tenderness, Rebound, Other ...Percussion: Yes: Tympanitic. No: Dullness, Fluid Wave, Other Neurological: Yes: Alert, Oriented Psychiatric: Yes: Alert, Oriented Labs: CBC, BMP 06/07/19 07:00 06/07/19 07:00 INR, PTT INR 1.26 (0.83-1.09) H 06/02/19 08:10 Active Medications Generic Name Dose Route Start Last Admin Trade Name Freq PRN Reason Stop Dose Admin Acetaminophen 650 mg 06/01/19 18:27 06/04/19 01:38 Tylenol - PO 650 mg Q6H PRN Administration FEVER Al Hydroxide/Mg Hydroxide 30 ml 06/06/19 13:09 06/08/19 03:23 Mylanta Oral Suspension - PO 30 ml Q6H PRN Administration DYSPEPSIA Amlodipine Besylate 10 mg 06/07/19 10:30 06/07/19 11:38 Norvasc - PO Not Given DAILY [facility] Atorvastatin Calcium 40 mg 06/01/19 22:00 06/07/19 22:39 Lipitor - PO 40 mg HS [facility] Administration Carvedilol 25 mg 06/01/19 22:00 06/07/19 22:40 Coreg - PO 25 mg BID [facility] Administration Ferrous Sulfate 325 mg 06/02/19 12:45 06/06/19 10:00 Feosol - PO 325 mg DAILY [facility] Administration Heparin Sodium (Porcine) 5,000 unit 06/01/19 22:00 06/08/19 06:07 Heparin - SQ 5,000 unit TID [facility] Administration Ceftriaxone Sodium 1 gm/ 50 mls @ 100 mls/hr 06/04/19 18:00 06/07/19 09:33 Dextrose IVPB 100 mls/hr DAILY [facility] Administration Protocol Dextrose/Sodium Chloride 1,000 mls @ 50 mls/hr 06/07/19 09:50 06/08/19 03:23 D5-1/2ns - IV 50 mls/hr ASDIR [facility] Administration Insulin Aspart 1 vial 06/07/19 22:42 06/08/19 06:48 Novolog Vial Sliding Scale - SQ 7 unit ACHS [facility] Administration Protocol Insulin Detemir 10 units 06/04/19 22:00 06/07/19 22:43 Levemir Vial SQ 10 units HS [facility] Administration Insulin Detemir 35 units 06/08/19 07:00 06/08/19 06:47 Levemir Vial SQ 35 unit AM [facility] Administration Metoclopramide HCl 10 mg 06/06/19 14:15 06/08/19 06:05 Reglan Injection - IVPB 10 mg Q8H [facility] Administration Pantoprazole Sodium 40 mg 06/04/19 12:30 06/07/19 09:33 Protonix Iv IVPUSH 40 mg DAILY [facility] Administration Phenazopyridine HCl 100 mg 06/06/19 13:00 Pyridium - PO TID PRN dysuria Simethicone 80 mg 06/07/19 14:00 06/07/19 22:40 Mylicon - PO 80 mg QID [facility] Administration Problem List - Problems (1) Epigastric abdominal pain Assessment/Plan: R>continue clear liquid diet, advance as tolerated EGD as an outpatient stool guaiac negative Code(s): R10.13 - EPIGASTRIC PAIN
--- NOTE | 2019-06-08 09:01 | PN ---
Progress Note, Physician Chief Complaint: RLE Cellulitis History of Present Illness: Previous notes and events reviewed awake and alert NAD continue with nausea and vomiting accompanied with epigastric pain leukocytosis febrile T100F at 6am complain of dizziness--EKG ordered denies chest pain or SOB c/o mild RLE pain, erythema improved - Current Medication List Current Medications: Active Medications Acetaminophen (Tylenol -) 650 mg PO Q6H PRN PRN Reason: FEVER Last Admin: 06/04/19 01:38 Dose: 650 mg Al Hydroxide/Mg Hydroxide (Mylanta Oral Suspension -) 30 ml PO Q6H PRN PRN Reason: DYSPEPSIA Last Admin: 06/08/19 03:23 Dose: 30 ml Amlodipine Besylate (Norvasc -) 10 mg PO DAILY [facility] Last Admin: 06/07/19 11:38 Dose: Not Given Atorvastatin Calcium (Lipitor -) 40 mg PO HS [facility] Last Admin: 06/07/19 22:39 Dose: 40 mg Carvedilol (Coreg -) 25 mg PO BID [facility] Last Admin: 06/07/19 22:40 Dose: 25 mg Ferrous Sulfate (Feosol -) 325 mg PO DAILY [facility] Last Admin: 06/06/19 10:00 Dose: 325 mg Heparin Sodium (Porcine) (Heparin -) 5,000 unit SQ TID [facility] Last Admin: 06/08/19 06:07 Dose: 5,000 unit Ceftriaxone Sodium 1 gm/ (Dextrose) 50 mls @ 100 mls/hr IVPB DAILY [facility]; Protocol Last Admin: 06/07/19 09:33 Dose: 100 mls/hr Dextrose/Sodium Chloride (D5-1/2ns -) 1,000 mls @ 50 mls/hr IV ASDIR [facility] Last Admin: 06/08/19 03:23 Dose: 50 mls/hr Insulin Aspart (Novolog Vial Sliding Scale -) 1 vial SQ ACHS [facility]; Protocol Last Admin: 06/08/19 06:48 Dose: 7 unit Insulin Detemir (Levemir Vial) 10 units SQ HS [facility] Last Admin: 06/07/19 22:43 Dose: 10 units Insulin Detemir (Levemir Vial) 35 units SQ AM [facility] Last Admin: 06/08/19 06:47 Dose: 35 unit Metoclopramide HCl (Reglan Injection -) 10 mg IVPB Q8H [facility] Last Admin: 06/08/19 06:05 Dose: 10 mg Pantoprazole Sodium (Protonix Iv) 40 mg IVPUSH DAILY [facility] Last Admin: 06/07/19 09:33 Dose: 40 mg Phenazopyridine HCl (Pyridium -) 100 mg PO TID PRN PRN Reason: dysuria Simethicone (Mylicon -) 80 mg PO QID [facility] Last Admin: 06/07/19 22:40 Dose: 80 mg - Objective Vital Signs: Vital Signs Temperature 100.0 F H 06/08/19 06:00 Pulse Rate 65 06/08/19 06:00 Respiratory Rate 18 06/08/19 06:00 Blood Pressure 157/74 06/08/19 06:00 O2 Sat by Pulse Oximetry (%) 100 06/07/19 21:00 Constitutional: Yes: No Distress, Calm Eyes: Yes: Conjunctiva Clear HENT: Yes: Atraumatic Cardiovascular: Yes: Regular Rate and Rhythm Respiratory: Yes: Regular, CTA Bilaterally Gastrointestinal: Yes: Normal Bowel Sounds, Soft, Tenderness, Epigastrium Musculoskeletal: Yes: Muscle Weakness Extremities: Yes: WNL Edema: No Neurological: Yes: Alert, Oriented Psychiatric: Yes: Alert, Oriented Labs: INR, PTT INR 1.26 (0.83-1.09) H 06/02/19 08:10 Microbiology 06/04/19 19:00 Blood - Peripheral Venous Blood Culture - Preliminary NO GROWTH OBTAINED AFTER 72 HOURS, INCUBATION TO CONTINUE FOR 2 DAYS. 06/04/19 19:00 Blood - Peripheral Venous Blood Culture - Preliminary NO GROWTH OBTAINED AFTER 72 HOURS, INCUBATION TO CONTINUE FOR 2 DAYS. 06/01/19 11:15 Blood - Peripheral Venous Blood Culture - Final NO GROWTH AFTER 5 DAYS INCUBATION 06/01/19 11:15 Blood - Peripheral Venous Blood Culture - Final NO GROWTH AFTER 5 DAYS INCUBATION 06/01/19 13:57 Urine - Urine Clean Catch Urine Culture - Final NO GROWTH OBTAINED Problem List - Problems (1) Abdominal pain Assessment/Plan: -CTAP shows liver, spleen, pancreas, adrenal glands, and kidneys demonstrate no significant abnormalities, gallbladder is clear, no evidence of intra-abdominal or retroperitoneal lymphadenopathy, no pneumoperitoneum, bowel obstruction or intra-abdominal abscess, no evidence of acute appendicitis or diverticulitis -Pantoprazole -Reglan for nausea, vomiting -Simethicone -GI on board t Code(s): R10.9 - UNSPECIFIED ABDOMINAL PAIN (2) Acute on chronic renal insufficiency Assessment/Plan: -BUN/Cr 58.8/4.5 -Renal on board -monitor renal function daily -Renal US shows both kidneys are echogenic compatible with chronic medical renal disease Code(s): N28.9 - DISORDER OF KIDNEY AND URETER, UNSPECIFIED; N18.9 - CHRONIC KIDNEY DISEASE, UNSPECIFIED (3) Anemia Assessment/Plan: -Hg 8.2 -monitor Hg daily -Ferrous Sulfate daily on hold as possible source of nausea -Anemia Profile shows low Fe, low Iron Sat, low TIBC -Stool Ob neg -transfuse for Hg <7.0 -stool OB neg -GI on board Code(s): D64.9 - ANEMIA, UNSPECIFIED (4) Cellulitis Assessment/Plan: -ID on board -Leukocytosis -afebrile -Ceftriaxone -BC neg -LA 1.2 Code(s): L03.90 - CELLULITIS, UNSPECIFIED Qualifiers: Site of cellulitis: extremity Site of cellulitis of extremity: lower extremity Laterality: right Qualified Code(s): L03.115 - Cellulitis of right lower limb (5) Diabetes Assessment/Plan: -BGM ACHS -Levemir BID -ISS -HgA1c 7.2% -low Na/diabetic diet -Endocrinology consult Code(s): E11.9 - TYPE 2 DIABETES MELLITUS WITHOUT COMPLICATIONS Qualifiers: Chronic kidney disease stage: stage 3 (moderate) (6) Hypertension Assessment/Plan: -Amlodipine, Carvedilol -Cardiology on board -low Na/diabetic diet Code(s): I10 - ESSENTIAL (PRIMARY) HYPERTENSION (7) Sepsis Assessment/Plan: -ID on board -Leukocytosis -afebrile -Ceftriaxone -BC neg -LA 1.2 Code(s): A41.9 - SEPSIS, UNSPECIFIED ORGANISM Qualifiers: Sepsis type: sepsis due to unspecified organism Sepsis acute organ dysfunction status: unspecified Qualified Code(s): A41.9 - Sepsis, unspecified organism (8) Dizziness Assessment/Plan: -EKG STAT -monitor BP -re-consult cardiology if needed Code(s): R42 - DIZZINESS AND GIDDINESS Assessment/Plan see problem list dvt ppx
[2019-06-08 09:06] LABS: BASO % 0.2 % (0-2.0); EOS % 0.7 % (0-4.5); HEMATOCRIT 25.2 % (35.4-49); HEMOGLOBIN 8.2 GM/dL (11.7-16.9); LYMPH % 5.6 % (8-40); MCH 28.9 pg (25.7-33.7); MCHC 32.3 g/dl (32.0-35.9); MEAN CELL VOLUME 89.4 fl (80-96); MEAN PLT VOLUME 8.7 fl (7.5-11.1); MONO % 10.7 % (3.8-10.2); NEUT % 82.8 % (42.8-82.8); PLATELET COUNT 191 K/MM3 (134-434); RBC 2.82 M/mm3 (4.00-5.60); RDW 13.3 % (11.9-15.9); WHITE BLOOD COUNT 11.2 K/mm3 (4.0-10.0)
[2019-06-08] MEDS ORDERED: PT OWN MED DRAWER 7, Y5N ONE ×2 (09:13→12:50)
[2019-06-08] MEDS ORDERED: cefTRIAXone SODIUM 1 GM VIAL ONE (09:13)
[2019-06-08] MEDS ORDERED: DEXTROSE 5%-WATER - 50 ML IVPB ONE (09:13)
[2019-06-08 09:35] LABS: ALBUMIN 2.1 g/dl (3.4-5.0); BILIRUBIN,TOTAL 0.5 mg/dL (0.2-1); BLOOD UREA NITROGEN 59.1 mg/dL (7-18); CALCIUM 7.7 mg/dL (8.5-10.1); CREATININE 4.8 mg/dL (0.55-1.3); POTASSIUM 3.8 mmol/L (3.5-5.1); TOT PROT 6.5 g/dl (6.4-8.2)
[2019-06-08] MEDS: PANTOPRAZOLE SODIUM 40 MG VIAL IVPUSH SCH (09:44)
[2019-06-08] MEDS: CARVEDILOL 25 MG TABLET (FP) PO SCH ×2 (09:44→21:27)
[2019-06-08] MEDS: amLODIPine BESYLATE 10 MG TABLET (FP) PO SCH (09:44)
[2019-06-08] MEDS: SIMETHICONE 80 MG TAB.CHEW (FP) PO SCH ×4 (09:44→21:27)
[2019-06-08] MEDS: CEFTRIAXONE 1 GM in DEXTROSE 5%-WATER - 50 ML IVPB SCH (09:44)
--- NOTE | 2019-06-08 09:53 | EKG ---
Test Reason : Blood Pressure : / mmHG Vent. Rate : 058 BPM Atrial Rate : 058 BPM P-R Int : 368 ms QRS Dur : 092 ms QT Int : 450 ms P-R-T Axes : 069 -35 016 degrees QTc Int : 441 ms SINUS BRADYCARDIA WITH 1ST DEGREE A-V BLOCK LEFT AXIS DEVIATION SEPTAL INFARCT (CITED ON OR BEFORE 07-MAR-2011) ABNORMAL ECG WHEN COMPARED WITH ECG OF 01 JUN 2019 NO SIGNIFICANT CHANGE WAS FOUND Confirmed by BAUDILIO BANEGAS, PANKAJ ([id number]) on 06/08/2019 9:52:56 AM Referred By: Confirmed By:PANKAJ ASTUDILLO MD
--- NOTE | 2019-06-08 11:01 | PN ---
Progress Note, Physician Chief Complaint: asked to re-evaluate for dizziness History of Present Illness: 64 year old man with a PMHx of HTN, hyperlipidemia, DM, CHF, PAD, s/p left midfoot amputation admitted 06/01/19 with right LE cellulitis. He was noted to have ROOSEVELT, seen by renal. He was seen by Vascular sugery and ID and receiving IV ABx. The patient has persistent right leg and foot pain. He had postural dizziness this morning. No associated symptoms. Does not ambriz ECG 06/08/19 sinus rhythm with first degree AVB. LAD. - Current Medication List Current Medications: Active Medications Acetaminophen (Tylenol -) 650 mg PO Q6H PRN PRN Reason: FEVER Last Admin: 06/04/19 01:38 Dose: 650 mg Al Hydroxide/Mg Hydroxide (Mylanta Oral Suspension -) 30 ml PO Q6H PRN PRN Reason: DYSPEPSIA Last Admin: 06/08/19 03:23 Dose: 30 ml Amlodipine Besylate (Norvasc -) 10 mg PO DAILY [facility] Last Admin: 06/08/19 09:44 Dose: 10 mg Atorvastatin Calcium (Lipitor -) 40 mg PO HS [facility] Last Admin: 06/07/19 22:39 Dose: 40 mg Carvedilol (Coreg -) 25 mg PO BID [facility] Last Admin: 06/08/19 09:44 Dose: 25 mg Ferrous Sulfate (Feosol -) 325 mg PO DAILY [facility] Last Admin: 06/06/19 10:00 Dose: 325 mg Heparin Sodium (Porcine) (Heparin -) 5,000 unit SQ TID [facility] Last Admin: 06/08/19 06:07 Dose: 5,000 unit Ceftriaxone Sodium 1 gm/ (Dextrose) 50 mls @ 100 mls/hr IVPB DAILY [facility]; Protocol Last Admin: 06/08/19 09:44 Dose: 100 mls/hr Dextrose/Sodium Chloride (D5-1/2ns -) 1,000 mls @ 50 mls/hr IV ASDIR [facility] Last Admin: 06/08/19 09:54 Dose: Not Given Insulin Aspart (Novolog Vial Sliding Scale -) 1 vial SQ ACHS [facility]; Protocol Last Admin: 06/08/19 06:48 Dose: 7 unit Insulin Detemir (Levemir Vial) 10 units SQ HS [facility] Last Admin: 06/07/19 22:43 Dose: 10 units Insulin Detemir (Levemir Vial) 35 units SQ AM [facility] Last Admin: 06/08/19 06:47 Dose: 35 unit Metoclopramide HCl (Reglan Injection -) 10 mg IVPB Q8H [facility] Last Admin: 06/08/19 06:05 Dose: 10 mg Pantoprazole Sodium (Protonix Iv) 40 mg IVPUSH DAILY [facility] Last Admin: 06/08/19 09:44 Dose: 40 mg Phenazopyridine HCl (Pyridium -) 100 mg PO TID PRN PRN Reason: dysuria Simethicone (Mylicon -) 80 mg PO QID [facility] Last Admin: 06/08/19 09:44 Dose: 80 mg - Objective Vital Signs: Vital Signs Temperature 99.8 F H 06/08/19 09:25 Pulse Rate 60 06/08/19 09:25 Respiratory Rate 18 06/08/19 09:25 Blood Pressure 169/79 06/08/19 09:25 O2 Sat by Pulse Oximetry (%) 100 06/07/19 21:00 Constitutional: Yes: No Distress, Calm Eyes: Yes: Conjunctiva Clear, EOM Intact HENT: Yes: Atraumatic, Normocephalic Neck: Yes: Supple, Trachea Midline Cardiovascular: Yes: Regular Rate and Rhythm Respiratory: Yes: Regular, CTA Bilaterally Gastrointestinal: Yes: Normal Bowel Sounds, Soft Musculoskeletal: Yes: WNL Extremities: Yes: Erythema (rt leg) Edema: No Peripheral Pulses WNL: Yes Labs: CBC, BMP 06/08/19 08:30 06/08/19 08:30 INR, PTT INR 1.26 (0.83-1.09) H 06/02/19 08:10 Assessment/Plan 64 year old man with a PMHx of HTN, hyperlipidemia, DM, CHF, PAD, s/p left midfoot amputation admitted 06/01/19 with right LE cellulitis. He was noted to have ROOSEVELT, seen by renal. He was seen by Vascular sugery and ID and receiving IV ABx. The patient has persistent right leg and foot pain. He had postural dizziness this morning. No associated symptoms. Does not ambriz ECG 06/08/19 sinus rhythm with first degree AVB. LAD. Hypertension -still with systolic hypertension, would not change regimen while having postural dizziness. Dizziness -check orthostatics. -echo ordered. -ECG without change. I do not believe that bradycardia is the cause.
--- NOTE | 2019-06-08 16:02 | PN ---
Progress Note, Physician History of Present Illness: Pt seen and examined at bedside. He is awake and alert. He denies shortness of breath. - Current Medication List Current Medications: Active Medications Acetaminophen (Tylenol -) 650 mg PO Q6H PRN PRN Reason: FEVER Last Admin: 06/04/19 01:38 Dose: 650 mg Al Hydroxide/Mg Hydroxide (Mylanta Oral Suspension -) 30 ml PO Q6H PRN PRN Reason: DYSPEPSIA Last Admin: 06/08/19 03:23 Dose: 30 ml Amlodipine Besylate (Norvasc -) 10 mg PO DAILY [facility] Last Admin: 06/08/19 09:44 Dose: 10 mg Atorvastatin Calcium (Lipitor -) 40 mg PO HS [facility] Last Admin: 06/07/19 22:39 Dose: 40 mg Carvedilol (Coreg -) 25 mg PO BID [facility] Last Admin: 06/08/19 09:44 Dose: 25 mg Ferrous Sulfate (Feosol -) 325 mg PO DAILY [facility] Last Admin: 06/06/19 10:00 Dose: 325 mg Heparin Sodium (Porcine) (Heparin -) 5,000 unit SQ TID [facility] Ceftriaxone Sodium 1 gm/ (Dextrose) 50 mls @ 100 mls/hr IVPB DAILY [facility]; Protocol Last Admin: 06/08/19 09:44 Dose: 100 mls/hr Dextrose/Sodium Chloride (D5-1/2ns -) 1,000 mls @ 50 mls/hr IV ASDIR [facility] Last Admin: 06/08/19 09:54 Dose: Not Given Insulin Aspart (Novolog Vial Sliding Scale -) 1 vial SQ ACHS [facility]; Protocol Last Admin: 06/08/19 11:37 Dose: Not Given Insulin Detemir (Levemir Vial) 10 units SQ HS [facility] Last Admin: 06/07/19 22:43 Dose: 10 units Insulin Detemir (Levemir Vial) 35 units SQ AM [facility] Last Admin: 06/08/19 06:47 Dose: 35 unit Metoclopramide HCl (Reglan Injection -) 10 mg IVPB Q8H [facility] Last Admin: 06/08/19 13:17 Dose: 10 mg Pantoprazole Sodium (Protonix Iv) 40 mg IVPUSH DAILY [facility] Last Admin: 06/08/19 09:44 Dose: 40 mg Phenazopyridine HCl (Pyridium -) 100 mg PO TID PRN PRN Reason: dysuria Simethicone (Mylicon -) 80 mg PO QID [facility] Last Admin: 06/08/19 13:17 Dose: 80 mg - Objective Vital Signs: Vital Signs Temperature 99.8 F H 06/08/19 09:25 Pulse Rate 60 06/08/19 09:25 Respiratory Rate 18 06/08/19 09:25 Blood Pressure 169/79 06/08/19 09:25 O2 Sat by Pulse Oximetry (%) 100 06/07/19 21:00 Constitutional: Yes: Calm Eyes: Yes: Conjunctiva Clear HENT: Yes: Atraumatic Neck: Yes: Supple Cardiovascular: Yes: S1, S2 Respiratory: Yes: CTA Bilaterally Gastrointestinal: Yes: Soft Genitourinary: Yes: WNL Edema: No Neurological: Yes: Oriented Psychiatric: Yes: Oriented Labs: CBC, BMP 06/08/19 08:30 06/08/19 08:30 INR, PTT INR 1.26 (0.83-1.09) H 06/02/19 08:10 Problem List - Problems (1) Cellulitis Code(s): L03.90 - CELLULITIS, UNSPECIFIED Qualifiers: Site of cellulitis: extremity Site of cellulitis of extremity: lower extremity Laterality: right Qualified Code(s): L03.115 - Cellulitis of right lower limb (2) Renal failure Code(s): N19 - UNSPECIFIED KIDNEY FAILURE Qualifiers: Renal failure chronicity: unspecified chronicity Qualified Code(s): N19 - Unspecified kidney failure (3) Sepsis Code(s): A41.9 - SEPSIS, UNSPECIFIED ORGANISM Qualifiers: Sepsis type: sepsis due to unspecified organism Sepsis acute organ dysfunction status: unspecified Qualified Code(s): A41.9 - Sepsis, unspecified organism Assessment/Plan Current Medications Generic Name Dose Route Start Last Admin Trade Name Freq PRN Reason Stop Dose Admin Acetaminophen 650 mg 06/01/19 18:27 06/04/19 01:38 Tylenol - PO 650 mg Q6H PRN Administration FEVER Al Hydroxide/Mg Hydroxide 30 ml 06/06/19 13:09 06/08/19 03:23 Mylanta Oral Suspension - PO 30 ml Q6H PRN Administration DYSPEPSIA Amlodipine Besylate 10 mg 06/07/19 10:30 06/08/19 09:44 Norvasc - PO 10 mg DAILY [facility] Administration Atorvastatin Calcium 40 mg 06/01/19 22:00 06/07/19 22:39 Lipitor - PO 40 mg HS [facility] Administration Carvedilol 25 mg 06/01/19 22:00 06/08/19 09:44 Coreg - PO 25 mg BID [facility] Administration Ferrous Sulfate 325 mg 06/02/19 12:45 06/06/19 10:00 Feosol - PO 325 mg DAILY [facility] Administration Heparin Sodium (Porcine) 5,000 unit 06/08/19 14:00 Heparin - SQ TID [facility] Ceftriaxone Sodium 1 gm/ 50 mls @ 100 mls/hr 06/04/19 18:00 06/08/19 09:44 Dextrose IVPB 100 mls/hr DAILY [facility] Administration Protocol Dextrose/Sodium Chloride 1,000 mls @ 50 mls/hr 06/07/19 09:50 06/08/19 09:54 D5-1/2ns - IV Not Given ASDIR [facility] Insulin Aspart 1 vial 06/07/19 22:42 06/08/19 11:37 Novolog Vial Sliding Scale - SQ Not Given ACHS [facility] Protocol Insulin Detemir 10 units 06/04/19 22:00 06/07/19 22:43 Levemir Vial SQ 10 units HS [facility] Administration Insulin Detemir 35 units 06/08/19 07:00 06/08/19 06:47 Levemir Vial SQ 35 unit AM [facility] Administration Metoclopramide HCl 10 mg 06/06/19 14:15 06/08/19 13:17 Reglan Injection - IVPB 10 mg Q8H [facility] Administration Pantoprazole Sodium 40 mg 06/04/19 12:30 06/08/19 09:44 Protonix Iv IVPUSH 40 mg DAILY [facility] Administration Phenazopyridine HCl 100 mg 06/06/19 13:00 Pyridium - PO TID PRN dysuria Simethicone 80 mg 06/07/19 14:00 06/08/19 13:17 Mylicon - PO 80 mg QID [facility] Administration Impression 1. ROOSEVELT 2. ckd 3. dm 4. cellulitis 5. pvd 6. htn Plan - change fluids to 1/2 ns - repeat labs in am - follow serologies - abx for cellulitis - avoid nsaids
[2019-06-08] MEDS ORDERED: SODIUM CHLORIDE 0.45% 1,000 ML IV SCH (16:15)
--- NOTE | 2019-06-08 17:19 | PN ---
Progress Note, Physician History of Present Illness: LOW GRADE TEMPS REPORTS LESS R LE PAIN REPEAT VANCO LEVEL PENDING - Current Medication List Current Medications: Active Medications Acetaminophen (Tylenol -) 650 mg PO Q6H PRN PRN Reason: FEVER Last Admin: 06/04/19 01:38 Dose: 650 mg Al Hydroxide/Mg Hydroxide (Mylanta Oral Suspension -) 30 ml PO Q6H PRN PRN Reason: DYSPEPSIA Last Admin: 06/08/19 03:23 Dose: 30 ml Amlodipine Besylate (Norvasc -) 10 mg PO DAILY [facility] Last Admin: 06/08/19 09:44 Dose: 10 mg Atorvastatin Calcium (Lipitor -) 40 mg PO HS [facility] Last Admin: 06/07/19 22:39 Dose: 40 mg Carvedilol (Coreg -) 25 mg PO BID [facility] Last Admin: 06/08/19 09:44 Dose: 25 mg Ferrous Sulfate (Feosol -) 325 mg PO DAILY [facility] Last Admin: 06/06/19 10:00 Dose: 325 mg Heparin Sodium (Porcine) (Heparin -) 5,000 unit SQ TID [facility] Last Admin: 06/08/19 14:00 Dose: Not Given Ceftriaxone Sodium 1 gm/ (Dextrose) 50 mls @ 100 mls/hr IVPB DAILY [facility]; Protocol Last Admin: 06/08/19 09:44 Dose: 100 mls/hr Sodium Chloride (1/2 Normal Saline) 1,000 mls @ 50 mls/hr IV ASDIR [facility] Stop: 06/09/19 16:02 Last Admin: 06/08/19 16:33 Dose: 50 mls/hr Insulin Aspart (Novolog Vial Sliding Scale -) 1 vial SQ ACHS [facility]; Protocol Last Admin: 06/08/19 16:33 Dose: Not Given Insulin Detemir (Levemir Vial) 10 units SQ HS [facility] Last Admin: 06/07/19 22:43 Dose: 10 units Insulin Detemir (Levemir Vial) 35 units SQ AM [facility] Last Admin: 06/08/19 06:47 Dose: 35 unit Metoclopramide HCl (Reglan Injection -) 10 mg IVPB Q8H [facility] Last Admin: 06/08/19 13:17 Dose: 10 mg Pantoprazole Sodium (Protonix Iv) 40 mg IVPUSH DAILY [facility] Last Admin: 06/08/19 09:44 Dose: 40 mg Phenazopyridine HCl (Pyridium -) 100 mg PO TID PRN PRN Reason: dysuria Simethicone (Mylicon -) 80 mg PO QID [facility] Last Admin: 06/08/19 13:17 Dose: 80 mg - Objective Vital Signs: Vital Signs Temperature 99.0 F 06/08/19 14:00 Pulse Rate 60 06/08/19 14:00 Respiratory Rate 18 06/08/19 14:00 Blood Pressure 145/70 06/08/19 14:00 O2 Sat by Pulse Oximetry (%) 100 06/07/19 21:00 Constitutional: Yes: No Distress Cardiovascular: Yes: Regular Rate and Rhythm, S1, S2 Respiratory: Yes: CTA Bilaterally Gastrointestinal: Yes: Normal Bowel Sounds, Soft Extremities: Yes: Other (DECREASED ERYTHEMA R LE STILL SWOLLEN) Labs: CBC, BMP 06/08/19 08:30 06/08/19 08:30 INR, PTT INR 1.26 (0.83-1.09) H 06/02/19 08:10 Assessment/Plan CELLULITIS R FOOT/ R LE IMPROVED R/O SEPSIS SECONDARY TO SKIN SOURCE RENAL FAILURE REPEAT BC NO GROWTH CONTINUE CEFTRIAXONE VANCO LEVEL PENDING ELEVATION
--- NOTE | 2019-06-08 18:14 | ECHO ---
Version: 1 Name: KRYSTAL PINA Exam: Adult Echocardiogram Study Date: 06/08/2019, 3:21 PM Age: 64 Years MMode/2D Measurements & Calculations IVSd: 1.31 cm LVIDs: 3.3 cm LVIDd: 4.8 cm LVPWd: 1.17 cm LAV (MOD-bp): 92.0 ml LVOT diam: 1.88 cm Ao root diam: 2.7 cm LA dimension: 4.5 cm Doppler Measurements & Calculations MV E max delroy: 122.4 cm/sec Med E/e': 30.2 MV A max delroy: 98.2 cm/sec Med Peak E' Delroy: 4.1 cm/sec MV E/A: 1.25 Lat E/e': 11.4 Lat Peak E' Delroy: 10.7 cm/sec MR max P.2 mmHg Ao max P.4 mmHg Ao V2 max: 168.7 cm/sec TR max delroy: 381.5 cm/sec TR max P.3 mmHg Procedure A complete two-dimensional transthoracic echocardiogram was performed (2D, M-mode, Doppler and color flow Doppler). Left Ventricle The left ventricle is normal in size. Left ventricular systolic function is normal. Ejection Fractio n = 60- 65%. Diastolic dysfunction, Grade II (pseudonormalization pattern). No regional wall motion abnormal ities noted. Right Ventricle The right ventricle is normal size. The right ventricular systolic function is normal. Atria The left atrium is moderately dilated. LA volume index is 43 ml/m2. Right atrial size is normal. Mitral Valve There is mild mitral valve thickening. There is mild mitral annular calcification. There is mild rupa ral regurgitation. Tricuspid Valve The tricuspid valve is not well visualized, but is grossly normal. There is mild tricuspid regurgita tion. Pulmonary artery systolic pressure is at least 45 mmHg if RA pressure is assumed 3 mmHg. Aortic Valve There is mild aortic sclerosis.;. No aortic regurgitation is present. Pulmonic Valve The pulmonic valve is not well visualized. Great Vessels The aortic root is normal size. Pericardium/Pleura There is no pericardial effusion. Summary Statements The left ventricle is normal in size. Left ventricular systolic function is normal. No regional wall motion abnormalities noted. Ejection Fraction = 60-65%. Diastolic dysfunction, Grade II (pseudonormalization pattern). The right ventricular systolic function is normal. The left atrium is moderately dilated. Right atrial size is normal. There is mild mitral valve thickening. There is mild mitral annular calcification. There is mild mitral regurgitation. There is mild tricuspid regurgitation. Pulmonary artery systolic pressure is at least 45 mmHg if RA pressure is assumed 3 mmHg There is mild aortic sclerosis. There is no pericardial effusion. Td Valentin MD 06/08/2019, 6:14 PM Ordering Physician: Analilia Sarabia Referring Physician: ANALILIA SARABIA Performed By: Roxi Elias
[2019-06-08] MEDS: ATORVASTATIN CA 40 MG TABLET (FP) PO SCH (21:27)
[2019-06-09] MEDS: HEPARIN NA (PORCINE) 5,000 UNITS/ML 1ML VIAL SQ SCH ×3 (05:22→21:37)
[2019-06-09] MEDS: METOCLOPRAMIDE HCL INJECTION 10 MG/2 ML VIAL IVPB SCH ×3 (05:22→21:37)
[2019-06-09] MEDS: INSULIN SLIDING SCALE (NOVOLOG) 1 VIAL SQ SCH ×4 (06:40→21:38)
[2019-06-09] MEDS: INSULIN (LEVEMIR) 100 UNITS/ML UNITS SQ SCH ×2 (06:40→21:37)
[2019-06-09 09:18] LABS: BASO % 0.3 % (0-2.0); EOS % 0.8 % (0-4.5); HEMATOCRIT 26.5 % (35.4-49); HEMOGLOBIN 8.5 GM/dL (11.7-16.9); LYMPH % 4.8 % (8-40); MCH 28.7 pg (25.7-33.7); MCHC 31.9 g/dl (32.0-35.9); MEAN PLT VOLUME 8.8 fl (7.5-11.1); MONO % 13.5 % (3.8-10.2); NEUT % 80.6 % (42.8-82.8); PLATELET COUNT 198 K/MM3 (134-434); RBC 2.95 M/mm3 (4.00-5.60); RDW 13.4 % (11.9-15.9); WHITE BLOOD COUNT 11.3 K/mm3 (4.0-10.0)
[2019-06-09 09:51] LABS: ALBUMIN 2.1 g/dl (3.4-5.0); BILIRUBIN,TOTAL 0.2 mg/dL (0.2-1); CALCIUM 7.6 mg/dL (8.5-10.1); CREATININE 4.8 mg/dL (0.55-1.3); POTASSIUM 3.8 mmol/L (3.5-5.1); TOT PROT 6.4 g/dl (6.4-8.2)
[2019-06-09] MEDS ORDERED: cefTRIAXone SODIUM 1 GM VIAL ONE (10:29)
[2019-06-09] MEDS ORDERED: DEXTROSE 5%-WATER - 50 ML IVPB ONE (10:29)
[2019-06-09] MEDS: amLODIPine BESYLATE 10 MG TABLET (FP) PO SCH (10:34)
[2019-06-09] MEDS: PANTOPRAZOLE SODIUM 40 MG VIAL IVPUSH SCH (10:34)
[2019-06-09] MEDS: SIMETHICONE 80 MG TAB.CHEW (FP) PO SCH ×4 (10:34→21:37)
[2019-06-09] MEDS: CARVEDILOL 25 MG TABLET (FP) PO SCH ×2 (10:34→21:37)
[2019-06-09] MEDS: CEFTRIAXONE 1 GM in DEXTROSE 5%-WATER - 50 ML IVPB SCH (10:40)
--- NOTE | 2019-06-09 10:56 | PN ---
Progress Note, Physician Chief Complaint: LLE cellulitis History of Present Illness: c/O nausea/vomiting/decreased appetite RLE Erythema and pain improved N/V improved seen by GI Started on Reglan Tolerating regular diet CT abd/pel negative for any acute pathology Seen by ID On Iv abx - Current Medication List Current Medications: Active Medications Acetaminophen (Tylenol -) 650 mg PO Q6H PRN PRN Reason: FEVER Last Admin: 06/04/19 01:38 Dose: 650 mg Al Hydroxide/Mg Hydroxide (Mylanta Oral Suspension -) 30 ml PO Q6H PRN PRN Reason: DYSPEPSIA Last Admin: 06/08/19 03:23 Dose: 30 ml Amlodipine Besylate (Norvasc -) 10 mg PO DAILY [facility] Last Admin: 06/09/19 10:34 Dose: 10 mg Atorvastatin Calcium (Lipitor -) 40 mg PO HS [facility] Last Admin: 06/08/19 21:27 Dose: 40 mg Carvedilol (Coreg -) 25 mg PO BID [facility] Last Admin: 06/09/19 10:34 Dose: 25 mg Ferrous Sulfate (Feosol -) 325 mg PO DAILY [facility] Last Admin: 06/06/19 10:00 Dose: 325 mg Heparin Sodium (Porcine) (Heparin -) 5,000 unit SQ TID [facility] Last Admin: 06/09/19 05:22 Dose: 5,000 unit Ceftriaxone Sodium 1 gm/ (Dextrose) 50 mls @ 100 mls/hr IVPB DAILY [facility]; Protocol Last Admin: 06/09/19 10:40 Dose: 100 mls/hr Sodium Chloride (1/2 Normal Saline) 1,000 mls @ 50 mls/hr IV ASDIR [facility] Stop: 06/09/19 16:02 Last Admin: 06/08/19 16:33 Dose: 50 mls/hr Insulin Aspart (Novolog Vial Sliding Scale -) 1 vial SQ ACHS [facility]; Protocol Last Admin: 06/09/19 06:40 Dose: Not Given Insulin Detemir (Levemir Vial) 10 units SQ HS [facility] Last Admin: 06/08/19 21:28 Dose: 10 units Insulin Detemir (Levemir Vial) 35 units SQ AM [facility] Last Admin: 06/09/19 06:40 Dose: Not Given Metoclopramide HCl (Reglan Injection -) 10 mg IVPB Q8H [facility] Last Admin: 06/09/19 05:22 Dose: 10 mg Pantoprazole Sodium (Protonix Iv) 40 mg IVPUSH DAILY [facility] Last Admin: 06/09/19 10:34 Dose: 40 mg Phenazopyridine HCl (Pyridium -) 100 mg PO TID PRN PRN Reason: dysuria Simethicone (Mylicon -) 80 mg PO QID [facility] Last Admin: 06/09/19 10:34 Dose: 80 mg - Objective Vital Signs: Vital Signs Temperature 99.3 F 06/09/19 09:19 Pulse Rate 64 06/09/19 09:19 Respiratory Rate 06/09/19 09:19 Blood Pressure 142/69 06/09/19 09:19 O2 Sat by Pulse Oximetry (%) 98 06/08/19 21:00 Constitutional: Yes: Well Nourished, No Distress, Calm, Obese Cardiovascular: Yes: Regular Rate and Rhythm Respiratory: Yes: Regular Gastrointestinal: Yes: Normal Bowel Sounds, Soft Genitourinary: Yes: WNL Musculoskeletal: Yes: WNL Extremities: Yes: WNL Edema: No Peripheral Pulses WNL: Yes Neurological: Yes: Alert, Oriented Psychiatric: Yes: Alert, Oriented Labs: CBC, BMP 06/09/19 08:54 06/09/19 08:54 INR, PTT INR 1.26 (0.83-1.09) H 06/02/19 08:10 Problem List - Problems (1) Anemia Assessment/Plan: -Stool OB negative -Iron % low -HOLD ferrous sulfate 1 tab po daily- might be causing nausea -Follow trend Problems reviewed: Yes Code(s): D64.9 - ANEMIA, UNSPECIFIED (2) Cellulitis Assessment/Plan: -RLE -now with small abscess formation -ID consult -IV abx -low grade temps overnight -Cultures: Microbiology 06/01/19 11:15 Blood - Peripheral Venous Blood Culture - Preliminary NO GROWTH OBTAINED AFTER 72 HOURS, INCUBATION TO CONTINUE FOR 2 DAYS. 06/01/19 11:15 Blood - Peripheral Venous Blood Culture - Preliminary NO GROWTH OBTAINED AFTER 72 HOURS, INCUBATION TO CONTINUE FOR 2 DAYS. 06/01/19 13:57 Urine - Urine Clean Catch Urine Culture - Final NO GROWTH OBTAINED -Leukocytosis improved -Repeat LA normal -MRI RLE -Podiatry consult Problems reviewed: Yes Code(s): L03.90 - CELLULITIS, UNSPECIFIED Qualifiers: Site of cellulitis: extremity Site of cellulitis of extremity: lower extremity Laterality: right Qualified Code(s): L03.115 - Cellulitis of right lower limb (3) Acute on chronic renal insufficiency Assessment/Plan: -Nephrology consult -IVF- decrease rate to 50 cc/hr -monitor trend -Renal U/S with chronic medical renal dz- no hydronephrosis, mildly distended bladder -UC negative Problems reviewed: Yes Code(s): N28.9 - DISORDER OF KIDNEY AND URETER, UNSPECIFIED; N18.9 - CHRONIC KIDNEY DISEASE, UNSPECIFIED (4) Diabetes Assessment/Plan: -A1c at 8.6 -BGM AC HS -ISS -Levemir -Endocrine consult Code(s): E11.9 - TYPE 2 DIABETES MELLITUS WITHOUT COMPLICATIONS Qualifiers: Chronic kidney disease stage: stage 3 (moderate) (5) Hypertension Assessment/Plan: -Increase Amlodipine to 10 mg po daily -monitor trend Problems reviewed: Yes Code(s): I10 - ESSENTIAL (PRIMARY) HYPERTENSION (6) Abdominal pain Assessment/Plan: -Improved -Zofram discontinued, started on Reglan for nausea/vomiting and possible gastroperesis -PPI -CT abd/pelvis reviewed-unremarkable -Bladder scan unremarkable -GI consult appreciated Problems reviewed: Yes Code(s): R10.9 - UNSPECIFIED ABDOMINAL PAIN
--- NOTE | 2019-06-09 11:35 | CONSULT ---
Consultation: REQUESTING PROVIDER: DR Temple CONSULT REQUEST: We have been asked to medically evaluate this patient for (Elana escalona R.Gabino MM ). HISTORY OF PRESENT ILLNESS: Patient is a 64 year old male with a significant past medical history of peripheral vascular disease, hypertension, hyperlipidemia, diabetes, CHF, left midfoot amputation. He comes to [facility] today after his aide noticed that his right lower extremity with increased swelling, redness and pain. 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 , denies any smoking alcohol or drugs use no known drug allergy psh: glucoma , cataract , left toes amputation REVIEW OF SYSTEMS: CONSTITUTIONAL: Absent: fever, chills, diaphoresis, generalized weakness, malaise, loss of appetite, weight change HEENT: Absent: rhinorrhea, nasal congestion, throat pain, throat swelling, difficulty swallowing, mouth swelling, ear pain, eye pain, visual changes CARDIOVASCULAR: Absent: chest pain, syncope, palpitations, irregular heart rate, lightheadedness , peripheral edema RESPIRATORY: Absent: cough, shortness of breath, dyspnea with exertion, orthopnea, wheezing, stridor, hemoptysis GASTROINTESTINAL: Absent: abdominal pain, abdominal distension, nausea, vomiting, diarrhea, constipation, melena, hematochezia GENITOURINARY: Absent: dysuria, frequency, urgency, hesitancy, hematuria, flank pain, genital pain MUSCULOSKELETAL: Absent: myalgia, arthralgia, joint swelling, back pain, neck pain SKIN: Absent: rash, itching, pallor HEMATOLOGIC/IMMUNOLOGIC: Absent: easy bleeding, easy bruising, lymphadenopathy, frequent infections ENDOCRINE: Absent: unexplained weight gain, unexplained weight loss, heat intolerance, cold intolerance NEUROLOGIC: Absent: headache, focal weakness or paresthesias, dizziness, unsteady gait, seizure, mental status changes, bladder or bowel incontinence PSYCHIATRIC: Absent: anxiety, depression, suicidal or homicidal ideation, hallucinations. PHYSICAL EXAMINATION Vital Signs - 24 hr 06/08/19 06/08/19 06/08/19 14:00 18:00 21:00 Temperature 99.0 F 97.6 F Pulse Rate 60 53 L Respiratory 18 18 20 Rate Blood Pressure 145/70 154/71 O2 Sat by Pulse 98 Oximetry (%) 06/08/19 06/09/19 06/09/19 23:00 07:00 09:19 Temperature 99 F 99.5 F 99.3 F Pulse Rate 58 L 58 L 64 Respiratory 20 20 20 Rate Blood Pressure 128/54 L 161/74 142/69 O2 Sat by Pulse Oximetry (%) GENERAL:AAOx3 HEAD:NC/AT with eye glasses EYES: RAJAN, EOMI, ENT: Moist mucous membranes.no oral thrush NECK: supple without lymphadenopathy, no lymph nodes enlargement palpated gynecomastia with no breast mass LUNGS: Breath sounds equal, clear to auscultation bilaterally. No wheezes, and no crackles. No accessory muscle use. HEART: Regular rate and rhythm, normal S1 and S2 without murmur, rub or gallop. ABDOMEN: Soft, nontender, not distended, normoactive bowel sounds, no guarding, LOWER EXTREMITIES: 2+ pulses, warm, well-perfused. right leg with erythema and + 2 edema , very tender to touch , left foot 1/2 amputation , no edema right foot with wound , swollen and peeling skin on middle toe NEUROLOGICAL: Cranial nerves II-XII intact. Normal speech. PSYCHIATRIC: Cooperative. Laboratory Results - last 24 hr 06/08/19 06/08/19 06/08/19 11:32 16:30 17:23 WBC Corrected WBC (auto) RBC Hgb Hct MCV MCH MCHC RDW Plt Count MPV Absolute Neuts (auto) Neutrophils % Lymphocytes % Monocytes % Eosinophils % Basophils % Nucleated RBC % Manual Slide Review Platelet Comment Sodium Potassium Chloride Carbon Dioxide Anion Gap BUN Creatinine Est GFR (CKD-EPI)AfAm Est GFR (CKD-EPI)NonAf POC Glucometer 119 52 79 Random Glucose Calcium Total Bilirubin AST ALT Alkaline Phosphatase Total Protein Albumin Random Vancomycin 06/08/19 06/08/19 06/09/19 17:30 21:10 06:39 WBC Corrected WBC (auto) RBC Hgb Hct MCV MCH MCHC RDW Plt Count MPV Absolute Neuts (auto) Neutrophils % Lymphocytes % Monocytes % Eosinophils % Basophils % Nucleated RBC % Manual Slide Review Platelet Comment Sodium Potassium Chloride Carbon Dioxide Anion Gap BUN Creatinine Est GFR (CKD-EPI)AfAm Est GFR (CKD-EPI)NonAf POC Glucometer 166 87 Random Glucose 73 L Calcium Total Bilirubin AST ALT Alkaline Phosphatase Total Protein Albumin Random Vancomycin 06/09/19 06/09/19 06/09/19 08:54 08:54 08:54 WBC 11.3 H Corrected WBC (auto) RBC 2.95 L Hgb 8.5 L Hct 26.5 L MCV 90.0 MCH 28.7 MCHC 31.9 L RDW 13.4 Plt Count 198 MPV 8.8 Absolute Neuts (auto) 9.2 H Neutrophils % 80.6 Lymphocytes % 4.8 L Monocytes % 13.5 H Eosinophils % 0.8 Basophils % 0.3 Nucleated RBC % 0 Manual Slide Review Platelet Comment Sodium 139 Potassium 3.8 Chloride 109 H Carbon Dioxide 21 Anion Gap 8 BUN 59.0 H Creatinine 4.8 H Est GFR (CKD-EPI)AfAm 13.58 Est GFR (CKD-EPI)NonAf 11.72 POC Glucometer Random Glucose 82 Calcium 7.6 L Total Bilirubin 0.2 AST 36 ALT 31 Alkaline Phosphatase 274 H Total Protein 6.4 Albumin 2.1 L Random Vancomycin 13.1 L 06/09/19 06/09/19 08:54 11:22 WBC Cancelled Corrected WBC (auto) Cancelled RBC Cancelled Hgb Cancelled Hct Cancelled MCV Cancelled MCH Cancelled MCHC Cancelled RDW Cancelled Plt Count Cancelled MPV Cancelled Absolute Neuts (auto) Neutrophils % Lymphocytes % Monocytes % Eosinophils % Basophils % Nucleated RBC % Manual Slide Review Cancelled Platelet Comment Cancelled Sodium Potassium Chloride Carbon Dioxide Anion Gap BUN Creatinine Est GFR (CKD-EPI)AfAm Est GFR (CKD-EPI)NonAf POC Glucometer 152 Random Glucose Calcium Total Bilirubin AST ALT Alkaline Phosphatase Total Protein Albumin Random Vancomycin Active Medications Generic Name Dose Route Start Last Admin Trade Name Freq PRN Reason Stop Dose Admin Acetaminophen 650 mg 06/01/19 18:27 06/04/19 01:38 Tylenol - PO 650 mg Q6H PRN Administration FEVER Al Hydroxide/Mg Hydroxide 30 ml 06/06/19 13:09 06/08/19 03:23 Mylanta Oral Suspension - PO 30 ml Q6H PRN Administration DYSPEPSIA Amlodipine Besylate 10 mg 06/07/19 10:30 06/09/19 10:34 Norvasc - PO 10 mg DAILY [facility] Administration Atorvastatin Calcium 40 mg 06/01/19 22:00 06/08/19 21:27 Lipitor - PO 40 mg HS [facility] Administration Carvedilol 25 mg 06/01/19 22:00 06/09/19 10:34 Coreg - PO 25 mg BID [facility] Administration Ferrous Sulfate 325 mg 06/02/19 12:45 06/06/19 10:00 Feosol - PO 325 mg DAILY [facility] Administration Heparin Sodium (Porcine) 5,000 unit 06/08/19 14:00 06/09/19 05:22 Heparin - SQ 5,000 unit TID [facility] Administration Ceftriaxone Sodium 1 gm/ 50 mls @ 100 mls/hr 06/04/19 18:00 06/09/19 10:40 Dextrose IVPB 100 mls/hr DAILY [facility] Administration Protocol Sodium Chloride 1,000 mls @ 50 mls/hr 06/08/19 16:15 06/08/19 16:33 1/2 Normal Saline IV 06/09/19 16:02 50 mls/hr ASDIR [facility] Administration Vancomycin HCl 1,000 mg/ 250 mls @ 166.667 mls/hr 06/09/19 11:19 Dextrose IVPB 06/09/19 12:48 ONCE ONE Protocol Insulin Aspart 1 vial 06/07/19 22:42 06/09/19 06:40 Novolog Vial Sliding Scale - SQ Not Given ACHS [facility] Protocol Insulin Detemir 10 units 06/04/19 22:00 06/08/19 21:28 Levemir Vial SQ 10 units HS [facility] Administration Insulin Detemir 35 units 06/08/19 07:00 06/09/19 06:40 Levemir Vial SQ Not Given AM [facility] Metoclopramide HCl 10 mg 06/06/19 14:15 06/09/19 05:22 Reglan Injection - IVPB 10 mg Q8H [facility] Administration Pantoprazole Sodium 40 mg 06/04/19 12:30 06/09/19 10:34 Protonix Iv IVPUSH 40 mg DAILY [facility] Administration Phenazopyridine HCl 100 mg 06/06/19 13:00 Pyridium - PO TID PRN dysuria Simethicone 80 mg 06/07/19 14:00 06/09/19 10:34 Mylicon - PO 80 mg QID [facility] Administration ASSESSMENT/PLAN: 64 year old man with a PMHx of HTN, hyperlipidemia, DM, CHF, PAD, s/p left midfoot amputation admitted 06/01/19 with right LE cellulitis. He was noted to have ROOSEVELT, seen by renal. He was seen by Vascular sugery and ID and receiving IV ABx. The patient has persistent right leg and foot pain. we were consulted for M spike R.O MM Abdominal pain (Acute) Acute on chronic renal insufficiency (Acute) Anemia (Acute) Cellulitis (Acute) DVT prophylaxis (Acute) Diabetes (Acute) Epigastric abdominal pain (Acute) Hypertension (Acute) Left foot amputee (Acute) Prophylactic measure (Acute) Renal failure (Acute) Sepsis (Acute) Type 2 diabetes mellitus with diabetic chronic kidney disease (Acute) M spike R .O MM follow SPEP , immunofixation , protein and light chain studies. Anemia normocytic normochromic likely due to CKD will order iron studies , Ferritin , TSH iron low , ferritin 300 go with anemia of chronic disease Dispo: We will continue to follow the patient. Thank you for this consultative opportunity. Visit type - Emergency Visit Emergency Visit: Yes ED Registration Date: 06/01/19 Care time: The patient presented to the Emergency Department on the above date and was hospitalized for further evaluation of their emergent condition. - New Patient This patient is new to me today: Yes Date on this admission: 06/09/19 - Critical Care Critical Care patient: No ATTENDING PHYSICIAN STATEMENT I saw and evaluated the patient. I reviewed the resident's note and discussed the case with the resident. I agree with the resident's findings and plan as documented. SUBJECTIVE: OBJECTIVE: ASSESSMENT AND PLAN:
--- NOTE | 2019-06-09 11:49 | PN ---
Progress Note, Physician History of Present Illness: seen and examined today in nad. no overnight events. no new complaints. - Current Medication List Current Medications: Active Medications Acetaminophen (Tylenol -) 650 mg PO Q6H PRN PRN Reason: FEVER Last Admin: 06/04/19 01:38 Dose: 650 mg Al Hydroxide/Mg Hydroxide (Mylanta Oral Suspension -) 30 ml PO Q6H PRN PRN Reason: DYSPEPSIA Last Admin: 06/08/19 03:23 Dose: 30 ml Amlodipine Besylate (Norvasc -) 10 mg PO DAILY [facility] Last Admin: 06/09/19 10:34 Dose: 10 mg Atorvastatin Calcium (Lipitor -) 40 mg PO HS [facility] Last Admin: 06/08/19 21:27 Dose: 40 mg Carvedilol (Coreg -) 25 mg PO BID [facility] Last Admin: 06/09/19 10:34 Dose: 25 mg Ferrous Sulfate (Feosol -) 325 mg PO DAILY [facility] Last Admin: 06/06/19 10:00 Dose: 325 mg Heparin Sodium (Porcine) (Heparin -) 5,000 unit SQ TID [facility] Last Admin: 06/09/19 05:22 Dose: 5,000 unit Ceftriaxone Sodium 1 gm/ (Dextrose) 50 mls @ 100 mls/hr IVPB DAILY [facility]; Protocol Last Admin: 06/09/19 10:40 Dose: 100 mls/hr Sodium Chloride (1/2 Normal Saline) 1,000 mls @ 50 mls/hr IV ASDIR [facility] Stop: 06/09/19 16:02 Last Admin: 06/08/19 16:33 Dose: 50 mls/hr Vancomycin HCl 1,000 mg/ (Dextrose) 250 mls @ 166.667 mls/hr IVPB ONCE ONE; Protocol Stop: 06/09/19 12:48 Insulin Aspart (Novolog Vial Sliding Scale -) 1 vial SQ ACHS [facility]; Protocol Last Admin: 06/09/19 06:40 Dose: Not Given Insulin Detemir (Levemir Vial) 10 units SQ HS [facility] Last Admin: 06/08/19 21:28 Dose: 10 units Insulin Detemir (Levemir Vial) 35 units SQ AM [facility] Last Admin: 06/09/19 06:40 Dose: Not Given Metoclopramide HCl (Reglan Injection -) 10 mg IVPB Q8H [facility] Last Admin: 06/09/19 05:22 Dose: 10 mg Pantoprazole Sodium (Protonix Iv) 40 mg IVPUSH DAILY [facility] Last Admin: 06/09/19 10:34 Dose: 40 mg Phenazopyridine HCl (Pyridium -) 100 mg PO TID PRN PRN Reason: dysuria Simethicone (Mylicon -) 80 mg PO QID [facility] Last Admin: 06/09/19 10:34 Dose: 80 mg - Objective Vital Signs: Vital Signs Temperature 99.3 F 06/09/19 09:19 Pulse Rate 64 06/09/19 09:19 Respiratory Rate 06/09/19 09:19 Blood Pressure 142/69 06/09/19 09:19 O2 Sat by Pulse Oximetry (%) 98 06/08/19 21:00 Constitutional: Yes: No Distress, Calm Eyes: Yes: Conjunctiva Clear, EOM Intact HENT: Yes: Atraumatic, Normocephalic Neck: Yes: Supple, Trachea Midline Cardiovascular: Yes: Regular Rate and Rhythm, S1. No: Bradycardia, Tachycardia , Pulse Irregular, Bruit, JVD, Gallop, Murmur, Rub, S3, S4, Varicosities Respiratory: Yes: Regular, CTA Bilaterally. No: Rales, Rhonchi, Wheezes Gastrointestinal: Yes: Normal Bowel Sounds, Soft. No: Distention, Tenderness Extremities: Yes: WNL Edema: No Peripheral Pulses WNL: Yes Peripheral Pulses: Left Doralis Pedis: 2+, Right Dorsalis Pedis: 2+ Neurological: Yes: Alert, Oriented Psychiatric: Yes: Alert, Oriented Labs: CBC, BMP 06/09/19 08:54 06/09/19 08:54 INR, PTT INR 1.26 (0.83-1.09) H 06/02/19 08:10 - ....Imaging Chest X-ray: Report Reviewed, Image Reviewed EKG: Report Reviewed, Image Reviewed Other: Report Reviewed, Image Reviewed Assessment/Plan 64 year old man with a PMHx of HTN, hyperlipidemia, DM, CHF, PAD, s/p left midfoot amputation admitted 06/01/19 with right LE cellulitis. He was noted to have ROOSEVELT, seen by renal. He was seen by Vascular sugery and ID and receiving IV ABx. The patient has persistent right leg and foot pain. He had postural dizziness on admission. No associated symptoms. Does not change ECG 06/08/19 sinus rhythm with first degree AVB. LAD. Hypertension -BP variable -currently adequately controlled for now -cont current regimen as he is having postural dizziness. Dizziness -denies recurrence overnight or today -check orthostatics when stands. -echo showed normal LVEF with mild valvular abnl, no sig structural heart disease that would cause dizziness -no sig arrhythmias on tele -can dc tele will see as needed. please call with any additional questions.
--- NOTE | 2019-06-09 12:05 | PN ---
Progress Note, Physician History of Present Illness: Pt seen and examined at bedside. He is awake and alert. He complains of discomfort from his right leg and foot. - Current Medication List Current Medications: Active Medications Acetaminophen (Tylenol -) 650 mg PO Q6H PRN PRN Reason: FEVER Last Admin: 06/04/19 01:38 Dose: 650 mg Al Hydroxide/Mg Hydroxide (Mylanta Oral Suspension -) 30 ml PO Q6H PRN PRN Reason: DYSPEPSIA Last Admin: 06/08/19 03:23 Dose: 30 ml Amlodipine Besylate (Norvasc -) 10 mg PO DAILY [facility] Last Admin: 06/09/19 10:34 Dose: 10 mg Atorvastatin Calcium (Lipitor -) 40 mg PO HS [facility] Last Admin: 06/08/19 21:27 Dose: 40 mg Carvedilol (Coreg -) 25 mg PO BID [facility] Last Admin: 06/09/19 10:34 Dose: 25 mg Ferrous Sulfate (Feosol -) 325 mg PO DAILY [facility] Last Admin: 06/06/19 10:00 Dose: 325 mg Heparin Sodium (Porcine) (Heparin -) 5,000 unit SQ TID [facility] Last Admin: 06/09/19 05:22 Dose: 5,000 unit Ceftriaxone Sodium 1 gm/ (Dextrose) 50 mls @ 100 mls/hr IVPB DAILY [facility]; Protocol Last Admin: 06/09/19 10:40 Dose: 100 mls/hr Sodium Chloride (1/2 Normal Saline) 1,000 mls @ 50 mls/hr IV ASDIR [facility] Stop: 06/09/19 16:02 Last Admin: 06/08/19 16:33 Dose: 50 mls/hr Vancomycin HCl (Vancomycin (Pre-Docked)) 1,000 mg in 250 mls @ 166.667 mls/hr IVPB ONCE ONE; Protocol Stop: 06/09/19 13:44 Insulin Aspart (Novolog Vial Sliding Scale -) [address] [facility]; Protocol Last Admin: 06/09/19 11:48 Dose: 5 unit Insulin Detemir (Levemir Vial) 10 units SQ HS [facility] Last Admin: 06/08/19 21:28 Dose: 10 units Insulin Detemir (Levemir Vial) 35 units SQ AM [facility] Last Admin: 06/09/19 06:40 Dose: Not Given Metoclopramide HCl (Reglan Injection -) 10 mg IVPB Q8H [facility] Last Admin: 06/09/19 05:22 Dose: 10 mg Pantoprazole Sodium (Protonix Iv) 40 mg IVPUSH DAILY [facility] Last Admin: 06/09/19 10:34 Dose: 40 mg Phenazopyridine HCl (Pyridium -) 100 mg PO TID PRN PRN Reason: dysuria Simethicone (Mylicon -) 80 mg PO QID [facility] Last Admin: 06/09/19 10:34 Dose: 80 mg - Objective Vital Signs: Vital Signs Temperature 99.3 F 06/09/19 09:19 Pulse Rate 64 06/09/19 09:19 Respiratory Rate 20 06/09/19 09:19 Blood Pressure 142/69 06/09/19 09:19 O2 Sat by Pulse Oximetry (%) 98 06/08/19 21:00 Constitutional: Yes: Calm Eyes: Yes: Conjunctiva Clear HENT: Yes: Atraumatic Neck: Yes: Supple Cardiovascular: Yes: S1, S2 Respiratory: Yes: CTA Bilaterally Gastrointestinal: Yes: Soft Genitourinary: Yes: WNL Edema: Yes Edema: RLE: 1+ Integumentary: Yes: Erythema Neurological: Yes: Oriented Psychiatric: Yes: Oriented Labs: CBC, BMP 06/09/19 08:54 06/09/19 08:54 INR, PTT INR 1.26 (0.83-1.09) H 06/02/19 08:10 Problem List - Problems (1) Cellulitis Code(s): L03.90 - CELLULITIS, UNSPECIFIED Qualifiers: Qualified Code(s): L03.115 - Cellulitis of right lower limb (2) Renal failure Code(s): N19 - UNSPECIFIED KIDNEY FAILURE Qualifiers: Qualified Code(s): N19 - Unspecified kidney failure (3) Sepsis Code(s): A41.9 - SEPSIS, UNSPECIFIED ORGANISM Qualifiers: Qualified Code(s): A41.9 - Sepsis, unspecified organism Assessment/Plan Current Medications Generic Name Dose Route Start Last Admin Trade Name Freq PRN Reason Stop Dose Admin Acetaminophen 650 mg 06/01/19 18:27 06/04/19 01:38 Tylenol - PO 650 mg Q6H PRN Administration FEVER Al Hydroxide/Mg Hydroxide 30 ml 06/06/19 13:09 06/08/19 03:23 Mylanta Oral Suspension - PO 30 ml Q6H PRN Administration DYSPEPSIA Amlodipine Besylate 10 mg 06/07/19 10:30 06/09/19 10:34 Norvasc - PO 10 mg DAILY [facility] Administration Atorvastatin Calcium 40 mg 06/01/19 22:00 06/08/19 21:27 Lipitor - PO 40 mg HS [facility] Administration Carvedilol 25 mg 06/01/19 22:00 06/09/19 10:34 Coreg - PO 25 mg BID [facility] Administration Ferrous Sulfate 325 mg 06/02/19 12:45 06/06/19 10:00 Feosol - PO 325 mg DAILY [facility] Administration Heparin Sodium (Porcine) 5,000 unit 06/08/19 14:00 06/09/19 05:22 Heparin - SQ 5,000 unit TID [facility] Administration Ceftriaxone Sodium 1 gm/ 50 mls @ 100 mls/hr 06/04/19 18:00 06/09/19 10:40 Dextrose IVPB 100 mls/hr DAILY [facility] Administration Protocol Sodium Chloride 1,000 mls @ 50 mls/hr 06/08/19 16:15 06/08/19 16:33 1/2 Normal Saline IV 06/09/19 16:02 50 mls/hr ASDIR [facility] Administration Vancomycin HCl 1,000 mg in 250 mls @ 166.667 mls/hr 06/09/19 12:15 Vancomycin (Pre-Docked) IVPB 06/09/19 13:44 ONCE ONE Protocol Insulin Aspart 1 vial 06/07/19 22:42 06/09/19 11:48 Novolog Vial Sliding Scale - SQ 5 unit ACHS [facility] Administration Protocol Insulin Detemir 10 units 06/04/19 22:00 06/08/19 21:28 Levemir Vial SQ 10 units HS [facility] Administration Insulin Detemir 35 units 06/08/19 07:00 06/09/19 06:40 Levemir Vial SQ Not Given AM [facility] Metoclopramide HCl 10 mg 06/06/19 14:15 06/09/19 05:22 Reglan Injection - IVPB 10 mg Q8H [facility] Administration Pantoprazole Sodium 40 mg 06/04/19 12:30 06/09/19 10:34 Protonix Iv IVPUSH 40 mg DAILY [facility] Administration Phenazopyridine HCl 100 mg 06/06/19 13:00 Pyridium - PO TID PRN dysuria Simethicone 80 mg 06/07/19 14:00 06/09/19 10:34 Mylicon - PO 80 mg QID [facility] Administration Impression 1. ROOSEVELT 2. ckd 3. dm 4. cellulitis 5. pvd 6. htn Plan - cont fluids - follow serologies - heme eval for m spike - abx for cellulitis - avoid nsaids
[2019-06-09] MEDS ORDERED: VANCOMYCIN 1 GRAM (PRE-DOCKED) 1,000 MG/250 ML BAG IVPB ONE (12:15)
[2019-06-09 13:17] LABS: ANISOCYTOSIS 1+; MACROCYTOSIS 0; PLATELET ESTIMATE NORMAL
[2019-06-09 17:07] LABS: ATYPICAL pANCA <1:20 titer (Neg:<1:20); C-ANCA <1:20 titer (Neg:<1:20)
--- NOTE | 2019-06-09 17:19 | PN ---
Teaching Attending Note Name of Resident: Brad Magallanes ATTENDING PHYSICIAN STATEMENT I saw and evaluated the patient. I reviewed the resident's note and discussed the case with the resident. I agree with the resident's findings and plan as documented. SUBJECTIVE: Patient seen and examined Presented with RLE cellulitis. Has anemia, CKD, ROOSEVELT. Multiple co-morbid medical problems Found to have an "M" spike of 0.3 Last Vital Signs Temp Pulse Resp BP Pulse Ox 100.4 F H 62 20 144/68 98 06/09/19 14:26 06/09/19 14:26 06/09/19 14:26 06/09/19 14:06/09/19 09:00 HEENT: RAJAN, EOM Intact Oropharynx: No thrush, No mucositis Neck: Supple Nodes: Without adenopathy Breasts: Without masses Cor: RSR, No murmurs, No gallops Lungs: Clear to P&A Abd: Soft, Normal bowel sounds, No organomegaly, testes descended; circumcised Ext:RLE cellulitis, stasis; pulses distally present -D.P. Left foot-transmetatarsal amputation Skin: No rashes, Integument intact, stasis erythema RLE CBC, BMP 06/09/19 08:54 06/09/19 08:54 Current Medications Generic Name Dose Route Start Last Admin Trade Name Freq PRN Reason Stop Dose Admin Acetaminophen 650 mg 06/01/19 18:27 06/04/19 01:38 Tylenol - PO 650 mg Q6H PRN Administration FEVER Al Hydroxide/Mg Hydroxide 30 ml 06/06/19 13:09 06/08/19 03:23 Mylanta Oral Suspension - PO 30 ml Q6H PRN Administration DYSPEPSIA Amlodipine Besylate 10 mg 06/07/19 10:30 06/09/19 10:34 Norvasc - PO 10 mg DAILY [facility] Administration Atorvastatin Calcium 40 mg 06/01/19 22:00 06/08/19 21:27 Lipitor - PO 40 mg HS [facility] Administration Carvedilol 25 mg 06/01/19 22:00 06/09/19 10:34 Coreg - PO 25 mg BID [facility] Administration Ferrous Sulfate 325 mg 06/02/19 12:45 06/06/19 10:00 Feosol - PO 325 mg DAILY [facility] Administration Heparin Sodium (Porcine) 5,000 unit 06/08/19 14:00 06/09/19 13:15 Heparin - SQ 5,000 unit TID [facility] Administration Ceftriaxone Sodium 1 gm/ 50 mls @ 100 mls/hr 06/04/19 18:00 06/09/19 10:40 Dextrose IVPB 100 mls/hr DAILY [facility] Administration Protocol Insulin Aspart 1 vial 06/07/19 22:42 06/09/19 16:41 Novolog Vial Sliding Scale - SQ 5 unit ACHS [facility] Administration Protocol Insulin Detemir 10 units 06/04/19 22:00 06/08/19 21:28 Levemir Vial SQ 10 units HS [facility] Administration Insulin Detemir 35 units 06/08/19 07:00 06/09/19 06:40 Levemir Vial SQ Not Given AM [facility] Metoclopramide HCl 10 mg 06/06/19 14:15 06/09/19 13:16 Reglan Injection - IVPB 10 mg Q8H [facility] Administration Pantoprazole Sodium 40 mg 06/04/19 12:30 06/09/19 10:34 Protonix Iv IVPUSH 40 mg DAILY [facility] Administration Phenazopyridine HCl 100 mg 06/06/19 13:00 Pyridium - PO TID PRN dysuria Simethicone 80 mg 06/07/19 14:00 06/09/19 17:03 Mylicon - PO 80 mg QID [facility] Administration OBJECTIVE: Impression : "M" spike 64 year old man with a PMHx of HTN, hyperlipidemia, DM, CHF, PAD, s/p left midfoot amputation admitted 06/01/19 with right LE cellulitis. Found to have an "M" spike. Has NC/NC anemia with CKD. Will evaluate further with protein and light chain studies. ASSESSMENT AND PLAN:
--- NOTE | 2019-06-09 19:36 | CONSULT ---
Consult Consult Specialty:: podiatry Reason for Consultation:: abscess right foot? - History of Present Illness History of Present Illness: pt is a pt of dr. vaughn. was tx outpatient by dr. vaughn for infection on po abx. came to er as foot became more swollen. - History Source History Provided By: Patient - Past Medical History Cardio/Vascular: Yes: CHF, HTN Renal/: Yes: Renal Inusuff Endocrine: Yes: Diabetes Mellitus - Past Surgical History Past Surgical History: Yes: Amputation - Alcohol/Substance Use Hx Alcohol Use: No - Smoking History Smoking history: Unknown if ever smoked Have you smoked in the past 12 months: No Home Medications - Allergies Allergies/Adverse Reactions: Allergies Allergy/AdvReac Type Severity Reaction Status Date / Time No Known Allergies Allergy Verified 06/01/19 11:06 - Home Medications Home Medications: Ambulatory Orders Unobtainable 06/01/19 Physical Exam Vital Signs: Vital Signs Temperature 99.1 F 06/09/19 18:00 Pulse Rate 68 06/09/19 18:00 Respiratory Rate 20 06/09/19 18:00 Blood Pressure 144/72 06/09/19 18:00 O2 Sat by Pulse Oximetry (%) 98 06/09/19 09:00 Extremities: Yes: Other (+edematous, cellulitic foot right +drainage, vsgi, decreased ns,) Labs: CBC, BMP 06/09/19 08:54 06/09/19 08:54 Imaging - Results X-ray: Image Reviewed MRI: Image Reviewed Assessment/Plan abscess? om? Betadine dressing. Dr. Vaughn notified of pt in hospital by me. Discussed with Dr. Vaughn. May need I&D with possible amputation. Dr. Vaughn to follow pt starting tomorrow. Betadine dressing interdigitally right foot. Dr. Vaughn to follow going forward.
[2019-06-09] MEDS: ATORVASTATIN CA 40 MG TABLET (FP) PO SCH (21:37)
[2019-06-10] MEDS ORDERED: INSULIN (NOVOLOG) ASPART 100 UNITS/ML 10ML VIAL SQ ONE (06:37)
[2019-06-10] MEDS: HEPARIN NA (PORCINE) 5,000 UNITS/ML 1ML VIAL SQ SCH ×3 (06:40→22:11)
[2019-06-10] MEDS: INSULIN (LEVEMIR) 100 UNITS/ML UNITS SQ SCH ×2 (06:43→22:11)
[2019-06-10] MEDS: METOCLOPRAMIDE HCL INJECTION 10 MG/2 ML VIAL IVPB SCH ×3 (06:43→22:12)
[2019-06-10] MEDS: INSULIN SLIDING SCALE (NOVOLOG) 1 VIAL SQ SCH ×4 (06:44→22:11)
[2019-06-10] MEDS ORDERED: INSULIN (NOVOLOG) ASPART 100 UNITS/ML 10ML VIAL ONE (07:11)
[2019-06-10 10:15] LABS: BLOOD UREA NITROGEN 65.2 mg/dL (7-18); CALCIUM 7.4 mg/dL (8.5-10.1); CREATININE 5.2 mg/dL (0.55-1.3); POTASSIUM 3.7 mmol/L (3.5-5.1)
--- NOTE | 2019-06-10 10:17 | PN ---
Progress Note, Physician Chief Complaint: LLE cellulitis History of Present Illness: Feels better Denies any N/V/abd pain RLE pain improved seen by Podiatry, for possible I&D MRI RLE shows abscess formation, bone marrow edema with possible osteomyelitis - Current Medication List Current Medications: Active Medications Acetaminophen (Tylenol -) 650 mg PO Q6H PRN PRN Reason: FEVER Last Admin: 06/04/19 01:38 Dose: 650 mg Al Hydroxide/Mg Hydroxide (Mylanta Oral Suspension -) 30 ml PO Q6H PRN PRN Reason: DYSPEPSIA Last Admin: 06/08/19 03:23 Dose: 30 ml Amlodipine Besylate (Norvasc -) 10 mg PO DAILY [facility] Last Admin: 06/09/19 10:34 Dose: 10 mg Atorvastatin Calcium (Lipitor -) 40 mg PO HS [facility] Last Admin: 06/09/19 21:37 Dose: 40 mg Carvedilol (Coreg -) 25 mg PO BID [facility] Last Admin: 06/09/19 21:37 Dose: 25 mg Ferrous Sulfate (Feosol -) 325 mg PO DAILY [facility] Last Admin: 06/06/19 10:00 Dose: 325 mg Heparin Sodium (Porcine) (Heparin -) 5,000 unit SQ TID [facility] Last Admin: 06/10/19 06:40 Dose: Not Given Ceftriaxone Sodium 1 gm/ (Dextrose) 50 mls @ 100 mls/hr IVPB DAILY [facility]; Protocol Last Admin: 06/09/19 10:40 Dose: 100 mls/hr Insulin Aspart (Novolog Vial Sliding Scale -) 1 vial SQ ACHS [facility]; Protocol Last Admin: 06/10/19 06:44 Dose: Not Given Insulin Detemir (Levemir Vial) 10 units SQ HS [facility] Last Admin: 06/09/19 21:37 Dose: Not Given Insulin Detemir (Levemir Vial) 35 units SQ AM [facility] Last Admin: 06/10/19 06:43 Dose: Not Given Metoclopramide HCl (Reglan Injection -) 10 mg IVPB Q8H [facility] Last Admin: 06/10/19 06:43 Dose: 10 mg Pantoprazole Sodium (Protonix Iv) 40 mg IVPUSH DAILY [facility] Last Admin: 06/09/19 10:34 Dose: 40 mg Phenazopyridine HCl (Pyridium -) 100 mg PO TID PRN PRN Reason: dysuria Simethicone (Mylicon -) 80 mg PO QID [facility] Last Admin: 06/09/19 21:37 Dose: 80 mg - Objective Vital Signs: Vital Signs Temperature 99.1 F 06/10/19 08:22 Pulse Rate 69 06/10/19 08:22 Respiratory Rate 18 06/10/19 08:22 Blood Pressure 144/67 06/10/19 08:22 O2 Sat by Pulse Oximetry (%) 95 06/09/19 21:00 Constitutional: Yes: Well Nourished, No Distress, Calm Cardiovascular: Yes: Regular Rate and Rhythm Respiratory: Yes: Regular Gastrointestinal: Yes: Normal Bowel Sounds, Soft, Abdomen, Obese Genitourinary: Yes: WNL Musculoskeletal: Yes: Other (right foot pain) Edema: Yes (right foot non pitting ed) Peripheral Pulses WNL: Yes Wound/Incision: Yes: Dressing Dry and Intact (Right foot) Neurological: Yes: Alert, Oriented Psychiatric: Yes: Alert, Oriented Labs: CBC, BMP 06/09/19 08:54 INR, PTT INR 1.26 (0.83-1.09) H 06/02/19 08:10 Problem List - Problems (1) Anemia Assessment/Plan: -Stool OB negative -Iron % low -HOLD ferrous sulfate 1 tab po daily- might be causing nausea -Follow trend Problems reviewed: Yes Code(s): D64.9 - ANEMIA, UNSPECIFIED (2) Cellulitis Assessment/Plan: -RLE -now with small abscess formation -ID consult -IV abx -low grade temps overnight -Cultures: Microbiology 06/01/19 11:15 Blood - Peripheral Venous Blood Culture - Preliminary NO GROWTH OBTAINED AFTER 72 HOURS, INCUBATION TO CONTINUE FOR 2 DAYS. 06/01/19 11:15 Blood - Peripheral Venous Blood Culture - Preliminary NO GROWTH OBTAINED AFTER 72 HOURS, INCUBATION TO CONTINUE FOR 2 DAYS. 06/01/19 13:57 Urine - Urine Clean Catch Urine Culture - Final NO GROWTH OBTAINED -Leukocytosis improved -Repeat LA normal -MRI RLE-reviewed- abscess formation with second metatarsal bone marrow edema with possible osteomyelitis -Podiatry consult appreciated -Right foot I&D Problems reviewed: Yes Code(s): L03.90 - CELLULITIS, UNSPECIFIED Qualifiers: Site of cellulitis: extremity Site of cellulitis of extremity: lower extremity Laterality: right Qualified Code(s): L03.115 - Cellulitis of right lower limb (3) Acute on chronic renal insufficiency Assessment/Plan: -Nephrology consult -IVF- decrease rate to 50 cc/hr -monitor trend -Renal U/S with chronic medical renal dz- no hydronephrosis, mildly distended bladder -UC negative Problems reviewed: Yes Code(s): N28.9 - DISORDER OF KIDNEY AND URETER, UNSPECIFIED; N18.9 - CHRONIC KIDNEY DISEASE, UNSPECIFIED (4) Diabetes Assessment/Plan: -A1c at 8.6 -BGM AC HS -ISS -Levemir -Endocrine consult Problems reviewed: Yes Code(s): E11.9 - TYPE 2 DIABETES MELLITUS WITHOUT COMPLICATIONS Qualifiers: Chronic kidney disease stage: stage 3 (moderate) (5) Hypertension Assessment/Plan: -Increased Amlodipine to 10 mg po daily -monitor trend Problems reviewed: Yes Code(s): I10 - ESSENTIAL (PRIMARY) HYPERTENSION (6) Abdominal pain Assessment/Plan: -resolved -Zofram discontinued, started on Reglan for nausea/vomiting and possible gastroperesis -PPI -CT abd/pelvis reviewed-unremarkable -Bladder scan unremarkable -GI consult appreciated Problems reviewed: Yes Code(s): R10.9 - UNSPECIFIED ABDOMINAL PAIN Assessment/Plan see problem list Medically safe for I&D with acceptable risks.
[2019-06-10] MEDS: FERROUS SO4 325 MG TABLET (FP) PO SCH (10:44)
[2019-06-10] MEDS ORDERED: cefTRIAXone SODIUM 1 GM VIAL ONE (10:45)
[2019-06-10] MEDS ORDERED: DEXTROSE 5%-WATER - 50 ML IVPB ONE (10:46)
[2019-06-10] MEDS: CEFTRIAXONE 1 GM in DEXTROSE 5%-WATER - 50 ML IVPB SCH (10:48)
[2019-06-10] MEDS: PANTOPRAZOLE SODIUM 40 MG VIAL IVPUSH SCH (10:49)
[2019-06-10] MEDS: SIMETHICONE 80 MG TAB.CHEW (FP) PO SCH ×4 (10:50→22:10)
[2019-06-10] MEDS: amLODIPine BESYLATE 10 MG TABLET (FP) PO SCH (10:52)
[2019-06-10] MEDS: CARVEDILOL 25 MG TABLET (FP) PO SCH ×2 (10:52→22:11)
--- NOTE | 2019-06-10 11:41 | CONSULT ---
Consult Consult Specialty:: Podiatry, Harpreet Pfeiffer DPM Reason for Consultation:: Abscess right plantar forefoot - History of Present Illness Chief Complaint: Cellulitis right leg with plantar wound. History of Present Illness: Patient admitted on 06/01/2019 with cellulitis of the right leg. Leg was reportedly red hot and swollen and the patient did not recall how long it was symptomatic. Patient was seen by me in my office on 06/04/2019 and treatment was rendered for chronic Tirado 1 ulceration of the right plantar 1st metatarsal head. No signs of cellulitis, infection, or deep tissue damage were present at the time. Since admission patient has been on ID antibiosis but no open wound was visable because it was covered by non-viable epithelium. Culture was not performed for this reason. X-ray was performed on 06/01/2019 that was essentially negative for pathology. MRI was performed on 06/09/2019 and shows plantar subcutaneous abscess below first, 2nd, 3rd metatarsals but no bone pathology. No bone marrow edema present in the tibial or fibular sesamoids or the first metatarsal. - Past Medical History Cardio/Vascular: Yes: CHF, HTN Renal/: Yes: Renal Inusuff Endocrine: Yes: Diabetes Mellitus - Past Surgical History Past Surgical History: Yes: Amputation - Alcohol/Substance Use Hx Alcohol Use: No - Smoking History Smoking history: Unknown if ever smoked Have you smoked in the past 12 months: No Home Medications - Allergies Allergies/Adverse Reactions: Allergies Allergy/AdvReac Type Severity Reaction Status Date / Time No Known Allergies Allergy Verified 06/01/19 11:06 - Home Medications Home Medications: Ambulatory Orders Unobtainable 06/01/19 Physical Exam Vital Signs: Vital Signs Temperature 99.1 F 06/10/19 08:22 Pulse Rate 64 06/10/19 11:26 Respiratory Rate 18 06/10/19 08:22 Blood Pressure 140/70 06/10/19 11:26 O2 Sat by Pulse Oximetry (%) 95 06/09/19 21:00 Labs: CBC, BMP 06/09/19 08:54 06/10/19 08:27 Imaging - Results X-ray: Other (I viewed images of the right foot x-ray of 06/01/2019. No relavent pathology is noted except soft tissue swelling in the foot.) MRI: Other (I viewed MRI images from 06/09/2019. No bone marrow edema is present in the right foot metatarsals but significant soft tissue abcess and edema is located inferior the superficial fascia in the right first, second, 3rd metatarsals and intermetatarsal spaces.) Problem List - Problems (1) Foot abscess, right Code(s): L02.611 - CUTANEOUS ABSCESS OF RIGHT FOOT (2) Diabetes with ulcer of foot Code(s): E11.621 - TYPE 2 DIABETES MELLITUS WITH FOOT ULCER; L97.509 - NON- PRESSURE CHRONIC ULCER OTH PRT UNSP FOOT W UNSP SEVERITY Assessment/Plan Assessment Patient suffers from cellulitis of the right leg secondary to penetrating diabetic foot ulcer originating from inferior to the right first metatarsal head , and spreading subcutaneously lateral inferior to the 2nd and 3rd metatarsals and into the toe spaces. I&D sub-superficial fascia in necessary. Treatment At bed side, following skin prep, superficial debridement of the plantar non viable skin was performed by me. A penetrating 5mm wound was found inferior to the right fibular sesamoid the extends through fasca. An exit abscess was found laterally inferior to the right 3rd intermetatarsal space also penetrating through fascia. Yellow purulence was expressed from both wounds and were individually cultured. A Dry sterile dressing was applied. Plan 1. Requested surgical OR time for add on today. 2. Consultated with Dr. Warren concerning medial clearance. 3. NPO until surgery today. Dr. Warren will hydrate patient. 4. Longitudinal plantar incision planned in the first interspace to access the plantar sub-fascia tissue under local anesthesia with IV sedation.
--- NOTE | 2019-06-10 12:50 | PN ---
Progress Note, Physician Chief Complaint: Cardiology FU Seen prior to I & D No dyspnea or chest pain. - Current Medication List Current Medications: Active Medications Acetaminophen (Tylenol -) 650 mg PO Q6H PRN PRN Reason: FEVER Last Admin: 06/04/19 01:38 Dose: 650 mg Al Hydroxide/Mg Hydroxide (Mylanta Oral Suspension -) 30 ml PO Q6H PRN PRN Reason: DYSPEPSIA Last Admin: 06/08/19 03:23 Dose: 30 ml Amlodipine Besylate (Norvasc -) 10 mg PO DAILY [facility] Last Admin: 06/10/19 10:52 Dose: 10 mg Atorvastatin Calcium (Lipitor -) 40 mg PO HS [facility] Last Admin: 06/09/19 21:37 Dose: 40 mg Carvedilol (Coreg -) 25 mg PO BID [facility] Last Admin: 06/10/19 10:52 Dose: 25 mg Ferrous Sulfate (Feosol -) 325 mg PO DAILY [facility] Last Admin: 06/10/19 10:44 Dose: Not Given Heparin Sodium (Porcine) (Heparin -) 5,000 unit SQ TID [facility] Last Admin: 06/10/19 06:40 Dose: Not Given Insulin Aspart (Novolog Vial Sliding Scale -) 1 vial SQ [facility]; Protocol Last Admin: 06/10/19 12:37 Dose: 5 unit Insulin Detemir (Levemir Vial) 10 units SQ HS [facility] Last Admin: 06/09/19 21:37 Dose: Not Given Insulin Detemir (Levemir Vial) 35 units SQ AM [facility] Last Admin: 06/10/19 06:43 Dose: Not Given Metoclopramide HCl (Reglan Injection -) 10 mg IVPB Q8H [facility] Last Admin: 06/10/19 06:43 Dose: 10 mg Pantoprazole Sodium (Protonix Iv) 40 mg IVPUSH DAILY [facility] Last Admin: 06/10/19 10:49 Dose: 40 mg Phenazopyridine HCl (Pyridium -) 100 mg PO TID PRN PRN Reason: dysuria Simethicone (Mylicon -) 80 mg PO QID [facility] Last Admin: 06/10/19 10:50 Dose: Not Given - Objective Vital Signs: Vital Signs Temperature 99.1 F 06/10/19 08:22 Pulse Rate 64 06/10/19 11:26 Respiratory Rate 18 06/10/19 08:22 Blood Pressure 140/70 06/10/19 11:26 O2 Sat by Pulse Oximetry (%) 95 06/09/19 21:00 Constitutional: Yes: Well Nourished, No Distress Eyes: Yes: Conjunctiva Clear, EOM Intact HENT: Yes: Atraumatic, Normocephalic Neck: Yes: Supple, Trachea Midline Cardiovascular: Yes: Regular Rate and Rhythm, S1, S2. No: JVD Respiratory: Yes: Regular, CTA Bilaterally Gastrointestinal: Yes: Normal Bowel Sounds, Soft Edema: No Labs: CBC, BMP 06/09/19 08:54 06/10/19 08:27 INR, PTT INR 1.26 (0.83-1.09) H 06/02/19 08:10 Problem List - Problems (1) Preop cardiovascular exam Code(s): Z01.810 - ENCOUNTER FOR PREPROCEDURAL CARDIOVASCULAR EXAMINATION Assessment/Plan 64 year old man with a PMHx of HTN, hyperlipidemia, DM, CHF, PAD, s/p left midfoot amputation admitted 06/01/19 with right LE cellulitis. ROOSEVELT on CKD Preop prior to I &D of leg. He had postural dizziness on admission. No associated symptoms. Does not change ECG 06/08/19 sinus rhythm with first degree AVB. LAD. Normal LV function on Echo without significant valvular pathology. Patient is at low cardiovascular risk for intermediate risk procedure. No further testing is needed from a cardiac standpoint.
[2019-06-10] MEDS ORDERED: MIDAZOLAM HCL 2 MG/2 ML SINGLE DOSE VIAL ONE ×2 (13:52→13:55)
[2019-06-10] MEDS ORDERED: LIDOCAINE HCL 1%, 10 MG/ML (20ML VIAL) NR ONE (14:03)
[2019-06-10] MEDS ORDERED: BUPIVACAINE HCL/PF 0.5% (5MG/ML) 10 ML VIAL IJ ONE (14:04)
[2019-06-10] MEDS ORDERED: ONDANSETRON 4 MG/2 ML VIAL IVPUSH PRN (14:57)
--- NOTE | 2019-06-10 16:22 | OP ---
DATE OF OPERATION: 06/10/2019 SURGEON: Harpreet Pfeiffer DPM PREOPERATIVE DIAGNOSIS: Right foot sub-1st, 2nd, and 3rd long arch subfascial abscess. POSTOPERATIVE DIAGNOSIS: Right foot sub-1st, 2nd, and 3rd long arch subfascial abscess. PROCEDURE: Incision and drainage of the right foot plantar abscess. DESCRIPTION OF PROCEDURE: Under fractional anesthesia, and a surgical scrub with Betadine scrub and solution x2, the patient was draped using sterile technique. Inspection of the right foot showed that it was red, hot, and swollen with a primary ulceration site inferior to the fibular sesamoid of the right 1st metatarsal and a secondary exit ulceration inferior to the midshaft of the right 3rd metatarsal plantarly. Using a No. 15 surgical blade, a linear-longitudinal incision was made in the intermetatarsal space between the 2nd and the 3rd metatarsals. The incision was deepened through adipose and fascia and extended from the base of the 3rd toe to the midportion of the long arch of the right foot. Following fasciotomy, copious amounts of pus were expressed from the subfascial layer. The wound was then inspected and sinus tracts were found to proceed and connect from the 1st metatarsal and the center line and the 3rd metatarsal into the center line and the base of the 3rd toe and the base of the 2nd toe into the center line. Using sharp and blunt dissection, the sinus tracts were incised and exposed. Using a No. 15 blade, transverse incisions were made from the fibular sesamoid wound to the center line incision and from the 3rd metatarsal midshaft wound to the central incision. This created four skin full-thickness flaps that were reflected. Further inspection of the wound showed that intermetatarsal space did not seem breached by the abscess and only about 1 cm of long arch space seemed to be breached by the abscess. Following complete debridement of all sites, 2nd toe, 3rd toe, 1st metatarsal flap, 3rd metatarsal flap, and long arch incision, a wound culture was performed, taking tissue from inferior to the 2nd metatarsal area, supposedly the central portion of the abscess. Following tissue culture, copious lavage with 3000 mL of sterile saline with bacitracin was performed, using the power lavage system. Following complete lavage, a 1-inch packing strip of Xeroform was used to occupy the space, and then a dry, sterile dressing with compression using Coban was applied to the right foot. The patient tolerated the surgical procedure well, and left the operating room, stable, alert, awake, and in no pain. GIBSON BANDA/[id number]
--- NOTE | 2019-06-10 17:27 | PN ---
Progress Note, Physician History of Present Illness: Pt seen and examined at bedside. He is awake and appears comfortable today. He denies shortness of breath. - Current Medication List Current Medications: Active Medications Acetaminophen (Tylenol -) 650 mg PO Q6H PRN PRN Reason: FEVER Last Admin: 06/04/19 01:38 Dose: 650 mg Al Hydroxide/Mg Hydroxide (Mylanta Oral Suspension -) 30 ml PO Q6H PRN PRN Reason: DYSPEPSIA Last Admin: 06/08/19 03:23 Dose: 30 ml Amlodipine Besylate (Norvasc -) 10 mg PO DAILY [facility] Last Admin: 06/10/19 10:52 Dose: 10 mg Atorvastatin Calcium (Lipitor -) 40 mg PO HS [facility] Last Admin: 06/09/19 21:37 Dose: 40 mg Carvedilol (Coreg -) 25 mg PO BID [facility] Last Admin: 06/10/19 10:52 Dose: 25 mg Fentanyl (Sublimaze Injection -) 25 mcg IVPUSH [id number] PRN PRN Reason: PAIN-PACU ORDER X 4 DOSES ONLY Ferrous Sulfate (Feosol -) 325 mg PO DAILY [facility] Last Admin: 06/10/19 10:44 Dose: Not Given Heparin Sodium (Porcine) (Heparin -) 5,000 unit SQ TID [facility] Last Admin: 06/10/19 16:29 Dose: Not Given Ceftriaxone Sodium 1 gm/ (Dextrose) 50 mls @ 200 mls/hr IVPB ONCE ONE; Protocol Stop: 06/11/19 10:14 Insulin Aspart (Novolog Vial Sliding Scale -) 1 vial SQ ACHS [facility]; Protocol Last Admin: 06/10/19 12:37 Dose: 5 unit Insulin Detemir (Levemir Vial) 10 units SQ HS [facility] Last Admin: 06/09/19 21:37 Dose: Not Given Insulin Detemir (Levemir Vial) 35 units SQ AM [facility] Last Admin: 06/10/19 06:43 Dose: Not Given Metoclopramide HCl (Reglan Injection -) 10 mg IVPB Q8H [facility] Last Admin: 06/10/19 16:30 Dose: Not Given Ondansetron HCl (Zofran Injection) 4 mg IVPUSH Q6H PRN PRN Reason: NAUSEA AND/OR VOMITING Pantoprazole Sodium (Protonix Iv) 40 mg IVPUSH DAILY [facility] Last Admin: 06/10/19 10:49 Dose: 40 mg Phenazopyridine HCl (Pyridium -) 100 mg PO TID PRN PRN Reason: dysuria Simethicone (Mylicon -) 80 mg PO QID [facility] Last Admin: 06/10/19 16:29 Dose: Not Given - Objective Vital Signs: Vital Signs Temperature 98.8 F 06/10/19 16:10 Pulse Rate 61 06/10/19 16:10 Respiratory Rate 18 06/10/19 16:10 Blood Pressure 148/65 06/10/19 16:10 O2 Sat by Pulse Oximetry (%) 94 L 06/10/19 15:45 Constitutional: Yes: Calm Eyes: Yes: Conjunctiva Clear HENT: Yes: Atraumatic Neck: Yes: Supple Cardiovascular: Yes: S1, S2 Respiratory: Yes: CTA Bilaterally Gastrointestinal: Yes: Normal Bowel Sounds, Soft Genitourinary: Yes: WNL Musculoskeletal: Yes: WNL Edema: Yes Edema: RLE: Trace Neurological: Yes: Oriented Psychiatric: Yes: Oriented Labs: CBC, BMP 06/09/19 08:54 06/10/19 08:27 INR, PTT INR 1.26 (0.83-1.09) H 06/02/19 08:10 Problem List - Problems (1) Cellulitis Code(s): L03.90 - CELLULITIS, UNSPECIFIED Qualifiers: Site of cellulitis: extremity Site of cellulitis of extremity: lower extremity Laterality: right Qualified Code(s): L03.115 - Cellulitis of right lower limb (2) Renal failure Code(s): N19 - UNSPECIFIED KIDNEY FAILURE Qualifiers: Renal failure chronicity: unspecified chronicity Qualified Code(s): N19 - Unspecified kidney failure (3) Sepsis Code(s): A41.9 - SEPSIS, UNSPECIFIED ORGANISM Qualifiers: Sepsis type: sepsis due to unspecified organism Sepsis acute organ dysfunction status: unspecified Qualified Code(s): A41.9 - Sepsis, unspecified organism Assessment/Plan Current Medications Generic Name Dose Route Start Last Admin Trade Name Freq PRN Reason Stop Dose Admin Acetaminophen 650 mg 06/01/19 18:27 06/04/19 01:38 Tylenol - PO 650 mg Q6H PRN Administration FEVER Al Hydroxide/Mg Hydroxide 30 ml 06/06/19 13:09 06/08/19 03:23 Mylanta Oral Suspension - PO 30 ml Q6H PRN Administration DYSPEPSIA Amlodipine Besylate 10 mg 06/07/19 10:30 06/10/19 10:52 Norvasc - PO 10 mg DAILY [facility] Administration Atorvastatin Calcium 40 mg 06/01/19 22:00 06/09/19 21:37 Lipitor - PO 40 mg HS [facility] Administration Carvedilol 25 mg 06/01/19 22:00 06/10/19 10:52 Coreg - PO 25 mg BID [facility] Administration Fentanyl 25 mcg 06/10/19 14:57 Sublimaze Injection - IVPUSH [id number] PRN PAIN-PACU ORDER X 4 DOSES ONLY Ferrous Sulfate 325 mg 06/02/19 12:45 06/10/19 10:44 Feosol - PO Not Given DAILY [facility] Heparin Sodium (Porcine) 5,000 unit 06/08/19 14:00 06/10/19 16:29 Heparin - SQ Not Given TID [facility] Ceftriaxone Sodium 1 gm/ 50 mls @ 200 mls/hr 06/11/19 10:00 Dextrose IVPB 06/11/19 10:14 ONCE ONE Protocol Insulin Aspart 1 vial 06/07/19 22:42 06/10/19 12:37 Novolog Vial Sliding Scale - SQ 5 unit ACHS [facility] Administration Protocol Insulin Detemir 10 units 06/04/19 22:00 06/09/19 21:37 Levemir Vial SQ Not Given HS [facility] Insulin Detemir 35 units 06/08/19 07:00 06/10/19 06:43 Levemir Vial SQ Not Given AM [facility] Metoclopramide HCl 10 mg 06/06/19 14:15 06/10/19 16:30 Reglan Injection - IVPB Not Given Q8H [facility] Ondansetron HCl 4 mg 06/10/19 14:57 Zofran Injection IVPUSH Q6H PRN NAUSEA AND/OR VOMITING Pantoprazole Sodium 40 mg 06/04/19 12:30 06/10/19 10:49 Protonix Iv IVPUSH 40 mg DAILY [facility] Administration Phenazopyridine HCl 100 mg 06/06/19 13:00 Pyridium - PO TID PRN dysuria Simethicone 80 mg 06/07/19 14:00 06/10/19 16:29 Mylicon - PO Not Given QID [facility] Impression 1. ROOSEVELT 2. ckd 3. dm 4. cellulitis 5. pvd 6. htn Plan - pt with history of CKD - monitor renal function - follow light chains - cont abx for cellulitis - avoid nephrotoxins - heme eval for m spike - avoid nsaids
[2019-06-10] MEDS: ATORVASTATIN CA 40 MG TABLET (FP) PO SCH (22:10)
[2019-06-11] MEDS: INSULIN SLIDING SCALE (NOVOLOG) 1 VIAL SQ SCH ×4 (06:46→23:15)
[2019-06-11] MEDS: INSULIN (LEVEMIR) 100 UNITS/ML UNITS SQ SCH ×2 (06:46→23:15)
[2019-06-11] MEDS: HEPARIN NA (PORCINE) 5,000 UNITS/ML 1ML VIAL SQ SCH ×3 (06:47→23:13)
[2019-06-11] MEDS: METOCLOPRAMIDE HCL INJECTION 10 MG/2 ML VIAL IVPB SCH ×3 (06:47→23:15)
[2019-06-11] MEDS ORDERED: INSULIN (NOVOLOG) ASPART 100 UNITS/ML 10ML VIAL ONE (06:58)
--- NOTE | 2019-06-11 08:08 | PN ---
Progress Note (short form) - Note Progress Note: Post op day#1.S/P Right foot I&D under MAC uneventful.Patient stable.No any anesthesia related problem.Patient Dc from the anesthesia care.
[2019-06-11] MEDS ORDERED: CEFTRIAXONE 1 GM in DEXTROSE 5%-WATER - 50 ML IVPB ONE (10:00)
[2019-06-11] MEDS ORDERED: cefTRIAXone SODIUM 1 GM VIAL ONE (10:59)
[2019-06-11] MEDS ORDERED: DEXTROSE 5%-WATER - 50 ML IVPB ONE (10:59)
[2019-06-11] MEDS: SIMETHICONE 80 MG TAB.CHEW (FP) PO SCH (11:05)
[2019-06-11] MEDS: FERROUS SO4 325 MG TABLET (FP) PO SCH (11:05)
[2019-06-11] MEDS: amLODIPine BESYLATE 10 MG TABLET (FP) PO SCH (11:05)
[2019-06-11] MEDS: CARVEDILOL 25 MG TABLET (FP) PO SCH ×2 (11:05→23:12)
[2019-06-11] MEDS: PANTOPRAZOLE SODIUM 40 MG VIAL IVPUSH SCH (11:05)
--- NOTE | 2019-06-11 11:27 | PN ---
Progress Note, Physician Chief Complaint: LLE cellulitis History of Present Illness: Feels better Denies any N/V/abd pain RLE pain improved seen by Podiatry, for possible I&D MRI RLE shows abscess formation, bone marrow edema with possible osteomyelitis Still low grade temps S/P POD#1 Right foot I&D under MAC - Current Medication List Current Medications: Active Medications Acetaminophen (Tylenol -) 650 mg PO Q6H PRN PRN Reason: FEVER Last Admin: 06/04/19 01:38 Dose: 650 mg Al Hydroxide/Mg Hydroxide (Mylanta Oral Suspension -) 30 ml PO Q6H PRN PRN Reason: DYSPEPSIA Last Admin: 06/08/19 03:23 Dose: 30 ml Amlodipine Besylate (Norvasc -) 10 mg PO DAILY [facility] Last Admin: 06/11/19 11:05 Dose: 10 mg Atorvastatin Calcium (Lipitor -) 40 mg PO HS [facility] Last Admin: 06/10/19 22:10 Dose: 40 mg Carvedilol (Coreg -) 25 mg PO BID [facility] Last Admin: 06/11/19 11:05 Dose: 25 mg Fentanyl (Sublimaze Injection -) 25 mcg IVPUSH [id number] PRN PRN Reason: PAIN-PACU ORDER X 4 DOSES ONLY Ferrous Sulfate (Feosol -) 325 mg PO DAILY [facility] Last Admin: 06/11/19 11:05 Dose: 325 mg Heparin Sodium (Porcine) (Heparin -) 5,000 unit SQ TID [facility] Last Admin: 06/11/19 06:47 Dose: 5,000 unit Insulin Aspart (Novolog Vial Sliding Scale -) 1 vial SQ [facility]; Protocol Last Admin: 06/11/19 11:10 Dose: Not Given Insulin Detemir (Levemir Vial) 10 units SQ HS [facility] Last Admin: 06/10/19 22:11 Dose: 10 units Insulin Detemir (Levemir Vial) 35 units SQ AM [facility] Last Admin: 06/11/19 06:46 Dose: 35 unit Metoclopramide HCl (Reglan Injection -) 10 mg IVPB Q8H [facility] Last Admin: 06/11/19 06:47 Dose: 10 mg Ondansetron HCl (Zofran Injection) 4 mg IVPUSH Q6H PRN PRN Reason: NAUSEA AND/OR VOMITING Pantoprazole Sodium (Protonix Iv) 40 mg IVPUSH DAILY [facility] Last Admin: 06/11/19 11:05 Dose: 40 mg Phenazopyridine HCl (Pyridium -) 100 mg PO TID PRN PRN Reason: dysuria Simethicone (Mylicon -) 80 mg PO QID [facility] Last Admin: 06/11/19 11:05 Dose: Not Given - Objective Vital Signs: Vital Signs Temperature 99.7 F H 06/11/19 04:00 Pulse Rate 61 06/11/19 04:00 Respiratory Rate 18 06/11/19 04:00 Blood Pressure 140/65 06/11/19 04:00 O2 Sat by Pulse Oximetry (%) 96 06/10/19 21:00 Constitutional: Yes: Well Nourished, No Distress, Calm Cardiovascular: Yes: Regular Rate and Rhythm Respiratory: Yes: Regular Gastrointestinal: Yes: WNL, Normal Bowel Sounds, Soft, Abdomen, Obese Genitourinary: Yes: WNL Musculoskeletal: Yes: WNL Edema: Yes (RLE non pitting edema) Peripheral Pulses WNL: Yes Wound/Incision: Yes: Dressing Dry and Intact (right foot) Neurological: Yes: Alert, Oriented Psychiatric: Yes: Alert, Oriented Labs: CBC, BMP 06/09/19 08:54 06/10/19 08:27 INR, PTT INR 1.26 (0.83-1.09) H 06/02/19 08:10 Problem List - Problems (1) Anemia Assessment/Plan: -Stool OB negative -Iron % low -Ferrous sulfate po daily -Follow trend Problems reviewed: Yes Code(s): D64.9 - ANEMIA, UNSPECIFIED (2) Cellulitis Assessment/Plan: -RLE -now with small abscess formation -ID consult -IV abx -low grade temps overnight -Cultures: Microbiology 06/04/19 19:00 Blood - Peripheral Venous Blood Culture - Final NO GROWTH AFTER 5 DAYS INCUBATION 06/04/19 19:00 Blood - Peripheral Venous Blood Culture - Final NO GROWTH AFTER 5 DAYS INCUBATION 06/01/19 11:15 Blood - Peripheral Venous Blood Culture - Final NO GROWTH AFTER 5 DAYS INCUBATION 06/01/19 11:15 Blood - Peripheral Venous Blood Culture - Final NO GROWTH AFTER 5 DAYS INCUBATION 06/01/19 13:57 Urine - Urine Clean Catch Urine Culture - Final NO GROWTH OBTAINED -Leukocytosis improved -Repeat LA normal -MRI RLE-reviewed- abscess formation with second metatarsal bone marrow edema with possible osteomyelitis -Podiatry consult appreciated -S/P POD #1 Right foot I&D Problems reviewed: Yes Code(s): L03.90 - CELLULITIS, UNSPECIFIED Qualifiers: Site of cellulitis: extremity Site of cellulitis of extremity: lower extremity Laterality: right Qualified Code(s): L03.115 - Cellulitis of right lower limb (3) Acute on chronic renal insufficiency Assessment/Plan: -Nephrology consult -IVF- decrease rate to 50 cc/hr -monitor trend -Renal U/S with chronic medical renal dz- no hydronephrosis, mildly distended bladder -UC negative Problems reviewed: Yes Code(s): N28.9 - DISORDER OF KIDNEY AND URETER, UNSPECIFIED; N18.9 - CHRONIC KIDNEY DISEASE, UNSPECIFIED (4) Diabetes Assessment/Plan: -A1c at 8.6 -BGM AC HS -ISS -Levemir -Endocrine consult Problems reviewed: Yes Code(s): E11.9 - TYPE 2 DIABETES MELLITUS WITHOUT COMPLICATIONS Qualifiers: Chronic kidney disease stage: stage 3 (moderate) (5) Hypertension Assessment/Plan: -Increased Amlodipine to 10 mg po daily -monitor trend Problems reviewed: Yes Code(s): I10 - ESSENTIAL (PRIMARY) HYPERTENSION (6) Abdominal pain Assessment/Plan: -resolved -Zofram discontinued, started on Reglan for nausea/vomiting and possible gastroperesis -PPI -CT abd/pelvis reviewed-unremarkable -Bladder scan unremarkable -GI consult appreciated Problems reviewed: Yes Code(s): R10.9 - UNSPECIFIED ABDOMINAL PAIN Assessment/Plan see problem list
--- NOTE | 2019-06-11 11:32 | PN ---
Physical Exam: SUBJECTIVE: Patient seen and examined Feels better, Denies any N/V/abd pain, RLE pain improved seen by Podiatry, for possible I&D, MRI RLE shows abscess formation, bone marrow edema with possible osteomyelitis Still low grade temps S/P POD#1 Right foot I&D under MAC OBJECTIVE: Vital Signs Period Temp Pulse Resp BP Sys/Aparicio Pulse Ox Last 24 Hr 98.2 F-99.9 F 51-67 18-22 122-148/48-70 94-96 GENERAL:AAOx3 HEAD:NC/AT with eye glasses EYES: RAJAN, EOMI, ENT: Moist mucous membranes.no oral thrush NECK: supple without lymphadenopathy, no lymph nodes enlargement palpated gynecomastia with no breast mass LUNGS: Breath sounds equal, clear to auscultation bilaterally. No wheezes, and no crackles. No accessory muscle use. HEART: Regular rate and rhythm, normal S1 and S2 without murmur, rub or gallop. ABDOMEN: Soft, nontender, not distended, normoactive bowel sounds, no guarding, LOWER EXTREMITIES: 2+ pulses, warm, well-perfused. right leg with erythema and + 2 edema , very tender to touch , left foot 1/2 amputation , no edema right foot with wound , swollen and peeling skin on middle toe NEUROLOGICAL: Cranial nerves II-XII intact. Normal speech. PSYCHIATRIC: Cooperative. Laboratory Results - last 24 hr 06/10/19 06/10/19 06/10/19 10:15 16:32 21:45 POC Glucometer 152 295 Erythropoietin 27.3 H 06/11/19 06/11/19 06:40 11:09 POC Glucometer 243 140 Erythropoietin Active Medications Generic Name Dose Route Start Last Admin Trade Name Freq PRN Reason Stop Dose Admin Acetaminophen 650 mg 06/01/19 18:27 06/04/19 01:38 Tylenol - PO 650 mg Q6H PRN Administration FEVER Al Hydroxide/Mg Hydroxide 30 ml 06/06/19 13:09 06/08/19 03:23 Mylanta Oral Suspension - PO 30 ml Q6H PRN Administration DYSPEPSIA Amlodipine Besylate 10 mg 06/07/19 10:30 06/11/19 11:05 Norvasc - PO 10 mg DAILY [facility] Administration Atorvastatin Calcium 40 mg 06/01/19 22:00 06/10/19 22:10 Lipitor - PO 40 mg HS [facility] Administration Carvedilol 25 mg 06/01/19 22:00 06/11/19 11:05 Coreg - PO 25 mg BID [facility] Administration Fentanyl 25 mcg 06/10/19 14:57 Sublimaze Injection - IVPUSH [id number] PRN PAIN-PACU ORDER X 4 DOSES ONLY Ferrous Sulfate 325 mg 06/02/19 12:45 06/11/19 11:05 Feosol - PO 325 mg DAILY [facility] Administration Heparin Sodium (Porcine) 5,000 unit 06/08/19 14:00 06/11/19 06:47 Heparin - SQ 5,000 unit TID [facility] Administration Insulin Aspart 1 vial 06/07/19 22:42 06/11/19 11:10 Novolog Vial Sliding Scale - SQ Not Given ACHS [facility] Protocol Insulin Detemir 10 units 06/04/19 22:00 06/10/19 22:11 Levemir Vial SQ 10 units HS [facility] Administration Insulin Detemir 35 units 06/08/19 07:00 06/11/19 06:46 Levemir Vial SQ 35 unit AM [facility] Administration Metoclopramide HCl 10 mg 06/06/19 14:15 06/11/19 06:47 Reglan Injection - IVPB 10 mg Q8H [facility] Administration Pantoprazole Sodium 40 mg 06/04/19 12:30 06/11/19 11:05 Protonix Iv IVPUSH 40 mg DAILY [facility] Administration Phenazopyridine HCl 100 mg 06/06/19 13:00 Pyridium - PO TID PRN dysuria Simethicone 80 mg 06/07/19 14:00 06/11/19 11:05 Mylicon - PO Not Given QID [facility] CBC, BMP 06/09/19 08:54 06/10/19 08:27 ASSESSMENT/PLAN: 64 year old man with a PMHx of HTN, hyperlipidemia, DM, CHF, PAD, s/p left midfoot amputation admitted 06/01/19 with right LE cellulitis. He was noted to have ROOSEVELT, seen by renal. He was seen by Vascular sugery and ID and receiving IV ABx. The patient has persistent right leg and foot pain. we were consulted for M spike R.O MM Abdominal pain (Acute) Acute on chronic renal insufficiency (Acute) Anemia (Acute) Cellulitis (Acute) DVT prophylaxis (Acute) Diabetes (Acute) Epigastric abdominal pain (Acute) Hypertension (Acute) Left foot amputee (Acute) Prophylactic measure (Acute) Renal failure (Acute) Sepsis (Acute) Type 2 diabetes mellitus with diabetic chronic kidney disease (Acute) M spike R .O MM follow SPEP , immunofixation , protein and light chain studies. Anemia normocytic normochromic likely due to CKD will order iron studies , Ferritin , TSH iron low , ferritin 300 go with anemia of chronic disease Dispo: We will continue to follow the patient. Thank you for this consultative opportunity. Visit type - Emergency Visit Emergency Visit: Yes ED Registration Date: 06/01/19 Care time: The patient presented to the Emergency Department on the above date and was hospitalized for further evaluation of their emergent condition. - New Patient This patient is new to me today: No - Critical Care Critical Care patient: No ATTENDING PHYSICIAN STATEMENT I saw and evaluated the patient. I reviewed the resident's note and discussed the case with the resident. I agree with the resident's findings and plan as documented. SUBJECTIVE: OBJECTIVE: ASSESSMENT AND PLAN:
[2019-06-11] MEDS ORDERED: guaiFENesin/D-M SUGAR-FREE/ACLHOL-FREE 118 ML BOTTLE PO PRN (11:47)
--- NOTE | 2019-06-11 13:23 | PN ---
Progress Note, Physician History of Present Illness: Pt seen and examined at bedside. He is awake and alert. He denies shortness of breath. He had the debridement. - Current Medication List Current Medications: Active Medications Acetaminophen (Tylenol -) 650 mg PO Q6H PRN PRN Reason: FEVER Last Admin: 06/04/19 01:38 Dose: 650 mg Al Hydroxide/Mg Hydroxide (Mylanta Oral Suspension -) 30 ml PO Q6HPO [facility] Amlodipine Besylate (Norvasc -) 10 mg PO DAILY [facility] Last Admin: 06/11/19 11:05 Dose: 10 mg Atorvastatin Calcium (Lipitor -) 40 mg PO HS [facility] Last Admin: 06/10/19 22:10 Dose: 40 mg Carvedilol (Coreg -) 25 mg PO BID [facility] Last Admin: 06/11/19 11:05 Dose: 25 mg Fentanyl (Sublimaze Injection -) 25 mcg IVPUSH [id number] PRN PRN Reason: PAIN-PACU ORDER X 4 DOSES ONLY Ferrous Sulfate (Feosol -) 325 mg PO DAILY [facility] Last Admin: 06/11/19 11:05 Dose: 325 mg Guaifenesin (Diabetic Tussin Dm -) 10 ml PO Q4H PRN PRN Reason: COUGH Heparin Sodium (Porcine) (Heparin -) 5,000 unit SQ TID [facility] Last Admin: 06/11/19 06:47 Dose: 5,000 unit Insulin Aspart (Novolog Vial Sliding Scale -) 1 vial SQ [facility]; Protocol Last Admin: 06/11/19 11:10 Dose: Not Given Insulin Detemir (Levemir Vial) 10 units SQ HS [facility] Last Admin: 06/10/19 22:11 Dose: 10 units Insulin Detemir (Levemir Vial) 35 units SQ AM [facility] Last Admin: 06/11/19 06:46 Dose: 35 unit Metoclopramide HCl (Reglan Injection -) 10 mg IVPB Q8H [facility] Last Admin: 06/11/19 06:47 Dose: 10 mg Pantoprazole Sodium (Protonix Iv) 40 mg IVPUSH DAILY [facility] Last Admin: 06/11/19 11:05 Dose: 40 mg - Objective Vital Signs: Vital Signs Temperature 99.7 F H 06/11/19 04:00 Pulse Rate 61 06/11/19 04:00 Respiratory Rate 18 01/23/20 04:00 Blood Pressure 140/65 01/23/20 04:00 O2 Sat by Pulse Oximetry (%) 96 06/10/19 21:00 Constitutional: Yes: Calm Eyes: Yes: Conjunctiva Clear HENT: Yes: Atraumatic Neck: Yes: Supple Cardiovascular: Yes: S1, S2 Respiratory: Yes: CTA Bilaterally Gastrointestinal: Yes: Soft Genitourinary: Yes: WNL Edema: Yes Edema: RLE: 1+ Neurological: Yes: Oriented Psychiatric: Yes: Oriented Labs: CBC, BMP 06/09/19 08:54 06/10/19 08:27 INR, PTT INR 1.26 (0.83-1.09) H 06/02/19 08:10 Problem List - Problems (1) Cellulitis Code(s): L03.90 - CELLULITIS, UNSPECIFIED Qualifiers: Site of cellulitis: extremity Site of cellulitis of extremity: lower extremity Laterality: right Qualified Code(s): L03.115 - Cellulitis of right lower limb (2) Renal failure Code(s): N19 - UNSPECIFIED KIDNEY FAILURE Qualifiers: Renal failure chronicity: unspecified chronicity Qualified Code(s): N19 - Unspecified kidney failure (3) Sepsis Code(s): A41.9 - SEPSIS, UNSPECIFIED ORGANISM Qualifiers: Sepsis type: sepsis due to unspecified organism Sepsis acute organ dysfunction status: unspecified Qualified Code(s): A41.9 - Sepsis, unspecified organism Assessment/Plan Current Medications Generic Name Dose Route Start Last Admin Trade Name Freq PRN Reason Stop Dose Admin Acetaminophen 650 mg 06/01/19 18:27 06/04/19 01:38 Tylenol - PO 650 mg Q6H PRN Administration FEVER Al Hydroxide/Mg Hydroxide 30 ml 06/11/19 12:00 Mylanta Oral Suspension - PO Q6HPO [facility] Amlodipine Besylate 10 mg 06/07/19 10:30 06/11/19 11:05 Norvasc - PO 10 mg DAILY [facility] Administration Atorvastatin Calcium 40 mg 06/01/19 22:00 06/10/19 22:10 Lipitor - PO 40 mg HS [facility] Administration Carvedilol 25 mg 06/01/19 22:00 06/11/19 11:05 Coreg - PO 25 mg BID [facility] Administration Fentanyl 25 mcg 06/10/19 14:57 Sublimaze Injection - IVPUSH [id number] PRN PAIN-PACU ORDER X 4 DOSES ONLY Ferrous Sulfate 325 mg 06/02/19 12:45 06/11/19 11:05 Feosol - PO 325 mg DAILY [facility] Administration Guaifenesin 10 ml 06/11/19 11:47 Diabetic Tussin Dm - PO Q4H PRN COUGH Heparin Sodium (Porcine) 5,000 unit 06/08/19 14:00 06/11/19 06:47 Heparin - SQ 5,000 unit TID [facility] Administration Insulin Aspart 1 vial 06/07/19 22:42 06/11/19 11:10 Novolog Vial Sliding Scale - SQ Not Given ACHS [facility] Protocol Insulin Detemir 10 units 06/04/19 22:00 06/10/19 22:11 Levemir Vial SQ 10 units HS [facility] Administration Insulin Detemir 35 units 06/08/19 07:00 06/11/19 06:46 Levemir Vial SQ 35 unit AM [facility] Administration Metoclopramide HCl 10 mg 06/06/19 14:15 06/11/19 06:47 Reglan Injection - IVPB 10 mg Q8H [facility] Administration Pantoprazole Sodium 40 mg 06/04/19 12:30 06/11/19 11:05 Protonix Iv IVPUSH 40 mg DAILY [facility] Administration Laboratory Tests 06/04/19 06/10/19 08:15 08:27 MARIAN Screen Negative c-ANCA <1:20 Proteinase 3 (PR3) <3.5 p-ANCA <1:20 Atypical p-ANCA <1:20 Myeloperoxidase Ab <9.0 Double Strand DNA Ab 1 Free [place] LC, Quant Pending Free Lambda LC, Quant Pending Free [place]/Lambda Ratio Pending Impression 1. ROOSEVELT 2. ckd 3. dm 4. cellulitis 5. pvd 6. htn Plan - repeat labs in am - light chains pending - serologies noted - discussed possibility of future HD with pt - avoid nsaids - pt with history of CKD - monitor renal function - avoid nephrotoxins - heme eval for m spike pending
[2019-06-11] MEDS: MAG HYDROX/AL HYDROX/SIMETH 30 ML UNIT-DOSE CUP PO SCH ×3 (13:30→23:12)
[2019-06-11 13:49] LABS: BASO % 0.5 % (0-2.0); EOS % 1.5 % (0-4.5); HEMATOCRIT 22.5 % (35.4-49); HEMOGLOBIN 7.2 GM/dL (11.7-16.9); LYMPH % 8.7 % (8-40); MCH 28.9 pg (25.7-33.7); MCHC 31.9 g/dl (32.0-35.9); MEAN CELL VOLUME 90.6 fl (80-96); MEAN PLT VOLUME 9.3 fl (7.5-11.1); MONO % 12.6 % (3.8-10.2); NEUT % 76.7 % (42.8-82.8); PLATELET COUNT 181 K/MM3 (134-434); RBC 2.49 M/mm3 (4.00-5.60); RDW 13.6 % (11.9-15.9); WHITE BLOOD COUNT 10.2 K/mm3 (4.0-10.0)
[2019-06-11 14:37] LABS: ALBUMIN 1.9 g/dl (3.4-5.0); BILIRUBIN,TOTAL 0.3 mg/dL (0.2-1); BLOOD UREA NITROGEN 73.6 mg/dL (7-18); CALCIUM 7.5 mg/dL (8.5-10.1); CREATININE 5.7 mg/dL (0.55-1.3); POTASSIUM 3.8 mmol/L (3.5-5.1)
[2019-06-11 14:55] LABS: ANISOCYTOSIS 1+; MACROCYTOSIS 0; PLATELET ESTIMATE NORMAL
--- NOTE | 2019-06-11 16:03 | PN ---
Progress Note, Physician Chief Complaint: Right foot evaculated abscess with leg cellulitis History of Present Illness: Patient underwent Plantar Incision and Drainage in the OR yesterday for sub superficial fascia abscess that extended into the 2nd and 3rd toes, medial to the first metatarsal and lateral to the third metatarsal, and proximal down the long arch of the foot. Tissue culture was taken prior to irrigation, but no organisms were seen. During the Incision and drainage yesterday, copious amounts of yellow purulence was expressed. Patient is getting Ceftriaxone IV. - Current Medication List Current Medications: Active Medications Acetaminophen (Tylenol -) 650 mg PO Q6H PRN PRN Reason: FEVER Last Admin: 06/04/19 01:38 Dose: 650 mg Al Hydroxide/Mg Hydroxide (Mylanta Oral Suspension -) 30 ml PO Q6HPO [facility] Last Admin: 06/11/19 13:30 Dose: Not Given Amlodipine Besylate (Norvasc -) 10 mg PO DAILY [facility] Last Admin: 06/11/19 11:05 Dose: 10 mg Atorvastatin Calcium (Lipitor -) 40 mg PO HS [facility] Last Admin: 06/10/19 22:10 Dose: 40 mg Carvedilol (Coreg -) 25 mg PO BID [facility] Last Admin: 06/11/19 11:05 Dose: 25 mg Fentanyl (Sublimaze Injection -) 25 mcg IVPUSH [id number] PRN PRN Reason: PAIN-PACU ORDER X 4 DOSES ONLY Ferrous Sulfate (Feosol -) 325 mg PO DAILY [facility] Last Admin: 06/11/19 11:05 Dose: 325 mg Guaifenesin (Diabetic Tussin Dm -) 10 ml PO Q4H PRN PRN Reason: COUGH Heparin Sodium (Porcine) (Heparin -) 5,000 unit SQ TID [facility] Last Admin: 06/11/19 06:47 Dose: 5,000 unit Insulin Aspart (Novolog Vial Sliding Scale -) 1 vial SQ [facility]; Protocol Last Admin: 06/11/19 11:10 Dose: Not Given Insulin Detemir (Levemir Vial) 10 units SQ HS [facility] Last Admin: 06/10/19 22:11 Dose: 10 units Insulin Detemir (Levemir Vial) 35 units SQ AM [facility] Last Admin: 06/11/19 06:46 Dose: 35 unit Metoclopramide HCl (Reglan Injection -) 10 mg IVPB Q8H [facility] Last Admin: 06/11/19 06:47 Dose: 10 mg Pantoprazole Sodium (Protonix Iv) 40 mg IVPUSH DAILY [facility] Last Admin: 06/11/19 11:05 Dose: 40 mg - Objective Vital Signs: Vital Signs Temperature 99.7 F H 06/11/19 04:00 Pulse Rate 61 06/11/19 04:00 Respiratory Rate 18 06/11/19 04:00 Blood Pressure 140/65 06/11/19 04:00 O2 Sat by Pulse Oximetry (%) 96 06/10/19 21:00 Edema: RLE: 2+ (right leg and foot remain edematous) Wound/Incision: Yes: Other (Plantar incisions remain open. Packing intact with only bloody drainage. No sign of purulence is present. Note leg edema and increase in skin temp remain present. No signs of necrosis at the site.) Labs: CBC, BMP 06/11/19 12:58 06/11/19 12:58 INR, PTT INR 1.26 (0.83-1.09) H 06/02/19 08:10 Problem List - Problems (1) Foot abscess, right Code(s): L02.611 - CUTANEOUS ABSCESS OF RIGHT FOOT (2) Diabetes with ulcer of foot Code(s): E11.621 - TYPE 2 DIABETES MELLITUS WITH FOOT ULCER; L97.509 - NON- PRESSURE CHRONIC ULCER OTH PRT UNSP FOOT W UNSP SEVERITY Assessment/Plan Assessment Wound abscess has been adequately incised and drained. Remaining wound shows no sign of infection. Leg and foot however remain edematous and warm one day post op. This remains a concern because MRI shows moderate bone marrow edema in the head of the 2nd metatarsal. Osteomyelitis remains a possibility at this site however in surgical incision and drainage of the plantar aspect of the foot , there did not seem to be extension of the wound through the joint capsule or plantar plate of the bone. That is why a bone culture was not performed at the time. I did not want to extend contamination from the wound into the bone. If symptoms do not remit with antibiosis and wound vac, bone biopsy might be done at a later time. Treatment Wound dressing and packing were removed by me today. Saline packing with sterile dressing was applied with rose bandage cover. Plan Order wound vac. Continue Ceftriaxone antibiosis. Awaiting Culture report from yesterday. Dressing: Saline packing daily until we start wound vac.
--- NOTE | 2019-06-11 19:17 | PN ---
Progress Note (short form) - Note Progress Note: Pt seen and examined with Dr. Magallanes. Agree with note and plan Subjective: Doing well. Mentioned pain in R leg but improving Denied NVD. R Foot I+D POD#1 Objective: Last Vital Signs Temp Pulse Resp BP Pulse Ox 97.8 F 58 L 18 130/54 L 95 06/11/19 18:00 06/11/19 18:00 06/11/19 18:00 06/11/19 18:00 06/11/19 15:58 General: NAD HEENT: MMM CVS: S1, S2 Lungs: CTAB Abdomen: Soft, NT, ND RLE: + edema, surgical wound covered. LLE: partial amputation Neuro: Moves extremities. Psych: Conversant. AO. Appropriate. 06/11/19 12:58 06/11/19 12:58 Current Medications Acetaminophen (Tylenol -) 650 mg PO Q6H PRN PRN Reason: FEVER Last Admin: 06/04/19 01:38 Dose: 650 mg Al Hydroxide/Mg Hydroxide (Mylanta Oral Suspension -) [address] [facility] Last Admin: 06/11/19 17:41 Dose: 30 ml Amlodipine Besylate (Norvasc -) [address] [facility] Last Admin: 06/11/19 11:05 Dose: 10 mg Atorvastatin Calcium (Lipitor -) [address] [facility] Last Admin: 06/10/19 22:10 Dose: 40 mg Carvedilol (Coreg -) [address] [facility] Last Admin: 06/11/19 11:05 Dose: 25 mg Fentanyl (Sublimaze Injection -) 25 mcg IVPUSH [id number] PRN PRN Reason: PAIN-PACU ORDER X 4 DOSES ONLY Ferrous Sulfate (Feosol -) [address] [facility] Last Admin: 06/11/19 11:05 Dose: 325 mg Guaifenesin (Diabetic Tussin Dm -) 10 ml PO Q4H PRN PRN Reason: COUGH Heparin Sodium (Porcine) (Heparin -) 5,[address] [facility] Last Admin: 06/11/19 16:17 Dose: 5,000 unit Ceftriaxone Sodium 2 gm/ (Dextrose) 100 mls @ 200 mls/hr IVPB DAILY [facility]; Protocol Insulin Aspart (Novolog Vial Sliding Scale -) [address] [facility]; Protocol Last Admin: 06/11/19 16:50 Dose: Not Given Insulin Detemir (Levemir Vial) 10 units SQ HS [facility] Last Admin: 06/10/19 22:11 Dose: 10 units Insulin Detemir (Levemir Vial) 35 units SQ AM [facility] Last Admin: 06/11/19 06:46 Dose: 35 unit Metoclopramide HCl (Reglan Injection -) 10 mg IVPB Q8H [facility] Last Admin: 06/11/19 16:17 Dose: 10 mg Pantoprazole Sodium (Protonix Iv) 40 mg IVPUSH DAILY [facility] Last Admin: 06/11/19 11:05 Dose: 40 mg ASSESSMENT/PLAN: 64 y/o gentleman with a PMHx of HTN, hyperlipidemia, DM, CHF, PAD, s/p left midfoot amputation admitted 06/01/19 with right LE cellulitis. He was noted to have ROOSEVELT, seen by renal. He was seen by Vascular sugery and ID and receiving IV ABx. Hematology consulted for M-Ayaan Recommend: 1) M-Ayaan (0.3 g/dL) present in electrophoresis is not present in the 06/09 study of immunofixation. Therefore, previous electrophoresis result is false positive secondary to systemic inflammation or other superimposed condition rather than myeloma. 2) MM work-up in progress: Immunoglobulins are wnl. Awaiting FLC. Low suspicion as per above. 3) Rest per Dr. Magallanes's note.
[2019-06-11] MEDS: ATORVASTATIN CA 40 MG TABLET (FP) PO SCH (23:12)
--- NOTE | 2019-06-11 23:57 | PN ---
Progress Note (short form) - Note Progress Note: improved glycemia bs Laboratory Tests 06/11/19 06/11/19 06/11/19 06:40 11:09 16:23 POC Glucometer 243 140 83 06/11/19 23:08 POC Glucometer 140 dmt2,esrd,diabetic foot infection Current Medications Generic Name Dose Route Start Last Admin Trade Name Freq PRN Reason Stop Dose Admin Acetaminophen 650 mg 06/01/19 18:27 06/04/19 01:38 Tylenol - PO 650 mg Q6H PRN Administration FEVER Al Hydroxide/Mg Hydroxide 30 ml 06/11/19 12:00 06/11/19 23:12 Mylanta Oral Suspension - PO 30 ml Q6HPO [facility] Administration Amlodipine Besylate 10 mg 06/07/19 10:30 06/11/19 11:05 Norvasc - PO 10 mg DAILY [facility] Administration Atorvastatin Calcium 40 mg 06/01/19 22:00 06/11/19 23:12 Lipitor - PO 40 mg HS [facility] Administration Carvedilol 25 mg 06/01/19 22:00 06/11/19 23:12 Coreg - PO 25 mg BID [facility] Administration Fentanyl 25 mcg 06/10/19 14:57 Sublimaze Injection - IVPUSH [id number] PRN PAIN-PACU ORDER X 4 DOSES ONLY Ferrous Sulfate 325 mg 06/02/19 12:45 06/11/19 11:05 Feosol - PO 325 mg DAILY [facility] Administration Guaifenesin 10 ml 06/11/19 11:47 Diabetic Tussin Dm - PO Q4H PRN COUGH Heparin Sodium (Porcine) 5,000 unit 06/08/19 14:00 06/11/19 23:13 Heparin - SQ 5,000 unit TID [facility] Administration Ceftriaxone Sodium 2 gm/ 100 mls @ 200 mls/hr 06/12/19 10:00 Dextrose IVPB DAILY [facility] Protocol Insulin Aspart 1 vial 06/07/19 22:42 06/11/19 23:15 Novolog Vial Sliding Scale - SQ Not Given ACHS [facility] Protocol Insulin Detemir 10 units 06/04/19 22:00 06/11/19 23:15 Levemir Vial SQ 10 units HS [facility] Administration Insulin Detemir 25 units 06/12/19 07:00 Levemir Vial SQ AM [facility] Metoclopramide HCl 10 mg 06/06/19 14:15 06/11/19 23:15 Reglan Injection - IVPB 10 mg Q8H [facility] Administration Pantoprazole Sodium 40 mg 06/04/19 12:30 06/11/19 11:05 Protonix Iv IVPUSH 40 mg DAILY [facility] Administration Problem List - Problems (1) Type 2 diabetes mellitus with diabetic chronic kidney disease Code(s): E11.22 - TYPE 2 DIABETES MELLITUS W DIABETIC CHRONIC KIDNEY DISEASE (2) Acute on chronic renal insufficiency Code(s): N28.9 - DISORDER OF KIDNEY AND URETER, UNSPECIFIED; N18.9 - CHRONIC KIDNEY DISEASE, UNSPECIFIED (3) Cellulitis Code(s): L03.90 - CELLULITIS, UNSPECIFIED Qualifiers: Site of cellulitis: extremity Site of cellulitis of extremity: lower extremity Laterality: right Qualified Code(s): L03.115 - Cellulitis of right lower limb (4) Diabetes Code(s): E11.9 - TYPE 2 DIABETES MELLITUS WITHOUT COMPLICATIONS Qualifiers: Chronic kidney disease stage: stage 3 (moderate) (5) Hypertension Code(s): I10 - ESSENTIAL (PRIMARY) HYPERTENSION (6) Left foot amputee Code(s): Z89.432 - ACQUIRED ABSENCE OF LEFT FOOT (7) Prophylactic measure Code(s): Z29.9 - ENCOUNTER FOR PROPHYLACTIC MEASURES, UNSPECIFIED
[2019-06-12] MEDS: HEPARIN NA (PORCINE) 5,000 UNITS/ML 1ML VIAL SQ SCH ×3 (06:40→22:15)
[2019-06-12] MEDS: METOCLOPRAMIDE HCL INJECTION 10 MG/2 ML VIAL IVPB SCH ×3 (06:40→22:16)
[2019-06-12] MEDS: INSULIN SLIDING SCALE (NOVOLOG) 1 VIAL SQ SCH ×4 (06:40→22:24)
[2019-06-12] MEDS: INSULIN (LEVEMIR) 100 UNITS/ML UNITS SQ SCH ×2 (06:42→22:15)
[2019-06-12] MEDS: MAG HYDROX/AL HYDROX/SIMETH 30 ML UNIT-DOSE CUP PO SCH ×3 (06:44→17:56)
[2019-06-12 08:40] LABS: BASO % 0.4 % (0-2.0); EOS % 1.9 % (0-4.5); HEMOGLOBIN 7.2 GM/dL (11.7-16.9); LYMPH % 8.9 % (8-40); MCH 29.4 pg (25.7-33.7); MCHC 32.8 g/dl (32.0-35.9); MEAN CELL VOLUME 89.5 fl (80-96); MEAN PLT VOLUME 9.2 fl (7.5-11.1); MONO % 13.1 % (3.8-10.2); NEUT % 75.7 % (42.8-82.8); PLATELET COUNT 170 K/MM3 (134-434); RBC 2.46 M/mm3 (4.00-5.60); RDW 13.8 % (11.9-15.9); WHITE BLOOD COUNT 7.6 K/mm3 (4.0-10.0)
[2019-06-12 09:16] LABS: ALBUMIN 1.9 g/dl (3.4-5.0); BILIRUBIN,TOTAL 0.4 mg/dL (0.2-1); BLOOD UREA NITROGEN 73.4 mg/dL (7-18); CALCIUM 7.3 mg/dL (8.5-10.1); POTASSIUM 3.9 mmol/L (3.5-5.1)
[2019-06-12] MEDS ORDERED: DEXTROSE 5%-WATER 100 ML IVPB ONE (11:13)
[2019-06-12] MEDS: amLODIPine BESYLATE 10 MG TABLET (FP) PO SCH (11:33)
[2019-06-12] MEDS: FERROUS SO4 325 MG TABLET (FP) PO SCH (11:33)
[2019-06-12] MEDS: CARVEDILOL 25 MG TABLET (FP) PO SCH ×2 (11:33→22:15)
[2019-06-12] MEDS: PANTOPRAZOLE SODIUM 40 MG VIAL IVPUSH SCH (11:34)
[2019-06-12] MEDS: CEFTRIAXONE 2 GM in DEXTROSE 5%-WATER 100 ML IVPB SCH (11:34)
--- NOTE | 2019-06-12 12:01 | PN ---
Progress Note, Physician Chief Complaint: RLE Cellulitis History of Present Illness: Previous notes and events reviewed awake and alert NAD patient complain of productive cough with dyspnea denies chest pain or palpitations POD #2 R foot I&D R foot wound culture prelim positive - Current Medication List Current Medications: Active Medications Acetaminophen (Tylenol -) 650 mg PO Q6H PRN PRN Reason: FEVER Last Admin: 06/04/19 01:38 Dose: 650 mg Al Hydroxide/Mg Hydroxide (Mylanta Oral Suspension -) 30 ml PO Q6HPO [facility] Last Admin: 06/12/19 11:34 Dose: 30 ml Amlodipine Besylate (Norvasc -) 10 mg PO DAILY [facility] Last Admin: 06/12/19 11:33 Dose: 10 mg Atorvastatin Calcium (Lipitor -) 40 mg PO HS [facility] Last Admin: 06/11/19 23:12 Dose: 40 mg Carvedilol (Coreg -) 25 mg PO BID [facility] Last Admin: 06/12/19 11:33 Dose: 25 mg Fentanyl (Sublimaze Injection -) 25 mcg IVPUSH [id number] PRN PRN Reason: PAIN-PACU ORDER X 4 DOSES ONLY Ferrous Sulfate (Feosol -) 325 mg PO DAILY [facility] Last Admin: 06/12/19 11:33 Dose: 325 mg Guaifenesin (Diabetic Tussin Dm -) 10 ml PO Q4H PRN PRN Reason: COUGH Heparin Sodium (Porcine) (Heparin -) 5,000 unit SQ TID [facility] Last Admin: 06/12/19 06:40 Dose: 5,000 unit Ceftriaxone Sodium 2 gm/ (Dextrose) 100 mls @ 200 mls/hr IVPB DAILY [facility]; Protocol Last Admin: 06/12/19 11:34 Dose: 200 mls/hr Insulin Aspart (Novolog Vial Sliding Scale -) 1 vial SQ ACHS [facility]; Protocol Last Admin: 06/12/19 11:47 Dose: Not Given Insulin Detemir (Levemir Vial) 10 units SQ HS [facility] Last Admin: 06/11/19 23:15 Dose: 10 units Insulin Detemir (Levemir Vial) 25 units SQ AM [facility] Last Admin: 06/12/19 06:42 Dose: 25 units Metoclopramide HCl (Reglan Injection -) 10 mg IVPB Q8H [facility] Last Admin: 06/12/19 06:40 Dose: 10 mg Pantoprazole Sodium (Protonix Iv) 40 mg IVPUSH DAILY [facility] Last Admin: 06/12/19 11:34 Dose: 40 mg - Objective Vital Signs: Vital Signs Temperature 98.5 F 06/12/19 06:00 Pulse Rate 59 L 06/12/19 06:00 Respiratory Rate 18 06/12/19 06:00 Blood Pressure 128/60 06/12/19 06:00 O2 Sat by Pulse Oximetry (%) 92 L 06/11/19 21:00 Constitutional: Yes: No Distress, Calm Eyes: Yes: Conjunctiva Clear HENT: Yes: Atraumatic Cardiovascular: Yes: Regular Rate and Rhythm Respiratory: Yes: Regular, Diminished Gastrointestinal: Yes: Normal Bowel Sounds, Soft Musculoskeletal: Yes: Muscle Weakness Extremities: Yes: WNL, Erythema (RLE) Edema: Yes Edema: RLE: 1+ Wound/Incision: Yes: Dressing Dry and Intact Neurological: Yes: Alert, Oriented Psychiatric: Yes: Alert, Oriented Labs: CBC, BMP 06/12/19 07:30 06/12/19 07:30 INR, PTT INR 1.26 (0.83-1.09) H 06/02/19 08:10 Microbiology 06/10/19 11:00 Foot - Right Plantar Gram Stain - Final 06/10/19 11:00 Foot - Right Plantar Wound Culture - Preliminary Gram Negative Jorge L 06/10/19 14:21 Foot - Right Sole Gram Stain - Final 06/10/19 14:21 Foot - Right Sole Wound Culture - Preliminary NO GROWTH OBTAINED AFTER 24 HOURS INCUBATION, REINCUBATED. 06/10/19 11:00 Abscess Gram Stain - Final 06/10/19 11:00 Abscess Wound Culture - Preliminary Lactose Fermenting Neg Bacilli 06/04/19 19:00 Blood - Peripheral Venous Blood Culture - Final NO GROWTH AFTER 5 DAYS INCUBATION 06/04/19 19:00 Blood - Peripheral Venous Blood Culture - Final NO GROWTH AFTER 5 DAYS INCUBATION 06/01/19 11:15 Blood - Peripheral Venous Blood Culture - Final NO GROWTH AFTER 5 DAYS INCUBATION 06/01/19 11:15 Blood - Peripheral Venous Blood Culture - Final NO GROWTH AFTER 5 DAYS INCUBATION 06/01/19 13:57 Urine - Urine Clean Catch Urine Culture - Final NO GROWTH OBTAINED Problem List - Problems (1) Abdominal pain Assessment/Plan: -CTAP shows liver, spleen, pancreas, adrenal glands, and kidneys demonstrate no significant abnormalities, gallbladder is clear, no evidence of intra-abdominal or retroperitoneal lymphadenopathy, no pneumoperitoneum, bowel obstruction or intra-abdominal abscess, no evidence of acute appendicitis or diverticulitis -Pantoprazole -Reglan for nausea, vomiting -Simethicone -GI on board t Code(s): R10.9 - UNSPECIFIED ABDOMINAL PAIN (2) Acute on chronic renal insufficiency Assessment/Plan: -BUN/Cr 73.4/6.0 -Renal on board -monitor renal function daily -Renal US shows both kidneys are echogenic compatible with chronic medical renal disease Code(s): N28.9 - DISORDER OF KIDNEY AND URETER, UNSPECIFIED; N18.9 - CHRONIC KIDNEY DISEASE, UNSPECIFIED (3) Anemia Assessment/Plan: -Hg 7.2 -monitor Hg daily -Ferrous Sulfate daily on hold as possible source of nausea -Anemia Profile shows low Fe, low Iron Sat, low TIBC -Stool Ob neg -transfuse for Hg <7.0 to avoid fluid overload -stool OB neg -GI on board Code(s): D64.9 - ANEMIA, UNSPECIFIED (4) Cellulitis Assessment/Plan: -ID on board -Leukocytosis -afebrile -Ceftriaxone -BC neg -LA 1.2 -POD #2 R foot I&D -wound culture prelim positive Code(s): L03.90 - CELLULITIS, UNSPECIFIED Qualifiers: Site of cellulitis: extremity Site of cellulitis of extremity: lower extremity Laterality: right Qualified Code(s): L03.115 - Cellulitis of right lower limb (5) Diabetes Assessment/Plan: -BGM ACHS -Levemir BID -ISS -HgA1c 7.2% -low Na/diabetic diet -Endocrinology consult Code(s): E11.9 - TYPE 2 DIABETES MELLITUS WITHOUT COMPLICATIONS Qualifiers: Chronic kidney disease stage: stage 3 (moderate) (6) Hypertension Assessment/Plan: -Amlodipine, Carvedilol -Cardiology on board -low Na/diabetic diet Code(s): I10 - ESSENTIAL (PRIMARY) HYPERTENSION (7) Sepsis Assessment/Plan: -ID on board -Leukocytosis -afebrile -Ceftriaxone -BC neg -LA 1.2 -POD #2 R foot I&D -wound culture prelim positive Code(s): A41.9 - SEPSIS, UNSPECIFIED ORGANISM Qualifiers: Sepsis type: sepsis due to unspecified organism Sepsis acute organ dysfunction status: unspecified Qualified Code(s): A41.9 - Sepsis, unspecified organism (8) Dizziness Assessment/Plan: -EKG STAT -monitor BP -re-consult cardiology if needed Code(s): R42 - DIZZINESS AND GIDDINESS Assessment/Plan see problem list dvt ppx
[2019-06-12 12:13] LABS: ANISOCYTOSIS 1+; MACROCYTOSIS 0; OVALOCYTE 1+; PLATELET ESTIMATE NORMAL; TEAR DROP CELLS 1+
[2019-06-12 14:07] LABS: FREE KAP CHN UR 508.95 mg/L (0.63-113.79); KAPPA LAMBDA RATIO URIN 2.89 (1.03-31.76)
--- NOTE | 2019-06-12 15:56 | PN ---
Progress Note, Physician History of Present Illness: Pt seen and examined at bedside. He is awake and alert. He denies shortness of breath. He says that he feels well. - Current Medication List Current Medications: Active Medications Acetaminophen (Tylenol -) 650 mg PO Q6H PRN PRN Reason: FEVER Last Admin: 06/04/19 01:38 Dose: 650 mg Al Hydroxide/Mg Hydroxide (Mylanta Oral Suspension -) 30 ml PO Q6HPO [facility] Last Admin: 06/12/19 11:34 Dose: 30 ml Amlodipine Besylate (Norvasc -) 10 mg PO DAILY [facility] Last Admin: 06/12/19 11:33 Dose: 10 mg Atorvastatin Calcium (Lipitor -) 40 mg PO HS [facility] Last Admin: 06/11/19 23:12 Dose: 40 mg Carvedilol (Coreg -) 25 mg PO BID [facility] Last Admin: 06/12/19 11:33 Dose: 25 mg Fentanyl (Sublimaze Injection -) 25 mcg IVPUSH [id number] PRN PRN Reason: PAIN-PACU ORDER X 4 DOSES ONLY Ferrous Sulfate (Feosol -) 325 mg PO DAILY [facility] Last Admin: 06/12/19 11:33 Dose: 325 mg Guaifenesin (Diabetic Tussin Dm -) 10 ml PO Q4H PRN PRN Reason: COUGH Heparin Sodium (Porcine) (Heparin -) 5,000 unit SQ TID [facility] Last Admin: 06/12/19 06:40 Dose: 5,000 unit Ceftriaxone Sodium 2 gm/ (Dextrose) 100 mls @ 200 mls/hr IVPB DAILY [facility]; Protocol Last Admin: 06/12/19 11:34 Dose: 200 mls/hr Insulin Aspart (Novolog Vial Sliding Scale -) 1 vial SQ ACHS [facility]; Protocol Last Admin: 06/12/19 11:47 Dose: Not Given Insulin Detemir (Levemir Vial) 10 units SQ HS [facility] Last Admin: 06/11/19 23:15 Dose: 10 units Insulin Detemir (Levemir Vial) 25 units SQ AM [facility] Last Admin: 06/12/19 06:42 Dose: 25 units Metoclopramide HCl (Reglan Injection -) 10 mg IVPB Q8H [facility] Last Admin: 06/12/19 06:40 Dose: 10 mg Pantoprazole Sodium (Protonix Iv) 40 mg IVPUSH DAILY [facility] Last Admin: 06/12/19 11:34 Dose: 40 mg - Objective Vital Signs: Vital Signs Temperature 98.5 F 06/12/19 06:00 Pulse Rate 59 L 06/12/19 06:00 Respiratory Rate 18 06/12/19 06:00 Blood Pressure 128/60 06/12/19 06:00 O2 Sat by Pulse Oximetry (%) 92 L 06/11/19 21:00 Constitutional: Yes: Calm Eyes: Yes: Conjunctiva Clear HENT: Yes: Atraumatic Neck: Yes: Supple Cardiovascular: Yes: S1, S2 Respiratory: Yes: CTA Bilaterally Gastrointestinal: Yes: Soft Genitourinary: Yes: WNL Musculoskeletal: Yes: Other (s/p right leg debridement) Edema: Yes Edema: RLE: 1+ Neurological: Yes: Oriented Psychiatric: Yes: Oriented Labs: CBC, BMP 06/12/19 07:30 06/12/19 07:30 INR, PTT INR 1.26 (0.83-1.09) H 06/02/19 08:10 Problem List - Problems (1) Cellulitis Code(s): L03.90 - CELLULITIS, UNSPECIFIED Qualifiers: Site of cellulitis: extremity Site of cellulitis of extremity: lower extremity Laterality: right Qualified Code(s): L03.115 - Cellulitis of right lower limb (2) Renal failure Code(s): N19 - UNSPECIFIED KIDNEY FAILURE Qualifiers: Renal failure chronicity: unspecified chronicity Qualified Code(s): N19 - Unspecified kidney failure (3) Sepsis Code(s): A41.9 - SEPSIS, UNSPECIFIED ORGANISM Qualifiers: Sepsis type: sepsis due to unspecified organism Sepsis acute organ dysfunction status: unspecified Qualified Code(s): A41.9 - Sepsis, unspecified organism Assessment/Plan Current Medications Generic Name Dose Route Start Last Admin Trade Name Freq PRN Reason Stop Dose Admin Acetaminophen 650 mg 06/01/19 18:27 06/04/19 01:38 Tylenol - PO 650 mg Q6H PRN Administration FEVER Al Hydroxide/Mg Hydroxide 30 ml 06/11/19 12:00 06/12/19 11:34 Mylanta Oral Suspension - PO 30 ml Q6HPO [facility] Administration Amlodipine Besylate 10 mg 06/07/19 10:30 06/12/19 11:33 Norvasc - PO 10 mg DAILY [facility] Administration Atorvastatin Calcium 40 mg 06/01/19 22:00 06/11/19 23:12 Lipitor - PO 40 mg HS [facility] Administration Carvedilol 25 mg 06/01/19 22:00 06/12/19 11:33 Coreg - PO 25 mg BID [facility] Administration Fentanyl 25 mcg 06/10/19 14:57 Sublimaze Injection - IVPUSH [id number] PRN PAIN-PACU ORDER X 4 DOSES ONLY Ferrous Sulfate 325 mg 06/02/19 12:45 06/12/19 11:33 Feosol - PO 325 mg DAILY [facility] Administration Guaifenesin 10 ml 06/11/19 11:47 Diabetic Tussin Dm - PO Q4H PRN COUGH Heparin Sodium (Porcine) 5,000 unit 06/08/19 14:00 06/12/19 06:40 Heparin - SQ 5,000 unit TID [facility] Administration Ceftriaxone Sodium 2 gm/ 100 mls @ 200 mls/hr 06/12/19 10:00 06/12/19 11:34 Dextrose IVPB 200 mls/hr DAILY [facility] Administration Protocol Insulin Aspart 1 vial 06/07/19 22:42 06/12/19 11:47 Novolog Vial Sliding Scale - SQ Not Given ACHS [facility] Protocol Insulin Detemir 10 units 06/04/19 22:00 06/11/19 23:15 Levemir Vial SQ 10 units HS [facility] Administration Insulin Detemir 25 units 06/12/19 07:00 06/12/19 06:42 Levemir Vial SQ 25 units AM [facility] Administration Metoclopramide HCl 10 mg 06/06/19 14:15 06/12/19 06:40 Reglan Injection - IVPB 10 mg Q8H [facility] Administration Pantoprazole Sodium 40 mg 06/04/19 12:30 06/12/19 11:34 Protonix Iv IVPUSH 40 mg DAILY [facility] Administration Laboratory Tests 06/04/19 06/04/19 06/09/19 08:15 08:15 20:45 U Free [place] Light Ch U Free Lambda Light Ch U Free [place]/Lambda 24 CORNEL M-Ayaan 0.3 H IEP IgG 1433 IEP IgA 334 IEP IgM 132 MARIAN Screen Negative c-ANCA <1:20 Proteinase 3 (PR3) <3.5 p-ANCA <1:20 Atypical p-ANCA <1:20 Myeloperoxidase Ab <9.0 Double Strand DNA Ab 1 Free [place] LC, Quant Free Lambda LC, Quant Free [place]/Lambda Ratio 06/10/19 06/10/19 06/10/19 06:15 08:27 08:27 U Free [place] Light Ch 508.95 H U Free Lambda Light Ch 176.23 H U Free [place]/Lambda 24 2.89 CORNEL M-Ayaan Not observed IEP IgG IEP IgA IEP IgM MARIAN Screen c-ANCA Proteinase 3 (PR3) p-ANCA Atypical p-ANCA Myeloperoxidase Ab Double Strand DNA Ab Free [place] LC, Quant Pending Free Lambda LC, Quant Pending Free [place]/Lambda Ratio Pending Impression 1. [place] 2. ckd 3. dm 4. cellulitis 5. pvd 6. htn Plan - serologies negative so far - check urine eos - discussed kidney biopsy with pt however he wants to hold off for now - discussed HD at length today and he wants to think about it - cont to monitor renal function - no indication for acute HD at this point however will cont to monitor closely - heme workup in progress - pt did not respond to fluids - avoid nephrotoxins - heme eval for m spike pending
--- NOTE | 2019-06-12 18:46 | PN ---
Progress Note, Physician History of Present Illness: S/P I&D R FOOT, VAC PLACEMENT WOUND C/S GNR NO C/O FOOT PAIN AFEBRILE - Current Medication List Current Medications: Active Medications Acetaminophen (Tylenol -) 650 mg PO Q6H PRN PRN Reason: FEVER Last Admin: 06/04/19 01:38 Dose: 650 mg Al Hydroxide/Mg Hydroxide (Mylanta Oral Suspension -) 30 ml PO Q6HPO [facility] Last Admin: 06/12/19 17:56 Dose: 30 ml Amlodipine Besylate (Norvasc -) 10 mg PO DAILY [facility] Last Admin: 06/12/19 11:33 Dose: 10 mg Atorvastatin Calcium (Lipitor -) 40 mg PO HS [facility] Last Admin: 06/11/19 23:12 Dose: 40 mg Carvedilol (Coreg -) 25 mg PO BID [facility] Last Admin: 06/12/19 11:33 Dose: 25 mg Fentanyl (Sublimaze Injection -) 25 mcg IVPUSH [id number] PRN PRN Reason: PAIN-PACU ORDER X 4 DOSES ONLY Ferrous Sulfate (Feosol -) 325 mg PO DAILY [facility] Last Admin: 06/12/19 11:33 Dose: 325 mg Guaifenesin (Diabetic Tussin Dm -) 10 ml PO Q4H PRN PRN Reason: COUGH Heparin Sodium (Porcine) (Heparin -) 5,000 unit SQ TID [facility] Last Admin: 06/12/19 15:24 Dose: 5,000 unit Ceftriaxone Sodium 2 gm/ (Dextrose) 100 mls @ 200 mls/hr IVPB DAILY [facility]; Protocol Last Admin: 06/12/19 11:34 Dose: 200 mls/hr Insulin Aspart (Novolog Vial Sliding Scale -) 1 vial SQ ACHS [facility]; Protocol Last Admin: 06/12/19 17:51 Dose: Not Given Insulin Detemir (Levemir Vial) 10 units SQ HS [facility] Last Admin: 06/11/19 23:15 Dose: 10 units Insulin Detemir (Levemir Vial) 25 units SQ AM [facility] Last Admin: 06/12/19 06:42 Dose: 25 units Metoclopramide HCl (Reglan Injection -) 10 mg IVPB Q8H [facility] Last Admin: 06/12/19 15:24 Dose: 10 mg Pantoprazole Sodium (Protonix Iv) 40 mg IVPUSH DAILY [facility] Last Admin: 06/12/19 11:34 Dose: 40 mg Sodium Bicarbonate (Sodium Bicarbonate -) 650 mg PO BID [facility] - Objective Vital Signs: Vital Signs Temperature 98.4 F 06/12/19 18:00 Pulse Rate 56 L 06/12/19 18:00 Respiratory Rate 18 06/12/19 18:00 Blood Pressure 132/64 06/12/19 18:00 O2 Sat by Pulse Oximetry (%) 92 L 06/12/19 09:00 Constitutional: Yes: No Distress Cardiovascular: Yes: Regular Rate and Rhythm, S1, S2 Respiratory: Yes: CTA Bilaterally Gastrointestinal: Yes: Normal Bowel Sounds, Soft Extremities: Yes: Other (DECREASED R FOOT/LE SWELLING/ ERYTHEMA VAC IN PLACE) Labs: CBC, BMP 06/12/19 07:30 06/12/19 07:30 INR, PTT INR 1.26 (0.83-1.09) H 06/02/19 08:10 Assessment/Plan CELLULITIS R FOOT/ R LE IMPROVED R/O SEPSIS SECONDARY TO SKIN SOURCE RENAL FAILURE CONTINUE CEFTRIAXONE AWAIT OPERATIVE CULTURES ELEVATION
[2019-06-12] MEDS: SODIUM BICARBONATE 650 MG TABLET PO SCH (22:16)
[2019-06-12] MEDS: ATORVASTATIN CA 40 MG TABLET (FP) PO SCH (22:16)
[2019-06-13] MEDS: MAG HYDROX/AL HYDROX/SIMETH 30 ML UNIT-DOSE CUP PO SCH ×4 (00:36→17:59)
[2019-06-13] MEDS: METOCLOPRAMIDE HCL INJECTION 10 MG/2 ML VIAL IVPB SCH ×3 (05:35→21:59)
[2019-06-13] MEDS: HEPARIN NA (PORCINE) 5,000 UNITS/ML 1ML VIAL SQ SCH ×3 (05:35→21:47)
[2019-06-13] MEDS: INSULIN SLIDING SCALE (NOVOLOG) 1 VIAL SQ SCH ×4 (06:31→21:49)
[2019-06-13] MEDS: INSULIN (LEVEMIR) 100 UNITS/ML UNITS SQ SCH ×2 (06:34→21:49)
[2019-06-13] MEDS ORDERED: INSULIN (NOVOLOG) ASPART 100 UNITS/ML 10ML VIAL ONE (06:43)
[2019-06-13 09:50] LABS: BASO % 0.4 % (0-2.0); EOS % 2.9 % (0-4.5); HEMATOCRIT 22.2 % (35.4-49); HEMOGLOBIN 7.2 GM/dL (11.7-16.9); LYMPH % 9.6 % (8-40); MCH 29.1 pg (25.7-33.7); MCHC 32.2 g/dl (32.0-35.9); MEAN CELL VOLUME 90.5 fl (80-96); MEAN PLT VOLUME 9.1 fl (7.5-11.1); MONO % 12.9 % (3.8-10.2); NEUT % 74.2 % (42.8-82.8); PLATELET COUNT 189 K/MM3 (134-434); RBC 2.46 M/mm3 (4.00-5.60); RDW 13.8 % (11.9-15.9); WHITE BLOOD COUNT 6.8 K/mm3 (4.0-10.0)
[2019-06-13 10:24] LABS: ALBUMIN 1.9 g/dl (3.4-5.0); BILIRUBIN,TOTAL 0.2 mg/dL (0.2-1); BLOOD UREA NITROGEN 83.9 mg/dL (7-18); CALCIUM 7.6 mg/dL (8.5-10.1); CREATININE 6.3 mg/dL (0.55-1.3); POTASSIUM 4.4 mmol/L (3.5-5.1); TOT PROT 6.4 g/dl (6.4-8.2)
--- NOTE | 2019-06-13 11:20 | PN ---
Progress Note (short form) - Note Progress Note: feels well vac in place Vital Signs Period Temp Pulse Resp BP Sys/Aparicio Pulse Ox Last 24 Hr 97.9 F-98.4 F 56-61 18-18 114-136/55-67 95 cor-rrr llungs decreased bs t bases abd soft,nt ext +edema +vac right foot CBC, BMP 06/13/19 09:08 06/13/19 09:08 Microbiology 06/10/19 11:00 Abscess Gram Stain - Final 06/10/19 11:00 Abscess Wound Culture - Preliminary Lactose Fermenting Neg Bacilli 06/10/19 11:00 Foot - Right Plantar Gram Stain - Final 06/10/19 11:00 Foot - Right Plantar Wound Culture - Preliminary Gram Negative Jorge L 06/10/19 14:21 Foot - Right Sole Gram Stain - Final 06/10/19 14:21 Foot - Right Sole Wound Culture - Preliminary NO GROWTH OBTAINED AFTER 24 HOURS INCUBATION, REINCUBATED. 06/04/19 19:00 Blood - Peripheral Venous Blood Culture - Final NO GROWTH AFTER 5 DAYS INCUBATION 06/04/19 19:00 Blood - Peripheral Venous Blood Culture - Final NO GROWTH AFTER 5 DAYS INCUBATION 06/01/19 11:15 Blood - Peripheral Venous Blood Culture - Final NO GROWTH AFTER 5 DAYS INCUBATION 06/01/19 11:15 Blood - Peripheral Venous Blood Culture - Final NO GROWTH AFTER 5 DAYS INCUBATION 06/01/19 13:57 Urine - Urine Clean Catch Urine Culture - Final NO GROWTH OBTAINED a/p s/p incision and drainage abscess 06/10- awaiting cultures and pathology continue ceftriaxone eloy/ckd- f/u with renal
[2019-06-13] MEDS ORDERED: DEXTROSE 5%-WATER 100 ML IVPB ONE (12:03)
[2019-06-13] MEDS: CEFTRIAXONE 2 GM in DEXTROSE 5%-WATER 100 ML IVPB SCH (12:08)
[2019-06-13] MEDS: amLODIPine BESYLATE 10 MG TABLET (FP) PO SCH (12:09)
[2019-06-13] MEDS: SODIUM BICARBONATE 650 MG TABLET PO SCH ×2 (12:09→21:48)
[2019-06-13] MEDS: PANTOPRAZOLE SODIUM 40 MG VIAL IVPUSH SCH (12:09)
[2019-06-13] MEDS: FERROUS SO4 325 MG TABLET (FP) PO SCH (12:09)
[2019-06-13] MEDS: CARVEDILOL 25 MG TABLET (FP) PO SCH ×2 (12:09→21:48)
--- NOTE | 2019-06-13 12:12 | PN ---
Progress Note, Physician Chief Complaint: AWAKE ALERT EVENTS REVIEWED - Current Medication List Current Medications: Active Medications Acetaminophen (Tylenol -) 650 mg PO Q6H PRN PRN Reason: FEVER Last Admin: 06/04/19 01:38 Dose: 650 mg Al Hydroxide/Mg Hydroxide (Mylanta Oral Suspension -) 30 ml PO Q6HPO [facility] Last Admin: 06/13/19 12:08 Dose: 30 ml Amlodipine Besylate (Norvasc -) 10 mg PO DAILY [facility] Last Admin: 06/13/19 12:09 Dose: 10 mg Atorvastatin Calcium (Lipitor -) 40 mg PO HS [facility] Last Admin: 06/12/19 22:16 Dose: 40 mg Carvedilol (Coreg -) 25 mg PO BID [facility] Last Admin: 06/13/19 12:09 Dose: 25 mg Fentanyl (Sublimaze Injection -) 25 mcg IVPUSH [id number] PRN PRN Reason: PAIN-PACU ORDER X 4 DOSES ONLY Ferrous Sulfate (Feosol -) 325 mg PO DAILY [facility] Last Admin: 06/13/19 12:09 Dose: 325 mg Guaifenesin (Diabetic Tussin Dm -) 10 ml PO Q4H PRN PRN Reason: COUGH Heparin Sodium (Porcine) (Heparin -) 5,000 unit SQ TID [facility] Last Admin: 06/13/19 05:35 Dose: 5,000 unit Ceftriaxone Sodium 2 gm/ (Dextrose) 100 mls @ 200 mls/hr IVPB DAILY [facility]; Protocol Last Admin: 06/13/19 12:08 Dose: 200 mls/hr Insulin Aspart (Novolog Vial Sliding Scale -) 1 vial SQ ACHS [facility]; Protocol Last Admin: 06/13/19 06:31 Dose: Not Given Insulin Detemir (Levemir Vial) 10 units SQ HS [facility] Last Admin: 06/12/19 22:15 Dose: 10 units Insulin Detemir (Levemir Vial) 25 units SQ AM [facility] Last Admin: 06/13/19 06:34 Dose: 25 units Metoclopramide HCl (Reglan Injection -) 10 mg IVPB Q8H [facility] Last Admin: 06/13/19 05:35 Dose: 10 mg Pantoprazole Sodium (Protonix Iv) 40 mg IVPUSH DAILY [facility] Last Admin: 06/13/19 12:09 Dose: 40 mg Sodium Bicarbonate (Sodium Bicarbonate -) 650 mg PO BID [facility] Last Admin: 06/13/19 12:09 Dose: 650 mg - Objective Vital Signs: Vital Signs Temperature 98.3 F 06/13/19 09:00 Pulse Rate 61 06/13/19 09:00 Respiratory Rate 18 06/13/19 09:00 Blood Pressure 135/55 L 06/13/19 09:00 O2 Sat by Pulse Oximetry (%) 95 06/12/19 21:00 Constitutional: Yes: Mild Distress Cardiovascular: Yes: Regular Rate and Rhythm Respiratory: Yes: WNL Gastrointestinal: Yes: Soft Genitourinary: Yes: Incontinence Musculoskeletal: Yes: Other Extremities: Yes: Deformity (WOUND VAC RIGHT FOOT) Wound/Incision: Yes: Dressing Dry and Intact, Draining (WOUND VAC RIGHT FOOT) Neurological: Yes: Pre-Existing Deficit Labs: CBC, BMP 06/13/19 09:08 06/13/19 09:08 INR, PTT INR 1.26 (0.83-1.09) H 06/02/19 08:10 Problem List - Problems (1) Acute on chronic renal insufficiency Code(s): N28.9 - DISORDER OF KIDNEY AND URETER, UNSPECIFIED; N18.9 - CHRONIC KIDNEY DISEASE, UNSPECIFIED (2) Anemia Code(s): D64.9 - ANEMIA, UNSPECIFIED (3) Cellulitis Code(s): L03.90 - CELLULITIS, UNSPECIFIED Qualifiers: Site of cellulitis: extremity Site of cellulitis of extremity: lower extremity Laterality: right Qualified Code(s): L03.115 - Cellulitis of right lower limb (4) Diabetes Code(s): E11.9 - TYPE 2 DIABETES MELLITUS WITHOUT COMPLICATIONS Qualifiers: Chronic kidney disease stage: stage 3 (moderate) (5) Diabetes with ulcer of foot Code(s): E11.621 - TYPE 2 DIABETES MELLITUS WITH FOOT ULCER; L97.509 - NON- PRESSURE CHRONIC ULCER OTH PRT UNSP FOOT W UNSP SEVERITY (6) Left foot amputee Code(s): Z89.432 - ACQUIRED ABSENCE OF LEFT FOOT (7) Renal failure Code(s): N19 - UNSPECIFIED KIDNEY FAILURE Qualifiers: Renal failure chronicity: unspecified chronicity Qualified Code(s): N19 - Unspecified kidney failure (8) Type 2 diabetes mellitus with diabetic chronic kidney disease Code(s): E11.22 - TYPE 2 DIABETES MELLITUS W DIABETIC CHRONIC KIDNEY DISEASE Assessment/Plan 64 Y/O MALE WITH MULTIPLE MEDICAL ISSUES HERE WITH RIGHT FOOT ULCER WITH WOUND VAC POST-OP IV ABX PER ID DVT PROPHYLAXIS ESRD WILL NEED HD , NEPHROLOGY W/UP IN PROGRESS PAIN CONTROL DIABETIC COMPLIANCE D/W PATIENT BGN CHECKS MAY NEED SNF PLACEMENT AND A STRONG COMMUNTY SUPPORT PHP ARCHITECT TO ORGANIZE DISCHARGE
--- NOTE | 2019-06-13 12:52 | PN ---
Progress Note (short form) - Note Progress Note: RENAL Pt is awake and alert denies complaints says he has good appetite Last Vital Signs Temp Pulse Resp BP Pulse Ox 98.3 F 61 18 135/55 L 95 06/13/19 09:00 06/13/19 09:00 06/13/19 09:00 06/13/19 09:00 06/12/19 21:00 lungs clear cvs s1s2 rr abd soft ext +edema neuro a+ox3 CBC, BMP 06/13/19 09:08 06/13/19 09:08 Current Medications Generic Name Dose Route Start Last Admin Trade Name Freq PRN Reason Stop Dose Admin Acetaminophen 650 mg 06/01/19 18:27 06/04/19 01:38 Tylenol - PO 650 mg Q6H PRN Administration FEVER Al Hydroxide/Mg Hydroxide 30 ml 06/11/19 12:00 06/13/19 12:08 Mylanta Oral Suspension - PO 30 ml Q6HPO [facility] Administration Amlodipine Besylate 10 mg 06/07/19 10:30 06/13/19 12:09 Norvasc - PO 10 mg DAILY [facility] Administration Atorvastatin Calcium 40 mg 06/01/19 22:00 06/12/19 22:16 Lipitor - PO 40 mg HS [facility] Administration Carvedilol 25 mg 06/01/19 22:00 06/13/19 12:09 Coreg - PO 25 mg BID [facility] Administration Fentanyl 25 mcg 06/10/19 14:57 Sublimaze Injection - IVPUSH [id number] PRN PAIN-PACU ORDER X 4 DOSES ONLY Ferrous Sulfate 325 mg 06/02/19 12:45 06/13/19 12:09 Feosol - PO 325 mg DAILY [facility] Administration Guaifenesin 10 ml 06/11/19 11:47 Diabetic Tussin Dm - PO Q4H PRN COUGH Heparin Sodium (Porcine) 5,000 unit 06/08/19 14:00 06/13/19 05:35 Heparin - SQ 5,000 unit TID [facility] Administration Ceftriaxone Sodium 2 gm/ 100 mls @ 200 mls/hr 06/12/19 10:00 06/13/19 12:08 Dextrose IVPB 200 mls/hr DAILY [facility] Administration Protocol Insulin Aspart 1 vial 06/07/19 22:42 06/13/19 06:31 Novolog Vial Sliding Scale - SQ Not Given ACHS [facility] Protocol Insulin Detemir 10 units 06/04/19 22:00 06/12/19 22:15 Levemir Vial SQ 10 units HS [facility] Administration Insulin Detemir 25 units 06/12/19 07:00 06/13/19 06:34 Levemir Vial SQ 25 units AM [facility] Administration Metoclopramide HCl 10 mg 06/06/19 14:15 06/13/19 05:35 Reglan Injection - IVPB 10 mg Q8H [facility] Administration Pantoprazole Sodium 40 mg 06/04/19 12:30 06/13/19 12:09 Protonix Iv IVPUSH 40 mg DAILY [facility] Administration Sodium Bicarbonate 650 mg 06/12/19 22:00 06/13/19 12:09 Sodium Bicarbonate - PO 650 mg BID [facility] Administration Impression 1. [place] 2. ckd 3. dm 4. cellulitis 5. pvd 6. htn Plan pt refuses dialysis. I explained to him that his symptoms may not always reflect severity of renal disease and that his creat is high enough for him to start hd chronically. He thinks he will improve but it is highly doubtful. He likely had roosevelt on ckd MV
[2019-06-13 14:23] LABS: ANISOCYTOSIS 1+; MACROCYTOSIS 1+; OVALOCYTE 1+; PLATELET ESTIMATE NORMAL; TEAR DROP CELLS 1+
[2019-06-13 17:07] LABS: FREE KAPPA,SERUM 162.2 mg/L (3.3-19.4)
[2019-06-13] MEDS: ATORVASTATIN CA 40 MG TABLET (FP) PO SCH (21:48)
[2019-06-14] MEDS: MAG HYDROX/AL HYDROX/SIMETH 30 ML UNIT-DOSE CUP PO SCH ×3 (00:33→11:19)
[2019-06-14] MEDS: METOCLOPRAMIDE HCL INJECTION 10 MG/2 ML VIAL IVPB SCH ×3 (06:40→21:35)
[2019-06-14] MEDS: HEPARIN NA (PORCINE) 5,000 UNITS/ML 1ML VIAL SQ SCH ×3 (06:40→21:33)
[2019-06-14] MEDS: INSULIN SLIDING SCALE (NOVOLOG) 1 VIAL SQ SCH ×4 (06:40→21:34)
[2019-06-14] MEDS: INSULIN (LEVEMIR) 100 UNITS/ML UNITS SQ SCH ×2 (06:41→21:34)
[2019-06-14] MEDS ORDERED: DEXTROSE 5%-WATER 100 ML IVPB ONE (09:12)
[2019-06-14 10:18] LABS: BASO % 0.6 % (0-2.0); EOS % 2.7 % (0-4.5); HEMATOCRIT 25.1 % (35.4-49); HEMOGLOBIN 8.2 GM/dL (11.7-16.9); LYMPH % 8.8 % (8-40); MCH 29.3 pg (25.7-33.7); MCHC 32.7 g/dl (32.0-35.9); MEAN CELL VOLUME 89.5 fl (80-96); MEAN PLT VOLUME 8.7 fl (7.5-11.1); MONO % 14.9 % (3.8-10.2); PLATELET COUNT 181 K/MM3 (134-434); WHITE BLOOD COUNT 7.8 K/mm3 (4.0-10.0)
[2019-06-14] MEDS: CARVEDILOL 25 MG TABLET (FP) PO SCH ×2 (11:09→21:33)
[2019-06-14] MEDS: amLODIPine BESYLATE 10 MG TABLET (FP) PO SCH (11:09)
[2019-06-14] MEDS: CEFTRIAXONE 2 GM in DEXTROSE 5%-WATER 100 ML IVPB SCH (11:09)
[2019-06-14] MEDS: SODIUM BICARBONATE 650 MG TABLET PO SCH ×2 (11:09→21:35)
[2019-06-14] MEDS: FERROUS SO4 325 MG TABLET (FP) PO SCH (11:09)
[2019-06-14] MEDS: PANTOPRAZOLE SODIUM 40 MG VIAL IVPUSH SCH (11:09)
[2019-06-14 11:19] LABS: ANISOCYTOSIS 1+; MACROCYTOSIS 0; OVALOCYTE 1+; PLATELET ESTIMATE NORMAL
[2019-06-14 11:29] LABS: BILIRUBIN,TOTAL 0.5 mg/dL (0.2-1); BLOOD UREA NITROGEN 87.8 mg/dL (7-18); CALCIUM 7.2 mg/dL (8.5-10.1); CREATININE 6.1 mg/dL (0.55-1.3); POTASSIUM 4.7 mmol/L (3.5-5.1); TOT PROT 6.4 g/dl (6.4-8.2)
--- NOTE | 2019-06-14 12:26 | PN ---
Progress Note, Physician Chief Complaint: AWAKE ALERT EVENTS REVIEWED - Current Medication List Current Medications: Active Medications Acetaminophen (Tylenol -) 650 mg PO Q6H PRN PRN Reason: FEVER Last Admin: 06/04/19 01:38 Dose: 650 mg Al Hydroxide/Mg Hydroxide (Mylanta Oral Suspension -) 30 ml PO Q6HPO [facility] Last Admin: 06/14/19 11:19 Dose: Not Given Amlodipine Besylate (Norvasc -) 10 mg PO DAILY [facility] Last Admin: 06/14/19 11:09 Dose: 10 mg Atorvastatin Calcium (Lipitor -) 40 mg PO HS [facility] Last Admin: 06/13/19 21:48 Dose: 40 mg Carvedilol (Coreg -) 25 mg PO BID [facility] Last Admin: 06/14/19 11:09 Dose: 25 mg Fentanyl (Sublimaze Injection -) 25 mcg IVPUSH [id number] PRN PRN Reason: PAIN-PACU ORDER X 4 DOSES ONLY Ferrous Sulfate (Feosol -) 325 mg PO DAILY [facility] Last Admin: 06/14/19 11:09 Dose: 325 mg Guaifenesin (Diabetic Tussin Dm -) 10 ml PO Q4H PRN PRN Reason: COUGH Heparin Sodium (Porcine) (Heparin -) 5,000 unit SQ TID [facility] Last Admin: 06/14/19 06:40 Dose: 5,000 unit Ceftriaxone Sodium 2 gm/ (Dextrose) 100 mls @ 200 mls/hr IVPB DAILY [facility]; Protocol Last Admin: 06/14/19 11:09 Dose: 200 mls/hr Insulin Aspart (Novolog Vial Sliding Scale -) 1 vial SQ ACHS [facility]; Protocol Last Admin: 06/14/19 11:14 Dose: Not Given Insulin Detemir (Levemir Vial) 10 units SQ HS [facility] Last Admin: 06/13/19 21:49 Dose: 10 units Insulin Detemir (Levemir Vial) 25 units SQ AM [facility] Last Admin: 06/14/19 06:41 Dose: 25 units Metoclopramide HCl (Reglan Injection -) 10 mg IVPB Q8H [facility] Last Admin: 06/14/19 06:40 Dose: 10 mg Pantoprazole Sodium (Protonix Iv) 40 mg IVPUSH DAILY [facility] Last Admin: 06/14/19 11:09 Dose: 40 mg Sodium Bicarbonate (Sodium Bicarbonate -) 650 mg PO BID [facility] Last Admin: 06/14/19 11:09 Dose: 650 mg - Objective Vital Signs: Vital Signs Temperature 98.5 F 06/14/19 10:00 Pulse Rate 58 L 06/14/19 10:00 Respiratory Rate 18 06/14/19 10:00 Blood Pressure 129/61 06/14/19 10:00 O2 Sat by Pulse Oximetry (%) 96 06/13/19 21:00 Constitutional: Yes: No Distress Cardiovascular: Yes: WNL Respiratory: Yes: Regular Gastrointestinal: Yes: Soft Genitourinary: Yes: Incontinence Integumentary: Yes: Pressure Ulcer Wound/Incision: Yes: Dressing Dry and Intact, Draining Neurological: Yes: Pre-Existing Deficit Labs: CBC, BMP 06/14/19 10:10 06/14/19 10:10 INR, PTT INR 1.26 (0.83-1.09) H 06/02/19 08:10 Problem List - Problems (1) Acute on chronic renal insufficiency Code(s): N28.9 - DISORDER OF KIDNEY AND URETER, UNSPECIFIED; N18.9 - CHRONIC KIDNEY DISEASE, UNSPECIFIED (2) Anemia Code(s): D64.9 - ANEMIA, UNSPECIFIED (3) Cellulitis Code(s): L03.90 - CELLULITIS, UNSPECIFIED Qualifiers: Site of cellulitis: extremity Site of cellulitis of extremity: lower extremity Laterality: right Qualified Code(s): L03.115 - Cellulitis of right lower limb (4) Diabetes Code(s): E11.9 - TYPE 2 DIABETES MELLITUS WITHOUT COMPLICATIONS Qualifiers: Chronic kidney disease stage: stage 3 (moderate) (5) Diabetes with ulcer of foot Code(s): E11.621 - TYPE 2 DIABETES MELLITUS WITH FOOT ULCER; L97.509 - NON- PRESSURE CHRONIC ULCER OTH PRT UNSP FOOT W UNSP SEVERITY (6) Left foot amputee Code(s): Z89.432 - ACQUIRED ABSENCE OF LEFT FOOT (7) Renal failure Code(s): N19 - UNSPECIFIED KIDNEY FAILURE Qualifiers: Renal failure chronicity: unspecified chronicity Qualified Code(s): N19 - Unspecified kidney failure (8) Type 2 diabetes mellitus with diabetic chronic kidney disease Code(s): E11.22 - TYPE 2 DIABETES MELLITUS W DIABETIC CHRONIC KIDNEY DISEASE Assessment/Plan 64 Y/O MALE WITH MULTIPLE MEDICAL ISSUES HERE WITH RIGHT FOOT ULCER WITH WOUND VAC POST-OP IV ABX PER ID DVT PROPHYLAXIS ESRD WILL NEED HD , NEPHROLOGY W/UP IN PROGRESS PAIN CONTROL DIABETIC COMPLIANCE D/W PATIENT BGN CHECKS MAY NEED SNF PLACEMENT AND A STRONG COMMUNTY SUPPORT [employer] TO ORGANIZE DISCHARGE
--- NOTE | 2019-06-14 13:49 | PN ---
Progress Note (short form) - Note Progress Note: RENAL Pt is awake and alert denies complaints says he has good appetite no nausea or vomiting says he felt better after transfusion Last Vital Signs Temp Pulse Resp BP Pulse Ox 98.5 F 58 L 18 129/61 96 06/14/19 10:00 06/14/19 10:00 06/14/19 10:00 06/14/19 10:00 06/13/19 21:00 lungs clear cvs s1s2 rr abd soft ext +edema bilat neuro a+ox3 CBC, BMP 06/14/19 10:10 06/14/19 10:10 Current Medications Generic Name Dose Route Start Last Admin Trade Name Freq PRN Reason Stop Dose Admin Acetaminophen 650 mg 06/01/19 18:27 06/04/19 01:38 Tylenol - PO 650 mg Q6H PRN Administration FEVER Al Hydroxide/Mg Hydroxide 30 ml 06/11/19 12:00 06/14/19 11:19 Mylanta Oral Suspension - PO Not Given Q6HPO [facility] Amlodipine Besylate 10 mg 06/07/19 10:30 06/14/19 11:09 Norvasc - PO 10 mg DAILY [facility] Administration Atorvastatin Calcium 40 mg 06/01/19 22:00 06/13/19 21:48 Lipitor - PO 40 mg HS [facility] Administration Carvedilol 25 mg 06/01/19 22:00 06/14/19 11:09 Coreg - PO 25 mg BID [facility] Administration Fentanyl 25 mcg 06/10/19 14:57 Sublimaze Injection - IVPUSH [id number] PRN PAIN-PACU ORDER X 4 DOSES ONLY Ferrous Sulfate 325 mg 06/02/19 12:45 06/14/19 11:09 Feosol - PO 325 mg DAILY [facility] Administration Guaifenesin 10 ml 06/11/19 11:47 Diabetic Tussin Dm - PO Q4H PRN COUGH Heparin Sodium (Porcine) 5,000 unit 06/08/19 14:00 06/14/19 06:40 Heparin - SQ 5,000 unit TID [facility] Administration Ceftriaxone Sodium 2 gm/ 100 mls @ 200 mls/hr 06/12/19 10:00 06/14/19 11:09 Dextrose IVPB 200 mls/hr DAILY [facility] Administration Protocol Insulin Aspart 1 vial 06/07/19 22:42 06/14/19 11:14 Novolog Vial Sliding Scale - SQ Not Given ACHS [facility] Protocol Insulin Detemir 10 units 06/04/19 22:00 06/13/19 21:49 Levemir Vial SQ 10 units HS [facility] Administration Insulin Detemir 25 units 06/12/19 07:00 06/14/19 06:41 Levemir Vial SQ 25 units AM [facility] Administration Metoclopramide HCl 10 mg 06/06/19 14:15 06/14/19 06:40 Reglan Injection - IVPB 10 mg Q8H [facility] Administration Pantoprazole Sodium 40 mg 06/04/19 12:30 06/14/19 11:09 Protonix Iv IVPUSH 40 mg DAILY [facility] Administration Sodium Bicarbonate 650 mg 06/12/19 22:00 06/14/19 11:09 Sodium Bicarbonate - PO 650 mg BID [facility] Administration Impression 1. [place] 2. ckd 3. dm 4. cellulitis 5. pvd 6. htn Plan pt refuses dialysis. still thinks he will get better dc [place] given aluminum content cautious use of metoclopramide repeat phos fluid restrict lasix warned him about eating oranges- he just finished one MV
[2019-06-14] MEDS ORDERED: FUROSEMIDE 40 MG TABLET (FP) PO ONE (13:51)
[2019-06-14] MEDS: ATORVASTATIN CA 40 MG TABLET (FP) PO SCH (21:34)
[2019-06-15] MEDS: METOCLOPRAMIDE HCL INJECTION 10 MG/2 ML VIAL IVPB SCH ×3 (06:16→21:19)
[2019-06-15] MEDS: HEPARIN NA (PORCINE) 5,000 UNITS/ML 1ML VIAL SQ SCH (06:16)
[2019-06-15] MEDS: INSULIN (LEVEMIR) 100 UNITS/ML UNITS SQ SCH ×2 (06:17→21:20)
[2019-06-15] MEDS: INSULIN SLIDING SCALE (NOVOLOG) 1 VIAL SQ SCH ×4 (06:17→21:21)
[2019-06-15 08:54] LABS: BASO % 0.3 % (0-2.0); EOS % 3.6 % (0-4.5); HEMATOCRIT 22.9 % (35.4-49); HEMOGLOBIN 7.5 GM/dL (11.7-16.9); LYMPH % 12.1 % (8-40); MCH 29.2 pg (25.7-33.7); MCHC 32.5 g/dl (32.0-35.9); MEAN CELL VOLUME 89.7 fl (80-96); MONO % 15.2 % (3.8-10.2); NEUT % 68.8 % (42.8-82.8); PLATELET COUNT 168 K/MM3 (134-434); RBC 2.56 M/mm3 (4.00-5.60); WHITE BLOOD COUNT 7.4 K/mm3 (4.0-10.0)
[2019-06-15] MEDS ORDERED: DEXTROSE 5%-WATER 100 ML IVPB ONE (09:06)
[2019-06-15 09:19] LABS: ALBUMIN 1.9 g/dl (3.4-5.0); BILIRUBIN,TOTAL 0.2 mg/dL (0.2-1); BLOOD UREA NITROGEN 91.2 mg/dL (7-18); CALCIUM 7.5 mg/dL (8.5-10.1); CREATININE 6.5 mg/dL (0.55-1.3); PHOSPHOROUS 3.8 mg/dL (2.5-4.9); POTASSIUM 4.7 mmol/L (3.5-5.1); TOT PROT 6.1 g/dl (6.4-8.2)
[2019-06-15] MEDS: CEFTRIAXONE 2 GM in DEXTROSE 5%-WATER 100 ML IVPB SCH (09:44)
[2019-06-15] MEDS: CARVEDILOL 25 MG TABLET (FP) PO SCH ×2 (09:44→21:18)
[2019-06-15] MEDS: SODIUM BICARBONATE 650 MG TABLET PO SCH ×2 (09:44→21:18)
[2019-06-15] MEDS: FERROUS SO4 325 MG TABLET (FP) PO SCH (09:45)
[2019-06-15] MEDS: amLODIPine BESYLATE 10 MG TABLET (FP) PO SCH (09:45)
[2019-06-15] MEDS: PANTOPRAZOLE SODIUM 40 MG VIAL IVPUSH SCH (09:45)
--- NOTE | 2019-06-15 11:09 | PN ---
Progress Note, Physician Chief Complaint: LLE cellulitis History of Present Illness: Feels better Denies any N/V/abd pain RLE pain improved seen by Podiatry MRI RLE shows abscess formation, bone marrow edema with possible osteomyelitis S/P Right foot I&D under [facility] [place]- seen by nephrology + Wound vac - Current Medication List Current Medications: Active Medications Acetaminophen (Tylenol -) 650 mg PO Q6H PRN PRN Reason: FEVER Last Admin: 06/04/19 01:38 Dose: 650 mg Amlodipine Besylate (Norvasc -) 10 mg PO DAILY [facility] Last Admin: 06/15/19 09:45 Dose: 10 mg Atorvastatin Calcium (Lipitor -) 40 mg PO HS [facility] Last Admin: 06/14/19 21:34 Dose: 40 mg Carvedilol (Coreg -) 25 mg PO BID [facility] Last Admin: 06/15/19 09:44 Dose: 25 mg Fentanyl (Sublimaze Injection -) 25 mcg IVPUSH [id number] PRN PRN Reason: PAIN-PACU ORDER X 4 DOSES ONLY Guaifenesin (Diabetic Tussin Dm -) 10 ml PO Q4H PRN PRN Reason: COUGH Heparin Sodium (Porcine) (Heparin -) 5,000 unit SQ TID [facility] Last Admin: 06/15/19 06:16 Dose: 5,000 unit Ceftriaxone Sodium 2 gm/ (Dextrose) 100 mls @ 200 mls/hr IVPB DAILY [facility]; Protocol Last Admin: 06/15/19 09:44 Dose: 200 mls/hr Ferric Carboxymaltose 750 mg/ (Sodium Chloride) 265 mls @ 530 mls/hr IVPB ONCE ONE Stop: 06/15/19 11:30 Insulin Aspart (Novolog Vial Sliding Scale -) 1 vial SQ ACHS [facility]; Protocol Last Admin: 06/15/19 06:17 Dose: Not Given Insulin Detemir (Levemir Vial) 10 units SQ HS [facility] Last Admin: 06/14/19 21:34 Dose: 10 units Insulin Detemir (Levemir Vial) 25 units SQ AM [facility] Last Admin: 06/15/19 06:17 Dose: 25 units Metoclopramide HCl (Reglan Injection -) 10 mg IVPB Q8H [facility] Last Admin: 06/15/19 06:16 Dose: 10 mg Pantoprazole Sodium (Protonix Iv) 40 mg IVPUSH DAILY [facility] Last Admin: 06/15/19 09:45 Dose: 40 mg Polysaccharide Iron Complex (Niferex-150 -) 150 mg PO DAILY [facility] Sodium Bicarbonate (Sodium Bicarbonate -) 650 mg PO BID [facility] Last Admin: 06/15/19 09:44 Dose: 650 mg - Objective Vital Signs: Vital Signs Temperature 97.9 F 06/15/19 10:00 Pulse Rate 91 H 06/15/19 10:00 Respiratory Rate 16 06/15/19 10:00 Blood Pressure 142/62 06/15/19 10:00 O2 Sat by Pulse Oximetry (%) 93 L 06/14/19 21:00 Constitutional: Yes: Well Nourished, No Distress, Calm, Obese Cardiovascular: Yes: Regular Rate and Rhythm Respiratory: Yes: Regular Gastrointestinal: Yes: Normal Bowel Sounds, Soft Genitourinary: Yes: WNL Musculoskeletal: Yes: WNL Extremities: Yes: WNL Edema: No Peripheral Pulses WNL: Yes Wound/Incision: Yes: Dressing Dry and Intact (Right foot) Neurological: Yes: Alert, Oriented Psychiatric: Yes: Alert, Oriented Labs: CBC, BMP 06/15/19 08:05 06/15/19 08:05 INR, PTT INR 1.26 (0.83-1.09) H 06/02/19 08:10 Problem List - Problems (1) Anemia Assessment/Plan: -ALEX vs CKD -Stool OB negative -Iron % low -Iron polysaccharide po daily -Injectafer once -s/p 1 U PRBC -Follow trend Problems reviewed: Yes Code(s): D64.9 - ANEMIA, UNSPECIFIED (2) Cellulitis Assessment/Plan: -RLE -ID consult -IV abx -Cultures: Microbiology 06/10/19 14:21 Foot - Right Sole Gram Stain - Final 06/10/19 14:21 Foot - Right Sole Wound Culture - Final Escherichia Coli 06/10/19 11:00 Abscess Gram Stain - Final 06/10/19 11:00 Abscess Wound Culture - Final Escherichia Coli 06/10/19 11:00 Foot - Right Plantar Gram Stain - Final 06/10/19 11:00 Foot - Right Plantar Wound Culture - Final Escherichia Coli 06/04/19 19:00 Blood - Peripheral Venous Blood Culture - Final NO GROWTH AFTER 5 DAYS INCUBATION 06/04/19 19:00 Blood - Peripheral Venous Blood Culture - Final NO GROWTH AFTER 5 DAYS INCUBATION 06/01/19 11:15 Blood - Peripheral Venous Blood Culture - Final NO GROWTH AFTER 5 DAYS INCUBATION 06/01/19 11:15 Blood - Peripheral Venous Blood Culture - Final NO GROWTH AFTER 5 DAYS INCUBATION 06/01/19 13:57 Urine - Urine Clean Catch Urine Culture - Final NO GROWTH OBTAINED -Leukocytosis improved -Repeat LA normal -MRI RLE-reviewed- abscess formation with second metatarsal bone marrow edema with possible osteomyelitis -Podiatry consult appreciated -S/P Right foot I&D -Right foot wound vac Problems reviewed: Yes Code(s): L03.90 - CELLULITIS, UNSPECIFIED Qualifiers: Site of cellulitis: extremity Site of cellulitis of extremity: lower extremity Laterality: right Qualified Code(s): L03.115 - Cellulitis of right lower limb (3) Acute on chronic renal insufficiency Assessment/Plan: -Nephrology consult -monitor trend -Renal U/S with chronic medical renal dz- no hydronephrosis, mildly distended bladder -UC negative Problems reviewed: Yes Code(s): N28.9 - DISORDER OF KIDNEY AND URETER, UNSPECIFIED; N18.9 - CHRONIC KIDNEY DISEASE, UNSPECIFIED (4) Diabetes Assessment/Plan: -A1c at 8.6 -BGM AC HS -ISS -Levemir -Endocrine consult Problems reviewed: Yes Code(s): E11.9 - TYPE 2 DIABETES MELLITUS WITHOUT COMPLICATIONS Qualifiers: Chronic kidney disease stage: stage 3 (moderate) (5) Hypertension Assessment/Plan: -Increased Amlodipine to 10 mg po daily -Continue Carvedilol -monitor trend Problems reviewed: Yes Code(s): I10 - ESSENTIAL (PRIMARY) HYPERTENSION (6) Abdominal pain Assessment/Plan: -resolved -Zofram discontinued, started on Reglan for nausea/vomiting and possible gastroperesis -PPI -CT abd/pelvis reviewed-unremarkable -Bladder scan unremarkable -GI consult appreciated Problems reviewed: Yes Code(s): R10.9 - UNSPECIFIED ABDOMINAL PAIN Assessment/Plan see problem list Physical therapy DVT ppx
[2019-06-15 11:53] LABS: ANISOCYTOSIS 1+; MACROCYTOSIS 0; OVALOCYTE 1+; PLATELET ESTIMATE NORMAL
[2019-06-15] MEDS ORDERED: FERRIC CARBOXYMALTOSE 750 MG in SODIUM CHLORIDE 250 ML IVPB ONE (12:00)
--- NOTE | 2019-06-15 15:04 | PN ---
Progress Note, Physician History of Present Illness: Pt seen and examined at bedside. He is awake and alert. He complains of edema. He is refusing to start HD and does not want a biopsy. He says that he believes that his kidneys will recover. - Current Medication List Current Medications: Active Medications Acetaminophen (Tylenol -) 650 mg PO Q6H PRN PRN Reason: FEVER Last Admin: 06/04/19 01:38 Dose: 650 mg Amlodipine Besylate (Norvasc -) 10 mg PO DAILY [facility] Last Admin: 06/15/19 09:45 Dose: 10 mg Atorvastatin Calcium (Lipitor -) 40 mg PO HS [facility] Last Admin: 06/14/19 21:34 Dose: 40 mg Carvedilol (Coreg -) 25 mg PO BID [facility] Last Admin: 06/15/19 09:44 Dose: 25 mg Fentanyl (Sublimaze Injection -) 25 mcg IVPUSH [id number] PRN PRN Reason: PAIN-PACU ORDER X 4 DOSES ONLY Guaifenesin (Diabetic Tussin Dm -) 10 ml PO Q4H PRN PRN Reason: COUGH Ceftriaxone Sodium 2 gm/ (Dextrose) 100 mls @ 200 mls/hr IVPB DAILY [facility]; Protocol Last Admin: 06/15/19 09:44 Dose: 200 mls/hr Insulin Aspart (Novolog Vial Sliding Scale -) 1 vial SQ ACHS [facility]; Protocol Last Admin: 06/15/19 12:09 Dose: 5 unit Insulin Detemir (Levemir Vial) 10 units SQ HS [facility] Last Admin: 06/14/19 21:34 Dose: 10 units Insulin Detemir (Levemir Vial) 25 units SQ AM [facility] Last Admin: 06/15/19 06:17 Dose: 25 units Metoclopramide HCl (Reglan Injection -) 10 mg IVPB Q8H [facility] Last Admin: 06/15/19 06:16 Dose: 10 mg Pantoprazole Sodium (Protonix Iv) 40 mg IVPUSH DAILY [facility] Last Admin: 06/15/19 09:45 Dose: 40 mg Polysaccharide Iron Complex (Niferex-150 -) 150 mg PO DAILY [facility] Sodium Bicarbonate (Sodium Bicarbonate -) 650 mg PO BID [facility] Last Admin: 06/15/19 09:44 Dose: 650 mg - Objective Vital Signs: Vital Signs Temperature 97.9 F 06/15/19 10:00 Pulse Rate 91 H 06/15/19 10:00 Respiratory Rate 16 06/15/19 10:00 Blood Pressure 142/62 06/15/19 10:00 O2 Sat by Pulse Oximetry (%) 93 L 06/14/19 21:00 Constitutional: Yes: Calm Eyes: Yes: Conjunctiva Clear HENT: Yes: Atraumatic Neck: Yes: Supple Cardiovascular: Yes: S1, S2 Respiratory: Yes: CTA Bilaterally Gastrointestinal: Yes: Soft Genitourinary: Yes: WNL Musculoskeletal: Yes: WNL Edema: Yes Edema: LLE: 1+, RLE: 1+ Neurological: Yes: Oriented Psychiatric: Yes: Oriented Labs: CBC, BMP 06/15/19 08:05 06/15/19 08:05 INR, PTT INR 1.26 (0.83-1.09) H 06/02/19 08:10 Problem List - Problems (1) Cellulitis Code(s): L03.90 - CELLULITIS, UNSPECIFIED Qualifiers: Site of cellulitis: extremity Site of cellulitis of extremity: lower extremity Laterality: right Qualified Code(s): L03.115 - Cellulitis of right lower limb (2) Renal failure Code(s): N19 - UNSPECIFIED KIDNEY FAILURE Qualifiers: Renal failure chronicity: unspecified chronicity Qualified Code(s): N19 - Unspecified kidney failure (3) Sepsis Code(s): A41.9 - SEPSIS, UNSPECIFIED ORGANISM Qualifiers: Sepsis type: sepsis due to unspecified organism Sepsis acute organ dysfunction status: unspecified Qualified Code(s): A41.9 - Sepsis, unspecified organism Assessment/Plan Current Medications Generic Name Dose Route Start Last Admin Trade Name Freq PRN Reason Stop Dose Admin Acetaminophen 650 mg 06/01/19 18:27 06/04/19 01:38 Tylenol - PO 650 mg Q6H PRN Administration FEVER Amlodipine Besylate 10 mg 06/07/19 10:30 06/15/19 09:45 Norvasc - PO 10 mg DAILY [facility] Administration Atorvastatin Calcium 40 mg 06/01/19 22:00 06/14/19 21:34 Lipitor - PO 40 mg HS [facility] Administration Carvedilol 25 mg 06/01/19 22:00 06/15/19 09:44 Coreg - PO 25 mg BID [facility] Administration Fentanyl 25 mcg 06/10/19 14:57 Sublimaze Injection - IVPUSH [id number] PRN PAIN-PACU ORDER X 4 DOSES ONLY Guaifenesin 10 ml 06/11/19 11:47 Diabetic Tussin Dm - PO Q4H PRN COUGH Ceftriaxone Sodium 2 gm/ 100 mls @ 200 mls/hr 06/12/19 10:00 06/15/19 09:44 Dextrose IVPB 200 mls/hr DAILY [facility] Administration Protocol Insulin Aspart 1 vial 06/07/19 22:42 06/15/19 12:09 Novolog Vial Sliding Scale - SQ 5 unit ACHS [facility] Administration Protocol Insulin Detemir 10 units 06/04/19 22:00 06/14/19 21:34 Levemir Vial SQ 10 units HS [facility] Administration Insulin Detemir 25 units 06/12/19 07:00 06/15/19 06:17 Levemir Vial SQ 25 units AM [facility] Administration Metoclopramide HCl 10 mg 06/06/19 14:15 06/15/19 06:16 Reglan Injection - IVPB 10 mg Q8H [facility] Administration Pantoprazole Sodium 40 mg 06/04/19 12:30 06/15/19 09:45 Protonix Iv IVPUSH 40 mg DAILY [facility] Administration Polysaccharide Iron Complex 150 mg 06/16/19 10:00 Niferex-150 - PO DAILY [facility] Sodium Bicarbonate 650 mg 06/12/19 22:00 06/15/19 09:44 Sodium Bicarbonate - PO 650 mg BID [facility] Administration Impression 1. [place]T 2. ckd 3. dm 4. cellulitis 5. pvd 6. htn Plan - renal function worsening - discussed possibility of HD and he is not ready - repeat labs in am - low potassium diet - lasix for volume management - heme workup in progress - avoid nephrotoxins
--- NOTE | 2019-06-15 17:38 | PN ---
Progress Note, Physician Chief Complaint: Right foot evaculated abscess with leg cellulitis History of Present Illness: Patient underwent Plantar Incision and Drainage in the OR on 06/09/2019 for sub superficial fascia abscess that extended into the 2nd and 3rd toes, medial to the first metatarsal and lateral to the third metatarsal, and proximal down the long arch of the foot. Tissue culture was taken prior to irrigation, but no organisms were seen. During the Incision and drainage yesterday, copious amounts of yellow purulence was expressed. Patient is getting Ceftriaxone IV. Patient reports no adverse symptoms related to the foot today. He has wound vac intact first applied by nursing staff at my request on Saturday night 2019. I plan to change the vac dressing today. - Current Medication List Current Medications: Active Medications Acetaminophen (Tylenol -) 650 mg PO Q6H PRN PRN Reason: FEVER Last Admin: 06/04/19 01:38 Dose: 650 mg Amlodipine Besylate (Norvasc -) 10 mg PO DAILY [facility] Last Admin: 06/15/19 09:45 Dose: 10 mg Atorvastatin Calcium (Lipitor -) 40 mg PO HS [facility] Last Admin: 06/14/19 21:34 Dose: 40 mg Carvedilol (Coreg -) 25 mg PO BID [facility] Last Admin: 06/15/19 09:44 Dose: 25 mg Fentanyl (Sublimaze Injection -) 25 mcg IVPUSH [id number] PRN PRN Reason: PAIN-PACU ORDER X 4 DOSES ONLY Guaifenesin (Diabetic Tussin Dm -) 10 ml PO Q4H PRN PRN Reason: COUGH Ceftriaxone Sodium 2 gm/ (Dextrose) 100 mls @ 200 mls/hr IVPB DAILY [facility]; Protocol Last Admin: 06/15/19 09:44 Dose: 200 mls/hr Insulin Aspart (Novolog Vial Sliding Scale -) 1 vial SQ ACHS [facility]; Protocol Last Admin: 06/15/19 12:09 Dose: 5 unit Insulin Detemir (Levemir Vial) 10 units SQ HS [facility] Last Admin: 06/14/19 21:34 Dose: 10 units Insulin Detemir (Levemir Vial) 25 units SQ AM [facility] Last Admin: 06/15/19 06:17 Dose: 25 units Metoclopramide HCl (Reglan Injection -) 10 mg IVPB Q8H [facility] Last Admin: 06/15/19 15:40 Dose: Not Given Pantoprazole Sodium (Protonix Iv) 40 mg IVPUSH DAILY [facility] Last Admin: 06/15/19 09:45 Dose: 40 mg Polysaccharide Iron Complex (Niferex-150 -) 150 mg PO DAILY [facility] Sodium Bicarbonate (Sodium Bicarbonate -) 650 mg PO BID [facility] Last Admin: 06/15/19 09:44 Dose: 650 mg - Objective Vital Signs: Vital Signs Temperature 97.9 F 06/15/19 14:00 Pulse Rate 56 L 06/15/19 14:00 Respiratory Rate 16 06/15/19 14:00 Blood Pressure 121/60 06/15/19 14:00 O2 Sat by Pulse Oximetry (%) 93 L 06/14/19 21:00 Wound/Incision: Yes: Other (Sub fascial wound right foot shows no sign of necrosis, no purulence and no drainage. Skin temp has returned to normal, no erythema present. Mild right leg edema is present. Wound vac was well applied and functional.) Labs: CBC, BMP 06/15/19 08:05 06/15/19 08:05 INR, PTT INR 1.26 (0.83-1.09) H 06/02/19 08:10 Problem List - Problems (1) Foot abscess, right Code(s): L02.611 - CUTANEOUS ABSCESS OF RIGHT FOOT (2) Diabetes with ulcer of foot Code(s): E11.621 - TYPE 2 DIABETES MELLITUS WITH FOOT ULCER; L97.509 - NON- PRESSURE CHRONIC ULCER OTH PRT UNSP FOOT W UNSP SEVERITY Assessment/Plan Assessment Wound abscess has been adequately incised and drained. Remaining wound shows no sign of infection. Leg and foot however remain edematous 6 days post op. This remains a concern because MRI shows moderate bone marrow edema in the head of the 2nd metatarsal. Osteomyelitis remains a possibility at this site however in surgical incision and drainage of the plantar aspect of the foot, there did not seem to be extension of the wound through the joint capsule or plantar plate of the bone. That is why a bone culture was not performed at the time. I did not want to extend contamination from the wound into the bone. If symptoms do not remit with antibiosis and wound vac, bone biopsy might be done at a later time. Treatment Wound Vac dressing was applied at 1pm by me today. Plan Continue wound vac. 125mmHg continuous Continue Ceftriaxone antibiosis. [facility] if arrangement can be made for visiting nurse at home wound vac dressings change. IV or equivalent antibiosis must be arrange through Infectious Disease Service
[2019-06-15] MEDS: ATORVASTATIN CA 40 MG TABLET (FP) PO SCH (21:18)
[2019-06-16] MEDS: INSULIN (LEVEMIR) 100 UNITS/ML UNITS SQ SCH ×2 (06:48→21:33)
[2019-06-16] MEDS: METOCLOPRAMIDE HCL INJECTION 10 MG/2 ML VIAL IVPB SCH ×3 (06:48→21:34)
[2019-06-16] MEDS: INSULIN SLIDING SCALE (NOVOLOG) 1 VIAL SQ SCH ×4 (06:49→21:36)
[2019-06-16] MEDS ORDERED: PT OWN MED DRAWER 7, Y5N ONE ×2 (07:58→21:25)
[2019-06-16] MEDS ORDERED: INSULIN (NOVOLOG) ASPART 100 UNITS/ML 10ML VIAL ONE ×2 (07:58→21:25)
[2019-06-16 09:09] LABS: BASO % 0.5 % (0-2.0); EOS % 4.3 % (0-4.5); HEMATOCRIT 24.4 % (35.4-49); LYMPH % 13.3 % (8-40); MCH 29.2 pg (25.7-33.7); MCHC 32.6 g/dl (32.0-35.9); MEAN CELL VOLUME 89.6 fl (80-96); MEAN PLT VOLUME 8.7 fl (7.5-11.1); MONO % 15.7 % (3.8-10.2); NEUT % 66.2 % (42.8-82.8); PLATELET COUNT 167 K/MM3 (134-434); RBC 2.73 M/mm3 (4.00-5.60); RDW 14.3 % (11.9-15.9); WHITE BLOOD COUNT 6.5 K/mm3 (4.0-10.0)
[2019-06-16 09:30] LABS: ALBUMIN 1.9 g/dl (3.4-5.0); BILIRUBIN,TOTAL 0.3 mg/dL (0.2-1); BLOOD UREA NITROGEN 92.4 mg/dL (7-18); CALCIUM 7.8 mg/dL (8.5-10.1); CREATININE 6.4 mg/dL (0.55-1.3); POTASSIUM 4.6 mmol/L (3.5-5.1); TOT PROT 6.2 g/dl (6.4-8.2)
[2019-06-16] MEDS ORDERED: DEXTROSE 5%-WATER 100 ML IVPB ONE (09:48)
[2019-06-16] MEDS: IRON POLYSACCHARIDES 150 MG CAPSULE PO SCH (09:58)
[2019-06-16] MEDS: CARVEDILOL 25 MG TABLET (FP) PO SCH ×2 (09:59→21:34)
[2019-06-16] MEDS: CEFTRIAXONE 2 GM in DEXTROSE 5%-WATER 100 ML IVPB SCH (09:59)
[2019-06-16] MEDS: SODIUM BICARBONATE 650 MG TABLET PO SCH (09:59)
[2019-06-16] MEDS: amLODIPine BESYLATE 10 MG TABLET (FP) PO SCH (09:59)
--- NOTE | 2019-06-16 10:37 | PN ---
Progress Note, Physician Chief Complaint: LLE cellulitis History of Present Illness: Feels better Denies any N/V/abd pain RLE pain improved seen by Podiatry MRI RLE shows abscess formation, bone marrow edema with possible osteomyelitis S/P Right foot I&D under [facility] ROOSEVELT- seen by nephrology + Wound vac, dressing changed by podiatry yesterday Pt agreeable to SNF - Current Medication List Current Medications: Active Medications Acetaminophen (Tylenol -) 650 mg PO Q6H PRN PRN Reason: FEVER Last Admin: 06/04/19 01:38 Dose: 650 mg Amlodipine Besylate (Norvasc -) 10 mg PO DAILY [facility] Last Admin: 06/16/19 09:59 Dose: 10 mg Atorvastatin Calcium (Lipitor -) 40 mg PO HS [facility] Last Admin: 06/15/19 21:18 Dose: 40 mg Carvedilol (Coreg -) 25 mg PO BID [facility] Last Admin: 06/16/19 09:59 Dose: 25 mg Fentanyl (Sublimaze Injection -) 25 mcg IVPUSH [id number] PRN PRN Reason: PAIN-PACU ORDER X 4 DOSES ONLY Guaifenesin (Diabetic Tussin Dm -) 10 ml PO Q4H PRN PRN Reason: COUGH Ceftriaxone Sodium 2 gm/ (Dextrose) 100 mls @ 200 mls/hr IVPB DAILY [facility]; Protocol Last Admin: 06/16/19 09:59 Dose: 200 mls/hr Insulin Aspart (Novolog Vial Sliding Scale -) 1 vial SQ ACHS [facility]; Protocol Last Admin: 06/16/19 06:49 Dose: 5 unit Insulin Detemir (Levemir Vial) 10 units SQ HS [facility] Last Admin: 06/15/19 21:20 Dose: 10 units Insulin Detemir (Levemir Vial) 25 units SQ AM [facility] Last Admin: 06/16/19 06:48 Dose: 25 units Metoclopramide HCl (Reglan Injection -) 10 mg IVPB Q8H [facility] Last Admin: 06/16/19 06:48 Dose: Not Given Pantoprazole Sodium (Protonix Iv) 40 mg IVPUSH DAILY [facility] Last Admin: 06/15/19 09:45 Dose: 40 mg Polysaccharide Iron Complex (Niferex-150 -) 150 mg PO DAILY [facility] Last Admin: 06/16/19 09:58 Dose: 150 mg Sodium Bicarbonate (Sodium Bicarbonate -) 650 mg PO BID [facility] Last Admin: 06/16/19 09:59 Dose: 650 mg - Objective Vital Signs: Vital Signs Temperature 98.0 F 06/16/19 06:00 Pulse Rate 64 06/16/19 06:00 Respiratory Rate 18 06/16/19 06:00 Blood Pressure 139/63 06/16/19 06:00 O2 Sat by Pulse Oximetry (%) 96 06/15/19 21:00 Constitutional: Yes: Well Nourished, No Distress, Calm, Obese Cardiovascular: Yes: Regular Rate and Rhythm Respiratory: Yes: Regular Gastrointestinal: Yes: Normal Bowel Sounds, Soft, Abdomen, Obese Genitourinary: Yes: WNL Musculoskeletal: Yes: Muscle Weakness Extremities: Yes: WNL Edema: No Peripheral Pulses WNL: Yes Wound/Incision: Yes: Dressing Dry and Intact (R foot) Neurological: Yes: Alert, Oriented Psychiatric: Yes: Alert, Oriented Labs: CBC, BMP 06/16/19 07:45 06/16/19 07:45 INR, PTT INR 1.26 (0.83-1.09) H 06/02/19 08:10 Problem List - Problems (1) Anemia Assessment/Plan: -ALEX vs CKD -Stool OB negative -Iron % low -Iron polysaccharide po daily -Injectafer once yesterday -s/p 1 U PRBC -Follow trend Problems reviewed: Yes Code(s): D64.9 - ANEMIA, UNSPECIFIED (2) Cellulitis Assessment/Plan: -RLE -ID consult -IV abx---> Change to PO as recommended by ID -Cultures: Microbiology 06/10/19 14:21 Foot - Right Sole Gram Stain - Final 06/10/19 14:21 Foot - Right Sole Wound Culture - Final Escherichia Coli 06/10/19 11:00 Abscess Gram Stain - Final 06/10/19 11:00 Abscess Wound Culture - Final Escherichia Coli 06/10/19 11:00 Foot - Right Plantar Gram Stain - Final 06/10/19 11:00 Foot - Right Plantar Wound Culture - Final Escherichia Coli 06/04/19 19:00 Blood - Peripheral Venous Blood Culture - Final NO GROWTH AFTER 5 DAYS INCUBATION 06/04/19 19:00 Blood - Peripheral Venous Blood Culture - Final NO GROWTH AFTER 5 DAYS INCUBATION 06/01/19 11:15 Blood - Peripheral Venous Blood Culture - Final NO GROWTH AFTER 5 DAYS INCUBATION 06/01/19 11:15 Blood - Peripheral Venous Blood Culture - Final NO GROWTH AFTER 5 DAYS INCUBATION 06/01/19 13:57 Urine - Urine Clean Catch Urine Culture - Final NO GROWTH OBTAINED -Leukocytosis improved -Repeat LA normal -MRI RLE-reviewed- abscess formation with second metatarsal bone marrow edema with possible osteomyelitis -Podiatry consult appreciated -S/P Right foot I&D -Right foot wound vac Problems reviewed: Yes Code(s): L03.90 - CELLULITIS, UNSPECIFIED Qualifiers: Site of cellulitis: extremity Site of cellulitis of extremity: lower extremity Laterality: right Qualified Code(s): L03.115 - Cellulitis of right lower limb (3) Acute on chronic renal insufficiency Assessment/Plan: -Nephrology consult -monitor trend -Renal U/S with chronic medical renal dz- no hydronephrosis, mildly distended bladder -UC negative Problems reviewed: Yes Code(s): N28.9 - DISORDER OF KIDNEY AND URETER, UNSPECIFIED; N18.9 - CHRONIC KIDNEY DISEASE, UNSPECIFIED (4) Diabetes Assessment/Plan: -A1c at 8.6 -BGM AC HS -ISS -Levemir -Endocrine consult Problems reviewed: Yes Code(s): E11.9 - TYPE 2 DIABETES MELLITUS WITHOUT COMPLICATIONS Qualifiers: Chronic kidney disease stage: stage 3 (moderate) (5) Hypertension Assessment/Plan: -Increased Amlodipine to 10 mg po daily -Continue Carvedilol -monitor trend Problems reviewed: Yes Code(s): I10 - ESSENTIAL (PRIMARY) HYPERTENSION (6) Abdominal pain Assessment/Plan: -resolved -Zofram discontinued, started on Reglan for nausea/vomiting and possible gastroperesis -PPI -CT abd/pelvis reviewed-unremarkable -Bladder scan unremarkable -GI consult appreciated Problems reviewed: Yes Code(s): R10.9 - UNSPECIFIED ABDOMINAL PAIN Assessment/Plan see problem list Physical therapy DVT ppx D/C to SNF once seen by ID with f/u at [facility] care [place]
[2019-06-16] MEDS: PANTOPRAZOLE SODIUM 40 MG VIAL IVPUSH SCH (10:59)
[2019-06-16 11:56] LABS: ANISOCYTOSIS 1+; MACROCYTOSIS 0; PLATELET ESTIMATE NORMAL
[2019-06-16 16:56] VITALS: BMI 37.0
[2019-06-16] MEDS ORDERED: FUROSEMIDE 40 MG/4 ML INJECTABLE VIAL IVPUSH ONE (18:41)
--- NOTE | 2019-06-16 18:43 | PN ---
Progress Note, Physician History of Present Illness: Pt seen and examined at bedside. He is awake and alert. He complains of lower ext edema. - Current Medication List Current Medications: Active Medications Acetaminophen (Tylenol -) 650 mg PO Q6H PRN PRN Reason: FEVER Last Admin: 06/04/19 01:38 Dose: 650 mg Amlodipine Besylate (Norvasc -) 10 mg PO DAILY [facility] Last Admin: 06/16/19 09:59 Dose: 10 mg Atorvastatin Calcium (Lipitor -) 40 mg PO HS [facility] Last Admin: 06/15/19 21:18 Dose: 40 mg Carvedilol (Coreg -) 25 mg PO BID [facility] Last Admin: 06/16/19 09:59 Dose: 25 mg Fentanyl (Sublimaze Injection -) 25 mcg IVPUSH [id number] PRN PRN Reason: PAIN-PACU ORDER X 4 DOSES ONLY Guaifenesin (Diabetic Tussin Dm -) 10 ml PO Q4H PRN PRN Reason: COUGH Ceftriaxone Sodium 2 gm/ (Dextrose) 100 mls @ 200 mls/hr IVPB DAILY [facility]; Protocol Last Admin: 06/16/19 09:59 Dose: 200 mls/hr Insulin Aspart (Novolog Vial Sliding Scale -) 1 vial SQ ACHS [facility]; Protocol Last Admin: 06/16/19 17:24 Dose: Not Given Insulin Detemir (Levemir Vial) 10 units SQ HS [facility] Last Admin: 06/15/19 21:20 Dose: 10 units Insulin Detemir (Levemir Vial) 25 units SQ AM [facility] Last Admin: 06/16/19 06:48 Dose: 25 units Metoclopramide HCl (Reglan Injection -) 10 mg IVPB Q8H [facility] Last Admin: 06/16/19 15:01 Dose: Not Given Pantoprazole Sodium (Protonix Iv) 40 mg IVPUSH DAILY [facility] Last Admin: 06/16/19 10:59 Dose: 40 mg Polysaccharide Iron Complex (Niferex-150 -) 150 mg PO DAILY [facility] Last Admin: 06/16/19 09:58 Dose: 150 mg Sodium Bicarbonate (Sodium Bicarbonate -) 650 mg PO BID [facility] Last Admin: 06/16/19 09:59 Dose: 650 mg - Objective Vital Signs: Vital Signs Temperature 98.3 F 06/16/19 15:56 Pulse Rate 58 L 01/28/20 15:56 Respiratory Rate 18 06/16/19 15:56 Blood Pressure 137/60 06/16/19 15:56 O2 Sat by Pulse Oximetry (%) 96 06/15/19 21:00 Constitutional: Yes: Calm Eyes: Yes: Conjunctiva Clear HENT: Yes: Atraumatic Neck: Yes: Supple Cardiovascular: Yes: S1, S2 Respiratory: Yes: CTA Bilaterally Gastrointestinal: Yes: Soft Extremities: Yes: Other (wound vac) Edema: Yes Edema: LLE: 1+, RLE: 1+ Neurological: Yes: Oriented Psychiatric: Yes: Oriented Labs: CBC, BMP 06/16/19 07:45 06/16/19 07:45 INR, PTT INR 1.26 (0.83-1.09) H 06/02/19 08:10 Problem List - Problems (1) Cellulitis Code(s): L03.90 - CELLULITIS, UNSPECIFIED Qualifiers: Site of cellulitis: extremity Site of cellulitis of extremity: lower extremity Laterality: right Qualified Code(s): L03.115 - Cellulitis of right lower limb (2) Renal failure Code(s): N19 - UNSPECIFIED KIDNEY FAILURE Qualifiers: Renal failure chronicity: unspecified chronicity Qualified Code(s): N19 - Unspecified kidney failure (3) Sepsis Code(s): A41.9 - SEPSIS, UNSPECIFIED ORGANISM Qualifiers: Sepsis type: sepsis due to unspecified organism Sepsis acute organ dysfunction status: unspecified Qualified Code(s): A41.9 - Sepsis, unspecified organism Assessment/Plan Current Medications Generic Name Dose Route Start Last Admin Trade Name Freq PRN Reason Stop Dose Admin Acetaminophen 650 mg 06/01/19 18:27 06/04/19 01:38 Tylenol - PO 650 mg Q6H PRN Administration FEVER Amlodipine Besylate 10 mg 06/07/19 10:30 06/16/19 09:59 Norvasc - PO 10 mg DAILY [facility] Administration Atorvastatin Calcium 40 mg 06/01/19 22:00 06/15/19 21:18 Lipitor - PO 40 mg HS [facility] Administration Carvedilol 25 mg 06/01/19 22:00 06/16/19 09:59 Coreg - PO 25 mg BID [facility] Administration Fentanyl 25 mcg 06/10/19 14:57 Sublimaze Injection - IVPUSH [id number] PRN PAIN-PACU ORDER X 4 DOSES ONLY Furosemide 40 mg 06/16/19 18:41 Lasix Injection - IVPUSH 06/16/19 18:42 ONCE ONE Guaifenesin 10 ml 06/11/19 11:47 Diabetic Tussin Dm - PO Q4H PRN COUGH Ceftriaxone Sodium 2 gm/ 100 mls @ 200 mls/hr 06/12/19 10:00 06/16/19 09:59 Dextrose IVPB 200 mls/hr DAILY [facility] Administration Protocol Insulin Aspart 1 vial 06/07/19 22:42 06/16/19 17:24 Novolog Vial Sliding Scale - SQ Not Given ACHS [facility] Protocol Insulin Detemir 10 units 06/04/19 22:00 06/15/19 21:20 Levemir Vial SQ 10 units HS [facility] Administration Insulin Detemir 25 units 06/12/19 07:00 06/16/19 06:48 Levemir Vial SQ 25 units AM [facility] Administration Metoclopramide HCl 10 mg 06/06/19 14:15 06/16/19 15:01 Reglan Injection - IVPB Not Given Q8H [facility] Pantoprazole Sodium 40 mg 06/04/19 12:30 06/16/19 10:59 Protonix Iv IVPUSH 40 mg DAILY [facility] Administration Polysaccharide Iron Complex 150 mg 06/16/19 10:00 06/16/19 09:58 Niferex-150 - PO 150 mg DAILY [facility] Administration Sodium Bicarbonate 650 mg 06/12/19 22:00 06/16/19 09:59 Sodium Bicarbonate - PO 650 mg BID [facility] Administration Impression 1. [place] 2. ckd 3. dm 4. cellulitis 5. pvd 6. htn Plan - will give a dose of lasix - repeat labs in am - decrease bicarb dose - repeat labs in am - refusing biopsy - does not want HD at this time - heme workup in progress - avoid nephrotoxins
--- NOTE | 2019-06-16 19:11 | PN ---
Progress Note, Physician History of Present Illness: S/P I&D R FOOT, VAC PLACEMENT OPERATIVE C/S E COLI NO C/O FOOT PAIN AFEBRILE - Current Medication List Current Medications: Active Medications Acetaminophen (Tylenol -) 650 mg PO Q6H PRN PRN Reason: FEVER Last Admin: 06/04/19 01:38 Dose: 650 mg Amlodipine Besylate (Norvasc -) 10 mg PO DAILY [facility] Last Admin: 06/16/19 09:59 Dose: 10 mg Atorvastatin Calcium (Lipitor -) 40 mg PO HS [facility] Last Admin: 06/15/19 21:18 Dose: 40 mg Carvedilol (Coreg -) 25 mg PO BID [facility] Last Admin: 06/16/19 09:59 Dose: 25 mg Fentanyl (Sublimaze Injection -) 25 mcg IVPUSH [id number] PRN PRN Reason: PAIN-PACU ORDER X 4 DOSES ONLY Guaifenesin (Diabetic Tussin Dm -) 10 ml PO Q4H PRN PRN Reason: COUGH Ceftriaxone Sodium 2 gm/ (Dextrose) 100 mls @ 200 mls/hr IVPB DAILY [facility]; Protocol Last Admin: 06/16/19 09:59 Dose: 200 mls/hr Insulin Aspart (Novolog Vial Sliding Scale -) 1 vial SQ ACHS [facility]; Protocol Last Admin: 06/16/19 17:24 Dose: Not Given Insulin Detemir (Levemir Vial) 10 units SQ HS [facility] Last Admin: 06/15/19 21:20 Dose: 10 units Insulin Detemir (Levemir Vial) 25 units SQ AM [facility] Last Admin: 06/16/19 06:48 Dose: 25 units Metoclopramide HCl (Reglan Injection -) 10 mg IVPB Q8H [facility] Last Admin: 06/16/19 15:01 Dose: Not Given Pantoprazole Sodium (Protonix Iv) 40 mg IVPUSH DAILY [facility] Last Admin: 06/16/19 10:59 Dose: 40 mg Polysaccharide Iron Complex (Niferex-150 -) 150 mg PO DAILY [facility] Last Admin: 06/16/19 09:58 Dose: 150 mg Sodium Bicarbonate (Sodium Bicarbonate -) 325 mg PO BID [facility] - Objective Vital Signs: Vital Signs Temperature 98.3 F 06/16/19 15:56 Pulse Rate 58 L 06/16/19 15:56 Respiratory Rate 18 06/16/19 15:56 Blood Pressure 137/60 06/16/19 15:56 O2 Sat by Pulse Oximetry (%) 96 06/15/19 21:00 Constitutional: Yes: No Distress Cardiovascular: Yes: Regular Rate and Rhythm, S1, S2 Respiratory: Yes: CTA Bilaterally Gastrointestinal: Yes: Normal Bowel Sounds, Soft Extremities: Yes: Other (VAC IN PLACE, FOOT R FOOT/ LE REMAINS SWOLLEN/ WARM ) Labs: CBC, BMP 06/16/19 07:45 06/16/19 07:45 INR, PTT INR 1.26 (0.83-1.09) H 06/02/19 08:10 Assessment/Plan CELLULITIS/ OSTEOMYELITIS R FOOT + WOUND C/S E COLI CELLULITIS R LE IMPROVED RENAL FAILURE CONTINUE CEFTRIAXONE WOULD PLACE TUNNELLED CATHETER FOR TREE SPECIALIST IV ANTIBIOTIC THERAPY FOR OSTEOMYELITIS: CEFTRIAXONE 2GM IVPB Q24H X 5 WEEKS OUTPATIENT FOLLOW UP 2 WEEKS OUTPATIENT PODIATRY FOLLOW UP
[2019-06-16] MEDS: ATORVASTATIN CA 40 MG TABLET (FP) PO SCH (21:34)
[2019-06-16] MEDS: SODIUM BICARBONATE 325 MG TABLET PO SCH (21:34)
[2019-06-17] MEDS: METOCLOPRAMIDE HCL INJECTION 10 MG/2 ML VIAL IVPB SCH ×3 (06:58→22:19)
[2019-06-17] MEDS: INSULIN (LEVEMIR) 100 UNITS/ML UNITS SQ SCH ×2 (06:58→22:20)
[2019-06-17] MEDS: INSULIN SLIDING SCALE (NOVOLOG) 1 VIAL SQ SCH ×4 (06:59→22:15)
[2019-06-17 08:47] LABS: BASO % 0.7 % (0-2.0); EOS % 4.3 % (0-4.5); HEMATOCRIT 23.5 % (35.4-49); HEMOGLOBIN 7.6 GM/dL (11.7-16.9); LYMPH % 12.1 % (8-40); MCH 29.4 pg (25.7-33.7); MCHC 32.6 g/dl (32.0-35.9); MEAN CELL VOLUME 90.2 fl (80-96); MEAN PLT VOLUME 8.8 fl (7.5-11.1); MONO % 17.5 % (3.8-10.2); NEUT % 65.4 % (42.8-82.8); PLATELET COUNT 151 K/MM3 (134-434); RDW 13.9 % (11.9-15.9); WHITE BLOOD COUNT 6.6 K/mm3 (4.0-10.0)
[2019-06-17 09:10] LABS: ALBUMIN 1.9 g/dl (3.4-5.0); BILIRUBIN,TOTAL 0.2 mg/dL (0.2-1); BLOOD UREA NITROGEN 87.3 mg/dL (7-18); CALCIUM 7.5 mg/dL (8.5-10.1); CREATININE 6.3 mg/dL (0.55-1.3); PHOSPHOROUS 5.4 mg/dL (2.5-4.9); POTASSIUM 4.5 mmol/L (3.5-5.1); TOT PROT 6.1 g/dl (6.4-8.2)
--- NOTE | 2019-06-17 10:53 | DS ---
Physical Examination Vital Signs: Vital Signs Temperature 99.2 F 06/17/19 09:00 Pulse Rate 69 06/17/19 09:00 Respiratory Rate 18 06/17/19 09:00 Blood Pressure 128/65 06/17/19 09:00 O2 Sat by Pulse Oximetry (%) 96 06/16/19 21:00 Findings/Remarks: Patient is a 64 year old male with a significant past medical history of peripheral vascular disease, hypertension, hyperlipidemia, diabetes, CHF, left midfoot amputation. He comes to [facility] today after his aide noticed that his right lower extremity with increased swelling, redness and pain. Pain and swelling began three weeks ago but was mild. Patient saw his financial planning adviser on May 25 and was started on clindamycin, but his pain, redness and symptoms slowly worsened despite the antibiotics. The redness was limited to his right foot and now has extended to the right knee. He reports fevers, chills and body aches. In the ED he was febrile, having right leg discomfort pain 7/10, unable to move this extremity and very tender to touch. (1) Anemia Assessment/Plan: -ALEX vs CKD -Stool OB negative -Iron % low -Iron polysaccharide po daily -Injectafer once yesterday -s/p 1 U PRBC -Follow trend Problems reviewed: Yes Code(s): D64.9 - ANEMIA, UNSPECIFIED (2) Cellulitis Assessment/Plan: -RLE -ID consult -IV abx-Ceftriaxone 2 gm daily x 6 weeks -Cultures: Microbiology 06/10/19 14:21 Foot - Right Sole Gram Stain - Final 06/10/19 14:21 Foot - Right Sole Wound Culture - Final Escherichia Coli 06/10/19 11:00 Abscess Gram Stain - Final 06/10/19 11:00 Abscess Wound Culture - Final Escherichia Coli 06/10/19 11:00 Foot - Right Plantar Gram Stain - Final 06/10/19 11:00 Foot - Right Plantar Wound Culture - Final Escherichia Coli 06/04/19 19:00 Blood - Peripheral Venous Blood Culture - Final NO GROWTH AFTER 5 DAYS INCUBATION 06/04/19 19:00 Blood - Peripheral Venous Blood Culture - Final NO GROWTH AFTER 5 DAYS INCUBATION 06/01/19 11:15 Blood - Peripheral Venous Blood Culture - Final NO GROWTH AFTER 5 DAYS INCUBATION 06/01/19 11:15 Blood - Peripheral Venous Blood Culture - Final NO GROWTH AFTER 5 DAYS INCUBATION 06/01/19 13:57 Urine - Urine Clean Catch Urine Culture - Final NO GROWTH OBTAINED -Leukocytosis improved -Repeat LA normal -MRI RLE-reviewed- abscess formation with second metatarsal bone marrow edema with possible osteomyelitis -Podiatry consult appreciated -S/P Right foot I&D -Right foot wound vac Problems reviewed: Yes Code(s): L03.90 - CELLULITIS, UNSPECIFIED Qualifiers: Site of cellulitis: extremity Site of cellulitis of extremity: lower extremity Laterality: right Qualified Code(s): L03.115 - Cellulitis of right lower limb (3) Acute on chronic renal insufficiency Assessment/Plan: -Nephrology consult -monitor trend -Renal U/S with chronic medical renal dz- no hydronephrosis, mildly distended bladder -UC negative Problems reviewed: Yes Code(s): N28.9 - DISORDER OF KIDNEY AND URETER, UNSPECIFIED; N18.9 - CHRONIC KIDNEY DISEASE, UNSPECIFIED (4) Diabetes Assessment/Plan: -A1c at 8.6 -BGM AC HS -ISS -Levemir -Endocrine consult Problems reviewed: Yes Code(s): E11.9 - TYPE 2 DIABETES MELLITUS WITHOUT COMPLICATIONS Qualifiers: Chronic kidney disease stage: stage 3 (moderate) (5) Hypertension Assessment/Plan: -Increased Amlodipine to 10 mg po daily -Continue Carvedilol -monitor trend Problems reviewed: Yes Code(s): I10 - ESSENTIAL (PRIMARY) HYPERTENSION (6) Abdominal pain Assessment/Plan: -resolved -Zofram discontinued, started on Reglan for nausea/vomiting and possible gastroperesis -PPI -CT abd/pelvis reviewed-unremarkable -Bladder scan unremarkable -GI consult appreciated Problems reviewed: Yes Code(s): R10.9 - UNSPECIFIED ABDOMINAL PAIN Constitutional: Yes: Well Nourished, No Distress, Calm Cardiovascular: Yes: Regular Rate and Rhythm Respiratory: Yes: Regular Gastrointestinal: Yes: Normal Bowel Sounds, Soft, Abdomen, Obese Renal/: Yes: WNL Musculoskeletal: Yes: WNL Extremities: Yes: WNL Edema: Yes (right foot non pitting) Peripheral Pulses WNL: Yes Wound/Incision: Yes: Dressing Dry and Intact (with wound vac in place) Neurological: Yes: Alert, Oriented Psychiatric: Yes: Alert, Oriented Labs: CBC, BMP 06/17/19 07:30 06/17/19 07:30 Discharge Summary Problems reviewed: Yes Reason For Visit: CELLULITIS Current Active Problems Abdominal pain (Acute) Acute on chronic renal insufficiency (Acute) Anemia (Acute) Cellulitis (Acute) DVT prophylaxis (Acute) Diabetes (Acute) Diabetes with ulcer of foot (Acute) Dizziness (Acute) Epigastric abdominal pain (Acute) Foot abscess, right (Acute) Hypertension (Acute) Left foot amputee (Acute) Preop cardiovascular exam (Acute) Prophylactic measure (Acute) Renal failure (Acute) Sepsis (Acute) Type 2 diabetes mellitus with diabetic chronic kidney disease (Acute) Laboratory Last Values WBC 6.6 K/mm3 (4.0-10.0) 06/17/19 07:30 Corrected WBC (auto) Cancelled 06/09/19 08:54 RBC 2.60 M/mm3 (4.00-5.60) L 06/17/19 07:30 Hgb 7.6 GM/dL (11.7-16.9) L 06/17/19 07:30 Hct 23.5 % (35.4-49) L 06/17/19 07:30 MCV 90.2 fl (80-96) 06/17/19 07:30 MCH 29.4 pg (25.7-33.7) 06/17/19 07:30 MCHC 32.6 g/dl (32.0-35.9) 06/17/19 07:30 RDW 13.9 % (11.9-15.9) 06/17/19 07:30 Plt Count 151 K/MM3 (134-434) 06/17/19 07:30 MPV 8.8 fl (7.5-11.1) 06/17/19 07:30 Absolute Neuts (auto) 4.3 K/mm3 (1.5-8.0) 06/17/19 07:30 Total Counted 06/12/19 07:30 Neutrophils % 65.4 % (42.8-82.8) 06/17/19 07:30 Neutrophils % (Manual) 67.0 % (42.8-82.8) 06/16/19 07:45 Band Neutrophils % 0.0 % 06/16/19 07:45 Lymphocytes % 12.1 % (8-40) 06/17/19 07:30 Lymphocytes % (Manual) 7.7 % (8-40) L D 06/16/19 07:45 Monocytes % 17.5 % (3.8-10.2) H 06/17/19 07:30 Monocytes % (Manual) 14 % (3.8-10.2) H 06/16/19 07:45 Eosinophils % 4.3 % (0-4.5) 06/17/19 07:30 Eosinophils % (Manual) 6.8 % (0-4.5) H 06/16/19 07:45 Basophils % 0.7 % (0-2.0) 06/17/19 07:30 Basophils % (Manual) 0.0 % (0-2.0) 06/16/19 07:45 Myelocytes % (Man) 1 % (0-2) D 06/16/19 07:45 Promyelocytes % (Man) 0 % (0-2) 06/16/19 07:45 Blast Cells % (Manual) 0 % (0-0) 06/16/19 07:45 Nucleated RBC % 0 % (0-0) 06/17/19 07:30 Metamyelocytes 1 % (0-2) D 06/16/19 07:45 Manual Slide Review Cancelled 06/09/19 08:54 Hypochromia 0 06/16/19 07:45 Platelet Estimate Normal 06/16/19 07:45 Platelet Comment Present 06/15/19 08:05 Polychromasia 1+ 06/16/19 07:45 Poikilocytosis 0 06/16/19 07:45 Anisocytosis 1+ 06/16/19 07:45 Microcytosis 0 06/16/19 07:45 Macrocytosis 0 06/16/19 07:45 Spherocytes 1+ 06/12/19 07:30 Tear Drop Cells 1+ 06/13/19 09:08 Ovalocytes 1+ 06/15/19 08:05 Denise Cells 1+ 06/13/19 09:08 Acanthocytes (Spur) 1+ 06/15/19 08:05 PT with INR 14.90 SEC (9.7-13.0) H 06/02/19 08:10 INR 1.26 (0.83-1.09) H 06/02/19 08:10 PTT (Actin FS) 33.7 SECONDS (25.2-36.5) 06/01/19 11:15 Sodium 143 mmol/L (136-145) 06/17/19 07:30 Potassium 4.5 mmol/L (3.5-5.1) 06/17/19 07:30 Chloride 110 mmol/L (98-107) H 06/17/19 07:30 Carbon Dioxide 24 mmol/L (21-32) 06/17/19 07:30 Anion Gap 8 MMOL/L (8-16) 06/17/19 07:30 BUN 87.3 mg/dL (7-18) H 06/17/19 07:30 Creatinine 6.3 mg/dL (0.55-1.3) H 06/17/19 07:30 Est GFR (CKD-EPI)AfAm 9.78 06/17/19 07:30 Est GFR (CKD-EPI)NonAf 8.44 06/17/19 07:30 POC Glucometer 158 UNITS (80-120) 06/17/19 05:55 Random Glucose 185 mg/dL (74-106) H 06/17/19 07:30 Hemoglobin A1c % 7.2 % (4.2-6.3) H 06/04/19 08:15 Lactic Acid 1.2 mmol/L (0.4-2.0) 06/04/19 13:09 Calcium 7.5 mg/dL (8.5-10.1) L 06/17/19 07:30 Phosphorus 5.4 mg/dL (2.5-4.9) H 06/17/19 07:30 Magnesium 2.7 mg/dL (1.8-2.4) H 06/04/19 08:15 Iron 10 ug/dL (50-175) L 06/02/19 08:10 TIBC 174 ug/dL (250-450) L 06/02/19 08:10 Iron Saturation 5 % (17.5-39) L 06/02/19 08:10 Unsaturated IBC 164 ug/dL (200-275) L 06/02/19 08:10 Erythropoietin 27.3 mIU/mL (2.6-18.5) H 06/10/19 10:15 Ferritin 361.3 ng/ml (8-388) 06/02/19 06:00 Total Bilirubin 0.2 mg/dL (0.2-1) 06/17/19 07:30 AST 52 U/L (15-37) H 06/17/19 07:30 ALT 60 U/L (13-61) 06/17/19 07:30 Alkaline Phosphatase 208 U/L (45-117) H 06/17/19 07:30 Creatine Kinase 198 U/L (26-308) 06/01/19 11:15 Creatine Kinase Index 2.5 % (0.0-5.0) 06/01/19 11:15 CK-MB (CK-2) 5.0 ng/mL (0.5-3.6) H 06/01/19 11:15 Troponin I 0.04 ng/ml (0.00-0.05) 06/06/19 12:29 Total Protein 6.1 g/dl (6.4-8.2) L 06/17/19 07:30 Total Protein (PEP) 5.7 g/dL (6.0-8.5) L 06/10/19 08:27 Albumin 1.9 g/dl (3.4-5.0) L 06/17/19 07:30 Albumin (PEP) 2.2 gm/dl (2.9-4.4) L 06/10/19 08:27 Globulin 3.5 g/dL (2.2-3.9) 06/10/19 08:27 Albumin/Globulin Ratio 0.6 (0.7-1.7) L 06/10/19 08:27 Beta Globulins 0.7 gm/dL (0.7-1.3) 06/10/19 08:27 Triglycerides 178 mg/dL (0-150) H 06/02/19 06:00 Cholesterol 97 mg/dL (50-200) 06/02/19 06:00 Total LDL Cholesterol 46 mg/dL (5-100) 06/02/19 06:00 HDL Cholesterol 19 mg/dL (40-60) L 06/02/19 06:00 Vitamin B12 1062 pg/ml (193-986) H 06/10/19 08:27 Serum Folate 6 ng/mL (3.1-17.5) 06/10/19 08:27 TSH 0.69 uIU/ml (0.358-3.74) 06/10/19 08:27 Urine Color Yellow 06/03/19 16:10 Urine Appearance Cloudy 06/03/19 16:10 Urine pH 5.0 (5.0-8.0) 06/03/19 16:10 Ur Specific Vowinckel 1.017 (1.010-1.035) 06/03/19 16:10 Urine Protein 3+ (NEGATIVE) H 06/03/19 16:10 Urine Glucose (UA) 1+ (NEGATIVE) H 06/03/19 16:10 Urine Ketones Negative (NEGATIVE) 06/03/19 16:10 Urine Blood 2+ (NEGATIVE) H 06/03/19 16:10 Urine Nitrite Negative (NEGATIVE) 06/03/19 16:10 Urine Bilirubin Negative (NEGATIVE) 06/03/19 16:10 Urine Urobilinogen 1.0 mg/dL (0.2-1.0) 06/03/19 16:10 Ur Leukocyte Esterase Negative (NEGATIVE) 06/03/19 16:10 Urine WBC (Auto) 4 /hpf (0-5) 06/03/19 16:10 Urine RBC (Auto) 1 /hpf (0-4) 06/03/19 16:10 Urine Casts (Auto) 13 /lpf (0-8) 06/03/19 16:10 U Epithel Cells (Auto) 3.7 /HPF (0-5/HPF) 06/03/19 16:10 Urine Bacteria (Auto) 0.8 /hpf (NEGATIVE) 06/03/19 16:10 Ur Random Creatinine 98.0 mg/dL (30-150) 06/03/19 16:10 U Random Total Protein 359.9 mg/dL (0-11.9) H 06/10/19 06:15 Ur Random Sodium 23 MMOL/L (40-220) L 06/03/19 16:10 Ur Random Potassium 31.0 MMOL/L (25-125) 06/03/19 16:10 Ur Random Chloride 21 MMOL/L (110-250) L 06/03/19 16:10 U Free Tarina Light Ch 508.95 mg/L (0.63-113.79) H 06/10/19 06:15 U Free Lambda Light Ch 176.23 mg/L (0.47-11.77) H 06/10/19 06:15 U Free Tarina/Lambda 24 2.89 (1.03-31.76) 06/10/19 06:15 Stool Occult Blood Negative (NEGATIVE) 06/15/19 20:30 Random Vancomycin 13.1 ug/ml (18-26) L 06/09/19 08:54 IgG 1429 mg/dL (700-1600) 06/10/19 08:27 IgA 336 mg/dL (61-437) 06/10/19 08:27 IgM 132 mg/dL (20-172) 06/10/19 08:27 CORNEL M-Ayaan Not observed g/dL (Not Observed) 06/10/19 08:27 Serum CORNEL Interpret (.) 06/09/19 20:45 IEP IgG 1433 mg/dL (700-1600) 06/09/19 20:45 IEP IgA 334 mg/dL (61-437) 06/09/19 20:45 IEP IgM 132 mg/dL (20-172) 06/09/19 20:45 MARIAN Screen Negative (.) 06/04/19 08:15 c-ANCA <1:20 titer (Neg:<1:20) 06/04/19 08:15 Proteinase 3 (PR3) <3.5 U/mL (0.0-3.5) 06/04/19 08:15 p-ANCA <1:20 titer (Neg:<1:20) 06/04/19 08:15 Atypical p-ANCA <1:20 titer (Neg:<1:20) 06/04/19 08:15 Myeloperoxidase Ab <9.0 U/mL (0.0-9.0) 06/04/19 08:15 Double Strand DNA Ab 1 IU/mL (0-9) 06/04/19 08:15 Free Tarina LC, Quant 162.2 mg/L (3.3-19.4) H 06/10/19 08:27 Free Lambda LC, Quant 175.5 mg/L (5.7-26.3) H 06/10/19 08:27 Free Tarina/Lambda Ratio 0.92 (0.26-1.65) 06/10/19 08:27 Blood Type O POSITIVE 06/11/19 17:15 Antibody Screen Negative 06/11/19 17:15 Crossmatch See Detail 06/11/19 17:15 Microbiology 06/10/19 14:21 Foot - Right Sole Gram Stain - Final 06/10/19 14:21 Foot - Right Sole Wound Culture - Final Escherichia Coli 06/10/19 11:00 Abscess Gram Stain - Final 06/10/19 11:00 Abscess Wound Culture - Final Escherichia Coli 06/10/19 11:00 Foot - Right Plantar Gram Stain - Final 06/10/19 11:00 Foot - Right Plantar Wound Culture - Final Escherichia Coli 06/04/19 19:00 Blood - Peripheral Venous Blood Culture - Final NO GROWTH AFTER 5 DAYS INCUBATION 06/04/19 19:00 Blood - Peripheral Venous Blood Culture - Final NO GROWTH AFTER 5 DAYS INCUBATION 06/01/19 11:15 Blood - Peripheral Venous Blood Culture - Final NO GROWTH AFTER 5 DAYS INCUBATION 06/01/19 11:15 Blood - Peripheral Venous Blood Culture - Final NO GROWTH AFTER 5 DAYS INCUBATION 06/01/19 13:57 Urine - Urine Clean Catch Urine Culture - Final NO GROWTH OBTAINED Vital Signs Temp 99.2 F 06/17/19 09:00 Pulse 69 06/17/19 09:00 Resp 18 06/17/19 09:00 BP 128/65 06/17/19 09:00 Pulse Ox 96 06/16/19 21:00 Intake & Output 06/16/19 06/16/19 06/17/19 11:59 23:59 11:59 Intake Total 450 650 Output Total 300 400 Balance 150 650 -400 Weight 110.903 kg 109.134 kg Intake: IVPB 100 Oral 350 650 Output: Urine 300 400 Void 300 400 Other: Voiding Method Toilet Urinal # Unmeasured Voids Void 1 2 1 Bowel Movement No Yes Yes Body Mass Index (BMI) 37.0 Weight Measurement Method Standing Scale Standing Scale Goals: Appointment made with Dr Pfeiffer[facility] [address] [place] [address]- SaturdayJune 15/2020- 1PM. Condition: Stable - Instructions Diet, Activity, Other Instructions: Change wound vac dressing Q72H Wound vac settings at 125 mm Hg Needs ceftriaxone 2 g daily x 6 weeks Repeat CBC/CMP weekly F/U with Dr Pfeiffer-Podiatry, at wound care center weekly Referrals: Diomedes Bills MD [Primary Care Provider] - [facility] - Home Medications Comprehensive Discharge Medication List: Ambulatory Orders Acetaminophen [Tylenol .Regular Strength -] 650 mg PO Q6H PRN tablet 06/16/19 Amlodipine Besylate [Norvasc -] 10 mg PO DAILY tablet 06/16/19 Atorvastatin Ca [Lipitor] 40 mg PO HS tablet 06/16/19 Carvedilol [Coreg -] 25 mg PO BID tablet 06/16/19 Ceftriaxone [Rocephin -] 2 gm IVPB DAILY #44 vial 06/16/19 Guaifenesin/D-Methorphan Hb [Diabetic Tussin Dm -] 10 ml PO Q4H PRN ml Heparin - 5,000 unit SQ BID vial 06/16/19 Insulin (Levemir) [Levemir Vial] 10 units SQ HS units 06/16/19 Insulin (Levemir) [Levemir Vial] 25 units SQ AM units 06/16/19 Insulin Sliding Scale [Novolog Vial Sliding Scale -] 1 vial SQ ACHS units 06/16 Iron Polysaccharides [Niferex-150 -] 150 mg PO DAILY capsule 06/16/19 Metoclopramide HCl [Reglan] 5 mg PO TID PRN #90 tablet 06/16/19 Pantoprazole Sodium [Protonix IV] 40 mg IVPUSH DAILY vial 06/16/19 Sodium Bicarbonate - 650 mg PO BID tablet 06/16/19 Prescription Drug Monitoring Program (I-STOP) results: I-STOP reviewed and no issues identified
[2019-06-17] MEDS ORDERED: DEXTROSE 5%-WATER 100 ML IVPB ONE (11:40)
[2019-06-17] MEDS: CARVEDILOL 25 MG TABLET (FP) PO SCH ×2 (11:51→22:16)
[2019-06-17] MEDS: amLODIPine BESYLATE 10 MG TABLET (FP) PO SCH (11:52)
[2019-06-17] MEDS: IRON POLYSACCHARIDES 150 MG CAPSULE PO SCH (11:52)
[2019-06-17] MEDS: PANTOPRAZOLE SODIUM 40 MG VIAL IVPUSH SCH (11:52)
[2019-06-17] MEDS: CEFTRIAXONE 2 GM in DEXTROSE 5%-WATER 100 ML IVPB SCH (11:53)
[2019-06-17 12:03] LABS: ANISOCYTOSIS 1+; MACROCYTOSIS 0; OVALOCYTE 1+; PLATELET ESTIMATE DECREASED; TEAR DROP CELLS 1+
[2019-06-17] MEDS ORDERED: FUROSEMIDE 40 MG/4 ML INJECTABLE VIAL IVPUSH ONE (12:42)
--- NOTE | 2019-06-17 12:46 | PN ---
Progress Note, Physician History of Present Illness: Pt seen and examined at bedside. He is awake and alert. He denies shortness of breath. - Current Medication List Current Medications: Active Medications Acetaminophen (Tylenol -) 650 mg PO Q6H PRN PRN Reason: FEVER Last Admin: 06/04/19 01:38 Dose: 650 mg Amlodipine Besylate (Norvasc -) 10 mg PO DAILY [facility] Last Admin: 06/17/19 11:52 Dose: 10 mg Atorvastatin Calcium (Lipitor -) 40 mg PO HS [facility] Last Admin: 06/16/19 21:34 Dose: 40 mg Carvedilol (Coreg -) 25 mg PO BID [facility] Last Admin: 06/17/19 11:51 Dose: 25 mg Fentanyl (Sublimaze Injection -) 25 mcg IVPUSH [id number] PRN PRN Reason: PAIN-PACU ORDER X 4 DOSES ONLY Furosemide (Lasix Injection -) 40 mg IVPUSH ONCE ONE Stop: 06/17/19 12:43 Guaifenesin (Diabetic Tussin Dm -) 10 ml PO Q4H PRN PRN Reason: COUGH Ceftriaxone Sodium 2 gm/ (Dextrose) 100 mls @ 200 mls/hr IVPB DAILY [facility]; Protocol Last Admin: 06/17/19 11:53 Dose: 200 mls/hr Insulin Aspart (Novolog Vial Sliding Scale -) 1 vial SQ ACHS [facility]; Protocol Last Admin: 06/17/19 12:40 Dose: 5 unit Insulin Detemir (Levemir Vial) 10 units SQ HS [facility] Last Admin: 06/16/19 21:33 Dose: 10 units Insulin Detemir (Levemir Vial) 25 units SQ AM [facility] Last Admin: 06/17/19 06:58 Dose: 25 units Metoclopramide HCl (Reglan Injection -) 10 mg IVPB Q8H [facility] Last Admin: 06/17/19 06:58 Dose: 10 mg Pantoprazole Sodium (Protonix Iv) 40 mg IVPUSH DAILY [facility] Last Admin: 06/17/19 11:52 Dose: 40 mg Polysaccharide Iron Complex (Niferex-150 -) 150 mg PO DAILY [facility] Last Admin: 06/17/19 11:52 Dose: 150 mg Sodium Bicarbonate (Sodium Bicarbonate -) 325 mg PO BID [facility] Last Admin: 06/16/19 21:34 Dose: 325 mg - Objective Vital Signs: Vital Signs Temperature 99.2 F 06/17/19 09:00 Pulse Rate 69 06/17/19 09:00 Respiratory Rate 18 06/17/19 09:00 Blood Pressure 128/65 06/17/19 09:00 O2 Sat by Pulse Oximetry (%) 96 06/16/19 21:00 Constitutional: Yes: Calm Eyes: Yes: Conjunctiva Clear HENT: Yes: Atraumatic Neck: Yes: Supple Cardiovascular: Yes: S1, S2 Respiratory: Yes: CTA Bilaterally Gastrointestinal: Yes: Soft Genitourinary: Yes: WNL Musculoskeletal: Yes: WNL Edema: Yes Edema: LLE: 1+, RLE: 1+ Neurological: Yes: Oriented Psychiatric: Yes: Oriented Labs: CBC, BMP 06/17/19 07:30 06/17/19 07:30 INR, PTT INR 1.26 (0.83-1.09) H 06/02/19 08:10 Problem List - Problems (1) Cellulitis Code(s): L03.90 - CELLULITIS, UNSPECIFIED Qualifiers: Site of cellulitis: extremity Site of cellulitis of extremity: lower extremity Laterality: right Qualified Code(s): L03.115 - Cellulitis of right lower limb (2) Renal failure Code(s): N19 - UNSPECIFIED KIDNEY FAILURE Qualifiers: Renal failure chronicity: unspecified chronicity Qualified Code(s): N19 - Unspecified kidney failure (3) Sepsis Code(s): A41.9 - SEPSIS, UNSPECIFIED ORGANISM Qualifiers: Sepsis type: sepsis due to unspecified organism Sepsis acute organ dysfunction status: unspecified Qualified Code(s): A41.9 - Sepsis, unspecified organism Assessment/Plan Current Medications Generic Name Dose Route Start Last Admin Trade Name Freq PRN Reason Stop Dose Admin Acetaminophen 650 mg 06/01/19 18:27 06/04/19 01:38 Tylenol - PO 650 mg Q6H PRN Administration FEVER Amlodipine Besylate 10 mg 06/07/19 10:30 06/17/19 11:52 Norvasc - PO 10 mg DAILY [facility] Administration Atorvastatin Calcium 40 mg 06/01/19 22:00 06/16/19 21:34 Lipitor - PO 40 mg HS [facility] Administration Carvedilol 25 mg 06/01/19 22:00 06/17/19 11:51 Coreg - PO 25 mg BID [facility] Administration Fentanyl 25 mcg 06/10/19 14:57 Sublimaze Injection - IVPUSH [id number] PRN PAIN-PACU ORDER X 4 DOSES ONLY Guaifenesin 10 ml 06/11/19 11:47 Diabetic Tussin Dm - PO Q4H PRN COUGH Ceftriaxone Sodium 2 gm/ 100 mls @ 200 mls/hr 06/12/19 10:00 06/17/19 11:53 Dextrose IVPB 200 mls/hr DAILY [facility] Administration Protocol Insulin Aspart 1 vial 06/07/19 22:42 06/17/19 12:40 Novolog Vial Sliding Scale - SQ 5 unit ACHS [facility] Administration Protocol Insulin Detemir 10 units 06/04/19 22:00 06/16/19 21:33 Levemir Vial SQ 10 units HS [facility] Administration Insulin Detemir 25 units 06/12/19 07:00 06/17/19 06:58 Levemir Vial SQ 25 units AM [facility] Administration Metoclopramide HCl 10 mg 06/06/19 14:15 06/17/19 06:58 Reglan Injection - IVPB 10 mg Q8H [facility] Administration Pantoprazole Sodium 40 mg 06/04/19 12:30 06/17/19 11:52 Protonix Iv IVPUSH 40 mg DAILY [facility] Administration Polysaccharide Iron Complex 150 mg 06/16/19 10:00 06/17/19 11:52 Niferex-150 - PO 150 mg DAILY [facility] Administration Sodium Bicarbonate 325 mg 06/16/19 22:00 06/16/19 21:34 Sodium Bicarbonate - PO 325 mg BID [facility] Administration Impression 1. [place] 2. ckd 3. dm 4. cellulitis 5. pvd 6. htn Plan - renal function starting to improve - will give another dose of lasix - repeat labs in am - montior lytes - refusing biopsy - avoid nephrotoxins
[2019-06-17] MEDS ORDERED: PT OWN MED DRAWER 7, Y5N ONE (14:45)
[2019-06-17] MEDS: SODIUM BICARBONATE 325 MG TABLET PO SCH ×2 (15:08→22:18)
[2019-06-17] MEDS ORDERED: FLU VACCINE QUAD 60 MCG/0.5 ML (MDV 19-20) IM ONE (17:06)
[2019-06-17] MEDS: ATORVASTATIN CA 40 MG TABLET (FP) PO SCH (22:15)
[2019-06-18] MEDS: INSULIN SLIDING SCALE (NOVOLOG) 1 VIAL SQ SCH ×4 (06:10→22:22)
[2019-06-18] MEDS: METOCLOPRAMIDE HCL INJECTION 10 MG/2 ML VIAL IVPB SCH ×3 (06:10→22:16)
[2019-06-18] MEDS: INSULIN (LEVEMIR) 100 UNITS/ML UNITS SQ SCH ×2 (06:10→22:14)
[2019-06-18 09:14] LABS: BASO % 0.6 % (0-2.0); EOS % 4.1 % (0-4.5); HEMATOCRIT 23.9 % (35.4-49); HEMOGLOBIN 7.7 GM/dL (11.7-16.9); LYMPH % 12.8 % (8-40); MCH 29.2 pg (25.7-33.7); MCHC 32.1 g/dl (32.0-35.9); MEAN CELL VOLUME 91.1 fl (80-96); NEUT % 64.5 % (42.8-82.8); PLATELET COUNT 149 K/MM3 (134-434); RBC 2.63 M/mm3 (4.00-5.60); RDW 14.2 % (11.9-15.9)
[2019-06-18] MEDS ORDERED: DEXTROSE 5%-WATER 100 ML IVPB ONE (09:27)
[2019-06-18] MEDS: CEFTRIAXONE 2 GM in DEXTROSE 5%-WATER 100 ML IVPB SCH (09:31)
[2019-06-18] MEDS: PANTOPRAZOLE SODIUM 40 MG VIAL IVPUSH SCH (09:31)
[2019-06-18] MEDS: amLODIPine BESYLATE 10 MG TABLET (FP) PO SCH (09:33)
[2019-06-18] MEDS: SODIUM BICARBONATE 325 MG TABLET PO SCH ×2 (09:33→22:15)
[2019-06-18] MEDS: IRON POLYSACCHARIDES 150 MG CAPSULE PO SCH (09:33)
[2019-06-18] MEDS: CARVEDILOL 25 MG TABLET (FP) PO SCH ×2 (09:33→22:14)
[2019-06-18 09:44] LABS: BILIRUBIN,TOTAL 0.2 mg/dL (0.2-1); BLOOD UREA NITROGEN 91.7 mg/dL (7-18); CALCIUM 7.4 mg/dL (8.5-10.1); CREATININE 6.1 mg/dL (0.55-1.3); POTASSIUM 4.7 mmol/L (3.5-5.1); TOT PROT 6.3 g/dl (6.4-8.2)
--- NOTE | 2019-06-18 11:39 | PN ---
Progress Note, Physician Chief Complaint: RLE cellulitis [place] Abdominal pain History of Present Illness: Feels better Denies any N/V/abd pain RLE pain improved seen by Podiatry MRI RLE shows abscess formation, bone marrow edema with possible osteomyelitis S/P Right foot I&D under MAC ROOSEVLET- seen by nephrology + Wound vac, dressing change Q72H, no drainage Pt agreeable to SNF- [facility] Discharge held yesterday 2/2 to rising BUN/Cr. Was given furosemide by nephrology. - Current Medication List Current Medications: Active Medications Acetaminophen (Tylenol -) 650 mg PO Q6H PRN PRN Reason: FEVER Last Admin: 06/04/19 01:38 Dose: 650 mg Amlodipine Besylate (Norvasc -) 10 mg PO DAILY [facility] Last Admin: 06/18/19 09:33 Dose: 10 mg Atorvastatin Calcium (Lipitor -) 40 mg PO HS [facility] Last Admin: 06/17/19 22:15 Dose: 40 mg Carvedilol (Coreg -) 25 mg PO BID [facility] Last Admin: 06/18/19 09:33 Dose: 25 mg Fentanyl (Sublimaze Injection -) 25 mcg IVPUSH [id number] PRN PRN Reason: PAIN-PACU ORDER X 4 DOSES ONLY Guaifenesin (Diabetic Tussin Dm -) 10 ml PO Q4H PRN PRN Reason: COUGH Ceftriaxone Sodium 2 gm/ (Dextrose) 100 mls @ 200 mls/hr IVPB DAILY [facility]; Protocol Last Admin: 06/18/19 09:31 Dose: 200 mls/hr Insulin Aspart (Novolog Vial Sliding Scale -) 1 vial SQ [facility]; Protocol Last Admin: 06/18/19 06:10 Dose: Not Given Insulin Detemir (Levemir Vial) 10 units SQ HS [facility] Last Admin: 06/17/19 22:20 Dose: 10 units Insulin Detemir (Levemir Vial) 25 units SQ AM [facility] Last Admin: 06/18/19 06:10 Dose: 25 units Metoclopramide HCl (Reglan Injection -) 10 mg IVPB Q8H [facility] Last Admin: 06/18/19 06:10 Dose: 10 mg Pantoprazole Sodium (Protonix Iv) 40 mg IVPUSH DAILY [facility] Last Admin: 06/18/19 09:31 Dose: 40 mg Polysaccharide Iron Complex (Niferex-150 -) 150 mg PO DAILY [facility] Last Admin: 06/18/19 09:33 Dose: 150 mg Sodium Bicarbonate (Sodium Bicarbonate -) 325 mg PO BID [facility] Last Admin: 06/18/19 09:33 Dose: 325 mg - Objective Vital Signs: Vital Signs Temperature 99.4 F 06/18/19 05:00 Pulse Rate 66 06/18/19 05:00 Respiratory Rate 18 06/18/19 05:00 Blood Pressure 134/65 06/18/19 05:00 O2 Sat by Pulse Oximetry (%) 97 06/17/19 21:00 Constitutional: Yes: Well Nourished, No Distress, Calm Cardiovascular: Yes: Regular Rate and Rhythm Respiratory: Yes: Regular, CTA Bilaterally Gastrointestinal: Yes: Normal Bowel Sounds, Soft, Abdomen, Obese Genitourinary: Yes: WNL Musculoskeletal: Yes: WNL Extremities: Yes: Erythema (R foot) Edema: Yes (right foot non pitting ed) Peripheral Pulses WNL: Yes Wound/Incision: Yes: Dressing Dry and Intact Neurological: Yes: Alert, Oriented Psychiatric: Yes: Alert, Oriented Labs: CBC, BMP 06/18/19 07:15 06/18/19 07:15 INR, PTT INR 1.26 (0.83-1.09) H 06/02/19 08:10 Problem List - Problems (1) Anemia Assessment/Plan: -ALEX vs CKD -Stool OB negative -Iron % low -Iron polysaccharide po daily -Injectafer once this admission -s/p 1 U PRBC -Follow trend Problems reviewed: Yes Code(s): D64.9 - ANEMIA, UNSPECIFIED (2) Cellulitis Assessment/Plan: -RLE -ID consult -Ceftriaxone 2 gm daily x 6 weeks -Cultures: Microbiology 06/10/19 14:21 Foot - Right Sole Gram Stain - Final 06/10/19 14:21 Foot - Right Sole Wound Culture - Final Escherichia Coli 06/10/19 11:00 Abscess Gram Stain - Final 06/10/19 11:00 Abscess Wound Culture - Final Escherichia Coli 06/10/19 11:00 Foot - Right Plantar Gram Stain - Final 06/10/19 11:00 Foot - Right Plantar Wound Culture - Final Escherichia Coli 06/04/19 19:00 Blood - Peripheral Venous Blood Culture - Final NO GROWTH AFTER 5 DAYS INCUBATION 06/04/19 19:00 Blood - Peripheral Venous Blood Culture - Final NO GROWTH AFTER 5 DAYS INCUBATION 06/01/19 11:15 Blood - Peripheral Venous Blood Culture - Final NO GROWTH AFTER 5 DAYS INCUBATION 06/01/19 11:15 Blood - Peripheral Venous Blood Culture - Final NO GROWTH AFTER 5 DAYS INCUBATION 06/01/19 13:57 Urine - Urine Clean Catch Urine Culture - Final NO GROWTH OBTAINED -Leukocytosis improved -Repeat LA normal -MRI RLE-reviewed- abscess formation with second metatarsal bone marrow edema with possible osteomyelitis -Podiatry consult appreciated -S/P Right foot I&D -Right foot wound vac Problems reviewed: Yes Code(s): L03.90 - CELLULITIS, UNSPECIFIED Qualifiers: Site of cellulitis: extremity Site of cellulitis of extremity: lower extremity Laterality: right Qualified Code(s): L03.115 - Cellulitis of right lower limb (3) Acute on chronic renal insufficiency Assessment/Plan: -Nephrology consult -monitor trend -Renal U/S with chronic medical renal dz- no hydronephrosis, mildly distended bladder -UC negative Problems reviewed: Yes Code(s): N28.9 - DISORDER OF KIDNEY AND URETER, UNSPECIFIED; N18.9 - CHRONIC KIDNEY DISEASE, UNSPECIFIED (4) Diabetes Assessment/Plan: -A1c at 8.6 -BGM AC HS -ISS -Levemir -Endocrine consult Problems reviewed: Yes Code(s): E11.9 - TYPE 2 DIABETES MELLITUS WITHOUT COMPLICATIONS Qualifiers: Chronic kidney disease stage: stage 3 (moderate) (5) Hypertension Assessment/Plan: -Increased Amlodipine to 10 mg po daily -Continue Carvedilol -monitor trend Problems reviewed: Yes Code(s): I10 - ESSENTIAL (PRIMARY) HYPERTENSION (6) Abdominal pain Assessment/Plan: -resolved -Zofram discontinued, started on Reglan for nausea/vomiting and possible gastroperesis -PPI -CT abd/pelvis reviewed-unremarkable -Bladder scan unremarkable -GI consult appreciated Problems reviewed: Yes Code(s): R10.9 - UNSPECIFIED ABDOMINAL PAIN Assessment/Plan see problem list Physical therapy DVT ppx D/C to SNF when cleared by nephrology
--- NOTE | 2019-06-18 13:52 | PN ---
Progress Note, Physician History of Present Illness: Pt seen and examined at bedside. He is awake and alert. He complains of lower ext edema. - Current Medication List Current Medications: Active Medications Acetaminophen (Tylenol -) 650 mg PO Q6H PRN PRN Reason: FEVER Last Admin: 06/04/19 01:38 Dose: 650 mg Amlodipine Besylate (Norvasc -) 10 mg PO DAILY [facility] Last Admin: 06/18/19 09:33 Dose: 10 mg Atorvastatin Calcium (Lipitor -) 40 mg PO HS [facility] Last Admin: 06/17/19 22:15 Dose: 40 mg Carvedilol (Coreg -) 25 mg PO BID [facility] Last Admin: 06/18/19 09:33 Dose: 25 mg Fentanyl (Sublimaze Injection -) 25 mcg IVPUSH [id number] PRN PRN Reason: PAIN-PACU ORDER X 4 DOSES ONLY Guaifenesin (Diabetic Tussin Dm -) 10 ml PO Q4H PRN PRN Reason: COUGH Ceftriaxone Sodium 2 gm/ (Dextrose) 100 mls @ 200 mls/hr IVPB DAILY [facility]; Protocol Last Admin: 06/18/19 09:31 Dose: 200 mls/hr Insulin Aspart (Novolog Vial Sliding Scale -) 1 vial SQ ACHS [facility]; Protocol Last Admin: 06/18/19 12:09 Dose: 5 unit Insulin Detemir (Levemir Vial) 10 units SQ HS [facility] Last Admin: 06/17/19 22:20 Dose: 10 units Insulin Detemir (Levemir Vial) 25 units SQ AM [facility] Last Admin: 06/18/19 06:10 Dose: 25 units Metoclopramide HCl (Reglan Injection -) 10 mg IVPB Q8H [facility] Last Admin: 06/18/19 06:10 Dose: 10 mg Pantoprazole Sodium (Protonix Iv) 40 mg IVPUSH DAILY [facility] Last Admin: 06/18/19 09:31 Dose: 40 mg Polysaccharide Iron Complex (Niferex-150 -) 150 mg PO DAILY [facility] Last Admin: 06/18/19 09:33 Dose: 150 mg Sodium Bicarbonate (Sodium Bicarbonate -) 325 mg PO BID [facility] Last Admin: 06/18/19 09:33 Dose: 325 mg - Objective Vital Signs: Vital Signs Temperature 98.3 F 06/18/19 09:00 Pulse Rate 63 06/18/19 09:00 Respiratory Rate 18 06/18/19 09:00 Blood Pressure 147/72 06/18/19 09:00 O2 Sat by Pulse Oximetry (%) 93 L 06/18/19 09:00 Constitutional: Yes: Calm Eyes: Yes: Conjunctiva Clear HENT: Yes: Atraumatic Neck: Yes: Supple Cardiovascular: Yes: S1, S2 Respiratory: Yes: CTA Bilaterally Gastrointestinal: Yes: Soft Genitourinary: Yes: WNL Edema: Yes Edema: LLE: 1+, RLE: 1+ Wound/Incision: Yes: Other (wound vac) Neurological: Yes: Oriented Psychiatric: Yes: Oriented Labs: CBC, BMP 06/18/19 07:15 06/18/19 07:15 INR, PTT INR 1.26 (0.83-1.09) H 06/02/19 08:10 Problem List - Problems (1) Cellulitis Code(s): L03.90 - CELLULITIS, UNSPECIFIED Qualifiers: Site of cellulitis: extremity Site of cellulitis of extremity: lower extremity Laterality: right Qualified Code(s): L03.115 - Cellulitis of right lower limb (2) Renal failure Code(s): N19 - UNSPECIFIED KIDNEY FAILURE Qualifiers: Renal failure chronicity: unspecified chronicity Qualified Code(s): N19 - Unspecified kidney failure (3) Sepsis Code(s): A41.9 - SEPSIS, UNSPECIFIED ORGANISM Qualifiers: Sepsis type: sepsis due to unspecified organism Sepsis acute organ dysfunction status: unspecified Qualified Code(s): A41.9 - Sepsis, unspecified organism Assessment/Plan Current Medications Generic Name Dose Route Start Last Admin Trade Name Freq PRN Reason Stop Dose Admin Acetaminophen 650 mg 06/01/19 18:27 06/04/19 01:38 Tylenol - PO 650 mg Q6H PRN Administration FEVER Amlodipine Besylate 10 mg 06/07/19 10:30 06/18/19 09:33 Norvasc - PO 10 mg DAILY [facility] Administration Atorvastatin Calcium 40 mg 06/01/19 22:00 06/17/19 22:15 Lipitor - PO 40 mg HS [facility] Administration Carvedilol 25 mg 06/01/19 22:00 06/18/19 09:33 Coreg - PO 25 mg BID [facility] Administration Fentanyl 25 mcg 06/10/19 14:57 Sublimaze Injection - IVPUSH [id number] PRN PAIN-PACU ORDER X 4 DOSES ONLY Guaifenesin 10 ml 06/11/19 11:47 Diabetic Tussin Dm - PO Q4H PRN COUGH Ceftriaxone Sodium 2 gm/ 100 mls @ 200 mls/hr 06/12/19 10:00 06/18/19 09:31 Dextrose IVPB 200 mls/hr DAILY [facility] Administration Protocol Insulin Aspart 1 vial 06/07/19 22:42 06/18/19 12:09 Novolog Vial Sliding Scale - SQ 5 unit ACHS [facility] Administration Protocol Insulin Detemir 10 units 06/04/19 22:00 06/17/19 22:20 Levemir Vial SQ 10 units HS [facility] Administration Insulin Detemir 25 units 06/12/19 07:00 06/18/19 06:10 Levemir Vial SQ 25 units AM [facility] Administration Metoclopramide HCl 10 mg 06/06/19 14:15 06/18/19 06:10 Reglan Injection - IVPB 10 mg Q8H [facility] Administration Pantoprazole Sodium 40 mg 06/04/19 12:30 06/18/19 09:31 Protonix Iv IVPUSH 40 mg DAILY [facility] Administration Polysaccharide Iron Complex 150 mg 06/16/19 10:00 06/18/19 09:33 Niferex-150 - PO 150 mg DAILY [facility] Administration Sodium Bicarbonate 325 mg 06/16/19 22:00 06/18/19 09:33 Sodium Bicarbonate - PO 325 mg BID [facility] Administration Impression 1. ROOSEVELT 2. ckd 3. dm 4. cellulitis 5. pvd 6. htn Plan - will give another dose of lasix to help with volume - content strategy lead is improving - refusing kidney biopsy - avoid nephrotoxins - repeat labs in am
[2019-06-18 14:30] LABS: ANISOCYTOSIS 2+; MACROCYTOSIS 0; PLATELET ESTIMATE DECREASED
[2019-06-18] MEDS ORDERED: FUROSEMIDE 40 MG/4 ML INJECTABLE VIAL IVPB ONE (14:30)
[2019-06-18] MEDS ORDERED: FLU VACCINE QUAD 60 MCG/0.5 ML (MDV 19-20) IM ONE (20:30)
[2019-06-18] MEDS ORDERED: PT OWN MED DRAWER 7, Y5N ONE (21:42)
[2019-06-18] MEDS: ATORVASTATIN CA 40 MG TABLET (FP) PO SCH (22:15)
[2019-06-19] MEDS: METOCLOPRAMIDE HCL INJECTION 10 MG/2 ML VIAL IVPB SCH (06:11)
[2019-06-19] MEDS: INSULIN SLIDING SCALE (NOVOLOG) 1 VIAL SQ SCH ×3 (06:13→17:31)
[2019-06-19] MEDS: INSULIN (LEVEMIR) 100 UNITS/ML UNITS SQ SCH (06:14)
--- NOTE | 2019-06-19 08:59 | DS ---
Physical Examination Vital Signs: Vital Signs Temperature 98.8 F 06/19/19 06:00 Pulse Rate 66 06/19/19 06:00 Respiratory Rate 18 06/19/19 06:00 Blood Pressure 131/59 L 06/19/19 06:00 O2 Sat by Pulse Oximetry (%) 95 06/18/19 22:45 Cardiovascular: Yes: S1 Respiratory: Yes: Regular, CTA Bilaterally Gastrointestinal: Yes: Normal Bowel Sounds, Soft Extremities: Yes: Other (vac dressing amputation) Labs: CBC, BMP 06/18/19 07:15 06/18/19 07:15 Discharge Summary Problems reviewed: Yes Reason For Visit: CELLULITIS Current Active Problems Abdominal pain (Acute) Acute on chronic renal insufficiency (Acute) Anemia (Acute) Cellulitis (Acute) DVT prophylaxis (Acute) Diabetes (Acute) Diabetes with ulcer of foot (Acute) Dizziness (Acute) Epigastric abdominal pain (Acute) Foot abscess, right (Acute) Hypertension (Acute) Left foot amputee (Acute) Preop cardiovascular exam (Acute) Prophylactic measure (Acute) Renal failure (Acute) Sepsis (Acute) Type 2 diabetes mellitus with diabetic chronic kidney disease (Acute) Hospital Course: Feels better Denies any N/V/abd pain RLE pain improved seen by Podiatry MRI RLE shows abscess formation, bone marrow edema with possible osteomyelitis S/P Right foot I&D under MAC [place]- seen by nephrology + Wound vac, dressing change Q72H, no drainage Pt agreeable to SNF- [facility] Patient is a 64 year old male with a significant past medical history of peripheral vascular disease, hypertension, hyperlipidemia, diabetes, CHF, left midfoot amputation. He comes to [facility] today after his aide noticed that his right lower extremity with increased swelling, redness and pain. Pain and swelling began three weeks ago but was mild. Patient saw his floral design teacher on May 25 and was started on clindamycin, but his pain, redness and symptoms slowly worsened despite the antibiotics. The redness was limited to his right foot and now has extended to the right knee. He reports fevers, chills and body aches. In the ED he was febrile, having right leg discomfort pain 7/10, unable to move this extremity and very tender to touch. (1) Anemia Assessment/Plan: -ALEX vs CKD -Stool OB negative -Iron % low -Iron polysaccharide po daily -Injectafer once yesterday -s/p 1 U PRBC -Follow trend Problems reviewed: Yes Code(s): D64.9 - ANEMIA, UNSPECIFIED (2) Cellulitis Assessment/Plan: -RLE -ID consult -IV abx-Ceftriaxone 2 gm daily x 6 weeks -Cultures: Microbiology 06/10/19 14:21 Foot - Right Sole Gram Stain - Final 06/10/19 14:21 Foot - Right Sole Wound Culture - Final Escherichia Coli 06/10/19 11:00 Abscess Gram Stain - Final 06/10/19 11:00 Abscess Wound Culture - Final Escherichia Coli 06/10/19 11:00 Foot - Right Plantar Gram Stain - Final 06/10/19 11:00 Foot - Right Plantar Wound Culture - Final Escherichia Coli 06/04/19 19:00 Blood - Peripheral Venous Blood Culture - Final NO GROWTH AFTER 5 DAYS INCUBATION 06/04/19 19:00 Blood - Peripheral Venous Blood Culture - Final NO GROWTH AFTER 5 DAYS INCUBATION 06/01/19 11:15 Blood - Peripheral Venous Blood Culture - Final NO GROWTH AFTER 5 DAYS INCUBATION 06/01/19 11:15 Blood - Peripheral Venous Blood Culture - Final NO GROWTH AFTER 5 DAYS INCUBATION 06/01/19 13:57 Urine - Urine Clean Catch Urine Culture - Final NO GROWTH OBTAINED -Leukocytosis improved -Repeat LA normal -MRI RLE-reviewed- abscess formation with second metatarsal bone marrow edema with possible osteomyelitis -Podiatry consult appreciated -S/P Right foot I&D -Right foot wound vac Problems reviewed: Yes Code(s): L03.90 - CELLULITIS, UNSPECIFIED Qualifiers: Site of cellulitis: extremity Site of cellulitis of extremity: lower extremity Laterality: right Qualified Code(s): L03.115 - Cellulitis of right lower limb (3) Acute on chronic renal insufficiency Assessment/Plan: -Nephrology consult -monitor trend -Renal U/S with chronic medical renal dz- no hydronephrosis, mildly distended bladder -UC negative Problems reviewed: Yes Code(s): N28.9 - DISORDER OF KIDNEY AND URETER, UNSPECIFIED; N18.9 - CHRONIC KIDNEY DISEASE, UNSPECIFIED (4) Diabetes Assessment/Plan: -A1c at 8.6 -BGM AC HS -ISS -Levemir -Endocrine consult Problems reviewed: Yes Code(s): E11.9 - TYPE 2 DIABETES MELLITUS WITHOUT COMPLICATIONS Qualifiers: Chronic kidney disease stage: stage 3 (moderate) (5) Hypertension Assessment/Plan: -Increased Amlodipine to 10 mg po daily -Continue Carvedilol -monitor trend Problems reviewed: Yes Code(s): I10 - ESSENTIAL (PRIMARY) HYPERTENSION (6) Abdominal pain Assessment/Plan: -resolved -Zofram discontinued, started on Reglan for nausea/vomiting and possible gastroperesis -PPI -CT abd/pelvis reviewed-unremarkable -Bladder scan unremarkable -GI consult appreciated Problems reviewed: Yes Code(s): R10.9 - UNSPECIFIED ABDOMINAL PAIN Goals: Appointment made with Dr Pfeiffer- Wound Center [facility]- SaturdayJune 15/2020- 1PM. Condition: Stable - Instructions Diet, Activity, Other Instructions: Change wound vac dressing Q72H Wound vac settings at 125 mm Hg Needs ceftriaxone 2 g daily x 6 weeks Repeat CBC/CMP weekly F/U with Dr Pfeiffer-Podiatry, at wound care center weekly Referrals: Diomedes Bills MD [Primary Care Provider] - Disposition: [facility] - Home Medications Comprehensive Discharge Medication List: Ambulatory Orders Acetaminophen [Tylenol .Regular Strength -] 650 mg PO Q6H PRN tablet 06/16/19 Amlodipine Besylate [Norvasc -] 10 mg PO DAILY tablet 06/16/19 Atorvastatin Ca [Lipitor] 40 mg PO HS tablet 06/16/19 Carvedilol [Coreg -] 25 mg PO BID tablet 06/16/19 Ceftriaxone [Rocephin -] 2 gm IVPB DAILY #44 vial 06/16/19 Guaifenesin/D-Methorphan Hb [Diabetic Tussin Dm -] 10 ml PO Q4H PRN ml Heparin - 5,000 unit SQ BID vial 06/16/19 Insulin (Levemir) [Levemir Vial] 10 units SQ HS units 06/16/19 Insulin (Levemir) [Levemir Vial] 25 units SQ AM units 06/16/19 Insulin Sliding Scale [Novolog Vial Sliding Scale -] 1 vial SQ ACHS units 06/16 Iron Polysaccharides [Niferex-150 -] 150 mg PO DAILY capsule 06/16/19 Metoclopramide HCl [Reglan] 5 mg PO TID PRN #90 tablet 06/16/19 Sodium Bicarbonate - 650 mg PO BID tablet 06/16/19 Pantoprazole Sodium [Protonix -] 40 mg PO DAILY tablet.ec 06/19/19
[2019-06-19 09:17] LABS: HEMATOCRIT 23.5 % (35.4-49); HEMOGLOBIN 7.7 GM/dL (11.7-16.9); MCH 29.6 pg (25.7-33.7); MCHC 32.6 g/dl (32.0-35.9); MEAN CELL VOLUME 90.6 fl (80-96); MEAN PLT VOLUME 8.9 fl (7.5-11.1); PLATELET COUNT 137 K/MM3 (134-434); RBC 2.59 M/mm3 (4.00-5.60); RDW 14.2 % (11.9-15.9); WHITE BLOOD COUNT 7.1 K/mm3 (4.0-10.0)
[2019-06-19 09:37] LABS: CALCIUM 7.3 mg/dL (8.5-10.1); CREATININE 6.3 mg/dL (0.55-1.3); POTASSIUM 4.8 mmol/L (3.5-5.1)
[2019-06-19] MEDS ORDERED: PANTOPRAZOLE 40 MG TABLET PO SCH (10:00)
[2019-06-19] MEDS ORDERED: DEXTROSE 5%-WATER 100 ML IVPB ONE (11:31)
[2019-06-19] MEDS: CARVEDILOL 25 MG TABLET (FP) PO SCH (11:40)
[2019-06-19] MEDS: METOCLOPRAMIDE HCL 10 MG TABLET (FP) PO SCH ×2 (11:40→17:32)
[2019-06-19] MEDS: amLODIPine BESYLATE 10 MG TABLET (FP) PO SCH (11:40)
[2019-06-19] MEDS: CEFTRIAXONE 2 GM in DEXTROSE 5%-WATER 100 ML IVPB SCH (11:41)
[2019-06-19] MEDS: IRON POLYSACCHARIDES 150 MG CAPSULE PO SCH (11:41)
[2019-06-19] MEDS: SODIUM BICARBONATE 325 MG TABLET PO SCH (11:43)
[2019-06-19] MEDS ORDERED: FUROSEMIDE 40 MG/4 ML INJECTABLE VIAL IVPUSH ONE (16:16)
--- NOTE | 2019-06-19 16:16 | PN ---
Progress Note, Physician History of Present Illness: Pt seen and examined at bedside. He is awake and alert. He denies shortness of breath. He is refusing HD. - Current Medication List Current Medications: Active Medications Acetaminophen (Tylenol -) 650 mg PO Q6H PRN PRN Reason: FEVER Last Admin: 06/04/19 01:38 Dose: 650 mg Amlodipine Besylate (Norvasc -) 10 mg PO DAILY [facility] Last Admin: 06/19/19 11:40 Dose: 10 mg Atorvastatin Calcium (Lipitor -) 40 mg PO HS [facility] Last Admin: 06/18/19 22:15 Dose: 40 mg Carvedilol (Coreg -) 25 mg PO BID [facility] Last Admin: 06/19/19 11:40 Dose: 25 mg Fentanyl (Sublimaze Injection -) 25 mcg IVPUSH [id number] PRN PRN Reason: PAIN-PACU ORDER X 4 DOSES ONLY Guaifenesin (Diabetic Tussin Dm -) 10 ml PO Q4H PRN PRN Reason: COUGH Ceftriaxone Sodium 2 gm/ (Dextrose) 100 mls @ 200 mls/hr IVPB DAILY [facility]; Protocol Last Admin: 06/19/19 11:41 Dose: 200 mls/hr Insulin Aspart (Novolog Vial Sliding Scale -) 1 vial SQ ACHS [facility]; Protocol Last Admin: 06/19/19 13:57 Dose: 5 unit Insulin Detemir (Levemir Vial) 10 units SQ HS [facility] Last Admin: 06/18/19 22:14 Dose: 10 units Insulin Detemir (Levemir Vial) 25 units SQ AM [facility] Last Admin: 06/19/19 06:14 Dose: 25 units Metoclopramide HCl (Reglan -) 10 mg PO TIDAC [facility] Last Admin: 06/19/19 11:40 Dose: 10 mg Pantoprazole Sodium (Protonix -) 40 mg PO DAILY [facility] Last Admin: 06/19/19 11:40 Dose: 40 mg Polysaccharide Iron Complex (Niferex-150 -) 150 mg PO DAILY [facility] Last Admin: 06/19/19 11:41 Dose: 150 mg Sodium Bicarbonate (Sodium Bicarbonate -) 325 mg PO BID [facility] Last Admin: 06/19/19 11:43 Dose: 325 mg - Objective Vital Signs: Vital Signs Temperature 98.8 F 06/19/19 06:00 Pulse Rate 66 06/19/19 06:00 Respiratory Rate 18 06/19/19 06:00 Blood Pressure 131/59 L 06/19/19 06:00 O2 Sat by Pulse Oximetry (%) 95 06/18/19 22:45 Constitutional: Yes: Calm Eyes: Yes: Conjunctiva Clear HENT: Yes: Atraumatic Neck: Yes: Supple Cardiovascular: Yes: S1, S2 Respiratory: Yes: CTA Bilaterally Gastrointestinal: Yes: Soft Genitourinary: Yes: WNL Musculoskeletal: Yes: WNL Edema: Yes Edema: LLE: 1+, RLE: 1+ Neurological: Yes: Oriented Psychiatric: Yes: Oriented Labs: CBC, BMP 06/19/19 07:43 06/19/19 07:43 INR, PTT INR 1.26 (0.83-1.09) H 06/02/19 08:10 Problem List - Problems (1) Cellulitis Code(s): L03.90 - CELLULITIS, UNSPECIFIED Qualifiers: Site of cellulitis: extremity Site of cellulitis of extremity: lower extremity Laterality: right Qualified Code(s): L03.115 - Cellulitis of right lower limb (2) Renal failure Code(s): N19 - UNSPECIFIED KIDNEY FAILURE Qualifiers: Renal failure chronicity: unspecified chronicity Qualified Code(s): N19 - Unspecified kidney failure (3) Sepsis Code(s): A41.9 - SEPSIS, UNSPECIFIED ORGANISM Qualifiers: Sepsis type: sepsis due to unspecified organism Sepsis acute organ dysfunction status: unspecified Qualified Code(s): A41.9 - Sepsis, unspecified organism Assessment/Plan Current Medications Generic Name Dose Route Start Last Admin Trade Name Freq PRN Reason Stop Dose Admin Acetaminophen 650 mg 06/01/19 18:27 06/04/19 01:38 Tylenol - PO 650 mg Q6H PRN Administration FEVER Amlodipine Besylate 10 mg 06/07/19 10:30 06/19/19 11:40 Norvasc - PO 10 mg DAILY [facility] Administration Atorvastatin Calcium 40 mg 06/01/19 22:00 06/18/19 22:15 Lipitor - PO 40 mg HS [facility] Administration Carvedilol 25 mg 06/01/19 22:00 06/19/19 11:40 Coreg - PO 25 mg BID [facility] Administration Fentanyl 25 mcg 06/10/19 14:57 Sublimaze Injection - IVPUSH [id number] PRN PAIN-PACU ORDER X 4 DOSES ONLY Guaifenesin 10 ml 06/11/19 11:47 Diabetic Tussin Dm - PO Q4H PRN COUGH Ceftriaxone Sodium 2 gm/ 100 mls @ 200 mls/hr 06/12/19 10:00 06/19/19 11:41 Dextrose IVPB 200 mls/hr DAILY [facility] Administration Protocol Insulin Aspart 1 vial 06/07/19 22:42 06/19/19 13:57 Novolog Vial Sliding Scale - SQ 5 unit ACHS [facility] Administration Protocol Insulin Detemir 10 units 06/04/19 22:00 06/18/19 22:14 Levemir Vial SQ 10 units HS [facility] Administration Insulin Detemir 25 units 06/12/19 07:00 06/19/19 06:14 Levemir Vial SQ 25 units AM [facility] Administration Metoclopramide HCl 10 mg 06/19/19 11:00 06/19/19 11:40 Reglan - PO 10 mg TIDAC [facility] Administration Pantoprazole Sodium 40 mg 06/19/19 10:00 06/19/19 11:40 Protonix - PO 40 mg DAILY [facility] Administration Polysaccharide Iron Complex 150 mg 06/16/19 10:00 06/19/19 11:41 Niferex-150 - PO 150 mg DAILY [facility] Administration Sodium Bicarbonate 325 mg 06/16/19 22:00 06/19/19 11:43 Sodium Bicarbonate - PO 325 mg BID [facility] Administration Impression 1. ROOSEVELT 2. ckd 3. dm 4. cellulitis 5. pvd 6. htn Plan - pt refusing kidney biopsy - pt does not want hd therapy at this time - discussed risk of morbidity and mortality - discussed with medical team to monitor labs in rehab - lasix prn to help with volume - will give another dose of lasix today - avoid nephrotoxins
[2019-06-19 16:19] VITALS: TEMP 98.4
[2019-06-19 19:35] VITALS: BP 134/65; PULSE 59
[2019-06-20] MEDS ORDERED: FUROSEMIDE 40 MG TABLET (FP) PO SCH (10:00)
== END 2019-06-19 19:41 | DRG 853 ==
LOC: JER 10:42 → JERBED 16:11 → J5S 06-02 06:30
PROVIDERS: ADMIT Internal Medicine; ATTEND Family Medicine
PROC: 0J9Q0ZZ Drainage of Right Foot Subcutaneous Tissue and Fascia, Open Approach (ICD-10-PCS; principal; 2019-06-10 13:30)
PROC: 02HV33Z Insertion of Infusion Device into Superior Vena Cava, Percutaneous Approach (ICD-10-PCS; 2019-06-19)
PROC: B548ZZA Ultrasonography of Superior Vena Cava, Guidance (ICD-10-PCS; 2019-06-19)
DX: A41.9 Sepsis, unspecified organism (principal); N18.6 End stage renal disease; L03.115 Cellulitis of right lower limb; I13.0 Hypertensive heart and chronic kidney disease with heart failure and stage 1 through stage 4 chronic kidney disease, or unspecified chronic kidney disease; N17.9 Acute kidney failure, unspecified; M86.8X7 Other osteomyelitis, ankle and foot; I50.9 Heart failure, unspecified; E11.40 Type 2 diabetes mellitus with diabetic neuropathy, unspecified; E11.22 Type 2 diabetes mellitus with diabetic chronic kidney disease; Z89.432 Acquired absence of left foot; E11.51 Type 2 diabetes mellitus with diabetic peripheral angiopathy without gangrene; E78.5 Hyperlipidemia, unspecified; D64.9 Anemia, unspecified; Z79.4 Long term (current) use of insulin; I44.0 Atrioventricular block, first degree; E66.9 Obesity, unspecified; Z68.36 Body mass index [BMI] 36.0-36.9, adult; R10.13 Epigastric pain; R42 Dizziness and giddiness; E11.69 Type 2 diabetes mellitus with other specified complication
CPT/HCPCS: 36415; 36430; 36511; 36558; 71045-TC-FY; 71046-TC-FY; 73630-TC-RT-FY; 73718-TC-RT; 74019-TC-FY; 74176-TC; 76775-TC; 76856-TC; 77001-TC-FY; 80048; 80053; 80061; 81003; 82272; 82436; 82550; 82553; 82565; 82607; 82668; 82728; 82746; 82784; 82947; 82962; 83036; 83520; 83540; 83550; 83605; 83721; 83735; 83883; 84100; 84133; 84155; 84156; 84165; 84300; 84443; 84484; 85025; 85027; 85610; 85730; 86038; 86225; 86256; 86850; 86900; 86901; 86922; 87040; 87070; 87086; 87186; 87205; 93005; 93010; 93306-TC; 93926-TC; 93971-TC; 94760; 97116-GP; 97162-GP; 99283-25; C1751; G0008; G0480; J0131; J0735; J1439; J1644; P9038; P9058; Q2036

== ENCOUNTER 2021-04-01 16:38 | Emergency (ER) | payer OTHER ==
[2021-04-01 16:51] VITALS: BMI 31.0
[2021-04-01 17:50] LABS: BASO % 0.9 % (0-2.0); EOS % 0.9 % (0-4.5); HEMATOCRIT 20.4 % (35.4-49); LYMPH % 22.6 % (8-40); MCH 31.7 pg (25.7-33.7); MCHC 33.6 g/dl (32.0-35.9); MEAN CELL VOLUME 94.2 fl (80-96); MEAN PLT VOLUME 9.2 fl (7.5-11.1); MONO % 18.9 % (3.8-10.2); NEUT % 56.7 % (42.8-82.8); PLATELET COUNT 83 10^3/uL (134-434); RBC 2.16 M/mm3 (4.00-5.60); RDW 15.4 % (11.9-15.9); WHITE BLOOD COUNT 6.9 K/mm3 (4.0-10.0)
[2021-04-01 17:57] LABS: INR 1.14 (0.83-1.09); PROTHROMBIN TIME (PATIENT) 12.8 SEC (9.7-13.0)
[2021-04-01 18:00] LABS: ACTIVATED PTT 27.9 SECONDS (25.2-36.5)
[2021-04-01 18:04] LABS: HEMOGLOBIN 6.9 GM/dL (11.7-16.9)
[2021-04-01 18:15] LABS: CHLORIDE 97 mmol/L (98-107); SODIUM 134 mmol/L (136-145)
[2021-04-01 18:17] LABS: CALCIUM 8.8 mg/dL (8.5-10.1)
[2021-04-01 18:18] LABS: ALBUMIN 3.4 g/dl (3.4-5.0); ANION GAP 8 MMOL/L (8-16); BLOOD UREA NITROGEN 52.5 mg/dL (7-18); CO2 28 mmol/L (21-32); GLUCOSE,RANDOM 197 mg/dL (74-106); MAGNESIUM 2.3 mg/dL (1.8-2.4)
[2021-04-01 18:21] LABS: CREATININE 7.1 mg/dL (0.55-1.3); PHOSPHOROUS 3.9 mg/dL (2.5-4.9); SGOT/AST 9 U/L (15-37); SGPT/ALT 19 U/L (13-61)
[2021-04-01 18:22] LABS: BILIRUBIN,TOTAL 0.6 mg/dL (0.2-1)
[2021-04-01 18:23] LABS: TOT PROT 7.5 g/dl (6.4-8.2)
[2021-04-01 18:24] LABS: ALK PHOS 75 U/L (45-117)
[2021-04-01] MEDS ORDERED: FUROSEMIDE 40 MG/4 ML INJECTABLE VIAL IVPUSH ONE (22:07)
[2021-04-01] MEDS ORDERED: FUROSEMIDE 40 MG/4 ML INJECTABLE VIAL ONE (22:14)
[2021-04-01] MEDS ORDERED: guaiFENesin 200 MG/10 ML 10 ML UNIT-DOSE CUPS PO ONE (22:15)
[2021-04-01] MEDS ORDERED: guaiFENesin/D-METHORPHAN HB 10 ML UNIT-DOSE CUPS ONE (22:20)
[2021-04-01 22:24] VITALS: BP 153/63; PULSE 66; TEMP 98.3
== END 2021-04-01 23:42 | disposition home or self-care (01) ==
LOC: JER 16:38
PROC: 3E033GC Introduction of Other Therapeutic Substance into Peripheral Vein, Percutaneous Approach (ICD-10-PCS; principal; 2021-04-01)
DX: D64.9 Anemia, unspecified (principal)
CPT/HCPCS: 36415; 36430; 36511; 71045-TC-FY; 80053; 82550; 83735; 84100; 84443; 84484; 85025; 85610; 85730; 86850; 86900; 86901; 86922; 93005; 93010; 99285-25; C9803; P9038; P9058; U0003; U0005

== ENCOUNTER 2021-08-10 16:50 | Inpatient (IN) | payer OTHER ==
[2021-08-10 17:26] VITALS: BMI 31.1
[2021-08-10] MEDS ORDERED: ALBUTEROL SO4 HFA INHALER IH ONE ×2 (17:35→19:09)
[2021-08-10] MEDS ORDERED: FUROSEMIDE 40 MG/4 ML INJECTABLE VIAL IVPUSH ONE (18:05)
[2021-08-10] MEDS ORDERED: ALBUTEROL SO4 0.5 % INH SOLN 2.5 MG/0.5 ML VIAL.NEB. NEB ONE (18:17)
[2021-08-10] MEDS ORDERED: FUROSEMIDE 40 MG/4 ML INJECTABLE VIAL ONE (18:17)
[2021-08-10 19:12] LABS: BASO % 0.2 % (0-2.0); EOS % 0.8 % (0-4.5); HEMATOCRIT 20.2 % (35.4-49); LYMPH % 22.5 % (8-40); MCH 31.5 pg (25.7-33.7); MCHC 33.4 g/dl (32.0-35.9); MEAN CELL VOLUME 94.4 fl (80-96); MEAN PLT VOLUME 9.9 fl (7.5-11.1); MONO % 21.4 % (3.8-10.2); NEUT % 55.1 % (42.8-82.8); PLATELET COUNT 63 10^3/uL (134-434); RBC 2.14 M/mm3 (4.00-5.60); RDW 15.7 % (11.9-15.9); WHITE BLOOD COUNT 6.1 K/mm3 (4.0-10.0)
[2021-08-10 19:24] LABS: CALCIUM 9.1 mg/dL (8.5-10.1)
[2021-08-10 19:25] LABS: ALBUMIN 3.6 g/dl (3.4-5.0); BLOOD UREA NITROGEN 55.4 mg/dL (7-18)
[2021-08-10 19:28] LABS: CREATININE 7.2 mg/dL (0.55-1.3); HEMOGLOBIN 6.7 GM/dL (11.7-16.9)
[2021-08-10 19:30] LABS: BILIRUBIN,TOTAL 0.7 mg/dL (0.2-1); TOT PROT 7.2 g/dl (6.4-8.2)
[2021-08-10 20:09] LABS: INR 1.1 (0.83-1.09); PROTHROMBIN TIME (PATIENT) 12.7 SEC (9.7-13.0)
[2021-08-11] MEDS: ATORVASTATIN CA 40 MG TABLET (FP) PO SCH ×2 (00:20→23:12)
[2021-08-11] MEDS: INSULIN SLIDING SCALE (NOVOLOG) 1 VIAL SQ SCH ×5 (00:20→23:12)
[2021-08-11] MEDS: MUPIROCIN 2% TOPICAL OINTMENT FOR DECOLONIZATION NS SCH ×3 (00:20→23:11)
[2021-08-11] MEDS: CHLORHEXIDINE GLUCONATE 4% CLEANSER FOR DECOLONIZATION TP SCH ×2 (00:20→23:11)
[2021-08-11] MEDS ORDERED: ATROPINE SO4 0.4 MG/1 ML VIAL IVPUSH ONE (06:29)
[2021-08-11 07:03] LABS: BASO % 0.3 % (0-2.0); EOS % 0.8 % (0-4.5); HEMATOCRIT 22.8 % (35.4-49); HEMOGLOBIN 7.8 GM/dL (11.7-16.9); LYMPH % 20.2 % (8-40); MCH 31.2 pg (25.7-33.7); MEAN CELL VOLUME 91.8 fl (80-96); MEAN PLT VOLUME 9.3 fl (7.5-11.1); MONO % 19.3 % (3.8-10.2); NEUT % 59.4 % (42.8-82.8); PLATELET COUNT 60 10^3/uL (134-434); RBC 2.49 M/mm3 (4.00-5.60); RDW 16.5 % (11.9-15.9); WHITE BLOOD COUNT 6.2 K/mm3 (4.0-10.0)
[2021-08-11 07:20] LABS: CHLORIDE 100 mmol/L (98-107); SODIUM 136 mmol/L (136-145)
[2021-08-11 07:26] LABS: ANION GAP 12 MMOL/L (8-16); BLOOD UREA NITROGEN 59.1 mg/dL (7-18); CALCIUM 8.6 mg/dL (8.5-10.1); CO2 24 mmol/L (21-32); GLUCOSE,RANDOM 155 mg/dL (74-106)
[2021-08-11 07:27] LABS: ALBUMIN 3.3 g/dl (3.4-5.0); MAGNESIUM 2.5 mg/dL (1.8-2.4)
[2021-08-11 07:28] LABS: SGPT/ALT 19 U/L (13-61)
[2021-08-11 07:29] LABS: PHOSPHOROUS 5.4 mg/dL (2.5-4.9); SGOT/AST 17 U/L (15-37)
[2021-08-11 07:30] LABS: BILIRUBIN,TOTAL 0.8 mg/dL (0.2-1); TOT PROT 6.8 g/dl (6.4-8.2)
[2021-08-11 07:31] LABS: ALK PHOS 62 U/L (45-117)
[2021-08-11 07:48] LABS: CREATININE 8.1 mg/dL (0.55-1.3)
[2021-08-11] MEDS: BUDESONIDE/FORMETEROL FUMARATE 160/4.5 mcg INHALER IH SCH ×2 (11:47→23:12)
[2021-08-11 12:08] LABS: SARS-CoV-2 NAA Not Detected (Not Detected)
[2021-08-11] MEDS ORDERED: SODIUM CHLORIDE 250 ML IV PRN (12:09)
[2021-08-11 16:36] VITALS: TEMP 98.5
[2021-08-12 03:17] VITALS: BP 143/51; PULSE 50
== END 2021-08-11 23:30 | disposition short-term general hospital (02) | DRG 308 ==
LOC: JER 16:50 → JERBED 19:41 → JICU 23:03
PROVIDERS: ADMIT Internal Medicine; ATTEND Family Medicine
PROC: 30233N1 Transfusion of Nonautologous Red Blood Cells into Peripheral Vein, Percutaneous Approach (ICD-10-PCS; principal; 2021-08-10)
PROC: 5A1D70Z Performance of Urinary Filtration, Intermittent, Less than 6 Hours Per Day (ICD-10-PCS; 2021-08-11)
DX: I44.2 Atrioventricular block, complete (principal); N18.6 End stage renal disease; I13.2 Hypertensive heart and chronic kidney disease with heart failure and with stage 5 chronic kidney disease, or end stage renal disease; R04.2 Hemoptysis; E11.22 Type 2 diabetes mellitus with diabetic chronic kidney disease; E11.40 Type 2 diabetes mellitus with diabetic neuropathy, unspecified; E11.51 Type 2 diabetes mellitus with diabetic peripheral angiopathy without gangrene; D69.6 Thrombocytopenia, unspecified; D64.9 Anemia, unspecified; E78.5 Hyperlipidemia, unspecified; R00.1 Bradycardia, unspecified; I87.2 Venous insufficiency (chronic) (peripheral); Z99.2 Dependence on renal dialysis; I50.9 Heart failure, unspecified
CPT/HCPCS: 36415; 36430; 71045-TC-FY; 80053; 82962; 83036; 83735; 84100; 84484; 85025; 85610; 86803; 86850; 86900; 86901; 86922; 87040; 87340; 93005; 93010; 93306-TC; 99291; C9803-CS; P9058; U0003; U0005

== ENCOUNTER 2021-11-28 11:25 | Inpatient (IN) | payer OTHER ==
[2021-11-28 12:05] VITALS: BMI 37.5
[2021-11-28 13:18] LABS: HEMATOCRIT 21.9 % (35.4-49); HEMOGLOBIN 7.1 GM/dL (11.7-16.9); MCH 29.9 pg (25.7-33.7); MCHC 32.5 g/dl (32.0-35.9); MEAN CELL VOLUME 92.1 fl (80-96); MEAN PLT VOLUME 10.5 fl (7.5-11.1); PLATELET COUNT 58 10^3/uL (134-434); RBC 2.38 M/mm3 (4.00-5.60); RDW 14.2 % (11.9-15.9); WHITE BLOOD COUNT 4.8 K/mm3 (4.0-10.0)
[2021-11-28 13:44] LABS: CHLORIDE 104 mmol/L (98-107); SODIUM 138 mmol/L (136-145)
[2021-11-28 13:45] LABS: ALBUMIN 3.8 g/dl (3.4-5.0)
[2021-11-28 13:46] LABS: CO2 13 mmol/L (21-32); GLUCOSE,RANDOM 309 mg/dL (74-106); MAGNESIUM 2.8 mg/dL (1.8-2.4)
[2021-11-28 13:49] LABS: SGOT/AST 29 U/L (15-37); SGPT/ALT 45 U/L (13-61)
[2021-11-28 13:50] LABS: BILIRUBIN,TOTAL 0.7 mg/dL (0.2-1); TOT PROT 7.4 g/dl (6.4-8.2)
[2021-11-28 14:21] LABS: ANION GAP 22 MMOL/L (8-16); BLOOD UREA NITROGEN 191.7 mg/dL (7-18); CALCIUM 6.9 mg/dL (8.5-10.1); CREATININE 22.9 mg/dL (0.55-1.3)
[2021-11-28 14:43] LABS: PHOSPHOROUS 11.9 mg/dL (2.5-4.9)
[2021-11-28 14:46] LABS: ANISOCYTOSIS 0; HELMET CELLS 0; HOWELL-JOLLY BODIES 0; MACROCYTOSIS 0; OVALOCYTE 0; ROULEAU 0; SICKELED CELLS 0; TARGET CELLS 0; TEAR DROP CELLS 0; TOXIC GRANULATION 0
[2021-11-28] MEDS ORDERED: CALCIUM GLUCONATE 10% - 1,000 MG/10 ML VIAL IVPUSH ONE (14:57)
[2021-11-28] MEDS ORDERED: INSULIN REGULAR HUMAN 100 UNITS/ML *VIAL IVPUSH ONE (15:00)
[2021-11-28] MEDS ORDERED: DEXTROSE 50%-WATER - 25 GM/50 ML VIAL IVPUSH ONE (15:00)
[2021-11-28] MEDS ORDERED: SODIUM CHLORIDE 250 ML IV PRN (15:06)
[2021-11-28] MEDS ORDERED: DEXTROSE 50%-WATER 25 GM/50 ML DISP.SYRIN ONE (15:19)
[2021-11-28] MEDS ORDERED: CALCIUM GLUCONATE 10% - 1,000 MG/10 ML VIAL ONE (15:19)
[2021-11-28] MEDS ORDERED: INSULIN REGULAR HUMAN 100 UNITS/ML *VIAL ONE ×2 (15:23→15:25)
[2021-11-28 15:32] LABS: IRON SERUM 59 ug/dL (50-175)
[2021-11-28] MEDS: SODIUM ZIRCONIUM CYCLOSILICATE (LOKELMA) 5 GM PACKET PO SCH (15:32)
[2021-11-28 15:34] LABS: TOTAL IRON BINDING CAPACITY 223 ug/dL (250-450)
[2021-11-28] MEDS ORDERED: ACETAMINOPHEN 325 MG TABLET (FP) PO PRN (15:47)
[2021-11-28 17:07] LABS: ALK PHOS 109 U/L (45-117)
[2021-11-28] MEDS: INSULIN SLIDING SCALE (NOVOLOG) 1 VIAL SQ SCH ×2 (18:00→22:22)
[2021-11-28] MEDS: hydrALAZINE HCL 10 MG TABLET PO SCH (22:07)
[2021-11-28] MEDS: ATORVASTATIN CA 40 MG TABLET (FP) PO SCH (22:08)
[2021-11-28] MEDS: CARVEDILOL 12.5 MG TABLET (FP) PO SCH (22:08)
[2021-11-28] MEDS: CALCIUM ACETATE 667 MG CAPSULE (FP) PO SCH (22:08)
[2021-11-29] MEDS: INSULIN SLIDING SCALE (NOVOLOG) 1 VIAL SQ SCH ×5 (06:14→21:41)
[2021-11-29] MEDS: CARVEDILOL 12.5 MG TABLET (FP) PO SCH ×2 (09:38→21:38)
[2021-11-29] MEDS: hydrALAZINE HCL 10 MG TABLET PO SCH ×2 (09:38→21:38)
[2021-11-29] MEDS: CALCIUM ACETATE 667 MG CAPSULE (FP) PO SCH ×3 (09:38→17:12)
[2021-11-29] MEDS: SODIUM ZIRCONIUM CYCLOSILICATE (LOKELMA) 5 GM PACKET PO SCH (09:39)
[2021-11-29] MEDS ORDERED: ALBUTEROL SO4 0.083% IH SOL 2.5 MG/3 ML VIAL.NEB. NEB PRN (11:28)
[2021-11-29 12:03] LABS: HEMATOCRIT 21.1 % (35.4-49); MCH 30.3 pg (25.7-33.7); MCHC 33.5 g/dl (32.0-35.9); MEAN CELL VOLUME 90.7 fl (80-96); MEAN PLT VOLUME 9.9 fl (7.5-11.1); PLATELET COUNT 47 10^3/uL (134-434); RBC 2.32 M/mm3 (4.00-5.60); RDW 13.6 % (11.9-15.9); WHITE BLOOD COUNT 4.8 K/mm3 (4.0-10.0)
[2021-11-29 12:32] LABS: CHLORIDE 102 mmol/L (98-107); SODIUM 140 mmol/L (136-145)
[2021-11-29 12:36] LABS: CALCIUM 7.4 mg/dL (8.5-10.1)
[2021-11-29 12:37] LABS: ALBUMIN 3.5 g/dl (3.4-5.0); ANION GAP 16 MMOL/L (8-16); CO2 22 mmol/L (21-32); GLUCOSE,RANDOM 258 mg/dL (74-106)
[2021-11-29 12:40] LABS: PHOSPHOROUS 8.3 mg/dL (2.5-4.9); SGOT/AST 18 U/L (15-37); SGPT/ALT 35 U/L (13-61)
[2021-11-29 12:41] LABS: BILIRUBIN,TOTAL 1.4 mg/dL (0.2-1); TOT PROT 6.6 g/dl (6.4-8.2)
[2021-11-29 12:44] LABS: ALK PHOS 93 U/L (45-117); CHOLESTEROL 62 mg/dL (50-200); LDL CHOLESTEROL (ONLY SJRH) 35 mg/dL (5-100); TRIGLYCERIDES 112 mg/dL (0-150)
[2021-11-29 12:45] LABS: BLOOD UREA NITROGEN 133.6 mg/dL (7-18); CREATININE 17.5 mg/dL (0.55-1.3)
[2021-11-29 12:47] LABS: HDL CHOLESTEROL 15 mg/dL (40-60)
[2021-11-29] MEDS ORDERED: SODIUM CHLORIDE 250 ML IV PRN (14:00)
[2021-11-29] MEDS ORDERED: EPOETIN ALFA-EPBX 4,000 UNIT/ML VIAL SQ ONE (14:00)
[2021-11-29] MEDS: ATORVASTATIN CA 40 MG TABLET (FP) PO SCH (21:38)
[2021-11-30] MEDS: INSULIN SLIDING SCALE (NOVOLOG) 1 VIAL SQ SCH ×4 (06:39→21:43)
[2021-11-30] MEDS: CARVEDILOL 12.5 MG TABLET (FP) PO SCH ×2 (10:54→21:40)
[2021-11-30] MEDS: SODIUM ZIRCONIUM CYCLOSILICATE (LOKELMA) 5 GM PACKET PO SCH (10:54)
[2021-11-30] MEDS: hydrALAZINE HCL 10 MG TABLET PO SCH ×2 (10:54→21:40)
[2021-11-30] MEDS: CALCIUM ACETATE 667 MG CAPSULE (FP) PO SCH ×3 (10:54→17:36)
[2021-11-30 13:53] LABS: CHLORIDE 99 mmol/L (98-107); SODIUM 139 mmol/L (136-145)
[2021-11-30 13:55] LABS: ANION GAP 15 MMOL/L (8-16); CALCIUM 7.3 mg/dL (8.5-10.1); CO2 25 mmol/L (21-32); GLUCOSE,RANDOM 238 mg/dL (74-106)
[2021-11-30 14:02] LABS: BLOOD UREA NITROGEN 71.4 mg/dL (7-18); CREATININE 11.8 mg/dL (0.55-1.3)
[2021-11-30] MEDS: ATORVASTATIN CA 40 MG TABLET (FP) PO SCH (21:40)
[2021-12-01] MEDS: INSULIN SLIDING SCALE (NOVOLOG) 1 VIAL SQ SCH ×4 (06:49→21:46)
[2021-12-01 07:20] LABS: INR 1.19 (0.83-1.09); PROTHROMBIN TIME (PATIENT) 13.7 SEC (9.7-13.0)
[2021-12-01] MEDS: CALCIUM ACETATE 667 MG CAPSULE (FP) PO SCH ×3 (10:53→17:45)
[2021-12-01] MEDS ORDERED: cefTRIAXone SODIUM 1 GM VIAL ONE (10:56)
[2021-12-01] MEDS: SODIUM ZIRCONIUM CYCLOSILICATE (LOKELMA) 5 GM PACKET PO SCH (10:56)
[2021-12-01] MEDS ORDERED: DEXTROSE 5%-WATER - 50 ML IVPB ONE (10:57)
[2021-12-01] MEDS: hydrALAZINE HCL 10 MG TABLET PO SCH ×2 (11:16→21:35)
[2021-12-01] MEDS: CARVEDILOL 12.5 MG TABLET (FP) PO SCH ×2 (11:17→21:35)
[2021-12-01] MEDS: AZITHROMYCIN IVPB 500 MG/250 ML BAG IVPB SCH (11:18)
[2021-12-01] MEDS: CEFTRIAXONE 1 GM in DEXTROSE 5%-WATER - 50 ML IVPB SCH (11:18)
[2021-12-01 14:34] LABS: HEMATOCRIT 22.5 % (35.4-49); HEMOGLOBIN 7.4 GM/dL (11.7-16.9); MCH 30.3 pg (25.7-33.7); MEAN CELL VOLUME 91.9 fl (80-96); MEAN PLT VOLUME 9.8 fl (7.5-11.1); PLATELET COUNT 50 10^3/uL (134-434); RBC 2.45 M/mm3 (4.00-5.60); RDW 14.2 % (11.9-15.9); WHITE BLOOD COUNT 4.7 K/mm3 (4.0-10.0)
[2021-12-01] MEDS: ATORVASTATIN CA 40 MG TABLET (FP) PO SCH (21:35)
[2021-12-01] MEDS: INSULIN (LEVEMIR) 100 UNITS/ML UNITS SQ SCH (21:46)
[2021-12-02] MEDS: INSULIN SLIDING SCALE (NOVOLOG) 1 VIAL SQ SCH ×3 (06:23→21:30)
[2021-12-02] MEDS ORDERED: EPOETIN ALFA-EPBX 4,000 UNIT/ML VIAL IVPUSH ONE (07:30)
[2021-12-02] MEDS ORDERED: SODIUM CHLORIDE 250 ML IV PRN (07:30)
[2021-12-02] MEDS: CARVEDILOL 12.5 MG TABLET (FP) PO SCH ×2 (12:22→21:23)
[2021-12-02] MEDS: CALCIUM ACETATE 667 MG CAPSULE (FP) PO SCH ×4 (12:23→18:18)
[2021-12-02] MEDS: hydrALAZINE HCL 10 MG TABLET PO SCH ×2 (12:23→21:23)
[2021-12-02] MEDS: AZITHROMYCIN IVPB 500 MG/250 ML BAG IVPB SCH (12:27)
[2021-12-02] MEDS ORDERED: cefTRIAXone SODIUM 1 GM VIAL ONE (17:43)
[2021-12-02] MEDS: CEFTRIAXONE 1 GM in DEXTROSE 5%-WATER - 50 ML IVPB SCH (18:00)
[2021-12-02] MEDS: ATORVASTATIN CA 40 MG TABLET (FP) PO SCH (21:23)
[2021-12-02] MEDS: INSULIN (LEVEMIR) 100 UNITS/ML UNITS SQ SCH (21:23)
[2021-12-03] MEDS: INSULIN SLIDING SCALE (NOVOLOG) 1 VIAL SQ SCH ×4 (07:06→22:42)
[2021-12-03] MEDS: CALCIUM ACETATE 667 MG CAPSULE (FP) PO SCH ×4 (07:26→17:46)
[2021-12-03] MEDS ORDERED: DEXTROSE 5%-WATER - 50 ML IVPB ONE (09:14)
[2021-12-03] MEDS ORDERED: cefTRIAXone SODIUM 1 GM VIAL ONE (09:14)
[2021-12-03] MEDS: CEFTRIAXONE 1 GM in DEXTROSE 5%-WATER - 50 ML IVPB SCH (09:37)
[2021-12-03] MEDS: hydrALAZINE HCL 10 MG TABLET PO SCH ×2 (09:37→22:58)
[2021-12-03] MEDS: CARVEDILOL 12.5 MG TABLET (FP) PO SCH ×2 (09:37→22:58)
[2021-12-03] MEDS: AZITHROMYCIN IVPB 500 MG/250 ML BAG IVPB SCH (10:15)
[2021-12-03] MEDS: INSULIN (LEVEMIR) 100 UNITS/ML UNITS SQ SCH (22:58)
[2021-12-03] MEDS: ATORVASTATIN CA 40 MG TABLET (FP) PO SCH (22:58)
[2021-12-04] MEDS ORDERED: SODIUM CHLORIDE 250 ML IV PRN (07:30)
[2021-12-04] MEDS ORDERED: EPOETIN ALFA-EPBX 4,000 UNIT/ML VIAL SQ ONE (08:00)
[2021-12-04] MEDS: CALCIUM ACETATE 667 MG CAPSULE (FP) PO SCH ×3 (09:00→16:39)
[2021-12-04] MEDS ORDERED: cefTRIAXone SODIUM 1 GM VIAL ONE (09:04)
[2021-12-04 09:06] LABS: HEMATOCRIT 20.6 % (35.4-49); MCHC 33.1 g/dl (32.0-35.9); MEAN CELL VOLUME 90.7 fl (80-96); MEAN PLT VOLUME 10.3 fl (7.5-11.1); PLATELET COUNT 41 10^3/uL (134-434); RBC 2.27 M/mm3 (4.00-5.60); RDW 14.3 % (11.9-15.9); WHITE BLOOD COUNT 3.9 K/mm3 (4.0-10.0)
[2021-12-04 09:10] LABS: HEMOGLOBIN 6.8 GM/dL (11.7-16.9)
[2021-12-04 09:41] LABS: CHLORIDE 101 mmol/L (98-107); SODIUM 140 mmol/L (136-145)
[2021-12-04 09:43] LABS: ANION GAP 12 MMOL/L (8-16); CO2 27 mmol/L (21-32); GLUCOSE,RANDOM 149 mg/dL (74-106)
[2021-12-04 09:57] LABS: BLOOD UREA NITROGEN 45.7 mg/dL (7-18); CALCIUM 6.8 mg/dL (8.5-10.1)
[2021-12-04] MEDS ORDERED: POTASSIUM CHLORIDE TABS 10 MEQ TABLET.ER (FP) PO ONE (10:25)
[2021-12-04] MEDS ORDERED: CALCIUM GLUCONATE IN NACL 1 GM/50 ML BAG IVPB ONE ×2 (10:26→16:45)
[2021-12-04] MEDS: INSULIN SLIDING SCALE (NOVOLOG) 1 VIAL SQ SCH ×3 (13:20→22:16)
[2021-12-04] MEDS: CEFTRIAXONE 1 GM in DEXTROSE 5%-WATER - 50 ML IVPB SCH (13:29)
[2021-12-04] MEDS: AZITHROMYCIN IVPB 500 MG/250 ML BAG IVPB SCH (13:29)
[2021-12-04] MEDS: CARVEDILOL 12.5 MG TABLET (FP) PO SCH ×2 (13:29→23:00)
[2021-12-04] MEDS: CALCITRIOL 0.25 MCG CAPSULE (FP) PO SCH (13:29)
[2021-12-04] MEDS: hydrALAZINE HCL 10 MG TABLET PO SCH ×2 (13:29→23:00)
[2021-12-04] MEDS: INSULIN (LEVEMIR) 100 UNITS/ML UNITS SQ SCH (22:15)
[2021-12-04] MEDS: ATORVASTATIN CA 40 MG TABLET (FP) PO SCH (23:00)
[2021-12-05] MEDS: INSULIN SLIDING SCALE (NOVOLOG) 1 VIAL SQ SCH ×4 (06:16→22:08)
[2021-12-05 07:35] LABS: HEMATOCRIT 27.9 % (35.4-49); HEMOGLOBIN 9.4 GM/dL (11.7-16.9); MCHC 33.7 g/dl (32.0-35.9); MEAN PLT VOLUME 10.2 fl (7.5-11.1); PLATELET COUNT 40 10^3/uL (134-434); RBC 3.14 M/mm3 (4.00-5.60); RDW 14.5 % (11.9-15.9); WHITE BLOOD COUNT 6.3 K/mm3 (4.0-10.0)
[2021-12-05] MEDS: CALCIUM ACETATE 667 MG CAPSULE (FP) PO SCH ×3 (08:21→20:35)
[2021-12-05] MEDS ORDERED: cefTRIAXone SODIUM 1 GM VIAL ONE (09:04)
[2021-12-05] MEDS ORDERED: DEXTROSE 5%-WATER - 50 ML IVPB ONE (09:04)
[2021-12-05] MEDS: hydrALAZINE HCL 10 MG TABLET PO SCH ×2 (09:23→22:05)
[2021-12-05] MEDS: CARVEDILOL 12.5 MG TABLET (FP) PO SCH ×2 (09:23→22:05)
[2021-12-05] MEDS: CEFTRIAXONE 1 GM in DEXTROSE 5%-WATER - 50 ML IVPB SCH (09:23)
[2021-12-05] MEDS: CALCITRIOL 0.25 MCG CAPSULE (FP) PO SCH (09:23)
[2021-12-05 10:00] LABS: CALCIUM 7.3 mg/dL (8.5-10.1)
[2021-12-05 10:01] LABS: ANISOCYTOSIS 0; BLOOD UREA NITROGEN 25.1 mg/dL (7-18); HELMET CELLS 0; HOWELL-JOLLY BODIES 0; MACROCYTOSIS 0; OVALOCYTE 0; ROULEAU 0; SICKELED CELLS 0; TARGET CELLS 0; TEAR DROP CELLS 0; TOXIC GRANULATION 0
[2021-12-05 10:03] LABS: CREATININE 6.3 mg/dL (0.55-1.3); PHOSPHOROUS 3.3 mg/dL (2.5-4.9)
[2021-12-05 10:05] LABS: BILIRUBIN,TOTAL 1.3 mg/dL (0.2-1); TOT PROT 6.3 g/dl (6.4-8.2)
[2021-12-05] MEDS ORDERED: POTASSIUM CHLORIDE TABS 20 MEQ TABLET.ER (FP) PO ONE (13:52)
[2021-12-05] MEDS ORDERED: CALCIUM GLUCONATE IN NACL 1 GM/50 ML BAG IVPB ONE (13:56)
[2021-12-05] MEDS: CALCIUM 500MG/VIT-D 200 UNITS COMBO TABLET (FP) PO SCH (14:49)
[2021-12-05] MEDS: AZITHROMYCIN IVPB 500 MG/250 ML BAG IVPB SCH (16:33)
[2021-12-05] MEDS: ATORVASTATIN CA 40 MG TABLET (FP) PO SCH (22:05)
[2021-12-05] MEDS: INSULIN (LEVEMIR) 100 UNITS/ML UNITS SQ SCH (22:08)
[2021-12-06] MEDS: INSULIN SLIDING SCALE (NOVOLOG) 1 VIAL SQ SCH ×4 (07:40→22:06)
[2021-12-06] MEDS ORDERED: SODIUM CHLORIDE 250 ML IV PRN (07:58)
[2021-12-06] MEDS: CALCIUM ACETATE 667 MG CAPSULE (FP) PO SCH ×3 (08:00→18:09)
[2021-12-06 08:45] LABS: HEMATOCRIT 28.2 % (35.4-49); HEMOGLOBIN 9.4 GM/dL (11.7-16.9); MCH 29.6 pg (25.7-33.7); MCHC 33.4 g/dl (32.0-35.9); MEAN CELL VOLUME 88.4 fl (80-96); PLATELET COUNT 43 10^3/uL (134-434); RBC 3.19 M/mm3 (4.00-5.60); RDW 14.7 % (11.9-15.9); WHITE BLOOD COUNT 5.6 K/mm3 (4.0-10.0)
[2021-12-06] MEDS ORDERED: EPOETIN ALFA-EPBX 4,000 UNIT/ML VIAL SQ ONE (09:00)
[2021-12-06 09:13] LABS: ALBUMIN 3.2 g/dl (3.4-5.0); CALCIUM 7.6 mg/dL (8.5-10.1); CO2 26 mmol/L (21-32); GLUCOSE,RANDOM 188 mg/dL (74-106)
[2021-12-06 09:14] LABS: BLOOD UREA NITROGEN 35.6 mg/dL (7-18)
[2021-12-06 09:17] LABS: SGPT/ALT 26 U/L (13-61)
[2021-12-06 09:18] LABS: TOT PROT 6.6 g/dl (6.4-8.2)
[2021-12-06 09:19] LABS: ALK PHOS 73 U/L (45-117)
[2021-12-06 09:22] LABS: SGOT/AST 23 U/L (15-37)
[2021-12-06 09:48] LABS: ANION GAP 11 MMOL/L (8-16); CHLORIDE 99 mmol/L (98-107); CREATININE 7.9 mg/dL (0.55-1.3); SODIUM 136 mmol/L (136-145)
[2021-12-06] MEDS ORDERED: DEXTROSE 5%-WATER - 50 ML IVPB ONE (10:59)
[2021-12-06] MEDS ORDERED: cefTRIAXone SODIUM 1 GM VIAL ONE (10:59)
[2021-12-06] MEDS ORDERED: LABETALOL HCL 5 MG/1 ML (100MG/20 ML VIAL) ONE (14:26)
[2021-12-06] MEDS ORDERED: LABETALOL HCL 5 MG/1 ML (100MG/20 ML VIAL) IVPUSH ONE (14:35)
[2021-12-06] MEDS ORDERED: SODIUM CHLORIDE 500 ML IV SCH (15:15)
[2021-12-06] MEDS: CEFTRIAXONE 1 GM in DEXTROSE 5%-WATER - 50 ML IVPB SCH (15:27)
[2021-12-06] MEDS: CARVEDILOL 12.5 MG TABLET (FP) PO SCH ×2 (15:32→21:59)
[2021-12-06] MEDS: hydrALAZINE HCL 10 MG TABLET PO SCH ×2 (15:32→22:01)
[2021-12-06] MEDS: AZITHROMYCIN IVPB 500 MG/250 ML BAG IVPB SCH (15:32)
[2021-12-06] MEDS: CALCITRIOL 0.25 MCG CAPSULE (FP) PO SCH (15:50)
[2021-12-06] MEDS: CALCIUM 500MG/VIT-D 200 UNITS COMBO TABLET (FP) PO SCH (15:51)
[2021-12-06] MEDS: ATORVASTATIN CA 40 MG TABLET (FP) PO SCH (21:59)
[2021-12-06] MEDS: INSULIN (LEVEMIR) 100 UNITS/ML UNITS SQ SCH (22:09)
[2021-12-07] MEDS: INSULIN SLIDING SCALE (NOVOLOG) 1 VIAL SQ SCH ×5 (06:31→21:09)
[2021-12-07] MEDS: hydrALAZINE HCL 10 MG TABLET PO SCH ×3 (06:34→21:05)
[2021-12-07] MEDS: CALCIUM ACETATE 667 MG CAPSULE (FP) PO SCH ×3 (08:52→17:17)
[2021-12-07] MEDS ORDERED: cefTRIAXone SODIUM 1 GM VIAL ONE (09:22)
[2021-12-07] MEDS ORDERED: DEXTROSE 5%-WATER - 50 ML IVPB ONE (09:22)
[2021-12-07] MEDS: CALCITRIOL 0.25 MCG CAPSULE (FP) PO SCH ×2 (10:11→10:21)
[2021-12-07] MEDS: CALCIUM 500MG/VIT-D 200 UNITS COMBO TABLET (FP) PO SCH ×2 (10:11→10:19)
[2021-12-07] MEDS: CARVEDILOL 12.5 MG TABLET (FP) PO SCH ×2 (10:11→21:06)
[2021-12-07] MEDS: CEFTRIAXONE 1 GM in DEXTROSE 5%-WATER - 50 ML IVPB SCH (10:11)
[2021-12-07] MEDS: AZITHROMYCIN IVPB 500 MG/250 ML BAG IVPB SCH (10:12)
[2021-12-07] MEDS: LIPASE/PROTEASE/AMYLASE 36,000 UNIT CAPSULE PO SCH ×2 (11:45→17:11)
[2021-12-07] MEDS ORDERED: SODIUM CHLORIDE 250 ML IV PRN (12:23)
[2021-12-07] MEDS: metroNIDAZOLE 250 MG TABLET PO SCH ×2 (14:02→21:06)
[2021-12-07] MEDS: ATORVASTATIN CA 40 MG TABLET (FP) PO SCH (21:06)
[2021-12-07] MEDS: INSULIN (LEVEMIR) 100 UNITS/ML UNITS SQ SCH (21:08)
[2021-12-08] MEDS: hydrALAZINE HCL 10 MG TABLET PO SCH ×2 (06:38→12:59)
[2021-12-08] MEDS: metroNIDAZOLE 250 MG TABLET PO SCH ×2 (06:39→13:00)
[2021-12-08] MEDS: INSULIN SLIDING SCALE (NOVOLOG) 1 VIAL SQ SCH ×2 (06:39→12:40)
[2021-12-08] MEDS: LIPASE/PROTEASE/AMYLASE 36,000 UNIT CAPSULE PO SCH ×2 (08:00→12:47)
[2021-12-08] MEDS: CALCIUM ACETATE 667 MG CAPSULE (FP) PO SCH ×2 (08:00→12:55)
[2021-12-08] MEDS ORDERED: EPOETIN ALFA-EPBX 10,000 UNIT/ML VIAL SQ ONE (08:30)
[2021-12-08 09:41] LABS: CHLORIDE 99 mmol/L (98-107); SODIUM 137 mmol/L (136-145)
[2021-12-08] MEDS ORDERED: cefTRIAXone SODIUM 1 GM VIAL ONE (09:45)
[2021-12-08] MEDS ORDERED: DEXTROSE 5%-WATER - 50 ML IVPB ONE (09:45)
[2021-12-08 09:49] LABS: HEMATOCRIT 26.1 % (35.4-49); HEMOGLOBIN 8.7 GM/dL (11.7-16.9); MCH 29.8 pg (25.7-33.7); MCHC 33.2 g/dl (32.0-35.9); MEAN CELL VOLUME 89.9 fl (80-96); MEAN PLT VOLUME 10.1 fl (7.5-11.1); PLATELET COUNT 43 10^3/uL (134-434); RBC 2.91 M/mm3 (4.00-5.60); RDW 14.4 % (11.9-15.9); WHITE BLOOD COUNT 5.1 K/mm3 (4.0-10.0)
[2021-12-08 10:01] LABS: ANION GAP 12 MMOL/L (8-16); BLOOD UREA NITROGEN 42.4 mg/dL (7-18); CALCIUM 7.9 mg/dL (8.5-10.1); CO2 26 mmol/L (21-32); GLUCOSE,RANDOM 190 mg/dL (74-106)
[2021-12-08 10:04] LABS: PHOSPHOROUS 4.2 mg/dL (2.5-4.9); SGOT/AST 28 U/L (15-37); SGPT/ALT 30 U/L (13-61)
[2021-12-08 10:05] LABS: BILIRUBIN,TOTAL 0.8 mg/dL (0.2-1); TOT PROT 6.2 g/dl (6.4-8.2)
[2021-12-08 10:06] LABS: ALK PHOS 72 U/L (45-117)
[2021-12-08 10:14] VITALS: TEMP 99
[2021-12-08 11:37] VITALS: RESP 18
[2021-12-08 12:20] VITALS: BP 152/75; PULSE 68
[2021-12-08] MEDS: CARVEDILOL 12.5 MG TABLET (FP) PO SCH (12:47)
[2021-12-08] MEDS: CALCITRIOL 0.25 MCG CAPSULE (FP) PO SCH (12:49)
[2021-12-08] MEDS: CALCIUM 500MG/VIT-D 200 UNITS COMBO TABLET (FP) PO SCH (12:55)
== END 2021-12-08 14:44 | disposition home health service (06) | DRG 987 ==
LOC: JER 11:25 → JERBED 14:29 → J4W 18:22
PROVIDERS: ADMIT Family Medicine; ATTEND Family Medicine
PROC: 5A1D70Z Performance of Urinary Filtration, Intermittent, Less than 6 Hours Per Day (ICD-10-PCS; 2021-11-28)
PROC: 0QB23ZX Excision of Right Pelvic Bone, Percutaneous Approach, Diagnostic (ICD-10-PCS; principal; 2021-12-06)
PROC: 07DR3ZX Extraction of Iliac Bone Marrow, Percutaneous Approach, Diagnostic (ICD-10-PCS; 2021-12-06)
DX: J18.9 Pneumonia, unspecified organism (principal); N18.6 End stage renal disease; I13.2 Hypertensive heart and chronic kidney disease with heart failure and with stage 5 chronic kidney disease, or end stage renal disease; E87.2 Acidosis; I24.8 Other forms of acute ischemic heart disease; N17.9 Acute kidney failure, unspecified; R04.2 Hemoptysis; E11.22 Type 2 diabetes mellitus with diabetic chronic kidney disease; I50.9 Heart failure, unspecified; Z99.2 Dependence on renal dialysis; E11.40 Type 2 diabetes mellitus with diabetic neuropathy, unspecified; Z95.0 Presence of cardiac pacemaker; D69.6 Thrombocytopenia, unspecified; E87.5 Hyperkalemia; E83.51 Hypocalcemia; R19.7 Diarrhea, unspecified; I87.2 Venous insufficiency (chronic) (peripheral); D63.1 Anemia in chronic kidney disease; Z89.432 Acquired absence of left foot
CPT/HCPCS: 0241U-QW; 20225; 36415; 36430; 70450-TC; 71045-TC-FY; 71250-TC; 76705-TC; 80048; 80053; 80061; 82248; 82310; 82728; 82962; 83036; 83540; 83550; 83735; 83970; 84100; 84443; 84484; 85025; 85027; 85610; 86705; 86707; 86708; 86803; 86850; 86900; 86901; 86922; 87040; 87340; 87350; 87517; 87522; 88300-TC; 93005; 93010; 97116-GP; 97161-GP; 99291; P9058; Q5106

== ENCOUNTER 2022-08-14 13:30 | Inpatient (IN) | payer OTHER ==
[2022-08-14] MEDS ORDERED: ACETAMINOPHEN 1000 MG/100 ML BAG IVPB ONE (14:20)
[2022-08-14] MEDS ORDERED: VANCOMYCIN 1 GM in D5W (PRE-DOCKED) 1,000 MG/250 ML IVPB ONE (14:21)
[2022-08-14] MEDS ORDERED: PIPERACILLIN/TAZOB 4.5 GM 4.5 GM in DEXTROSE 5%-WATER 100 ML IVPB ONE (14:21)
[2022-08-14] MEDS ORDERED: PIPERACILLIN/TAZOB 4.5 GM 4.5 GM/100 ML BAG IVPB ONE (15:03)
[2022-08-14] MEDS ORDERED: ACETAMINOPHEN INJECTION 100 ML IVPB ONE (15:03)
[2022-08-14] MEDS ORDERED: VANCOMYCIN/WATER FOR INJ (PEG) 1,000 MG/200 ML BAG IVPB ONE (15:04)
[2022-08-14 15:40] LABS: VENOUS BASE EXCESS -9.1 mmol/L (-2-2); VENOUS O2 SATURATION 50.4 % (70-80); VENOUS PCO2 41.5 mmHg (38-52); VENOUS PH 7.244 (7.310-7.410)
[2022-08-14 15:41] LABS: HEMATOCRIT 30.6 % (35.4-49); HEMOGLOBIN 9.9 GM/dL (11.7-16.9); MCH 29.3 pg (25.7-33.7); MCHC 32.4 g/dl (32.0-35.9); MEAN CELL VOLUME 90.6 fl (80-96); MEAN PLT VOLUME 9.2 fl (7.5-11.1); RBC 3.38 M/mm3 (4.00-5.60); RDW 17.4 % (11.9-15.9); WHITE BLOOD COUNT 13.9 K/mm3 (4.0-10.0)
[2022-08-14 15:45] LABS: PLATELET COUNT 26 10^3/uL (134-434)
[2022-08-14 16:24] LABS: CHLORIDE 96 mmol/L (98-107); SODIUM 131 mmol/L (136-145)
[2022-08-14 16:26] LABS: ALBUMIN 3.4 g/dl (3.4-5.0); CALCIUM 8.4 mg/dL (8.5-10.1)
[2022-08-14 16:27] LABS: ANION GAP 16 MMOL/L (8-16); BLOOD UREA NITROGEN 84.8 mg/dL (7-18); CO2 19 mmol/L (21-32); GLUCOSE,RANDOM 340 mg/dL (74-106)
[2022-08-14 16:30] LABS: PHOSPHOROUS 3.8 mg/dL (2.5-4.9); SGOT/AST 14 U/L (15-37); SGPT/ALT 26 U/L (13-61)
[2022-08-14 16:31] LABS: BILIRUBIN,TOTAL 0.8 mg/dL (0.2-1)
[2022-08-14 16:33] LABS: ALK PHOS 76 U/L (45-117)
[2022-08-14 16:41] LABS: CREATININE 12.5 mg/dL (0.55-1.3)
[2022-08-14] MEDS ORDERED: INSULIN (NOVOLOG) ASPART 100 UNITS/ML 10ML VIAL SQ ONE (17:48)
[2022-08-14 17:52] LABS: ANISOCYTOSIS 1+; OVALOCYTE 1+
[2022-08-14] MEDS ORDERED: INSULIN (NOVOLOG) ASPART 100 UNITS/ML 10ML VIAL ONE (21:18)
[2022-08-14] MEDS: INSULIN SLIDING SCALE (NOVOLOG) 1 VIAL SQ SCH (21:39)
[2022-08-15] MEDS ORDERED: INSULIN (NOVOLOG) ASPART 100 UNITS/ML 10ML VIAL ONE ×2 (05:44→17:10)
[2022-08-15] MEDS: INSULIN SLIDING SCALE (NOVOLOG) 1 VIAL SQ SCH ×4 (06:33→22:17)
[2022-08-15 08:46] LABS: HEMATOCRIT 27.3 % (35.4-49); MCH 29.5 pg (25.7-33.7); MCHC 32.9 g/dl (32.0-35.9); MEAN CELL VOLUME 89.6 fl (80-96); MEAN PLT VOLUME 10.1 fl (7.5-11.1); RBC 3.04 M/mm3 (4.00-5.60); RDW 16.9 % (11.9-15.9); WHITE BLOOD COUNT 13.9 K/mm3 (4.0-10.0)
[2022-08-15 08:51] LABS: PLATELET COUNT 22 10^3/uL (134-434)
[2022-08-15 08:55] LABS: CHLORIDE 101 mmol/L (98-107); SODIUM 136 mmol/L (136-145)
[2022-08-15 09:13] LABS: ALBUMIN 2.9 g/dl (3.4-5.0); ANION GAP 16 MMOL/L (8-16); CALCIUM 8.1 mg/dL (8.5-10.1); CO2 18 mmol/L (21-32)
[2022-08-15 09:14] LABS: GLUCOSE,RANDOM 214 mg/dL (74-106)
[2022-08-15 09:16] LABS: SGPT/ALT 20 U/L (13-61)
[2022-08-15 09:17] LABS: BLOOD UREA NITROGEN 92.6 mg/dL (7-18); SGOT/AST 15 U/L (15-37)
[2022-08-15 09:18] LABS: BILIRUBIN,TOTAL 0.8 mg/dL (0.2-1)
[2022-08-15 09:19] LABS: ALK PHOS 75 U/L (45-117)
[2022-08-15] MEDS ORDERED: EPOETIN ALFA-EPBX 10,000 UNIT/ML VIAL SQ ONE (09:41)
[2022-08-15 09:59] LABS: CREATININE 13.2 mg/dL (0.55-1.3)
[2022-08-15] MEDS ORDERED: SODIUM CHLORIDE 250 ML IV PRN (10:00)
[2022-08-15] MEDS ORDERED: VANCOMYCIN/WATER FOR INJ (PEG) 1,000 MG/200 ML BAG IVPB ONE (14:26)
[2022-08-15] MEDS ORDERED: ONDANSETRON 4 MG/2 ML VIAL IVPB ONE (16:39)
[2022-08-15] MEDS: CALCIUM ACETATE 667 MG CAPSULE (FP) PO SCH ×2 (17:10→17:34)
[2022-08-15] MEDS: CARVEDILOL 12.5 MG TABLET (FP) PO SCH (22:11)
[2022-08-15] MEDS: hydrALAZINE HCL 25 MG TABLET (FP) PO SCH (22:11)
[2022-08-15] MEDS: ATORVASTATIN CA 40 MG TABLET (FP) PO SCH (22:12)
[2022-08-15] MEDS: INSULIN (LEVEMIR) 100 UNITS/ML UNITS SQ SCH (22:15)
[2022-08-16] MEDS: VANCOMYCIN 250 MG/5 ML ORAL SOLUTION PO SCH ×4 (01:20→17:24)
[2022-08-16] MEDS: hydrALAZINE HCL 25 MG TABLET (FP) PO SCH ×3 (06:38→22:19)
[2022-08-16] MEDS: INSULIN SLIDING SCALE (NOVOLOG) 1 VIAL SQ SCH ×4 (06:43→22:19)
[2022-08-16] MEDS: INSULIN (LEVEMIR) 100 UNITS/ML UNITS SQ SCH ×2 (06:47→22:20)
[2022-08-16 08:56] LABS: HEMATOCRIT 28.2 % (35.4-49); HEMOGLOBIN 9.6 GM/dL (11.7-16.9); MCH 30.5 pg (25.7-33.7); MEAN CELL VOLUME 89.7 fl (80-96); MEAN PLT VOLUME 10.8 fl (7.5-11.1); PLATELET COUNT 45 10^3/uL (134-434); RBC 3.15 M/mm3 (4.00-5.60); RDW 16.8 % (11.9-15.9); WHITE BLOOD COUNT 10.1 K/mm3 (4.0-10.0)
[2022-08-16 10:18] LABS: ANISOCYTOSIS 0; MACROCYTOSIS 0
[2022-08-16] MEDS: CALCITRIOL 0.25 MCG CAPSULE (FP) PO SCH (10:31)
[2022-08-16] MEDS: CARVEDILOL 12.5 MG TABLET (FP) PO SCH ×2 (10:32→22:19)
[2022-08-16] MEDS: CALCIUM ACETATE 667 MG CAPSULE (FP) PO SCH ×4 (10:32→17:25)
[2022-08-16] MEDS ORDERED: INSULIN (NOVOLOG) ASPART 100 UNITS/ML 10ML VIAL ONE ×4 (11:45→22:55)
[2022-08-16] MEDS: ACETAMINOPHEN 325 MG TABLET (FP) PO PRN (20:57)
[2022-08-16] MEDS: ATORVASTATIN CA 40 MG TABLET (FP) PO SCH (22:19)
[2022-08-16] MEDS ORDERED: INSULIN (LEVEMIR) 100 UNITS/ML UNITS SQ ONE (22:56)
[2022-08-17] MEDS: VANCOMYCIN 250 MG/5 ML ORAL SOLUTION PO SCH ×5 (01:13→23:18)
[2022-08-17] MEDS: hydrALAZINE HCL 25 MG TABLET (FP) PO SCH ×3 (05:52→23:08)
[2022-08-17] MEDS: INSULIN (LEVEMIR) 100 UNITS/ML UNITS SQ SCH ×2 (06:25→23:41)
[2022-08-17] MEDS: INSULIN SLIDING SCALE (NOVOLOG) 1 VIAL SQ SCH ×4 (06:26→23:39)
[2022-08-17] MEDS ORDERED: SODIUM CHLORIDE 250 ML IV PRN (07:43)
[2022-08-17 08:49] LABS: HEMATOCRIT 29.9 % (35.4-49); HEMOGLOBIN 9.8 GM/dL (11.7-16.9); MCH 29.7 pg (25.7-33.7); MCHC 32.7 g/dl (32.0-35.9); MEAN CELL VOLUME 90.9 fl (80-96); PLATELET COUNT 72 10^3/uL (134-434); RBC 3.29 M/mm3 (4.00-5.60); RDW 17.1 % (11.9-15.9); WHITE BLOOD COUNT 13.3 K/mm3 (4.0-10.0)
[2022-08-17 09:07] LABS: CHLORIDE 97 mmol/L (98-107); SODIUM 136 mmol/L (136-145)
[2022-08-17 09:16] LABS: CALCIUM 8.6 mg/dL (8.5-10.1)
[2022-08-17 09:17] LABS: ANION GAP 15 MMOL/L (8-16); CO2 24 mmol/L (21-32); GLUCOSE,RANDOM 114 mg/dL (74-106)
[2022-08-17] MEDS: CARVEDILOL 12.5 MG TABLET (FP) PO SCH ×2 (09:18→23:07)
[2022-08-17] MEDS: CALCITRIOL 0.25 MCG CAPSULE (FP) PO SCH (09:21)
[2022-08-17] MEDS: CALCIUM ACETATE 667 MG CAPSULE (FP) PO SCH ×4 (09:21→17:23)
[2022-08-17 09:32] LABS: CREATININE 11.4 mg/dL (0.55-1.3)
[2022-08-17] MEDS ORDERED: EPOETIN ALFA-EPBX 10,000 UNIT/ML VIAL IVPUSH ONE (10:00)
[2022-08-17] MEDS ORDERED: INSULIN (NOVOLOG) ASPART 100 UNITS/ML 10ML VIAL ONE ×3 (16:33→23:37)
[2022-08-17] MEDS: DAPTOMYCIN IVPB SCH (18:12)
[2022-08-17] MEDS: SODIUM CHLORIDE IVPB SCH (18:12)
[2022-08-18] MEDS ORDERED: INSULIN (NOVOLOG) ASPART 100 UNITS/ML 10ML VIAL ONE ×4 (06:33→21:26)
[2022-08-18] MEDS: hydrALAZINE HCL 25 MG TABLET (FP) PO SCH ×3 (06:50→21:42)
[2022-08-18] MEDS: INSULIN (LEVEMIR) 100 UNITS/ML UNITS SQ SCH ×2 (06:50→21:35)
[2022-08-18] MEDS: INSULIN SLIDING SCALE (NOVOLOG) 1 VIAL SQ SCH ×4 (06:52→21:37)
[2022-08-18] MEDS: VANCOMYCIN 250 MG/5 ML ORAL SOLUTION PO SCH ×4 (06:54→23:53)
[2022-08-18] MEDS: CALCIUM ACETATE 667 MG CAPSULE (FP) PO SCH ×3 (09:13→17:37)
[2022-08-18] MEDS: CARVEDILOL 12.5 MG TABLET (FP) PO SCH ×3 (09:14→21:42)
[2022-08-18] MEDS: CALCITRIOL 0.25 MCG CAPSULE (FP) PO SCH (09:17)
[2022-08-18] MEDS ORDERED: DAPTOMYCIN 850 MG in SODIUM CHLORIDE 50 ML IVPB SCH (15:00)
[2022-08-18] MEDS ORDERED: HEPARIN NA (PORCINE) 5,000 UNITS/ML 1ML VIAL SQ SCH (18:04)
[2022-08-19] MEDS: VANCOMYCIN 250 MG/5 ML ORAL SOLUTION PO SCH ×4 (06:04→23:50)
[2022-08-19] MEDS: hydrALAZINE HCL 25 MG TABLET (FP) PO SCH ×3 (06:04→21:56)
[2022-08-19] MEDS: INSULIN SLIDING SCALE (NOVOLOG) 1 VIAL SQ SCH ×4 (06:09→21:57)
[2022-08-19] MEDS: INSULIN (LEVEMIR) 100 UNITS/ML UNITS SQ SCH ×2 (06:11→21:58)
[2022-08-19] MEDS: CALCIUM ACETATE 667 MG CAPSULE (FP) PO SCH ×3 (08:46→17:06)
[2022-08-19] MEDS: CARVEDILOL 12.5 MG TABLET (FP) PO SCH ×2 (09:34→21:57)
[2022-08-19] MEDS: CALCITRIOL 0.25 MCG CAPSULE (FP) PO SCH (09:34)
[2022-08-19] MEDS ORDERED: INSULIN (NOVOLOG) ASPART 100 UNITS/ML 10ML VIAL ONE ×2 (12:22→21:10)
[2022-08-19] MEDS: SODIUM CHLORIDE IVPB SCH (17:39)
[2022-08-19] MEDS: LACTOBACILLUS ACIDOPHILUS 1 TABLET PO SCH ×2 (17:39→21:56)
[2022-08-19] MEDS: DAPTOMYCIN IVPB SCH (17:39)
[2022-08-20] MEDS: INSULIN (LEVEMIR) 100 UNITS/ML UNITS SQ SCH ×2 (06:44→22:41)
[2022-08-20] MEDS: INSULIN SLIDING SCALE (NOVOLOG) 1 VIAL SQ SCH ×4 (06:45→22:42)
[2022-08-20] MEDS: VANCOMYCIN 250 MG/5 ML ORAL SOLUTION PO SCH ×3 (06:47→17:50)
[2022-08-20] MEDS: hydrALAZINE HCL 25 MG TABLET (FP) PO SCH ×3 (06:48→21:53)
[2022-08-20] MEDS: CALCIUM ACETATE 667 MG CAPSULE (FP) PO SCH ×3 (08:40→17:38)
[2022-08-20] MEDS ORDERED: SODIUM CHLORIDE 250 ML IV PRN (09:05)
[2022-08-20] MEDS: CALCITRIOL 0.25 MCG CAPSULE (FP) PO SCH (09:10)
[2022-08-20] MEDS ORDERED: EPOETIN ALFA-EPBX 10,000 UNIT/ML VIAL IVPUSH ONE (09:15)
[2022-08-20 09:21] LABS: HEMATOCRIT 26.2 % (35.4-49); HEMOGLOBIN 8.5 GM/dL (11.7-16.9); MCH 29.4 pg (25.7-33.7); MCHC 32.5 g/dl (32.0-35.9); MEAN CELL VOLUME 90.5 fl (80-96); MEAN PLT VOLUME 9.1 fl (7.5-11.1); PLATELET COUNT 101 10^3/uL (134-434); RBC 2.89 M/mm3 (4.00-5.60); RDW 16.9 % (11.9-15.9); WHITE BLOOD COUNT 12.8 K/mm3 (4.0-10.0)
[2022-08-20 09:38] LABS: CHLORIDE 95 mmol/L (98-107); SODIUM 132 mmol/L (136-145)
[2022-08-20 09:39] LABS: CALCIUM 7.9 mg/dL (8.5-10.1)
[2022-08-20 09:40] LABS: ANION GAP 15 MMOL/L (8-16); BLOOD UREA NITROGEN 86.8 mg/dL (7-18); CO2 22 mmol/L (21-32); GLUCOSE,RANDOM 224 mg/dL (74-106)
[2022-08-20 10:06] LABS: CREATININE 11.7 mg/dL (0.55-1.3)
[2022-08-20] MEDS ORDERED: INSULIN (NOVOLOG) ASPART 100 UNITS/ML 10ML VIAL ONE ×3 (12:24→22:48)
[2022-08-20] MEDS: LACTOBACILLUS ACIDOPHILUS 1 TABLET PO SCH ×2 (12:49→21:53)
[2022-08-20] MEDS: CARVEDILOL 12.5 MG TABLET (FP) PO SCH ×2 (12:52→21:53)
[2022-08-20 16:19] VITALS: BMI 27.0
[2022-08-21] MEDS: VANCOMYCIN 250 MG/5 ML ORAL SOLUTION PO SCH ×4 (01:03→17:07)
[2022-08-21] MEDS: hydrALAZINE HCL 25 MG TABLET (FP) PO SCH ×3 (06:14→22:15)
[2022-08-21] MEDS ORDERED: INSULIN (NOVOLOG) ASPART 100 UNITS/ML 10ML VIAL ONE ×5 (07:42→22:06)
[2022-08-21] MEDS: INSULIN SLIDING SCALE (NOVOLOG) 1 VIAL SQ SCH ×4 (07:45→22:15)
[2022-08-21] MEDS: INSULIN (LEVEMIR) 100 UNITS/ML UNITS SQ SCH ×2 (07:45→22:16)
[2022-08-21] MEDS ORDERED: INSULIN (LEVEMIR) 100 UNITS/ML UNITS SQ ONE (07:58)
[2022-08-21] MEDS: CALCIUM ACETATE 667 MG CAPSULE (FP) PO SCH ×2 (09:03→11:51)
[2022-08-21] MEDS: CALCITRIOL 0.25 MCG CAPSULE (FP) PO SCH (09:03)
[2022-08-21] MEDS: CARVEDILOL 12.5 MG TABLET (FP) PO SCH ×2 (09:33→22:15)
[2022-08-21] MEDS: LACTOBACILLUS ACIDOPHILUS 1 TABLET PO SCH ×2 (09:33→22:15)
[2022-08-21] MEDS: COLLAGENASE CLOSTRIDIUM HIST. 30 GRAMS TUBE TP SCH (17:04)
[2022-08-21] MEDS: DAPTOMYCIN IVPB SCH (17:05)
[2022-08-21] MEDS: SODIUM CHLORIDE IVPB SCH (17:05)
[2022-08-21] MEDS: SEVELAMER CARBONATE 0.8 GM POWDER PACKET PO SCH (17:31)
[2022-08-21] MEDS: ACETAMINOPHEN 325 MG TABLET (FP) PO PRN (22:14)
[2022-08-22] MEDS: VANCOMYCIN 250 MG/5 ML ORAL SOLUTION PO SCH ×4 (00:11→17:32)
[2022-08-22] MEDS ORDERED: INSULIN (NOVOLOG) ASPART 100 UNITS/ML 10ML VIAL ONE ×2 (05:42→16:51)
[2022-08-22] MEDS: INSULIN (LEVEMIR) 100 UNITS/ML UNITS SQ SCH ×2 (06:12→22:54)
[2022-08-22] MEDS: hydrALAZINE HCL 25 MG TABLET (FP) PO SCH ×3 (06:13→22:53)
[2022-08-22] MEDS: INSULIN SLIDING SCALE (NOVOLOG) 1 VIAL SQ SCH ×4 (06:13→22:55)
[2022-08-22] MEDS ORDERED: SODIUM CHLORIDE 250 ML IV PRN (09:13)
[2022-08-22 09:35] LABS: BASO % 0.3 % (0-2.0); EOS % 0.7 % (0-4.5); HEMATOCRIT 25.3 % (35.4-49); HEMOGLOBIN 8.2 GM/dL (11.7-16.9); LYMPH % 6.9 % (8-40); MCH 29.3 pg (25.7-33.7); MCHC 32.4 g/dl (32.0-35.9); MEAN CELL VOLUME 90.2 fl (80-96); MEAN PLT VOLUME 8.6 fl (7.5-11.1); MONO % 17.7 % (3.8-10.2); NEUT % 74.4 % (42.8-82.8); PLATELET COUNT 106 10^3/uL (134-434); RBC 2.81 M/mm3 (4.00-5.60); RDW 17.2 % (11.9-15.9); WHITE BLOOD COUNT 13.2 K/mm3 (4.0-10.0)
[2022-08-22 09:54] LABS: CHLORIDE 99 mmol/L (98-107); SODIUM 135 mmol/L (136-145)
[2022-08-22] MEDS: ACETAMINOPHEN 325 MG TABLET (FP) PO PRN ×2 (09:56→15:45)
[2022-08-22] MEDS ORDERED: EPOETIN ALFA-EPBX 10,000 UNIT, EPOETIN ALFA-EPBX 3,000 UNIT, EPOETIN ALFA-EPBX 2,000 UNIT IVPUSH ONE (10:00)
[2022-08-22 10:01] LABS: ALBUMIN 2.4 g/dl (3.4-5.0); ANION GAP 13 MMOL/L (8-16); BLOOD UREA NITROGEN 68.5 mg/dL (7-18); CALCIUM 8.2 mg/dL (8.5-10.1); CO2 23 mmol/L (21-32); GLUCOSE,RANDOM 135 mg/dL (74-106)
[2022-08-22 10:03] LABS: PHOSPHOROUS 4.8 mg/dL (2.5-4.9)
[2022-08-22 10:04] LABS: SGOT/AST 20 U/L (15-37); SGPT/ALT 29 U/L (13-61)
[2022-08-22 10:05] LABS: BILIRUBIN,TOTAL 0.7 mg/dL (0.2-1)
[2022-08-22 10:07] LABS: ALK PHOS 81 U/L (45-117)
[2022-08-22] MEDS: SEVELAMER CARBONATE 0.8 GM POWDER PACKET PO SCH ×2 (10:09→13:42)
[2022-08-22] MEDS: LACTOBACILLUS ACIDOPHILUS 1 TABLET PO SCH ×2 (10:09→22:54)
[2022-08-22] MEDS: CALCITRIOL 0.25 MCG CAPSULE (FP) PO SCH (10:10)
[2022-08-22] MEDS: CARVEDILOL 12.5 MG TABLET (FP) PO SCH ×2 (10:10→22:54)
[2022-08-22 10:14] LABS: CREATININE 9.8 mg/dL (0.55-1.3)
[2022-08-22] MEDS: COLLAGENASE CLOSTRIDIUM HIST. 30 GRAMS TUBE TP SCH (12:39)
[2022-08-22] MEDS ORDERED: EPOETIN ALFA-EPBX 10,000 UNIT/ML VIAL SQ ONE (15:25)
[2022-08-22] MEDS: PIPERACILLIN/TAZOB 2.25 GM 2.25 GM in DEXTROSE 5%-WATER - 50 ML IVPB SCH (17:32)
[2022-08-23] MEDS: VANCOMYCIN 250 MG/5 ML ORAL SOLUTION PO SCH ×5 (00:28→23:15)
[2022-08-23] MEDS ORDERED: PIPERACILLIN/TAZOBACTAM 2.25 GM VIAL IVPB ONE ×2 (02:04→02:05)
[2022-08-23] MEDS: PIPERACILLIN/TAZOB 2.25 GM 2.25 GM in DEXTROSE 5%-WATER - 50 ML IVPB SCH ×3 (02:23→17:35)
[2022-08-23] MEDS: ONDANSETRON *ODT* 4 MG TABLET SL PRN ×2 (02:54→13:12)
[2022-08-23] MEDS ORDERED: INSULIN (NOVOLOG) ASPART 100 UNITS/ML 10ML VIAL ONE ×3 (06:14→21:46)
[2022-08-23] MEDS: hydrALAZINE HCL 25 MG TABLET (FP) PO SCH ×4 (06:33→22:06)
[2022-08-23] MEDS: INSULIN (LEVEMIR) 100 UNITS/ML UNITS SQ SCH ×2 (06:35→21:14)
[2022-08-23] MEDS: INSULIN SLIDING SCALE (NOVOLOG) 1 VIAL SQ SCH ×4 (06:35→21:54)
[2022-08-23 08:08] LABS: HEMATOCRIT 24.4 % (35.4-49); HEMOGLOBIN 7.8 GM/dL (11.7-16.9); MCH 29.2 pg (25.7-33.7); MCHC 32.2 g/dl (32.0-35.9); MEAN CELL VOLUME 90.8 fl (80-96); MEAN PLT VOLUME 8.3 fl (7.5-11.1); PLATELET COUNT 89 10^3/uL (134-434); RBC 2.68 M/mm3 (4.00-5.60); WHITE BLOOD COUNT 12.4 K/mm3 (4.0-10.0)
[2022-08-23 09:10] LABS: ANISOCYTOSIS 0; HELMET CELLS 0; HOWELL-JOLLY BODIES 0; MACROCYTOSIS 0; OVALOCYTE 0; ROULEAU 0; SICKELED CELLS 0; TARGET CELLS 0; TEAR DROP CELLS 0; TOXIC GRANULATION 0
[2022-08-23] MEDS: CALCITRIOL 0.25 MCG CAPSULE (FP) PO SCH (09:50)
[2022-08-23] MEDS: LACTOBACILLUS ACIDOPHILUS 1 TABLET PO SCH ×2 (09:50→21:15)
[2022-08-23] MEDS: CARVEDILOL 12.5 MG TABLET (FP) PO SCH ×3 (09:50→22:06)
[2022-08-23] MEDS: COLLAGENASE CLOSTRIDIUM HIST. 30 GRAMS TUBE TP SCH (09:51)
[2022-08-23] MEDS: ACETAMINOPHEN 325 MG TABLET (FP) PO PRN (14:16)
[2022-08-23] MEDS: DAPTOMYCIN IVPB SCH (17:35)
[2022-08-23] MEDS: SODIUM CHLORIDE IVPB SCH (17:35)
[2022-08-23] MEDS: BISMUTH SUBSALICYLATE 524 MG/30 ML PO SCH (22:32)
[2022-08-24] MEDS: ONDANSETRON *ODT* 4 MG TABLET SL PRN ×2 (00:53→17:30)
[2022-08-24] MEDS: PIPERACILLIN/TAZOB 2.25 GM 2.25 GM in DEXTROSE 5%-WATER - 50 ML IVPB SCH ×3 (02:50→18:23)
[2022-08-24] MEDS ORDERED: INSULIN (NOVOLOG) ASPART 100 UNITS/ML 10ML VIAL ONE ×2 (07:13→22:01)
[2022-08-24] MEDS: hydrALAZINE HCL 25 MG TABLET (FP) PO SCH ×3 (07:15→22:53)
[2022-08-24] MEDS: VANCOMYCIN 250 MG/5 ML ORAL SOLUTION PO SCH ×3 (07:15→19:09)
[2022-08-24] MEDS: INSULIN SLIDING SCALE (NOVOLOG) 1 VIAL SQ SCH ×4 (08:07→22:56)
[2022-08-24] MEDS: INSULIN (LEVEMIR) 100 UNITS/ML UNITS SQ SCH ×2 (08:08→22:53)
[2022-08-24] MEDS ORDERED: SODIUM CHLORIDE 250 ML IV PRN (08:23)
[2022-08-24 09:52] LABS: HEMATOCRIT 22.3 % (35.4-49); HEMOGLOBIN 7.1 GM/dL (11.7-16.9); MCH 28.8 pg (25.7-33.7); MCHC 31.8 g/dl (32.0-35.9); MEAN CELL VOLUME 90.6 fl (80-96); MEAN PLT VOLUME 8.6 fl (7.5-11.1); PLATELET COUNT 85 10^3/uL (134-434); RBC 2.46 M/mm3 (4.00-5.60); WHITE BLOOD COUNT 14.8 K/mm3 (4.0-10.0)
[2022-08-24] MEDS ORDERED: EPOETIN ALFA-EPBX 20,000 UNIT/ML VIAL IVPUSH ONE (10:00)
[2022-08-24 10:09] LABS: CHLORIDE 98 mmol/L (98-107); SODIUM 136 mmol/L (136-145)
[2022-08-24 10:17] LABS: ALBUMIN 2.2 g/dl (3.4-5.0); ANION GAP 13 MMOL/L (8-16); BLOOD UREA NITROGEN 54.9 mg/dL (7-18); CALCIUM 7.9 mg/dL (8.5-10.1); CO2 25 mmol/L (21-32); GLUCOSE,RANDOM 111 mg/dL (74-106); PHOSPHOROUS 4.8 mg/dL (2.5-4.9)
[2022-08-24 10:18] LABS: SGOT/AST 19 U/L (15-37)
[2022-08-24 10:19] LABS: BILIRUBIN,TOTAL 0.6 mg/dL (0.2-1); TOT PROT 6.7 g/dl (6.4-8.2)
[2022-08-24 10:20] LABS: ALK PHOS 72 U/L (45-117); SGPT/ALT 24 U/L (13-61)
[2022-08-24 10:34] LABS: CREATININE 8.5 mg/dL (0.55-1.3)
[2022-08-24] MEDS: CALCITRIOL 0.25 MCG CAPSULE (FP) PO SCH (12:45)
[2022-08-24] MEDS: LACTOBACILLUS ACIDOPHILUS 1 TABLET PO SCH ×2 (12:46→22:53)
[2022-08-24] MEDS: CARVEDILOL 12.5 MG TABLET (FP) PO SCH ×2 (12:47→22:53)
[2022-08-24] MEDS: COLLAGENASE CLOSTRIDIUM HIST. 30 GRAMS TUBE TP SCH (12:55)
[2022-08-24] MEDS: BISMUTH SUBSALICYLATE 524 MG/30 ML PO SCH ×2 (12:55→23:48)
[2022-08-24] MEDS: ACETAMINOPHEN 325 MG TABLET (FP) PO PRN (14:52)
[2022-08-25] MEDS: VANCOMYCIN 250 MG/5 ML ORAL SOLUTION PO SCH ×4 (01:47→17:39)
[2022-08-25] MEDS: PIPERACILLIN/TAZOB 2.25 GM 2.25 GM in DEXTROSE 5%-WATER - 50 ML IVPB SCH ×3 (02:53→17:41)
[2022-08-25] MEDS: INSULIN SLIDING SCALE (NOVOLOG) 1 VIAL SQ SCH ×4 (06:26→21:27)
[2022-08-25] MEDS: INSULIN (LEVEMIR) 100 UNITS/ML UNITS SQ SCH ×3 (06:40→21:16)
[2022-08-25] MEDS: hydrALAZINE HCL 25 MG TABLET (FP) PO SCH ×3 (06:40→21:16)
[2022-08-25] MEDS: BISMUTH SUBSALICYLATE 524 MG/30 ML PO SCH ×2 (09:59→21:31)
[2022-08-25] MEDS: CARVEDILOL 12.5 MG TABLET (FP) PO SCH ×2 (09:59→21:16)
[2022-08-25] MEDS: LACTOBACILLUS ACIDOPHILUS 1 TABLET PO SCH ×2 (09:59→21:16)
[2022-08-25] MEDS: CALCITRIOL 0.25 MCG CAPSULE (FP) PO SCH (10:00)
[2022-08-25] MEDS ORDERED: LOPERAMIDE HCL 2 MG CAPSULE PO ONE (14:12)
[2022-08-25] MEDS: COLLAGENASE CLOSTRIDIUM HIST. 30 GRAMS TUBE TP SCH (14:19)
[2022-08-25] MEDS: SODIUM CHLORIDE IVPB SCH (16:59)
[2022-08-25] MEDS: DAPTOMYCIN IVPB SCH (16:59)
[2022-08-25] MEDS: ONDANSETRON *ODT* 4 MG TABLET SL PRN (17:47)
[2022-08-25] MEDS ORDERED: INSULIN (NOVOLOG) ASPART 100 UNITS/ML 10ML VIAL ONE ×2 (19:09→20:46)
[2022-08-25 19:14] LABS: HEMATOCRIT 23.9 % (35.4-49); HEMOGLOBIN 7.7 GM/dL (11.7-16.9); MCH 28.7 pg (25.7-33.7); MEAN CELL VOLUME 89.8 fl (80-96); MEAN PLT VOLUME 8.8 fl (7.5-11.1); PLATELET COUNT 94 10^3/uL (134-434); RBC 2.66 M/mm3 (4.00-5.60); RDW 17.5 % (11.9-15.9); WHITE BLOOD COUNT 12.3 K/mm3 (4.0-10.0)
[2022-08-25 19:49] LABS: ANISOCYTOSIS 1+; MACROCYTOSIS 0
[2022-08-26] MEDS: VANCOMYCIN 250 MG/5 ML ORAL SOLUTION PO SCH ×4 (00:30→18:12)
[2022-08-26] MEDS ORDERED: PIPERACILLIN/TAZOBACTAM 2.25 GM VIAL IVPB ONE (00:48)
[2022-08-26] MEDS: PIPERACILLIN/TAZOB 2.25 GM 2.25 GM in DEXTROSE 5%-WATER - 50 ML IVPB SCH ×3 (02:10→18:12)
[2022-08-26] MEDS ORDERED: INSULIN (NOVOLOG) ASPART 100 UNITS/ML 10ML VIAL ONE ×7 (04:58→20:47)
[2022-08-26] MEDS: INSULIN (LEVEMIR) 100 UNITS/ML UNITS SQ SCH ×2 (06:31→21:37)
[2022-08-26] MEDS: hydrALAZINE HCL 25 MG TABLET (FP) PO SCH ×3 (06:31→21:33)
[2022-08-26] MEDS: INSULIN SLIDING SCALE (NOVOLOG) 1 VIAL SQ SCH ×4 (06:35→21:43)
[2022-08-26] MEDS: LACTOBACILLUS ACIDOPHILUS 1 TABLET PO SCH ×2 (09:22→21:43)
[2022-08-26] MEDS: CALCITRIOL 0.25 MCG CAPSULE (FP) PO SCH (09:22)
[2022-08-26] MEDS: CARVEDILOL 12.5 MG TABLET (FP) PO SCH ×2 (09:22→21:33)
[2022-08-26] MEDS: COLLAGENASE CLOSTRIDIUM HIST. 30 GRAMS TUBE TP SCH (09:23)
[2022-08-26] MEDS: BISMUTH SUBSALICYLATE 524 MG/30 ML PO SCH (09:23)
[2022-08-26 10:37] LABS: BASO % 0.5 % (0-2.0); EOS % 0.8 % (0-4.5); HEMATOCRIT 24.1 % (35.4-49); HEMOGLOBIN 7.9 GM/dL (11.7-16.9); LYMPH % 6.7 % (8-40); MCH 29.3 pg (25.7-33.7); MCHC 32.8 g/dl (32.0-35.9); MEAN CELL VOLUME 89.4 fl (80-96); MEAN PLT VOLUME 8.5 fl (7.5-11.1); MONO % 14.4 % (3.8-10.2); NEUT % 77.6 % (42.8-82.8); PLATELET COUNT 93 10^3/uL (134-434); RDW 17.5 % (11.9-15.9); WHITE BLOOD COUNT 9.6 K/mm3 (4.0-10.0)
[2022-08-26 10:56] LABS: CHLORIDE 96 mmol/L (98-107); SODIUM 136 mmol/L (136-145)
[2022-08-26 10:58] LABS: ALBUMIN 2.1 g/dl (3.4-5.0); ANION GAP 13 MMOL/L (8-16); BLOOD UREA NITROGEN 50.3 mg/dL (7-18); CALCIUM 7.7 mg/dL (8.5-10.1); CO2 27 mmol/L (21-32)
[2022-08-26 10:59] LABS: GLUCOSE,RANDOM 165 mg/dL (74-106)
[2022-08-26 11:01] LABS: SGPT/ALT 16 U/L (13-61)
[2022-08-26 11:02] LABS: SGOT/AST 12 U/L (15-37)
[2022-08-26 11:03] LABS: BILIRUBIN,TOTAL 0.7 mg/dL (0.2-1)
[2022-08-26 11:04] LABS: ALK PHOS 68 U/L (45-117); CREATININE 8.8 mg/dL (0.55-1.3)
[2022-08-27] MEDS: VANCOMYCIN 250 MG/5 ML ORAL SOLUTION PO SCH ×2 (00:15→07:09)
[2022-08-27] MEDS: PIPERACILLIN/TAZOB 2.25 GM 2.25 GM in DEXTROSE 5%-WATER - 50 ML IVPB SCH ×2 (02:59→12:22)
[2022-08-27] MEDS: hydrALAZINE HCL 25 MG TABLET (FP) PO SCH ×4 (06:08→22:03)
[2022-08-27] MEDS ORDERED: INSULIN (NOVOLOG) ASPART 100 UNITS/ML 10ML VIAL ONE (07:01)
[2022-08-27] MEDS: INSULIN (LEVEMIR) 100 UNITS/ML UNITS SQ SCH ×2 (07:09→22:28)
[2022-08-27] MEDS: INSULIN SLIDING SCALE (NOVOLOG) 1 VIAL SQ SCH ×4 (07:13→22:01)
[2022-08-27] MEDS ORDERED: SODIUM CHLORIDE 250 ML IV PRN (10:00)
[2022-08-27] MEDS ORDERED: EPOETIN ALFA-EPBX 20,000 UNIT/ML VIAL IVPUSH ONE (10:00)
[2022-08-27] MEDS: LACTOBACILLUS ACIDOPHILUS 1 TABLET PO SCH ×3 (10:28→21:49)
[2022-08-27] MEDS: CALCITRIOL 0.25 MCG CAPSULE (FP) PO SCH ×2 (10:28→13:37)
[2022-08-27] MEDS: CARVEDILOL 12.5 MG TABLET (FP) PO SCH ×4 (10:28→22:01)
[2022-08-27] MEDS: COLLAGENASE CLOSTRIDIUM HIST. 30 GRAMS TUBE TP SCH (13:37)
[2022-08-27] MEDS ORDERED: VANCOMYCIN/WATER FOR INJ (PEG) 1,000 MG/200 ML BAG IVPB ONE (14:49)
[2022-08-27] MEDS: metroNIDAZOLE 500 MG TABLET PO SCH ×3 (17:03→21:49)
[2022-08-27] MEDS: ATORVASTATIN CA 40 MG TABLET (FP) PO SCH (21:50)
[2022-08-27] MEDS ORDERED: INSULIN (LEVEMIR) 100 UNITS/ML UNITS SQ ONE (22:26)
[2022-08-28] MEDS: INSULIN (LEVEMIR) 100 UNITS/ML UNITS SQ SCH ×2 (06:54→21:34)
[2022-08-28] MEDS: metroNIDAZOLE 500 MG TABLET PO SCH ×3 (06:54→21:34)
[2022-08-28] MEDS: hydrALAZINE HCL 25 MG TABLET (FP) PO SCH ×3 (06:54→21:34)
[2022-08-28] MEDS: INSULIN SLIDING SCALE (NOVOLOG) 1 VIAL SQ SCH ×4 (06:57→21:41)
[2022-08-28] MEDS: LACTOBACILLUS ACIDOPHILUS 1 TABLET PO SCH ×2 (09:21→21:43)
[2022-08-28] MEDS: CALCITRIOL 0.25 MCG CAPSULE (FP) PO SCH (09:21)
[2022-08-28] MEDS: CARVEDILOL 12.5 MG TABLET (FP) PO SCH ×2 (09:41→21:34)
[2022-08-28] MEDS: COLLAGENASE CLOSTRIDIUM HIST. 30 GRAMS TUBE TP SCH (09:42)
[2022-08-28] MEDS ORDERED: SODIUM CHLORIDE 250 ML IV PRN (14:15)
[2022-08-28] MEDS ORDERED: INSULIN (NOVOLOG) ASPART 100 UNITS/ML 10ML VIAL ONE (21:08)
[2022-08-28] MEDS: ATORVASTATIN CA 40 MG TABLET (FP) PO SCH (21:34)
[2022-08-28] MEDS: BISMUTH SUBSALICYLATE 524 MG/30 ML PO SCH (21:42)
[2022-08-29] MEDS ORDERED: INSULIN (NOVOLOG) ASPART 100 UNITS/ML 10ML VIAL ONE (05:17)
[2022-08-29] MEDS: hydrALAZINE HCL 25 MG TABLET (FP) PO SCH ×2 (05:59→14:22)
[2022-08-29] MEDS: metroNIDAZOLE 500 MG TABLET PO SCH ×2 (06:04→14:21)
[2022-08-29] MEDS: INSULIN (LEVEMIR) 100 UNITS/ML UNITS SQ SCH (06:06)
[2022-08-29] MEDS: BISMUTH SUBSALICYLATE 524 MG/30 ML PO SCH ×2 (06:06→14:21)
[2022-08-29] MEDS: INSULIN SLIDING SCALE (NOVOLOG) 1 VIAL SQ SCH ×2 (06:07→12:15)
[2022-08-29] MEDS: CARVEDILOL 12.5 MG TABLET (FP) PO SCH ×2 (08:28→10:43)
[2022-08-29] MEDS: LACTOBACILLUS ACIDOPHILUS 1 TABLET PO SCH ×2 (08:28→10:43)
[2022-08-29 08:54] VITALS: RESP 18
[2022-08-29] MEDS ORDERED: VANCOMYCIN/WATER FOR INJ (PEG) 1,000 MG/200 ML BAG IVPB ONE (09:00)
[2022-08-29] MEDS ORDERED: EPOETIN ALFA-EPBX 20,000 UNIT/ML VIAL IVPUSH ONE (09:00)
[2022-08-29 09:56] LABS: HEMATOCRIT 20.8 % (35.4-49); MCH 29.7 pg (25.7-33.7); MEAN CELL VOLUME 89.8 fl (80-96); MEAN PLT VOLUME 8.9 fl (7.5-11.1); PLATELET COUNT 110 10^3/uL (134-434); RBC 2.32 M/mm3 (4.00-5.60); RDW 18.1 % (11.9-15.9); WHITE BLOOD COUNT 8.4 K/mm3 (4.0-10.0)
[2022-08-29 10:02] LABS: HEMOGLOBIN 6.9 GM/dL (11.7-16.9)
[2022-08-29] MEDS: CALCITRIOL 0.25 MCG CAPSULE (FP) PO SCH (10:44)
[2022-08-29 10:47] LABS: CHLORIDE 100 mmol/L (98-107); SODIUM 138 mmol/L (136-145)
[2022-08-29 10:48] LABS: ANION GAP 12 MMOL/L (8-16); CALCIUM 7.4 mg/dL (8.5-10.1); CO2 26 mmol/L (21-32); GLUCOSE,RANDOM 168 mg/dL (74-106)
[2022-08-29 10:50] LABS: ALBUMIN 2.1 g/dl (3.4-5.0); BLOOD UREA NITROGEN 49.9 mg/dL (7-18)
[2022-08-29] MEDS: COLLAGENASE CLOSTRIDIUM HIST. 30 GRAMS TUBE TP SCH (10:50)
[2022-08-29 10:52] LABS: SGPT/ALT 15 U/L (13-61)
[2022-08-29 10:53] LABS: SGOT/AST 17 U/L (15-37)
[2022-08-29 10:54] LABS: ALK PHOS 79 U/L (45-117); BILIRUBIN,TOTAL 0.8 mg/dL (0.2-1)
[2022-08-29 10:57] LABS: CREATININE 8.7 mg/dL (0.55-1.3)
[2022-08-29 15:03] VITALS: BP 136/68; PULSE 73; TEMP 99.8
== END 2022-08-29 16:00 | disposition home health service (06) | DRG 602 ==
LOC: JER 13:30 → JERBED 19:38 → J8W 20:45
PROVIDERS: ADMIT Internal Medicine; ATTEND Family Medicine
PROC: 0Y9M3ZZ Drainage of Right Foot, Percutaneous Approach (ICD-10-PCS; principal; 2022-08-17)
PROC: 5A1D70Z Performance of Urinary Filtration, Intermittent, Less than 6 Hours Per Day (ICD-10-PCS; 2022-08-17)
PROC: 5A1D70Z Performance of Urinary Filtration, Intermittent, Less than 6 Hours Per Day (ICD-10-PCS; 2022-08-17)
PROC: 5A1D70Z Performance of Urinary Filtration, Intermittent, Less than 6 Hours Per Day (ICD-10-PCS; 2022-08-17)
DX: L03.115 Cellulitis of right lower limb (principal); N18.6 End stage renal disease; A04.72 Enterocolitis due to Clostridium difficile, not specified as recurrent; R78.81 Bacteremia; I13.2 Hypertensive heart and chronic kidney disease with heart failure and with stage 5 chronic kidney disease, or end stage renal disease; L02.611 Cutaneous abscess of right foot; E78.5 Hyperlipidemia, unspecified; D63.1 Anemia in chronic kidney disease; D69.6 Thrombocytopenia, unspecified; A49.02 Methicillin resistant Staphylococcus aureus infection, unspecified site; E11.51 Type 2 diabetes mellitus with diabetic peripheral angiopathy without gangrene; E87.70 Fluid overload, unspecified; E83.51 Hypocalcemia; E11.65 Type 2 diabetes mellitus with hyperglycemia; E11.22 Type 2 diabetes mellitus with diabetic chronic kidney disease; I50.9 Heart failure, unspecified; Z99.2 Dependence on renal dialysis; Z89.422 Acquired absence of other left toe(s); Z89.512 Acquired absence of left leg below knee; Z91.148 Patient's other noncompliance with medication regimen for other reason
CPT/HCPCS: 0241U-QW; 36415; 36430; 71045-TC-FY; 74018-TC-FY; 74176-TC; 80048; 80053; 82010; 82550; 82803; 82962; 83036; 83735; 83993; 84100; 85025; 85027; 86803; 86850; 86900; 86901; 86922; 87040; 87045; 87046; 87070; 87186; 87205; 87209; 87324; 87340; 87449; 87493; 93005; 93010; 93306-TC; 93925-TC; 93971-TC; 97116-GP; 97162-GP; 99285-25; G0480; J0878; P9058; Q0162; Q5106

== ENCOUNTER 2025-01-27 11:10 | Inpatient (IN) | payer OTHER ==
[2025-01-27] MEDS ORDERED: ACETAMINOPHEN INJECTION 100 ML ONE (11:36)
[2025-01-27] MEDS ORDERED: ALBUTEROL SO4 2.5/IPRATROPIUM 0.5 INH SOL 3 ML VIAL.NEB. NEB ONE ×3 (11:36→16:46)
[2025-01-27] MEDS: ACETAMINOPHEN 1000 MG/100 ML BAG IVPB ONE (11:51)
[2025-01-27] MEDS: ALBUTEROL SO4 2.5/IPRATROPIUM 0.5 INH SOL 3 ML VIAL.NEB. NEB ONE (11:51)
[2025-01-27] MEDS ORDERED: LORazepam 2 MG/ML SDV VIAL ONE (11:52)
[2025-01-27 11:56] LABS: MCHC 29.6 g/dl (32.3-36.5); MEAN CELL VOLUME 104.7 fl (79.0-92.2); RDW 16.3 % (12.2-16.6)
[2025-01-27] MEDS ORDERED: PIPERACILLIN/TAZOB 3.375 GM 3.375 GM/50 ML BAG IVPB ONE (12:03)
[2025-01-27] MEDS ORDERED: VANCOMYCIN 1 GM PREMIX (F) 1 GM/200 ML BAG ONE (12:03)
[2025-01-27 12:04] LABS: INR 1.52 (0.83-1.09); PROTHROMBIN TIME (PATIENT) 16.6 SEC (9.7-13.0)
[2025-01-27 12:05] LABS: BG HCT 39.0 % (35.4-49); VENOUS BASE EXCESS -0.4 mmol/L (-2-2); VENOUS O2 SATURATION 26.4 % (70-80); VENOUS PCO2 56.7 mmHg (38-52); VENOUS PH 7.297 (7.310-7.410)
[2025-01-27 12:07] LABS: ACTIVATED PTT 31.1 SECONDS (25.2-36.5)
[2025-01-27] MEDS: PIPERACILLIN/TAZOB 3.375 GM 3.375 GM in DEXTROSE 5%-WATER - 50 ML IVPB ONE (12:18)
[2025-01-27 12:21] LABS: GLUCOSE,RANDOM 146.0 mg/dL (74-106); TOT PROT 8.1 g/dl (6.4-8.2)
[2025-01-27 12:22] LABS: CO2 21.0 mmol/L (21-32)
[2025-01-27 12:23] LABS: ALK PHOS 186.0 U/L (40-150)
[2025-01-27 12:26] LABS: SGOT/AST 38.0 U/L (5-34); SGPT/ALT 16.0 U/L (0-55)
[2025-01-27 12:27] LABS: CREATININE 5.97 mg/dL (0.55-1.3)
[2025-01-27] MEDS: VANCOMYCIN 1,000 MG in DEXTROSE 5%-WATER - 250 ML IVPB ONE (12:32)
[2025-01-27] MEDS: SODIUM CHLORIDE 0.9% 500 ML INFUS.BAG IV ONE (12:33)
[2025-01-27] MEDS: ONDANSETRON 4 MG/2 ML VIAL IVPUSH ONE (12:33)
[2025-01-27 13:35] LABS: HCV DIAGNOSTIC IN-HOUSE W/RFLX NON-REACTIVE (NONREACTIVE); HIV INTERPRETATION NEGATIVE (NEGATIVE)
[2025-01-27 15:43] LABS: BG HCT 36.0 % (35.4-49); VENOUS BASE EXCESS -4.8 mmol/L (-2-2); VENOUS O2 SATURATION 71.5 % (70-80); VENOUS PCO2 54.2 mmHg (38-52); VENOUS PH 7.244 (7.310-7.410)
[2025-01-27] MEDS: methylPREDNISolone NA SUCC 40 MG/1 ML VIAL IVPUSH SCH (15:45)
[2025-01-27] MEDS ORDERED: methylPREDNISolone NA SUCC 40 MG/1 ML VIAL ONE (15:55)
[2025-01-27] MEDS: ALBUTEROL SO4 2.5/IPRATROPIUM 0.5 INH SOL 3 ML VIAL.NEB. NEB SCH (16:50)
[2025-01-27] MEDS ORDERED: SODIUM CHLORIDE 250 ML IV PRN (16:55)
[2025-01-27 20:16] LABS: HEPATITIS B SURF AG NON-MATERN NON-REACTIVE (NONREACTIVE)
[2025-01-27] MEDS: ATORVASTATIN CA 40 MG TABLET (FP) PO SCH (22:27)
[2025-01-27] MEDS: CARVEDILOL 12.5 MG TABLET (FP) PO SCH (22:27)
[2025-01-27] MEDS: HEPARIN NA (PORCINE) 5,000 UNITS/ML 1ML VIAL SQ SCH (22:28)
[2025-01-27] MEDS: hydrALAZINE HCL 25 MG TABLET (FP) PO SCH (22:28)
[2025-01-27] MEDS: PIPERACILLIN/TAZOB 2.25 GM 2.25 GM in DEXTROSE 5%-WATER - 50 ML IVPB SCH (22:28)
[2025-01-27] MEDS: INSULIN ASPART SLIDING SCALE (NOVOLOG) 1 VIAL SQ SCH (22:31)
[2025-01-28] MEDS: BUDESONIDE/FORMETEROL FUMARATE 160/4.5 mcg INHALER IH SCH (00:24)
[2025-01-28] MEDS: VANCOMYCIN HCL 125 MG CAPSULE (RESTRICTED TO ID ONLY) PO SCH ×2 (00:25→18:03)
[2025-01-28 01:18] VITALS: BMI 28.6
[2025-01-28 08:57] LABS: BASOPHILS # 0.00 x10^3/uL (0.01-0.08); EOSINOPHIL % 0.0 % (0.8-7.0); EOSINOPHILS # 0.00 x10^3/uL (0.04-0.54); MEAN CELL VOLUME 104.7 fl (79.0-92.2)
[2025-01-28 08:58] LABS: ABSOLUTE IMMATURE GRANULOCYTES 0.03 x10^3/uL (0.0-0.031); IMMATURE PLATELET FRACTION # 4.90 x10^3/uL; MCHC 29.5 g/dl (32.3-36.5); MONOCYTE # 0.56 x10^3/uL (0.30-0.82); MONOCYTE % 8.9 % (5.3-12.2); RDW 16.6 % (12.2-16.6)
[2025-01-28] MEDS: CALCIUM ACETATE 667 MG CAPSULE (FP) PO SCH (09:12)
[2025-01-28] MEDS: CALCITRIOL 0.25 MCG CAPSULE (FP) PO SCH (09:13)
[2025-01-28 09:20] LABS: GLUCOSE,RANDOM 232.0 mg/dL (74-106)
[2025-01-28 09:21] LABS: TOT PROT 7.5 g/dl (6.4-8.2)
[2025-01-28 09:22] LABS: CO2 25.0 mmol/L (21-32)
[2025-01-28 09:23] LABS: ALK PHOS 140.0 U/L (40-150)
[2025-01-28 09:26] LABS: CREATININE 4.64 mg/dL (0.55-1.3); SGOT/AST 21.0 U/L (5-34); SGPT/ALT 10.0 U/L (0-55)
[2025-01-28] MEDS: CARVEDILOL 12.5 MG TABLET (FP) PO SCH (10:18)
[2025-01-28] MEDS ORDERED: SODIUM CHLORIDE 250 ML IV PRN (12:16)
[2025-01-28] MEDS: ALBUMIN HUMAN 25% 12.5 GM/50 ML VIAL IV SCH (12:26)
[2025-01-28 13:15] LABS: EPI CELLS 23 /uL (0-25.1); HYALINE CASTS 4 /uL (0-3.1); URINE APPEARANCE TURBID; URINE BILIRUBIN 1+ (NEGATIVE); URINE COLOR RED; URINE GLUCOSE (UA) TRACE (NEGATIVE); URINE KETONE NEGATIVE (NEGATIVE); URINE LEUK ESTERASE 3+ (NEGATIVE); URINE NITRITE POSITIVE (NEGATIVE); URINE PROTEIN 2+ (NEGATIVE); URINE UROBILINOGEN 0.2 mg/dL (0.2-1.0); URINE WBC 3857 /uL (0-25.8)
[2025-01-28 13:16] LABS: URINE BACTERIA 368.5 /uL (0-1359); URINE RBC 25169.7 /uL (0-23.9); YEAST PRESENT (NEGATIVE)
[2025-01-28 15:36] LABS: MCHC 29.1 g/dl (32.3-36.5)
[2025-01-28 15:38] LABS: IMMATURE PLATELET FRACTION # 4.80 x10^3/uL; MEAN CELL VOLUME 105.4 fl (79.0-92.2); RDW 16.4 % (12.2-16.6)
[2025-01-28 23:50] LABS: LDH 270.0 U/L (87-246)
[2025-01-29 08:10] LABS: ABSOLUTE IMMATURE GRANULOCYTES 0.03 x10^3/uL (0.0-0.031); BASOPHILS # 0.00 x10^3/uL (0.01-0.08); EOSINOPHIL % 0.0 % (0.8-7.0); EOSINOPHILS # 0.00 x10^3/uL (0.04-0.54); MCHC 30.1 g/dl (32.3-36.5); MEAN CELL VOLUME 103.2 fl (79.0-92.2); MONOCYTE # 0.43 x10^3/uL (0.30-0.82); MONOCYTE % 9.5 % (5.3-12.2); RDW 16.6 % (12.2-16.6)
[2025-01-29 08:17] LABS: INR 1.49 (0.83-1.09); PROTHROMBIN TIME (PATIENT) 16.2 SEC (9.7-13.0)
[2025-01-29 08:20] LABS: ACTIVATED PTT 28.9 SECONDS (25.2-36.5)
[2025-01-29 08:45] LABS: GLUCOSE,RANDOM 221.0 mg/dL (74-106)
[2025-01-29 08:47] LABS: CO2 27.0 mmol/L (21-32)
[2025-01-29 08:51] LABS: CREATININE 6.0 mg/dL (0.55-1.3)
[2025-01-29 08:54] LABS: TOT PROT 7.3 g/dl (6.4-8.2)
[2025-01-29 08:56] LABS: ALK PHOS 124.0 U/L (40-150)
[2025-01-29 08:59] LABS: SGOT/AST 23.0 U/L (5-34); SGPT/ALT 12.0 U/L (0-55)
[2025-01-29] MEDS: ALBUMIN HUMAN 25% 12.5 GM/50 ML VIAL IV SCH (09:00)
[2025-01-29] MEDS: INSULIN GLARGINE (LANTUS) 100 UNITS/ML UNITS SQ SCH (09:03)
[2025-01-29 09:08] LABS: LDH 265.0 U/L (87-246)
[2025-01-29] MEDS: PIPERACILLIN/TAZOB 2.25 GM 2.25 GM in DEXTROSE 5%-WATER - 50 ML IVPB SCH (22:11)
[2025-01-29] MEDS: amLODIPine BESYLATE 5 MG TABLET (FP) PO ONE (22:51)
[2025-01-30 08:44] LABS: MEAN CELL VOLUME 104.9 fl (79.0-92.2); RDW 17.0 % (12.2-16.6)
[2025-01-30 08:46] LABS: IMMATURE PLATELET FRACTION # 5.30 x10^3/uL; MCHC 29.5 g/dl (32.3-36.5)
[2025-01-30 09:17] LABS: GLUCOSE,RANDOM 372.0 mg/dL (74-106)
[2025-01-30 09:18] LABS: TOT PROT 7.0 g/dl (6.4-8.2)
[2025-01-30 09:19] LABS: CO2 23.0 mmol/L (21-32)
[2025-01-30 09:20] LABS: ALK PHOS 112.0 U/L (40-150)
[2025-01-30 09:23] LABS: CREATININE 4.65 mg/dL (0.55-1.3); SGOT/AST 26.0 U/L (5-34); SGPT/ALT 15.0 U/L (0-55)
[2025-01-30] MEDS: PIPERACILLIN/TAZOB 2.25 GM 2.25 GM in DEXTROSE 5%-WATER - 50 ML IVPB SCH (10:09)
[2025-01-30] MEDS ORDERED: SODIUM CHLORIDE 250 ML IV PRN (10:12)
[2025-01-30] MEDS: EPOETIN ALFA-EPBX 4,000 UNIT/ML VIAL SQ ONE (11:20)
[2025-01-30] MEDS: ACETAMINOPHEN 325 MG TABLET (FP) PO PRN (22:26)
[2025-01-31] MEDS ORDERED: INSULIN ASPART SLIDING SCALE (NOVOLOG) 1 VIAL SQ ONE (08:04)
[2025-01-31] MEDS ORDERED: INSULIN GLARGINE (LANTUS) 100 UNITS/ML UNITS SQ ONE (08:04)
[2025-01-31] MEDS: methylPREDNISolone NA SUCC 40 MG/1 ML VIAL IVPUSH SCH (21:12)
[2025-01-31] MEDS: INSULIN GLARGINE (LANTUS) 100 UNITS/ML UNITS SQ SCH (21:14)
[2025-01-31] MEDS ORDERED: INSULIN GLARGINE (LANTUS) 100 UNITS/ML UNITS SQ SCH ×2 (21:49→22:30)
[2025-01-31] MEDS: INSULIN GLARGINE (LANTUS) 100 UNITS/ML UNITS SQ ONE (22:34)
[2025-02-01] MEDS: INSULIN GLARGINE (LANTUS) 100 UNITS/ML UNITS SQ SCH (06:08)
[2025-02-01] MEDS: INSULIN ASPART SLIDING SCALE (NOVOLOG) 1 VIAL SQ SCH ×2 (06:10→12:11)
[2025-02-02] MEDS ORDERED: SODIUM CHLORIDE 250 ML IV PRN (08:07)
[2025-02-02 08:16] LABS: EOSINOPHIL % 0.0 % (0.8-7.0); EOSINOPHILS # 0.00 x10^3/uL (0.04-0.54)
[2025-02-02 08:17] LABS: ABSOLUTE IMMATURE GRANULOCYTES 1.39 x10^3/uL (0.0-0.031); BASOPHILS # 0.08 x10^3/uL (0.01-0.08); IMMATURE PLATELET FRACTION # 5.80 x10^3/uL; MCHC 29.4 g/dl (32.3-36.5); MEAN CELL VOLUME 102.1 fl (79.0-92.2); MONOCYTE # 1.22 x10^3/uL (0.30-0.82); MONOCYTE % 9.9 % (5.3-12.2); RDW 17.1 % (12.2-16.6)
[2025-02-02 08:58] LABS: GLUCOSE,RANDOM 91.0 mg/dL (74-106)
[2025-02-02 08:59] LABS: TOT PROT 6.9 g/dl (6.4-8.2)
[2025-02-02 09:00] LABS: CO2 24.0 mmol/L (21-32)
[2025-02-02 09:01] LABS: ALK PHOS 99.0 U/L (40-150)
[2025-02-02 09:04] LABS: CREATININE 6.5 mg/dL (0.55-1.3); SGOT/AST 31.0 U/L (5-34); SGPT/ALT 30.0 U/L (0-55)
[2025-02-02] MEDS: EPOETIN ALFA-EPBX 10,000 UNIT/ML VIAL SQ ONE (12:10)
[2025-02-03 08:54] LABS: IMMATURE PLATELET FRACTION # 5.40 x10^3/uL; MCHC 29.4 g/dl (32.3-36.5); MEAN CELL VOLUME 102.7 fl (79.0-92.2); RDW 17.1 % (12.2-16.6)
[2025-02-03 10:00] LABS: HEPATITIS B SURF AG NON-MATERN NON-REACTIVE (NONREACTIVE)
[2025-02-04 07:51] LABS: RDW 17.4 % (12.2-16.6)
[2025-02-04 07:53] LABS: IMMATURE PLATELET FRACTION # 7.00 x10^3/uL; MCHC 29.8 g/dl (32.3-36.5); MEAN CELL VOLUME 102.3 fl (79.0-92.2)
[2025-02-04 08:05] LABS: GLUCOSE,RANDOM 37 mg/dL (74-106)
[2025-02-04 08:06] LABS: TOT PROT 6.9 g/dl (6.4-8.2)
[2025-02-04 08:07] LABS: CO2 26 mmol/L (21-32)
[2025-02-04 08:08] LABS: ALK PHOS 87 U/L (40-150)
[2025-02-04 08:11] LABS: CREATININE 6.27 mg/dL (0.55-1.3); SGOT/AST 36 U/L (5-34); SGPT/ALT 35 U/L (0-55)
[2025-02-04] MEDS: methylPREDNISolone NA SUCC 40 MG/1 ML VIAL IVPUSH SCH (09:40)
[2025-02-04] MEDS ORDERED: SODIUM CHLORIDE 250 ML IV PRN (12:45)
[2025-02-04 18:07] LABS: STOOL PH 6.5 (7.0-7.5)
[2025-02-05 09:15] LABS: MEAN CELL VOLUME 103.0 fl (79.0-92.2)
[2025-02-05 09:17] LABS: IMMATURE PLATELET FRACTION # 6.80 x10^3/uL; MCHC 28.8 g/dl (32.3-36.5); RDW 17.5 % (12.2-16.6)
[2025-02-05] MEDS ORDERED: SODIUM CHLORIDE 250 ML IV PRN (10:04)
[2025-02-05] MEDS: INSULIN GLARGINE (LANTUS) 100 UNITS/ML UNITS SQ SCH (22:33)
[2025-02-06 08:34] LABS: MCHC 29.7 g/dl (32.3-36.5); MEAN CELL VOLUME 101.6 fl (79.0-92.2); RDW 17.6 % (12.2-16.6)
[2025-02-06 08:48] LABS: GLUCOSE,RANDOM 50.0 mg/dL (74-106); TOT PROT 6.5 g/dl (6.4-8.2)
[2025-02-06 08:49] LABS: CO2 24.0 mmol/L (21-32)
[2025-02-06 08:51] LABS: ALK PHOS 91.0 U/L (40-150)
[2025-02-06 08:53] LABS: SGPT/ALT 40.0 U/L (0-55)
[2025-02-06 08:54] LABS: CREATININE 5.71 mg/dL (0.55-1.3); SGOT/AST 53.0 U/L (5-34)
[2025-02-07 08:01] LABS: RDW 17.7 % (12.2-16.6)
[2025-02-07 08:02] LABS: IMMATURE PLATELET FRACTION # 4.40 x10^3/uL; MCHC 29.4 g/dl (32.3-36.5); MEAN CELL VOLUME 101.7 fl (79.0-92.2)
[2025-02-07 08:32] LABS: GLUCOSE,RANDOM 108.0 mg/dL (74-106)
[2025-02-07 08:33] LABS: CO2 26.0 mmol/L (21-32); TOT PROT 6.2 g/dl (6.4-8.2)
[2025-02-07 08:35] LABS: ALK PHOS 95.0 U/L (40-150)
[2025-02-07 08:38] LABS: CREATININE 4.61 mg/dL (0.55-1.3); SGOT/AST 46.0 U/L (5-34); SGPT/ALT 35.0 U/L (0-55)
[2025-02-07] MEDS ORDERED: BENZOCAINE/MENTH/CETYLPYRD CL 1 EACH LOZENGE MM PRN (08:56)
[2025-02-08 08:20] LABS: MCHC 29.7 g/dl (32.3-36.5)
[2025-02-08 08:22] LABS: IMMATURE PLATELET FRACTION # 4.00 x10^3/uL; MEAN CELL VOLUME 100.6 fl (79.0-92.2); RDW 17.9 % (12.2-16.6)
[2025-02-08] MEDS ORDERED: SODIUM CHLORIDE 250 ML IV PRN (15:20)
[2025-02-08] MEDS ORDERED: LIDOCAINE VISCOUS 2% ORAL/TOP 15 ML UNIT-DOSE CUP MM PRN (17:49)
[2025-02-08] MEDS: MAG HYDROX/ALH/SMC/DPHA/LIDO 240 ML MOUTHWASH MM SCH (21:24)
[2025-02-09 08:37] LABS: IMMATURE PLATELET FRACTION # 4.60 x10^3/uL; MCHC 30.1 g/dl (32.3-36.5); MEAN CELL VOLUME 100.6 fl (79.0-92.2); RDW 18.3 % (12.2-16.6)
[2025-02-09 10:07] LABS: GLUCOSE,RANDOM 116.0 mg/dL (74-106)
[2025-02-09 10:08] LABS: TOT PROT 6.7 g/dl (6.4-8.2)
[2025-02-09 10:09] LABS: CO2 23.0 mmol/L (21-32)
[2025-02-09 10:10] LABS: ALK PHOS 97.0 U/L (40-150)
[2025-02-09 10:13] LABS: CREATININE 6.91 mg/dL (0.55-1.3); SGOT/AST 38.0 U/L (5-34); SGPT/ALT 33.0 U/L (0-55)
[2025-02-09 18:04] VITALS: RESP 16
[2025-02-10 06:43] VITALS: TEMP 97.7
[2025-02-10 10:11] VITALS: BP 140/58; PULSE 63
== END 2025-02-10 14:31 | disposition home health service (06) | DRG 193 ==
LOC: JER 11:10 → JERBED 16:21 → J4S 21:25
PROVIDERS: ADMIT Family Medicine; ATTEND Family Medicine
PROC: 5A1D70Z Performance of Urinary Filtration, Intermittent, Less than 6 Hours Per Day (ICD-10-PCS; principal; 2025-02-09)
DX: J18.9 Pneumonia, unspecified organism (principal); I50.33 Acute on chronic diastolic (congestive) heart failure; J96.02 Acute respiratory failure with hypercapnia; N18.6 End stage renal disease; I13.2 Hypertensive heart and chronic kidney disease with heart failure and with stage 5 chronic kidney disease, or end stage renal disease; R04.2 Hemoptysis; I24.89 Other forms of acute ischemic heart disease; J44.0 Chronic obstructive pulmonary disease with (acute) lower respiratory infection; A04.72 Enterocolitis due to Clostridium difficile, not specified as recurrent; D69.6 Thrombocytopenia, unspecified; D63.1 Anemia in chronic kidney disease; E11.9 Type 2 diabetes mellitus without complications; Z99.2 Dependence on renal dialysis; E78.5 Hyperlipidemia, unspecified
CPT/HCPCS: 36415; 71045-TC-FY; 71260-TC; 71275-TC; 74177-TC; 76705-TC; 80048; 80053; 80076; 81003; 82248; 82438; 82607; 82747; 82803; 82962; 83010; 83036; 83605; 83615; 83735; 83986; 84100; 84302; 84443; 84484; 84999; 85014; 85025; 85027; 85384; 85610; 85730; 86140; 86704; 86708; 86803; 86850; 86880; 86900; 86901; 87040; 87045; 87046; 87081; 87086; 87205; 87209; 87324; 87340; 87389; 87425; 87449; 87493; 87517; 87637-QW; 87899; 93005; 93010; 94640; 94660; 97116-GP; 97161-GP; 99285-25; G0480; Q5106; Q9967